=== PATIENT | male | born 1935 | race Caucasian/White ===

== ENCOUNTER 2016-11-20 10:20 | Inpatient (IN) ==
[2016-11-20] MEDS ORDERED: FUROSEMIDE 100 MG/10 ML VIAL IV STA (10:59)
--- NOTE | 2016-11-20 11:02 | EKG Report ---
Stationary ECG Study [facility] Test Date: 11/20/2016 10:54:24 AM Pat Name: LUIS VARGAS Department: Room: Gender: M Sped Teacher: ARASELI Diloln : 1935 Requested by: Terry Hamm Order Number: [id number] Reading MD: MARCY PEREZ Intervals [place] Rate: 97 P: 999 WV: 0 QRS: -59 QRSD: 127 T: 110 QT: 409 QTc: 463 Interpretive Statements ATRIAL FIBRILLATION WITH ABERRANT CONDUCTION OR VENTRICULAR PREMATURE COMPLEXES RIGHT BUNDLE BRANCH BLOCK LEFT ANTERIOR FASCICULAR BLOCK Electronically Signed On 11-20-16 14:26:52 CDT by MARCY PEREZ [email or web address]
[2016-11-20] MEDS ORDERED: FUROSEMIDE 100 MG/10 ML VIAL ONE (11:19)
[2016-11-20 11:29] LABS: Basophils # 0.1 10*3/uL (0.0-0.2); Basophils % 0.6 % (0.0-0.8); Eosinophils # 0.2 10*3/uL (0.0-0.87); Eosinophils % 2.4 % (0.00-10.9); Hematocrit 40.6 VOL% (42.0-52.0); Hemoglobin 13.1 GM/DL (14.0-18.0); Immature Granulocytes Absolute 0.08 #; Lymphocytes # 1.8 10*3/uL (1.4-4.0); Lymphocytes % 22.4 % (21.2-54.2); Mean Corpuscular HGB Conc 32.3 GM/DL (32-36); Mean Corpuscular Hemoglobin 28 PG (27-34); Mean Corpuscular Volume 85.8 FL (87-102); Mean Platelet Volume 10.8 FL (9.6-12.0); Monocytes # 0.6 10*3/uL (0.11-0.8); Monocytes % 7.9 % (1.7-12.7); Neutrophils # 5.3 10*3/uL (1.4-7.4); Neutrophils % 65.7 % (38.7-73.9); Platelet Count 204 T/CUMM (130-400); Red Blood Count 4.73 MC/CUMM (3.8-5.5); Red Cell Distribution Width 14.8 % (9.3-17.3); White Blood Count 8.1 T/CUMM (4-12)
--- NOTE | 2016-11-20 11:51 | XRay Report ---
Exam: Chest 2 views Date: November 20, 2016 Comparison: None Reason: Shortness of breath Findings: The cardiac silhouette is enlarged, and the patient is status post sternotomy. There are opacities at the left lung base which are concerning for atelectasis and possibly pneumonia. Mild pulmonary edema is also suspected. No pneumothorax is identified, but there is mild left pleural fluid and possible minimal right pleural fluid. There is kyphosis and degenerative change at the spine, but no acute osseous process is seen. Impression: 1. Cardiomegaly. 2. The opacities at the left lung base, which are concerning for atelectasis and possibly pneumonia. Mild pulmonary edema is also suspected. 3. Mild left pleural fluid and possible minimal left pleural fluid. PROCEDURE INTERPRETED AT [facility] DEPARTMENT OF RADIOLOGY Final Report Signed by: Dr. Olimpia Webb
[2016-11-20 12:02] LABS: Albumin 3.6 G/DL (3.4-5.0); Bilirubin,Total 0.6 MG/DL (0.2-1.0); Calcium 8.5 MG/DL (8.5-10.1); Magnesium 1.5 MG/DL (1.8-2.4); Osmolality,Calculated 281.5 MOS/KG (273-304); Potassium 3.8 MMOL/L (3.5-5.1); Total Protein 7.9 G/DL (6.4-8.3); Troponin I Only 0.041 NG/ML (0.00-0.045)
--- NOTE | 2016-11-20 12:27 | Ultrasound Report ---
Referring physician: Terry Orlando Exam: Bilateral lower extremity venous ultrasound Date: November 20, 2016 Comparison: None Reason: Leg swelling Technique: Duplex scan of the bilateral lower extremity veins was performed using B-Mode/grayscale imaging and Doppler spectral analysis and color flow. Ultrasound images were captured and stored. Findings: There is no evidence of thrombus within the bilateral common femoral veins, right saphenous vein, bilateral superficial femoral veins or bilateral popliteal veins. The left saphenous vein is not seen and may have been removed. Normal compression and augmentation are present throughout. Normal color flow and spectral analysis are observed. Impression: No evidence of deep venous thrombosis within either lower extremity. PROCEDURE INTERPRETED AT [facility] DEPARTMENT OF RADIOLOGY Final Report Signed by: Dr. Olimpia Webb
--- NOTE | 2016-11-20 12:45 | Emergency Department Note ---
Giovanni Barclay Gwan, am scribing for, and in the presence of, Terry Orlando MD 11:21. Johanny Barclay Phillip K, MD, personally performed the services described in this documentation, ascribed by Jah Davila in my presence, and it is both accurate and complete 245 . Arrival - Arrival Chief Complaint: Shortness of Breath Stated Complaint: Trouble Breathing ED Nursing Triage Note: pt c/o shortness of breath and productive cough. pt states is coughing up thick yellow sputum. pt reports he was diagnosed with pneumonia 1 month ago and has not fully recovered. Mode of Arrival: Ambulatory Limitations: No Limitations Source: Patient, Family, Old Records Reviewed, RN Notes Reviewed Time Seen by Provider: 11/20/16 10:59 - History of Present Illness HPI Narrative: Pt is a 81 y/o male, with a hx of pneumonia and Peripheral Artery Disease, who presents to the ED with a c/o SOB and productive cough with yellow sputum. Pt has a PMHx of HTN, IDDM, NIDDM and triple bypass with valve replacement. Patient stated that he was dx with pneumonia 1 month ago by SITE COORDINATOR in [place]. Patient continued to note that he had begun to feel some relief from pneumonia sxs but within the last 2 days he has had his sxs return and has included diaphoresis and tightness/pressure in his center chest. Family confirmed that SITE COORDINATOR in [place] recently increased Lasix, that pt has an artificial valve replacement performed at [facility] in 2005 and that pt is followed by Passenger Service Representative Chuck at [facility]. Onset (ago): day(s) Consistency: constant Severity: moderate Allergies/Adverse Reactions: Allergies Allergy/AdvReac Type Severity Reaction Status Date / Time No Known Allergies Allergy Verified 11/20/16 10:36 Home Medications: Home Medications Medication Instructions Recorded Confirmed Type Furosemide Tab [Lasix Tab] 20 mg PO DAILY 12/21/15 11/20/16 History Gabapentin 300 mg PO TID 12/21/15 11/20/16 History Insulin Glargine [Lantus] 82 unit SUBCUT BEDTIME 12/21/15 11/20/16 History Loratadine Tab [Claritin Tab] 10 mg PO BEDTIME 12/21/15 11/20/16 History Metformin HCl 1,000 mg PO BID 12/21/15 11/20/16 History Metoprolol Succinate 50 mg PO DAILY 12/21/15 11/20/16 History Omeprazole 20 mg PO DAILY PRN 12/21/15 11/20/16 History Simvastatin 80 mg PO BEDTIME 12/21/15 11/20/16 History Cyclobenzaprine HCl 5 mg PO BEDTIME 11/20/16 11/20/16 History Fluticasone 50 Mcg Nasal [place] 1 spray BOTH NARES DAILY PRN 11/20/16 11/20/16 History [Flonase Nasal [place]] Review of System - Review of System 12 point system: reviewed and no additional remarkable complaints except as stated - Review of System Constitutional: Present: as per HPI, diaphoresis. Absent: chills, fever Eyes: Absent: discharge Head/Ears/Nose/Throat: Absent: earache Respiratory: Present: as per HPI, cough, other (shortness of breathe) Cardiovascular: Present: as per HPI, chest pain Gastrointestinal: Absent: abdominal pain, nausea, vomiting, diarrhea Genitourinary male: Absent: urgency, dysuria, frequency Medical,Surgical,& Family Hx - Medical History Cardio: History of: Hypertension Neurology: No history of: Seizures Endocrine: History of: Diabetes Mellitus (IDDM), Diabetes Mellitus (NIDDM), Dyslipidemia Gastrointestinal: History of: GERD Musculoskeletal: History of: Musculoskeletal Problems - Surgical History Cardiac Surgeries: Sugical HX of: Cardiac Surgery (triple bypass with valve replacement) - Social History Smoking Status: Never smoker Frequency of Alcohol Use: None Type of Drug Use: None Exam Vital Signs: Vital Signs Temperature 97.3 F L 11/20/16 11:36 Pulse Rate 99 H 11/20/16 12:01 Respiratory Rate 25 H 11/20/16 12:36 Blood Pressure 126/67 11/20/16 12:01 O2 Sat by Pulse Oximetry 94 L 11/20/16 12:01 - General General appearance: alert, in no apparent distress - Head Head exam: Present: atraumatic, normocephalic - Eye Eye exam: Present: PERRL, EOMI, other (pale conjunctiva) - ENT ENT exam: Present: normal oropharynx, mucous membranes dry, TM's normal bilaterally, normal external ear exam - Neck Neck exam: Present: full ROM, trachea midline. Absent: tenderness - Chest Chest inspection: Present: symmetric chest wall rise. Absent: tenderness - Respiratory Respiratory exam: Present: rales (bialteral bases) - Cardiovascular Cardiovascular exam: Present: tachycardia - Abdominal Exam Abdominal exam: Present: soft, normal bowel sounds. Absent: distention, tenderness - Extremities Exam Extremities exam: Present: full ROM. Absent: tenderness - Back Exam Back exam: Present: full ROM. Absent: tenderness - Neurological Exam Neurological exam: Present: alert, oriented X3, CN II-XII intact. Absent: motor sensory deficit - Psychiatric Psychiatric exam: Present: normal affect, normal mood - Skin Skin exam: Present: warm, dry, intact, normal color Course Course Narrative: Patient discussed with the hospitalist. I feel the patient probably has some component of congestive heart failure secondary to decompensation from his atrial fibrillation. Patient reports no prior history of atrial fibrillation. He also may have a left lower lobe pneumonia. Patient was diagnosed with pneumonia 1 month ago by his nurse practitioner in [place]. He has had very little improvement since that time. Patient's color-flow venous Dopplers were negative for DVT. Will admit patient to the hospitalist for an echocardiogram IV antibiotics and cardiology consultation. Results - Labs CBC & BMP: 11/20/16 11:05 11/20/16 11:05 Lab Results: I have reviewed the patients labs - EKG EKG results: interpreted by ESCOBAR (Atrial fibrillation) - Diagnostic Findings Procedure: Chest x-ray: report reviewed by me (Left lower lobe infiltrate, left pleural effusion. Possibly small right pleural effusion) Disposition Clinical Impression: Congestive heart failure, Pneumonia left lower lobe, Pleural effusion, left, Atrial fibrillation, new onset Clinical Impression: (Ruled Out): Possible pneumonia Case discussed with: patient, patient's family Disposition: Still a Patient Condition: Guarded Additional Instructions: Admit to the hospitalist.
[2016-11-20] MEDS ORDERED: LEVOFLOXACIN INJ 500 MG in PREMIX 1 EACH IV STA (12:49)
[2016-11-20] MEDS ORDERED: LEVOFLOXACIN INJ 100 ML IV ONE (12:56)
[2016-11-20] MEDS ORDERED: PANTOPRAZOLE 40 MG TABLET PO PRN (14:42)
[2016-11-20] MEDS ORDERED: FLUTICASONE 50 MCG NASAL SPRAY 16 GM BOTTLE BOTH NARES PRN (14:42)
--- NOTE | 2016-11-20 15:14 | Hospitalist History & Physical ---
Assessment and Plan (1) Atrial fibrillation, new onset Status: Acute Assessment and plan: Rate is controlled; will consult Cardiology to evaluate. Current Visit: Yes (2) Congestive heart failure Status: Acute Assessment and plan: Diuresed in ED; will recheck CXR and BNP in AM. BNP 259; will reassess in AM. Current Visit: Yes (3) Pneumonia Status: Acute Assessment and plan: Will start empiric antibiotics and continue to monitor. Current Visit: Yes Qualifiers: Pneumonia type: due to unspecified organism Laterality: left History of Present Illness History of present illness: This is a very pleasant 81 year old male that presented to the ED at [facility] this afternoon with a chief compliant of shortness of breath and productive cough. He has a past medical significant for hypertension , diabetes mellitus, dyslipidemia, and GERD. He has a past surgical history of triple bypass with valve replacement. He reported a recent diagnosis of pneumonia on last month by his PCP in [place]. He was treated with antibiotics; however his condition improved slowly. He reports minimal relief after antibiotic completion. He reported that symptoms gradually returned with the onset of diaphoresis and midsternal chest discomfort. The symptoms became very intense; prompting him to present to the ED for further evaluation. At the time of ED presentation, he was found to be in atrial fibrillation. This finding was new in nature to him;however his rate was well controlled. Labs were obtained were unremarkable except for his glucose level of 252. Chest radiograph was obtained which suggested cardiomegaly, opacities left lung base, which are concerning for atelectasis and possibly pneumonia, mild pulmonary edema and mild left pleural effusion. After brief discussion with both Dr. Orlando and Dr. Nunez, the patient will be admitted under the hospitalist services for continuation of care. We will consult cardiology to evaluate. Home Medications Medication Instructions Recorded Confirmed Type Furosemide Tab [Lasix Tab] 20 mg PO DAILY 12/21/15 11/20/16 History Gabapentin 300 mg PO TID 12/21/15 11/20/16 History Insulin Glargine [Lantus] 82 unit SUBCUT BEDTIME 12/21/15 11/20/16 History Loratadine Tab [Claritin Tab] 10 mg PO BEDTIME 12/21/15 11/20/16 History Metformin HCl 1,000 mg PO BID 12/21/15 11/20/16 History Metoprolol Succinate 50 mg PO DAILY 12/21/15 11/20/16 History Omeprazole 20 mg PO DAILY PRN 12/21/15 11/20/16 History Simvastatin 80 mg PO BEDTIME 12/21/15 11/20/16 History Cyclobenzaprine HCl 5 mg PO BEDTIME 11/20/16 11/20/16 History Fluticasone 50 Mcg Nasal [place] 1 spray BOTH NARES DAILY PRN 11/20/16 11/20/16 History [Flonase Nasal [place]] Allergies Allergy/AdvReac Type Severity Reaction Status Date / Time No Known Allergies Allergy Verified 11/20/16 10:36 Medical,Surgical,& Family Hx - Medical History Cardio: History of: Hypertension Neurology: No history of: Seizures Endocrine: History of: Diabetes Mellitus (IDDM), Diabetes Mellitus (NIDDM), Dyslipidemia Gastrointestinal: History of: GERD Musculoskeletal: History of: Musculoskeletal Problems - Surgical History Cardiac Surgeries: Sugical HX of: Cardiac Surgery (triple bypass with valve replacement) - Social History Smoking Status: Never smoker Frequency of Alcohol Use: None Type of Drug Use: None Exam - Constitutional Vitals: Period Temp Pulse Resp BP Sys/Walsh Pulse Ox Last 24 Hr 97.3 F-97.3 F 80-120 16-26 113-137/62-78 93-100 General appearance: normal weight, no acute distress - Head Head exam: Present: normal inspection, normocephalic, atraumatic - Eye Eye exam: Present: EOMI. Absent: conjunctival injection Pupils: Present: THERESA, normal accommodation - ENT ENT exam: Present: normal exam, normal external ear exam, normal oropharynx - Neck Neck exam: Present: normal inspection. Absent: lymphadenopathy, meningismus, tenderness, thyromegaly - Respiratory Respiratory exam: Present: decreased breath sounds (left lower lobe), rales. Absent: rhonchi, stridor, wheezes - Cardiovascular Cardiovascular exam: Present: irregular rhythm. Absent: carotid bruit, diastolic murmur, gallop, rubs, systolic murmur, tachycardia - GI/Abdominal GI/Abdominal exam: Present: normal bowel sounds, soft. Absent: distended, firm , guarding - Extremities Exam Extremities exam: Present: normal inspection, full ROM, edema (trace edema) - Back Exam Back exam: Present: normal inspection - Neurological Exam Neurological exam: Present: alert, oriented X3, CN II-XII intact - Psychiatric Psychiatric exam: Present: normal affect - Skin Skin exam: Present: normal color, warm, dry Results - Labs CBC & BMP: 11/20/16 11:05 11/20/16 11:05 Lab Results: I have reviewed the past 24 hour labs
[2016-11-20] MEDS ORDERED: ACETAMINOPHEN 325 MG TABLET PO PRN (16:36)
[2016-11-20] MEDS ORDERED: ONDANSETRON 4 MG/2 ML VIAL IV PRN (16:36)
[2016-11-20] MEDS ORDERED: GLUCAGON 1 MG VIAL IM PRN (16:36)
[2016-11-20] MEDS ORDERED: ENOXAPARIN 40 MG/0.4 ML SYRINGE SUBCUT SCH (16:36)
[2016-11-20] MEDS ORDERED: DEXTROSE 50% 25 GM/50 ML VIAL IV PRN (16:36)
[2016-11-20] MEDS: GABAPENTIN 300 MG CAPSULE PO SCH ×2 (16:54→21:56)
[2016-11-20] MEDS: INSULIN LISPRO 100 UNIT/ML SUBCUT SCH ×2 (17:12→21:54)
[2016-11-20] MEDS: DILTIAZEM 30 MG TABLET PO SCH (18:03)
[2016-11-20] MEDS: SODIUM CHLORIDE 0.9% 1,000 ML IV SCH (18:04)
[2016-11-20] MEDS: ENOXAPARIN 80 MG/0.8 ML SYRINGE SUBCUT SCH (18:04)
[2016-11-20] MEDS: ALBUTEROL/IPRATROPIUM 3 ML NEB RESP TX SCH (19:09)
[2016-11-20] MEDS: LORATADINE 10 MG TABLET PO SCH (21:56)
[2016-11-20] MEDS: metFORMIN 500 MG TABLET PO SCH (21:56)
[2016-11-20] MEDS: SIMVASTATIN 80 MG TABLET PO SCH (21:56)
[2016-11-20] MEDS: CYCLOBENZAPRINE 10 MG TABLET PO SCH (21:57)
[2016-11-20] MEDS: INSULIN GLARGINE 100 UNIT/ML SUBCUT SCH (22:10)
[2016-11-21] MEDS: DILTIAZEM 30 MG TABLET PO SCH ×4 (00:15→21:33)
[2016-11-21] MEDS: ALBUTEROL/IPRATROPIUM 3 ML NEB RESP TX SCH ×4 (00:59→19:54)
[2016-11-21 04:50] LABS: Basophils # 0.1 10*3/uL (0.0-0.2); Basophils % 0.8 % (0.0-0.8); Eosinophils # 0.4 10*3/uL (0.0-0.87); Eosinophils % 4.6 % (0.00-10.9); Hematocrit 35.3 VOL% (42.0-52.0); Hemoglobin 11.3 GM/DL (14.0-18.0); Immature Granulocytes % 0.3 %; Immature Granulocytes Absolute 0.02 #; Lymphocytes # 3.1 10*3/uL (1.4-4.0); Lymphocytes % 40.4 % (21.2-54.2); Mean Corpuscular Hemoglobin 28 PG (27-34); Mean Corpuscular Volume 86.3 FL (87-102); Monocytes # 0.8 10*3/uL (0.11-0.8); Monocytes % 10.2 % (1.7-12.7); Neutrophils # 3.4 10*3/uL (1.4-7.4); Neutrophils % 43.7 % (38.7-73.9); Platelet Count 183 T/CUMM (130-400); Red Blood Count 4.09 MC/CUMM (3.8-5.5); Red Cell Distribution Width 14.7 % (9.3-17.3); White Blood Count 7.7 T/CUMM (4-12)
[2016-11-21 05:23] LABS: Calcium 8.2 MG/DL (8.5-10.1); Magnesium 1.6 MG/DL (1.8-2.4); Potassium 3.3 MMOL/L (3.5-5.1)
[2016-11-21 05:30] LABS: Troponin I Only 0.047 NG/ML (0.00-0.045)
[2016-11-21] MEDS: ENOXAPARIN 80 MG/0.8 ML SYRINGE SUBCUT SCH (05:43)
--- NOTE | 2016-11-21 08:03 | XRay Report ---
2 view chest. Indication: Dyspnea. Shortness of breath. Comparison: November 20, 2016. The heart is mildly enlarged. Post median sternotomy. The pulmonary vasculature is mildly prominent. There are bilateral basilar infiltrates and pleural effusions, slightly worsened. There is exaggerated kyphosis of the thoracic spine with demineralization and degenerative change. Anterior wedging of multiple vertebral bodies is present. Impression: Worsening findings of congestive heart failure. PROCEDURE INTERPRETED AT [facility] DEPARTMENT OF RADIOLOGY Final Report Signed by: Dr. Nazanin Myrick
[2016-11-21] MEDS: INSULIN LISPRO 100 UNIT/ML SUBCUT SCH ×4 (09:08→21:49)
[2016-11-21] MEDS: SODIUM CHLORIDE 0.9% 1,000 ML IV SCH (09:09)
[2016-11-21] MEDS: GABAPENTIN 300 MG CAPSULE PO SCH ×3 (09:10→21:37)
[2016-11-21] MEDS: metFORMIN 500 MG TABLET PO SCH ×2 (09:10→21:38)
[2016-11-21] MEDS: METOPROLOL SUCCINATE XL 50 MG TABLET PO SCH (09:11)
[2016-11-21] MEDS: FUROSEMIDE 20 MG TABLET PO SCH (09:11)
[2016-11-21] MEDS: PANTOPRAZOLE 40 MG TABLET PO SCH (09:11)
[2016-11-21] MEDS: LEVOFLOXACIN INJ 750 MG in PREMIX 1 EACH IV SCH (09:13)
--- NOTE | 2016-11-21 09:58 | Pulmonology Consult Note ---
History of Present Illness Chief complaint: Pneumonia. Bronchospasm. HD. History of present illness: Mr. Rider is a 81 year old white male whom I been asked to see in pulmonary consultation for evaluation and treatment. Please note that this entire consult as previously been dictated and as I was signing final form screen and for me that the entire dictation would be lost. I talked IT. They do not have a clue. If the dictation should show up somewhere else please understand that as a consequence of an apparent computer glitch that seems to be occurring more frequently without a solution. This patient has been treated as an outpatient by his family nurse practitioner need [place] for pneumonia. He is an outpatient treatment failure. He is complaining of shortness of breath and wheezing dyspnea on exertion. He says he has a cough productive of thick tenacious secretions that has some discoloration. He has had no blood and he has noted no pink frothy material. He has had lower extremity edema which he says is better. He has occasional recent onset of solid dysphasia. He has had some occasional gastroesophageal reflux. He is uncertain about aspiration. I do not get a clear-cut history of cardiac angina. When I asked him about palpitations he said "I would not know I had him if I had". He denies seizures syncope near syncope or TIAs. The remainder the review of systems is negative. Allergies. None Home medicines. See below Hospital medicines. See below. Past history. Triple coronary artery bypass grafts around 2001. Previous valve replacement. His lines tender lives in [place].His is a smoker and he has had passive smoking although he does not smoke. Insulin-dependent diabetes mellitus. High blood pressure. Hyperlipidemia. Allergic sinusitis. Atrial fib. Family history. High blood pressure. Insulin-dependent diabetes mellitus. Social history. Patient does not use tobacco or alcohol. He says his half is a heavy smoker and he has had a good bit of passive elevation of cigarette smoke Chest x-ray done 11/20/2016 and 11/21/2016. My interpretation. Probable old left costophrenic angle scar possibly from previous heart surgery. Right lower lung infiltrate and probable early left lower lung infiltrate. Pulmonary arteries appear to be normal. There is benign calcifications of both hilar areas. Mediastinum is normal. Lung rowell reveal no masses and I do not see any definite evidence of congestive heart failure. Lab. White count at admission was 8165.7 segs and 22.4 lymphs and 7.9 monocytes. This is dropped 7700. H&H 11.3/35.3. Platelets are 183,000. Potassium is low at 3.3. Magnesium is low at 1.6. Creatinine is 0.9 with a BUN of 12. Troponins are 0.047. Admit natruretic peptide was 259 and is just decreased to 215. Albumin and total protein and normal globulins are slightly up at 4.3 Physical exam. Vital signs. See below. Afebrile Psychiatric. Oriented 3. Fairly good historian. Cranial nerves. Intact with mild decreased hearing acuity bilaterally. Long track motor functions intact. Face is symmetrical. Lips and tongue are normal. Neck. Symmetrical slightly kyphotic with no meningismus. Lymphatics. No submandibular cervical supraclavicular or epitrochlear adenopathy. Chest. Coarse large airway wheezing with congestion. I did not hear any peripheral wheezes but patient may not be moving enough air to produce these. I hear anterior and posterior rales which is a little bit unusual in this situation. Heart. Heart sounds are distant and partially obscured by respiratory noise. I did not hear definite murmur or gallop. Abdomen. No organs were palpated. Positive bowel sounds. and rectal. Deferred Extremities. Chronic venous stasis changes to the skin over both lower extremities. Skin. See extremities. No cancerous infectious lesions of the face or hands. The remainder the physical exam was noncontributory. Impression. 1. Acute right lower lung pneumonia and probable left lower lung pneumonia. Outpatient treatment failure. Do not know what antibiotics patient was taken on the outside. 2. Acute bronchitis with bronchospasm and sputum retention 3. History of passive smoking 4. 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 History of heart valve replacement 6. Atrial fib 7. Hypokalemia 8. Hypomagnesia anemia 9. Insulin-dependent diabetes mellitus 10. Hyperlipidemia 11. High blood pressure 12. See past history Plan. 1. Sputum for Gram stain culture and sensitivity 2. Cold agglutinins 3. Legionella titer 4. Add Fortaz 1 g every 8 hours to antibiotic regimen for better gram-negative toño coverage and outpatient treatment failure situation 5. Agree with ventilation therapy with DuoNeb's 4 times daily. Have added Pulmozyme inhalation treatments twice a day 6. Singulair 10 mg daily 7. Solu-Medrol 40 IV push twice daily 8. Mucinex 600 p.o. twice daily. 9. Follow-up chest x-ray and lab. 10. Potassium and magnesium need to be replaced. 11. See orders. Home Medications Medication Instructions Recorded Confirmed Type Furosemide Tab [Lasix Tab] 20 mg PO DAILY 12/21/15 11/20/16 History Gabapentin 300 mg PO TID 12/21/15 11/20/16 History Insulin Glargine [Lantus] 82 unit SUBCUT BEDTIME 12/21/15 11/20/16 History Loratadine Tab [Claritin Tab] 10 mg PO BEDTIME 12/21/15 11/20/16 History Metformin HCl 1,000 mg PO BID 12/21/15 11/20/16 History Metoprolol Succinate 50 mg PO DAILY 12/21/15 11/20/16 History Omeprazole 20 mg PO DAILY PRN 12/21/15 11/20/16 History Simvastatin 80 mg PO BEDTIME 12/21/15 11/20/16 History Cyclobenzaprine HCl 5 mg PO BEDTIME 11/20/16 11/20/16 History Fluticasone 50 Mcg Nasal [place] 1 spray BOTH NARES DAILY PRN 11/20/16 11/20/16 History [Flonase Nasal [place]] Allergies Allergy/AdvReac Type Severity Reaction Status Date / Time No Known Allergies Allergy Verified 11/20/16 10:36 Exam (Pulmonay) H&P - Constitutional Vitals: Period Temp Pulse Resp BP Sys/Walsh Pulse Ox Last 24 Hr 97.5 F-98.4 F 54-113 18-20 108-146/69-84 94-99 Medical,Surgical,& Family Hx - Medical History Cardio: History of: Hypertension No history of: [place] Neurology: No history of: Seizures HEENT: History of: HEENT Problems (cataract surgery) Endocrine: History of: Diabetes Mellitus (IDDM), Diabetes Mellitus (NIDDM), Dyslipidemia Gastrointestinal: History of: GERD Musculoskeletal: History of: Musculoskeletal Problems (arthritis) Reproductive: Reports: Penile Disorder (penis implant) Other: History of: Miscellaneous Medical Problems (hepatitis) - Surgical History Cardiac Surgeries: Sugical HX of: Cardiac Surgery (triple bypass with valve replacement) HEENT Surgeries: Surgical HX of: Tonsilectomy & Adenoidectomy Abdominal Surgeries: Surgical HX of: Colonoscopy, EGD Orthopedic Surgeries: Surgical HX of;: Implanted Devices (penile implant) - Family History Family History: Reports;: Family Heart Disease (father-chf) - Social History Smoking Status: Never smoker Frequency of Alcohol Use: None Type of Drug Use: None Results - Labs CBC & BMP: 11/21/16 04:21 11/21/16 04:21
[2016-11-21] MEDS ORDERED: ALBUTEROL/IPRATROPIUM 3 ML NEB RESP TX PRN (10:00)
[2016-11-21] MEDS: MONTELUKAST 10 MG TABLET PO SCH (10:36)
[2016-11-21] MEDS: DORNASE ALFA 2.5 MG/2.5 ML VIAL RESP TX SCH ×2 (10:42→20:15)
[2016-11-21] MEDS ORDERED: POTASSIUM CHLORIDE 20 MEQ TABLET PO ONE (10:44)
[2016-11-21] MEDS ORDERED: MAGNESIUM SULF RIDER 4 GM in PREMIX 1 EACH IV ONE (10:44)
[2016-11-21] MEDS: methylPREDNISolone SOD SUC 40 MG/1 ML VIAL IV SCH ×2 (11:01→21:55)
--- NOTE | 2016-11-21 12:04 | Cardiology Consult Note ---
Deny, Colleen Carr RN, am scribing for, and in the presence of, Adolfo Gastelum MD 12:03. Assessment and Plan - Time spent with patient Time spent with patient: Greater than 30 minutes (due to assessment, planning, documentation, medication review) (1) Pneumonia Status: Acute Assessment and plan: Recent diagnosis of pneumonia in the past month, and he has been under antibiotic treated. IV Levaquin has been initiated since admission, and he is also receiving nebulizer treatments. Defer primary management of this to hospital medicine. Current Visit: Yes Qualifiers: Pneumonia type: due to unspecified organism Laterality: left (2) Atrial fibrillation, new onset Status: Acute Assessment and plan: Ventricular response has been overall controlled with intermittent short bursts of rapid ventricular response, and these have been self sustained. Currently he is taking Cardizem 30 mg by mouth 3 times daily. We will add Vitamin C 1000 mg by mouth twice daily to regimen. Discontinue Lovenox, and introduced Xarelto 2.5 mg by mouth twice daily for stroke prevention. Denies past history of CVA, bleeding, or other contraindication to anticoagulation at this time. I think it would be best to manage him with rate control and anticoagulation. Current Visit: Yes (3) Congestive heart failure Status: Acute Assessment and plan: Mild CHF upon admission. This is improved today after receiving IV Lasix yesterday. No overt S/S of heart failure at this time. I am going to check an echocardiogram. Current Visit: Yes (4) Hypertension Status: Chronic Assessment and plan: Blood pressure has been overall well controlled. Continue current medication regimen. Current Visit: Yes (5) Diabetes Status: Chronic Assessment and plan: Continue current plan of care. Defer primary management to hospital medicine. Current Visit: Yes (6) History of coronary artery bypass graft Status: Acute Assessment and plan: CABG 3 in 2005. Clinically, this is stable at this time. No anginal symptoms. Current Visit: Yes (7) History of aortic valve replacement Status: Acute Assessment and plan: Aortic valve replacement in 2005. Stable. I will review an echocardiogram. Current Visit: Yes (8) Hypokalemia Status: Acute Assessment and plan: Potassium today is 3.3. We will give additional K Dur 40 mEq by mouth. Continue K Dur 20 MB q. by mouth daily. Monitor electrolytes. Current Visit: Yes (9) Hypomagnesemia Status: Acute Assessment and plan: Magnesium level is 1.6. Replete with 4 g IV mag sulfate today. Follow-up magnesium level tomorrow. Current Visit: Yes (10) Hyperlipidemia Status: Acute Assessment and plan: Statin has been continued. Review fasting lipid panel in a.m. Current Visit: Yes History of Present Illness - Data of Consult Patient: new to practice Consult date: 11/21/16 Requesting Physician: Arya Nunez - Consult Narrative Reason for consult: atrial fib, dyspnea History of present illness: PRIMARY PACKER INSPECTOR: DR ANGELES ([facility]) PCP: [place] ([place]) Mr. Rider is a 81 year old male not routinely followed by [facility] cardiology. His primary diesel scoop operator is in [place], [place]. Past medical history includes hypertension, diabetes, neuropathy, hyperlipidemia, and CABG 3 with aortic valve replacement in 2005. In the past month, patient has been treated for a pneumonia and has been taking antibiotics. He has been recovering from the pneumonia fairly well, but over the past 2-3 days he experienced a recurrence and shortness of breath associated with chest tightness and some diaphoresis. Patient presented to the emergency room for further evaluation. While in the ER, he was noted to be in atrial fibrillation with a pulse rate around 120 bpm. He also had some significant lower extremity edema, and he reported that his ASSISTANT CHIEF ENGINEER and [place] had recently increased his Lasix dose. Chest x-ray in ER showed mild CHF, and venous Doppler ultrasound to rule out DVT was negative for thrombotic finding. Normal troponin levels (0.041, 0.047). Patient received Lasix 60 mg IV 1 dose and had significant response with negative output greater than 3000 cc. Lower extremity edema is improved today significantly. Minimal elevation of BNP at 259. Patient was initiated on p.o. Cardizem 30 mg 3 times daily, and his pulse rate has been well controlled, currently 80s. Cardiology was consulted to evaluate apparent new onset of atrial fibrillation with shortness of breath. Mr. Rider is awake and alert upon exam, and he appears to be in no acute distress. He is resting quietly watching TV, and his son is present at bedside. Denies continuing dyspnea or chest discomfort. Denies recent or current orthopnea, PND, palpitations, or presyncope. He denies any previous knowledge of atrial fibrillation in the past or history of obstructive sleep apnea. per nuclear monitoring technician, earlier this morning he had 2 brief bursts of RVR with pulse rate into the 140s. Systolic BP 120-140 mmHg. Upon presentation yesterday, his potassium was 3.8 and magnesium 1.5. This morning, his potassium was 3.3 and he received a one-time dose of p.o. K-Dur 40 meq. Magnesium level was 1.6, and is being repleted today with 4 g of IV mag sulfate. BNP has decreased to 215. Current Medications Acetaminophen (Tylenol Tab) 650 mg PO Q4H PRN PRN Reason: Fever, Headache, Mild Pain Hydrocodone Bitart/Acetaminophen (Blakely 5-325) 1 tablet PO Q4H PRN PRN Reason: Pain Mild (1-3) Albuterol/Ipratropium (Duoneb) 3 ml RESP TX RT Q6H [facility] Last Admin: 11/21/16 06:51 Dose: 3 ml Albuterol/Ipratropium (Duoneb) 3 ml RESP TX RT Q4H PRN PRN Reason: Shortness of Breath/Wheezing Cyclobenzaprine HCl (Flexeril) 5 mg PO BEDTIME [facility] Last Admin: 11/20/16 21:57 Dose: 5 mg Dextrose/Water (D50) 25 gm IV PRN PRN PRN Reason: Hypoglycemia with IV access Diltiazem HCl (Cardizem Tab) 30 mg PO TID [facility] Last Admin: 11/21/16 09:10 Dose: 30 mg Dornase Trey (Pulmozyme) 2.5 mg RESP TX RT Q12H [facility] Enoxaparin Sodium (Lovenox) 80 mg SUBCUT Q12H [facility] Last Admin: 11/21/16 05:43 Dose: 80 mg Fluticasone Propionate (Flonase) 1 spray BOTH NARES DAILY PRN PRN Reason: Sinus Symptoms Furosemide (Lasix Tab) 20 mg PO DAILY [facility] Last Admin: 11/21/16 09:11 Dose: 20 mg Gabapentin (Neurontin Cap/Tab) 300 mg PO TID [facility] Last Admin: 11/21/16 09:10 Dose: 300 mg Glucagon () 1 mg IM PRN PRN PRN Reason: Hypoglycemia w/o IV access Guaifenesin (Mucinex) 600 mg PO BID [facility] Levofloxacin/Dextrose 750 mg/ (Premix) 150 mls @ 100 mls/hr IV Q24H [facility] Last Admin: 11/21/16 09:13 Dose: 100 mls/hr Sodium Chloride (Ns) 1,000 mls @ 60 mls/hr IV .[id number] [facility] Last Admin: 11/21/16 09:09 Dose: 60 mls/hr Ceftazidime 1,000 mg/ Sodium (Chloride) 100 mls @ 200 mls/hr IV Q8H [facility] Insulin Glargine (Lantus) 60 unit SUBCUT BEDTIME [facility] Last Admin: 11/20/16 22:10 Dose: 60 unit Insulin Human Lispro (Humalog) 0 unit SUBCUT ACHS [facility] PRN Reason: Protocol Last Admin: 11/21/16 09:08 Dose: Not Given Loratadine (Claritin Tab) 10 mg PO BEDTIME [facility] Last Admin: 11/20/16 21:56 Dose: 10 mg Metformin HCl (Glucophage) 1,000 mg PO BID [facility] Last Admin: 11/21/16 09:10 Dose: 1,000 mg Methylprednisolone Sodium Succinate (Solumedrol) 40 mg IV Q12H [facility] Metoprolol Succinate (Toprol Xl) 50 mg PO DAILY [facility] Last Admin: 11/21/16 09:11 Dose: 50 mg Montelukast Sodium (Singulair Tab) 10 mg PO DAILY [facility] Ondansetron HCl (Zofran Inj) 4 mg IV Q4H PRN PRN Reason: Nausea Pantoprazole Sodium (Protonix Tab) 40 mg PO DAILY PRN PRN Reason: Reflux Pantoprazole Sodium (Protonix Tab) 40 mg PO DAILY [facility] Last Admin: 11/21/16 09:11 Dose: 40 mg Simvastatin (Zocor) 80 mg PO BEDTIME [facility] Last Admin: 11/20/16 21:56 Dose: 80 mg CC: Arya Nunez MD - Home Medications and Allergies Home Medications: Home Medications Medication Instructions Recorded Confirmed Type Furosemide Tab [Lasix Tab] 20 mg PO DAILY 12/21/15 11/20/16 History Gabapentin 300 mg PO TID 12/21/15 11/20/16 History Insulin Glargine [Lantus] 82 unit SUBCUT BEDTIME 12/21/15 11/20/16 History Loratadine Tab [Claritin Tab] 10 mg PO BEDTIME 12/21/15 11/20/16 History Metformin HCl 1,000 mg PO BID 12/21/15 11/20/16 History Metoprolol Succinate 50 mg PO DAILY 12/21/15 11/20/16 History Omeprazole 20 mg PO DAILY PRN 12/21/15 11/20/16 History Simvastatin 80 mg PO BEDTIME 12/21/15 11/20/16 History Cyclobenzaprine HCl 5 mg PO BEDTIME 11/20/16 11/20/16 History Fluticasone 50 Mcg Nasal Ramsey 1 spray BOTH NARES DAILY PRN 11/20/16 11/20/16 History [Flonase Nasal Ramsey] Allergies/Adverse Reactions: Allergies Allergy/AdvReac Type Severity Reaction Status Date / Time No Known Allergies Allergy Verified 11/20/16 10:36 - Constitutional Constitutional: Present: fatigue. Absent: anorexia, chills, fever(s), frequent falls, headache(s), lethargy, night sweats, stops breathing during sleep, weakness, weight gain, weight loss - EENT Eyes: Present: loss of vision (Right eye). Absent: blurry vision Ears: Absent: decreased hearing, tinnitus Nose, mouth and throat: Absent: dysphagia, epistaxis, lip swelling, nasal congestion, neck pain, throat swelling, vertigo - Cardiovascular Cardiovascular: Present: dyspnea (Improved since admission), edema (Trace pretibial). Absent: chest pain at rest, chest pain with activity, diaphoresis, dyspnea on exertion, radiating jaw, neck or arm pain, lightheadedness, orthopnea , palpitations, PND - Respiratory Respiratory: Present: cough, dyspnea, change in phlegm color (Yellow sputum production). Absent: hemoptysis, dyspnea on exertion, wheezing, pain on inspiration - Gastrointestinal Gastrointestinal: Present: early satiety. Absent: abdominal pain, change in bowel habits, constipation, diarrhea, dysphagia, hematochezia, melena, nausea, vomiting, jaundice - Genitourinary Genitourinary: Absent: difficulty urinating, dysuria, flank pain, hematuria, nocturia, urinary incontinence - Musculoskeletal Musculoskeletal: Present: arthralgias. Absent: limited range of motion - Neurological Neurological: Absent: abnormal speech, confusion, dizziness, syncope, tremor(s) - Psychiatric Psychiatric: Absent: anxiety, depression - Endocrine Endocrine: Absent: cold intolerance, heat intolerance - Hematologic/Lymphatic Hematologic/Lymphatic: Absent: easy bleeding, easy bruising Medical,Surgical,& Family Hx - Medical History Cardio: History of: Cardiac Dysrhythmia, CHF, CAD, Hypertension, Valvular Heart Disease No history of: [place] Psychological: No history of: Anxiety Disorders, Depression Neurology: No history of: Seizures HEENT: History of: HEENT Problems (cataract surgery) Endocrine: History of: Diabetes Mellitus (IDDM), Diabetes Mellitus (NIDDM), Dyslipidemia No history of: Thyroid Disorder Rheumatology: No history of;: Fibromyalgia Respiratory: No history of: COPD, Obstructive Sleep Apnea Gastrointestinal: History of: GERD Musculoskeletal: History of: Musculoskeletal Problems (arthritis) Reproductive: Reports: Penile Disorder (penis implant) Other: History of: Miscellaneous Medical Problems (hepatitis) - Surgical History Cardiac Surgeries: Sugical HX of: Cardiac Surgery (triple bypass with valve replacement) HEENT Surgeries: Surgical HX of: Tonsilectomy & Adenoidectomy Abdominal Surgeries: Surgical HX of: Colonoscopy, EGD Orthopedic Surgeries: Surgical HX of;: Implanted Devices (penile implant) - Family History Family History: Reports;: Family Heart Disease (father-chf) - Social History Smoking Status: Never smoker Frequency of Alcohol Use: None Type of Drug Use: None Physical Examination Vital Signs Temp Pulse Resp BP Pulse Ox 97.3 F L 84 18 116/62 100 11/20/16 10:31 11/20/16 10:31 11/20/16 10:31 11/20/16 10:31 11/20/16 10:31 General: Present: Appears Well, No Apparent Distress HEENT: Present: PERRL, Normocephaly, Mucus Membranes Moist. Absent: Jaundice Neck: Present: Supple Neck, Midline Trachea, No JVD/HJR, No Masses, No Bruit Cardiac: Present: Irregularly Regular, No Murmur Lungs: Present: Clear Ascult./Percussion, Decreased Breath Sounds, No Wheeze, Rales, Rhonchi Neuro: Present: Grossly Intact. Absent: Numbness, Tingling, Essential Tremor Abdomen: Present: Soft, Active Bowel Sounds, No Masses, No Pulsations/Bruits. Absent: Ascites, Firm Skin: Present: Clear. Absent: Rash, Suspicious Lesions Musculoskeletal: Present: No Fluid Collection, Normal Range of Motion Extremities: Present: No Clubbing, No Cyanosis, Normal Upper Extr. Pulses (2+ bilaterally), Normal Lower Extr. Pulses (1-2+ bilaterally), Edema (Trace pretibial), Capillary Refill (Normal) Result/EKG - Labs CBC & BMP: 11/21/16 04:21 11/21/16 04:21 Lab Results: I have reviewed the past 24 hour labs Labs: Laboratory Results - last 24 hr 11/20/16 11/21/16 11/21/16 20:19 04:19 04:21 WBC 7.7 RBC 4.09 Hgb 11.3 L Hct 35.3 L MCV 86.3 L MCH 28 MCHC 32.0 RDW 14.7 Plt Count 183 MPV 11.0 Neut % (Auto) 43.7 Lymph % (Auto) 40.4 Daggett % (Auto) 10.2 Eos % (Auto) 4.6 Baso % (Auto) 0.8 Neut # (Auto) 3.4 Lymph # (Auto) 3.1 Daggett # (Auto) 0.8 Eos # (Auto) 0.4 Baso # (Auto) 0.1 Immature Gran % 0.3 Nucleated RBC % 0.0 Immature Gran # 0.02 Nucleated RBCs # 0.00 Sodium Potassium Chloride Carbon Dioxide Anion Gap BUN Creatinine GFR Calculation BUN/Creatinine Ratio Glucose POC Glucose 343 H Calculated Osmolality Calcium Magnesium Total Creatine Kinase Troponin I B-Natriuretic Peptide 215 H 11/21/16 11/21/16 04:21 07:41 WBC RBC Hgb Hct MCV MCH MCHC RDW Plt Count MPV Neut % (Auto) Lymph % (Auto) Daggett % (Auto) Eos % (Auto) Baso % (Auto) Neut # (Auto) Lymph # (Auto) Daggett # (Auto) Eos # (Auto) Baso # (Auto) Immature Gran % Nucleated RBC % Immature Gran # Nucleated RBCs # Sodium 143 Potassium 3.3 L Chloride 102 Carbon Dioxide 33 H Anion Gap 11.3 BUN 12 Creatinine 0.90 GFR Calculation 87 BUN/Creatinine Ratio 13.00 Glucose 73 L POC Glucose 90 Calculated Osmolality 283.0 Calcium 8.2 L Magnesium 1.6 L Total Creatine Kinase 55 Troponin I 0.047 H B-Natriuretic Peptide - Diagnostic Findings Procedure: Chest x-ray: image reviewed by me, report reviewed by me - EKG EKG results: interpreted by me EKG shows: atrial fibrillation (Pulse rate 80s) INirav Michael, MD, personally performed the services described in this documentation, ascribed by Colleen Carr RN in my presence, and it is both accurate and complete .
[2016-11-21] MEDS: ASCORBIC ACID 500 MG TABLET PO SCH ×2 (13:20→21:52)
--- NOTE | 2016-11-21 14:28 | Hospitalist Progress Note ---
Assessment and Plan (1) Atrial fibrillation, new onset Status: Acute Assessment and plan: The patient is being admitted for treatment of pneumonia. He is receiving IV antibiotics and inhaled beta agonist nebulized breathing therapies. Dr. Gastelum has evaluated the patient's atrial fibrillation and recommends Xarelto and rate control which have been initiated. Lovenox has been discontinued. I reviewed the patient's plan of care with his family at the bedside. Current Visit: Yes (2) Pneumonia Status: Acute Current Visit: Yes Qualifiers: Pneumonia type: due to unspecified organism Laterality: left (3) Hypertension Status: Chronic Current Visit: Yes (4) History of coronary artery bypass graft Status: Acute Current Visit: Yes (5) History of aortic valve replacement Status: Acute Current Visit: Yes Hospitalist: Subjective Interval history: The patient is feeling better today. He has less fever, less shortness of breath, less congestion. Exam - Constitutional Vitals: Period Temp Pulse Resp BP Sys/Walsh Pulse Ox Last 24 Hr 97.5 F-98.4 F 54-118 18-20 108-146/67-84 94-99 Exam: Constitutional System: Mild distress. No tremulousness. Head: Normocephalic, atraumatic. Ears, Nose and Throat System: No evidence of Otitis or Mastoiditis. No epistaxis or discharge Eyes System: Pupils equal, round, and reactive. Extraocular muscles intact. Neck: Supple, without adenopathy, No jugular venous distention. No thyromegaly , neck mass, or prior surgery apparent. Respiratory System: Chest less congestion to auscultation. Moderate air trapping remains Cardiovascular System: Heart with regular rate and rhythm. Systolic murmur consistent with aortic valve replacement. GI System: Abdomen soft, nontender. Normo active bowel sounds present. Musculoskeletal System: limbs with no pedal edema. Full distal pulses. Neurological System: No discernable sensory deficit. No aphasia Psychiatric System: Conversation is rational Results - Labs CBC & BMP: 11/21/16 04:21 11/21/16 04:21 Lab Results: I have reviewed the past 24 hour labs
[2016-11-21] MEDS: LORATADINE 10 MG TABLET PO SCH (21:34)
[2016-11-21] MEDS: APIXABAN 2.5 MG TABLET PO SCH (21:34)
[2016-11-21] MEDS: CYCLOBENZAPRINE 10 MG TABLET PO SCH (21:35)
[2016-11-21] MEDS: SIMVASTATIN 80 MG TABLET PO SCH (21:37)
[2016-11-21] MEDS: INSULIN GLARGINE 100 UNIT/ML SUBCUT SCH (21:51)
[2016-11-22] MEDS: ALBUTEROL/IPRATROPIUM 3 ML NEB RESP TX SCH ×4 (00:23→19:44)
[2016-11-22] MEDS: SODIUM CHLORIDE 0.9% 1,000 ML IV SCH (03:42)
[2016-11-22 05:20] LABS: Basophils % 0.1 % (0.0-0.8); Hematocrit 33.7 VOL% (42.0-52.0); Hemoglobin 10.6 GM/DL (14.0-18.0); Immature Granulocytes % 0.7 %; Immature Granulocytes Absolute 0.06 #; Lymphocytes # 0.7 10*3/uL (1.4-4.0); Lymphocytes % 9.1 % (21.2-54.2); Mean Corpuscular HGB Conc 31.5 GM/DL (32-36); Mean Corpuscular Hemoglobin 28 PG (27-34); Mean Corpuscular Volume 88.2 FL (87-102); Mean Platelet Volume 10.6 FL (9.6-12.0); Monocytes # 0.1 10*3/uL (0.11-0.8); Monocytes % 1.5 % (1.7-12.7); Neutrophils # 7.2 10*3/uL (1.4-7.4); Neutrophils % 88.6 % (38.7-73.9); Platelet Count 167 T/CUMM (130-400); Red Blood Count 3.82 MC/CUMM (3.8-5.5); Red Cell Distribution Width 14.5 % (9.3-17.3); White Blood Count 8.1 T/CUMM (4-12)
[2016-11-22 05:59] LABS: Calcium 8.2 MG/DL (8.5-10.1); Magnesium 2.1 MG/DL (1.8-2.4); Osmolality,Calculated 288.5 MOS/KG (273-304); Potassium 4.1 MMOL/L (3.5-5.1)
[2016-11-22] MEDS: DORNASE ALFA 2.5 MG/2.5 ML VIAL RESP TX SCH ×2 (07:32→19:38)
--- NOTE | 2016-11-22 09:18 | XRay Report ---
XR chest 2V Indication: Cough, shortness of breath Comparison: 21 Nov 2016 Findings: The heart and mediastinum are stable in size and configuration with cardiac surgery changes. The pulmonary vascularity is increased with bilateral increased interstitial lung density, appears slightly increased. Small left effusion is seen. No other lung infiltrates, effusions, pneumothorax or other abnormality is demonstrated. Impression: Findings suggest cardiac decompensation, slightly increased from previous. PROCEDURE INTERPRETED AT [facility] DEPARTMENT OF RADIOLOGY Final Report Signed by: Dr. Genaro Wheeler
--- NOTE | 2016-11-22 09:53 | Pulmonology Progress Note ---
Pulmonary - PN: Subj Interval history: This is a 81-year-old male whom I saw in pulmonary consultation on 11/21/2016. My impressions were. 1. Acute right lower lung pneumonia and probable left lower lung pneumonia. Outpatient treatment failure. Do not know what antibiotics patient was taken on the outside. 2. Acute bronchitis with bronchospasm and sputum retention 3. History of passive smoking 4. 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 History of heart valve replacement 6. Atrial fib 7. Hypokalemia 8. Hypomagnesia anemia 9. Insulin-dependent diabetes mellitus 10. Hyperlipidemia 11. High blood pressure 12. See past history 11/22/2016. This patient's chest x-ray is better today. I think he had a right lower lung pneumonia and probably a left lower lung pneumonia. In addition he had acute bronchitis with bronchospasm. His large airway wheezing is much better. He still has some coarse congestion. Has a cough which is productive of very little sputum. He is being treated for this. Cold agglutinins are negative. There are no positive cultures. Natruretic peptide is elevated at 301. Electrolytes normal. Creatinine has increased to 1.1. White count is 8700 with 89 segs. I think we should continue the present regimen. Patient is improving. Physical exam. Vital signs. See below Psychiatric oriented 3 Neurologic. Cranial nerves are intact with decreased hearing acuity. Long track motor functions intact Face. Eyes are normal. Face is symmetrical. Lips and tongue are normal. Neck. Symmetrical. No meningismus. Lymphatics. No submandibular cervical supraclavicular adenopathy. Chest. Mild tracheal and large airway wheeze with coarse congestion and prolonged expiration Heart. Lateral PMI Abdomen. Nontender. Positive bowel sounds Extremities. Nothing to suggest deep venous thrombophlebitis The remainder the physical exam is noncontributory Plan. 1. Sputum for Gram stain culture and sensitivity 2. Cold agglutinins 3. Legionella titer 4. Add Fortaz 1 g every 8 hours to antibiotic regimen for better gram-negative toño coverage and outpatient treatment failure situation 5. Agree with ventilation therapy with DuoNeb's 4 times daily. Have added Pulmozyme inhalation treatments twice a day 6. Singulair 10 mg daily 7. Solu-Medrol 40 IV push twice daily 8. Mucinex 600 p.o. twice daily. 9. Follow-up chest x-ray and lab. 10. Potassium and magnesium need to be replaced. 11. See orders. Exam (Progress Note) - Constitutional Vitals: Period Temp Pulse Resp BP Sys/Walsh Pulse Ox Last 24 Hr 96.8 F-98.2 F 54-118 17-20 96-164/52-68 95-100 Results - Labs CBC & BMP: 11/22/16 04:53 11/22/16 04:53
--- NOTE | 2016-11-22 10:20 | ECHO Report ---
Usman Rider Exam Date: 11/21/2016 11:13 Referring Physician: Technologist: Chiquita Green RDCS Age: 81 Ht (in): 67 Wt (lb): 182 Gender: M Exam Location: [facility] Echo Indications: Atrial fibrillation, Heart failure, unspecified, Pneumonia, Essential (primary) hypertension, Cough, Chronic fatigue, unspecified, Hyperlipidemia, unspecified, Hypomagnesemia, Hypokalemia BP: 125 / 67 HR: 111 Rhythm: Atrial fibrillation Technical Quality: IMPRESSIONS Left ventricular ejection fraction is estimated at 40-45 %. Mild to moderate bilateral atrial enlargement. Qort-[id number] tricuspid valve regurgitation. Mild mitral annular and leaflet calcification with mild mitral regurgitation. 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 MEASUREMENTS (Male / Female) Normal Values 2D ECHO LV Diastolic Diameter PLAX 4.7 cm 4.2 - 5.9 / 3.9 - 5.3 cm LV Systolic Diameter PLAX 3.8 cm LV Fractional Shortening PLAX 20.0 % IVS Diastolic Thickness 1.1 cm 0.6 - 1.0 / 0.6 - 0.9 cm LVPW Diastolic Thickness 1.1 cm 0.6 - 1.0 / 0.6 - 0.9 cm RV Internal Dim ED PLAX 4.0 cm Aortic Root Diameter 3.4 cm LA Systolic Diameter LX 6.0 cm 3.0 - 4.0 / 2.7 - 3.8 cm DOPPLER TR Peak Velocity 347.0 cm/s TR Peak Gradient 48.2 mmHg FINDINGS Left Ventricle Normal left ventricular cavity size. Mild left ventricular hypertrophy. Left ventricular ejection fraction is estimated at 40-45 %. Right Ventricle The right ventricle is normal in size and function. Right Atrium Mildly increased right atrial size. Left Atrium Moderately increased left atrial size. Mitral Valve Mild mitral annular and leaflet calcification with mild mitral regurgitation. 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 Mean gradient 9 mmHg, UBALDO 1.6 cm. No aortic valve regurgitation. Tricuspid Valve Morphologically normal tricuspid valve. [id number]-dh-kycymwef tricuspid valve regurgitation. Tricuspid regurgitation velocities suggest a PAP of 58 mmHg. Pulmonic Valve Morphologically normal pulmonic valve. Mild pulmonary valve regurgitation. Pericardium Normal pericardium without effusion. Aorta Normal ascending aorta dimension. Adolfo Nirav (Electronically Signed) Final Date: 22 Nov 2016 10:19
[2016-11-22] MEDS: MONTELUKAST 10 MG TABLET PO SCH (10:40)
[2016-11-22] MEDS: ASCORBIC ACID 500 MG TABLET PO SCH ×2 (10:40→21:29)
[2016-11-22] MEDS: DILTIAZEM 30 MG TABLET PO SCH ×3 (10:41→21:28)
[2016-11-22] MEDS: PANTOPRAZOLE 40 MG TABLET PO SCH (10:41)
[2016-11-22] MEDS: metFORMIN 500 MG TABLET PO SCH ×2 (10:41→21:28)
[2016-11-22] MEDS: POTASSIUM CHLORIDE 20 MEQ TABLET PO SCH (10:42)
[2016-11-22] MEDS: METOPROLOL SUCCINATE XL 50 MG TABLET PO SCH (10:42)
[2016-11-22] MEDS: FUROSEMIDE 20 MG TABLET PO SCH (10:42)
[2016-11-22] MEDS: GABAPENTIN 300 MG CAPSULE PO SCH ×3 (10:42→21:28)
[2016-11-22] MEDS: APIXABAN 2.5 MG TABLET PO SCH ×2 (10:43→21:28)
[2016-11-22] MEDS: methylPREDNISolone SOD SUC 40 MG/1 ML VIAL IV SCH ×2 (10:43→21:29)
[2016-11-22] MEDS: INSULIN LISPRO 100 UNIT/ML SUBCUT SCH ×4 (10:45→21:29)
[2016-11-22] MEDS: LEVOFLOXACIN INJ 750 MG in PREMIX 1 EACH IV SCH (10:46)
--- NOTE | 2016-11-22 12:07 | Hospitalist Progress Note ---
Assessment and Plan (1) Atrial fibrillation, new onset Status: Acute Assessment and plan: The patient is being admitted for treatment of pneumonia. He is receiving IV antibiotics and inhaled beta agonist nebulized breathing therapies. Dr. Gastelum has evaluated the patient's atrial fibrillation and recommends Xarelto and rate control which have been initiated. I reviewed the patient's plan of care with his family at the bedside. I anticipate discharge home on Friday. I have asked the patient and family to be more active and ambulatory today. Current Visit: Yes (2) Pneumonia Status: Acute Current Visit: Yes Qualifiers: Pneumonia type: due to unspecified organism Laterality: left (3) Hypertension Status: Chronic Current Visit: Yes (4) History of coronary artery bypass graft Status: Acute Current Visit: Yes (5) History of aortic valve replacement Status: Acute Current Visit: Yes Hospitalist: Subjective Interval history: The patient has less upper airway congestion today and fewer rhonchi. The patient is breathing comfortably and examination is improving each day. I expect that he will be discharged on Friday Exam - Constitutional Vitals: Period Temp Pulse Resp BP Sys/Walsh Pulse Ox Last 24 Hr 96.8 F-98.1 F 54-112 17-20 96-164/52-68 95-100 Exam: Constitutional System: No distress. No tremulousness. The patient is up to chair Head: Normocephalic, atraumatic. Ears, Nose and Throat System: No evidence of Otitis or Mastoiditis. No epistaxis or discharge Eyes System: Pupils equal, round, and reactive. Extraocular muscles intact. Neck: Supple, without adenopathy, No jugular venous distention. No thyromegaly , neck mass, or prior surgery apparent. Respiratory System: Chest l no congestion to auscultation. Minimal air trapping remains Cardiovascular System: Heart with regular rate and rhythm. Systolic murmur consistent with aortic valve replacement. GI System: Abdomen soft, nontender. Normo active bowel sounds present. Musculoskeletal System: limbs with no pedal edema. Full distal pulses. Neurological System: No discernable sensory deficit. No aphasia Psychiatric System: Conversation is rational Results - Labs CBC & BMP: 11/22/16 04:53 11/22/16 04:53 Lab Results: I have reviewed the past 24 hour labs
--- NOTE | 2016-11-22 14:02 | Cardiology Progress Note ---
Bruno Barclay Vanessa, RN, am scribing for, and in the presence of, Adolfo Gastelum MD 14:02. Assessment and Plan - Time spent with patient Time spent with patient: Greater than 30 minutes (1) Pneumonia Status: Acute Assessment and plan: Patient is receiving nebulizers and IV antibiotics. Pulmonary has been consulted, and they are following. We will defer primary management to Dr. Bacon. Current Visit: Yes Qualifiers: Pneumonia type: due to unspecified organism Laterality: left (2) Atrial fibrillation, new onset Status: Acute Assessment and plan: Ventricular response has been overall controlled with intermittent short bursts of rapid ventricular response, and these have been self sustained. Currently he is taking Cardizem 30 mg by mouth 3 times daily. We will add Vitamin C 1000 mg by mouth twice daily to regimen. We have initiated Eliquis 2.5 mg by mouth twice daily for stroke prevention. Will monitor closely for S/S bleeding. Denies past history of CVA, bleeding, or other contraindication to anticoagulation at this time. Patient would best be served with rate control and anticoagulation at this time. His rate is going a bit fast at times. I am going to increase his diltiazem. Echocardiogram obtained yesterday and reviewed. Mild LVH with LV ejection fraction 40-45%, mild to moderate increase of atria, moderate pulmonary hypertension with a PA pressure of 58 mmHg. Current Visit: Yes (3) Congestive heart failure Status: Acute Assessment and plan: Current Visit: Yes (4) Hypertension Status: Chronic Assessment and plan: Blood pressure remains overall well controlled. No adjustments to medication regimen at this time. Current Visit: Yes (5) Diabetes Status: Chronic Assessment and plan: Continue current plan of care. Defer primary management to hospital medicine. Current Visit: Yes (6) History of coronary artery bypass graft Status: Acute Assessment and plan: CABG 3 in 2005. Clinically, remained stable at this time. Current Visit: Yes (7) History of aortic valve replacement Status: Acute Assessment and plan: Aortic valve replacement in 2005. Stable. Current Visit: Yes (8) Hypokalemia Status: Acute Assessment and plan: Hypokalemia resolved today, and today potassium is 4.1. Continue potassium supplement, and replete as needed with PRN IV protocol. Continue to monitor electrolytes and optimize. Current Visit: Yes (9) Hypomagnesemia Status: Acute Assessment and plan: Hypomagnesemia improved today after receiving 4 g IV mag sulfate, and magnesium is 2.1. Continue to monitor electrolytes and optimize. Current Visit: Yes (10) Hyperlipidemia Status: Acute Assessment and plan: Statin has been continued. Current Visit: Yes Cardiology - PN: Subj Interval history: PRIMARY GUEST SPECIALIST: DR ANGELES ([facility]) PCP: AR ([place]) Mr. Rider is a 81 year old male not routinely followed by [facility] cardiology. 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 Past medical history includes hypertension, diabetes, neuropathy, hyperlipidemia, and CABG 3 with aortic valve replacement in 2005. In the past month, patient has been treated for a pneumonia and has been taking antibiotics. He has been recovering from the pneumonia fairly well, but over the past 2-3 days he experienced a recurrence and shortness of breath associated with chest tightness and some diaphoresis. Patient presented to the emergency room for further evaluation. While in the ER, he was noted to be in atrial fibrillation with a pulse rate around 120 bpm. He also had some significant lower extremity edema, and he reported that his TEST TUBE MAKER and Dewey had recently increased his Lasix dose. Chest x-ray in ER showed mild CHF, and venous Doppler ultrasound to rule out DVT was negative for thrombotic finding. Normal troponin levels (0.041, 0.047). Patient received Lasix 60 mg IV 1 dose and had significant response with negative output greater than 3000 cc. Lower extremity edema is improved today significantly. Minimal elevation of BNP at 259. Patient was initiated on p.o. Cardizem 30 mg 3 times daily, and his pulse rate has been well controlled, currently 80s. Cardiology was consulted to evaluate apparent new onset of atrial fibrillation with shortness of breath. Mr. Rider is awake and alert this morning. Patient is in no acute distress, and he is sitting up in bedside chair watching television. Son is present with him. Patient denies chest pain, dyspnea, palpitation, presyncope, or other cardiac complaint. Reports that he rested well last night, and his appetite is good this morning. Afebrile, and blood pressure has been overall stable with SBP ranging 115-140 mmHg. Atrial fibrillation per media monitor with continued, intermittent short bursts of rapid ventricular response, pulse rate 130s-140s. Labs reviewed. WBC 8100. H&H 10.6 and 33.7. Sodium 139. Potassium improved to 4.1 today. Magnesium also improved to 2.1. BNP 301 (215 yesterday). Blood culture and sputum cultures negative. Current Medications Acetaminophen (Tylenol Tab) 650 mg PO Q4H PRN PRN Reason: Fever, Headache, Mild Pain Hydrocodone Bitart/Acetaminophen ([place] 5-325) 1 tablet PO Q4H PRN PRN Reason: Pain Mild (1-3) Albuterol/Ipratropium (Duoneb) 3 ml RESP TX RT Q6H [facility] Last Admin: 11/22/16 07:32 Dose: 3 ml Albuterol/Ipratropium (Duoneb) 3 ml RESP TX RT Q4H PRN PRN Reason: Shortness of Breath/Wheezing Apixaban (Eliquis) 2.5 mg PO BID [facility] Last Admin: 11/22/16 10:43 Dose: 2.5 mg Ascorbic Acid (Vitamin C Tab) 1,000 mg PO BID [facility] Last Admin: 11/22/16 10:40 Dose: 1,000 mg Cyclobenzaprine HCl (Flexeril) 5 mg PO BEDTIME [facility] Last Admin: 11/21/16 21:35 Dose: 5 mg Dextrose/Water (D50) 25 gm IV PRN PRN PRN Reason: Hypoglycemia with IV access Diltiazem HCl (Cardizem Tab) 30 mg PO TID [facility] Last Admin: 11/22/16 10:41 Dose: 30 mg Dornase Trey (Pulmozyme) 2.5 mg RESP TX RT Q12H [facility] Last Admin: 11/22/16 07:32 Dose: 2.5 mg Fluticasone Propionate (Flonase) 1 spray BOTH NARES DAILY PRN PRN Reason: Sinus Symptoms Furosemide (Lasix Tab) 20 mg PO DAILY [facility] Last Admin: 11/22/16 10:42 Dose: 20 mg Gabapentin (Neurontin Cap/Tab) 300 mg PO TID [facility] Last Admin: 11/22/16 10:42 Dose: 300 mg Glucagon () 1 mg IM PRN PRN PRN Reason: Hypoglycemia w/o IV access Guaifenesin (Mucinex) 600 mg PO BID [facility] Last Admin: 11/22/16 10:40 Dose: 600 mg Levofloxacin/Dextrose 750 mg/ (Premix) 150 mls @ 100 mls/hr IV Q24H [facility] Last Infusion: 11/21/16 11:00 Dose: Infused Sodium Chloride (Ns) 1,000 mls @ 60 mls/hr IV .[id number] [facility] Last Admin: 11/22/16 03:42 Dose: Not Given Ceftazidime 1,000 mg/ Sodium (Chloride) 100 mls @ 200 mls/hr IV Q8H [facility] Last Admin: 11/22/16 03:37 Dose: 200 mls/hr Insulin Glargine (Lantus) 60 unit SUBCUT BEDTIME [facility] Last Admin: 11/21/16 21:51 Dose: 60 unit Insulin Human Lispro (Humalog) 0 unit SUBCUT ACHS [facility] PRN Reason: Protocol Last Admin: 11/22/16 10:45 Dose: 9 unit Loratadine (Claritin Tab) 10 mg PO BEDTIME [facility] Last Admin: 11/21/16 21:34 Dose: 10 mg Metformin HCl (Glucophage) 1,000 mg PO BID [facility] Last Admin: 11/22/16 10:41 Dose: 1,000 mg Methylprednisolone Sodium Succinate (Solumedrol) 40 mg IV Q12H [facility] Last Admin: 11/22/16 10:43 Dose: 40 mg Metoprolol Succinate (Toprol Xl) 50 mg PO DAILY [facility] Last Admin: 11/22/16 10:42 Dose: 50 mg Montelukast Sodium (Singulair Tab) 10 mg PO DAILY [facility] Last Admin: 11/22/16 10:40 Dose: 10 mg Ondansetron HCl (Zofran Inj) 4 mg IV Q4H PRN PRN Reason: Nausea Pantoprazole Sodium (Protonix Tab) 40 mg PO DAILY PRN PRN Reason: Reflux Pantoprazole Sodium (Protonix Tab) 40 mg PO DAILY [facility] Last Admin: 11/22/16 10:41 Dose: 40 mg Potassium Chloride (K Dur) 20 meq PO DAILY [facility] Last Admin: 11/22/16 10:42 Dose: 20 meq Simvastatin (Zocor) 80 mg PO BEDTIME [facility] Last Admin: 11/21/16 21:37 Dose: 80 mg Exam (Progress Note) - Constitutional Vitals: Period Temp Pulse Resp BP Sys/Walsh Pulse Ox Last 24 Hr 96.8 F-98.2 F 54-118 17-20 96-164/52-68 95-100 Exam: General: Present: Appears Well, No Apparent Distress HEENT: Present: PERRL, Normocephaly, Mucus Membranes Moist. Absent: Jaundice Neck: Present: Supple Neck, Midline Trachea, No JVD/HJR, No Masses, No Bruit Cardiac: Present: Irregularly Regular, Systolic Murmur Lungs: Present: Coarse, Decreased Breath Sounds, No Wheeze, Rales, Rhonchi Neuro: Present: Grossly Intact. Absent: Numbness, Tingling, Essential Tremor Abdomen: Present: Soft, Active Bowel Sounds, No Masses, No Pulsations/Bruits. Absent: Ascites, Firm Skin: Present: Clear. Absent: Rash, Suspicious Lesions Musculoskeletal: Present: No Fluid Collection, Normal Range of Motion Extremities: Present: No Clubbing, No Cyanosis, Normal Upper Extr. Pulses (2+ bilaterally), Normal Lower Extr. Pulses (1-2+ bilaterally), Edema (Trace pretibial), Capillary Refill (Normal) Result/EKG - Labs CBC & BMP: 11/22/16 04:53 11/22/16 04:53 Lab Results: I have reviewed the past 24 hour labs Labs: Laboratory Results - last 24 hr 11/21/16 11/21/16 11/21/16 10:48 11:34 16:18 WBC RBC Hgb Hct MCV MCH MCHC RDW Plt Count MPV Neut % (Auto) Lymph % (Auto) [place] % (Auto) Eos % (Auto) Baso % (Auto) Neut # (Auto) Lymph # (Auto) [place] # (Auto) Eos # (Auto) Baso # (Auto) Immature Gran % Nucleated RBC % Immature Gran # Nucleated RBCs # Sodium Potassium Chloride Carbon Dioxide Anion Gap BUN Creatinine GFR Calculation BUN/Creatinine Ratio Glucose POC Glucose 121 H 287 H Calculated Osmolality Calcium Magnesium B-Natriuretic Peptide Cold Agglutinin Screen 1:2 11/21/16 11/22/16 11/22/16 20:26 04:53 04:53 WBC 8.1 RBC 3.82 Hgb 10.6 L Hct 33.7 L MCV 88.2 MCH 28 MCHC 31.5 L RDW 14.5 Plt Count 167 MPV 10.6 Neut % (Auto) 88.6 H Lymph % (Auto) 9.1 L [place] % (Auto) 1.5 L Eos % (Auto) 0.0 Baso % (Auto) 0.1 Neut # (Auto) 7.2 Lymph # (Auto) 0.7 L [place] # (Auto) 0.1 L Eos # (Auto) 0.0 Baso # (Auto) 0.0 Immature Gran % 0.7 Nucleated RBC % 0.0 Immature Gran # 0.06 Nucleated RBCs # 0.00 Sodium 139 Potassium 4.1 Chloride 101 Carbon Dioxide 26 Anion Gap 16.1 H BUN 14 Creatinine 1.10 GFR Calculation 68 BUN/Creatinine Ratio 12.00 Glucose 291 H POC Glucose 323 H Calculated Osmolality 288.5 Calcium 8.2 L Magnesium 2.1 B-Natriuretic Peptide Cold Agglutinin Screen 11/22/16 11/22/16 04:53 07:06 WBC RBC Hgb Hct MCV MCH MCHC RDW Plt Count MPV Neut % (Auto) Lymph % (Auto) [place] % (Auto) Eos % (Auto) Baso % (Auto) Neut # (Auto) Lymph # (Auto) [place] # (Auto) Eos # (Auto) Baso # (Auto) Immature Gran % Nucleated RBC % Immature Gran # Nucleated RBCs # Sodium Potassium Chloride Carbon Dioxide Anion Gap BUN Creatinine GFR Calculation BUN/Creatinine Ratio Glucose POC Glucose 296 H Calculated Osmolality Calcium Magnesium B-Natriuretic Peptide 301 H Cold Agglutinin Screen - Diagnostic Findings Procedure: Chest x-ray: image reviewed by me, report reviewed by me (11/22/16: Bilaterally increased interstitial lung density and small left pleural effusion. No new infiltrate. No pneumothorax.) - EKG EKG results: interpreted by me, no acute changes EKG shows: atrial fibrillation Nirav Barclay Michael, MD, personally performed the services described in this documentation, ascribed by Colleen Carr RN in my presence, and it is both accurate and complete 402 .
[2016-11-22] MEDS: CYCLOBENZAPRINE 10 MG TABLET PO SCH (21:27)
[2016-11-22] MEDS: LORATADINE 10 MG TABLET PO SCH (21:28)
[2016-11-22] MEDS: INSULIN GLARGINE 100 UNIT/ML SUBCUT SCH (21:30)
[2016-11-22] MEDS: SIMVASTATIN 80 MG TABLET PO SCH (21:38)
[2016-11-23] MEDS: ALBUTEROL/IPRATROPIUM 3 ML NEB RESP TX SCH ×4 (00:02→20:44)
[2016-11-23 04:22] LABS: Basophils % 0.1 % (0.0-0.8); Hematocrit 34.8 VOL% (42.0-52.0); Hemoglobin 10.8 GM/DL (14.0-18.0); Immature Granulocytes % 0.8 %; Immature Granulocytes Absolute 0.12 #; Lymphocytes # 0.7 10*3/uL (1.4-4.0); Lymphocytes % 4.3 % (21.2-54.2); Mean Corpuscular Hemoglobin 28 PG (27-34); Mean Corpuscular Volume 89.7 FL (87-102); Monocytes # 0.3 10*3/uL (0.11-0.8); Monocytes % 2.1 % (1.7-12.7); Neutrophils # 13.9 10*3/uL (1.4-7.4); Neutrophils % 92.7 % (38.7-73.9); Platelet Count 170 T/CUMM (130-400); Red Blood Count 3.88 MC/CUMM (3.8-5.5); Red Cell Distribution Width 14.6 % (9.3-17.3)
[2016-11-23 04:54] LABS: Calcium 8.5 MG/DL (8.5-10.1); Magnesium 2.1 MG/DL (1.8-2.4); Osmolality,Calculated 289.8 MOS/KG (273-304); Potassium 4.9 MMOL/L (3.5-5.1)
[2016-11-23 05:34] LABS: Lymphocytes 3 % (20-55); Segmented Neutrophils 95 % (50-85); Total Cells Counted 100
[2016-11-23 05:35] LABS: Elliptocytes Few; Hypochromasia Slight; Platelet Estimate Normal
[2016-11-23] MEDS: DORNASE ALFA 2.5 MG/2.5 ML VIAL RESP TX SCH ×2 (07:27→20:44)
[2016-11-23] MEDS: INSULIN LISPRO 100 UNIT/ML SUBCUT SCH ×4 (08:50→21:04)
[2016-11-23] MEDS: ASCORBIC ACID 500 MG TABLET PO SCH ×2 (08:51→21:07)
[2016-11-23] MEDS: MONTELUKAST 10 MG TABLET PO SCH (08:52)
[2016-11-23] MEDS: POTASSIUM CHLORIDE 20 MEQ TABLET PO SCH (08:52)
[2016-11-23] MEDS: GABAPENTIN 300 MG CAPSULE PO SCH ×3 (08:52→21:07)
[2016-11-23] MEDS: METOPROLOL SUCCINATE XL 50 MG TABLET PO SCH (08:53)
[2016-11-23] MEDS: PANTOPRAZOLE 40 MG TABLET PO SCH (08:53)
[2016-11-23] MEDS: APIXABAN 2.5 MG TABLET PO SCH ×2 (08:53→21:07)
[2016-11-23] MEDS: DILTIAZEM 30 MG TABLET PO SCH ×3 (08:54→21:07)
[2016-11-23] MEDS: metFORMIN 500 MG TABLET PO SCH ×2 (08:54→21:06)
[2016-11-23] MEDS: FUROSEMIDE 20 MG TABLET PO SCH (08:54)
--- NOTE | 2016-11-23 08:55 | Pulmonology Progress Note ---
Pulmonary - PN: Subj Interval history: Patient is an 81-year-old that is being treated for pneumonia. He has had previous heart surgery and has a chronic left pleural thickening apparently is stable. He came in with coughing and wheezing and asthmatic bronchitis. He is feeling better although he still has a little bit of cough and sputum production. He says his breathing is getting a little better. He seems to be tolerating his medicines okay. Overall he is improving Exam (Progress Note) - Constitutional Vitals: Period Temp Pulse Resp BP Sys/Walsh Pulse Ox Last 24 Hr 96.2 F-99.1 F 78-117 16-20 102-140/49-82 92-100 General appearance: no acute distress (He is comfortable sitting up in bed) - Head Head exam: Present: normal inspection, normocephalic - Eye Eye exam: Present: EOMI. Absent: scleral icterus Pupils: Present: THERESA - ENT ENT exam: Present: normal exam - Neck Neck exam: Present: normal inspection. Absent: lymphadenopathy, thyromegaly - Respiratory Respiratory exam: Present: rales (He does have some crackles in the bases but has good breath sounds.), rhonchi, wheezes. Absent: accessory muscle use - Cardiovascular Cardiovascular exam: Present: irregular rhythm. Absent: gallop, systolic murmur , tachycardia - GI/Abdominal GI/Abdominal exam: Present: normal bowel sounds, soft. Absent: distended, organomegaly, tenderness - Extremities Exam Extremities exam: Absent: calf tenderness, edema - Neurological Exam Neurological exam: Present: alert, oriented X3 - Psychiatric Psychiatric exam: Present: normal affect - Skin Skin exam: Present: warm, dry Results - Labs CBC & BMP: 11/23/16 03:32 11/23/16 03:32 - Diagnostic Findings Procedure: Chest x-ray: image reviewed by me, report reviewed by me (Chest x- ray shows cardiomegaly and very mild bilateral infiltrates. There is a left pleural thickening that appears chronic.) Assessment and Plan (1) Atrial fibrillation, new onset Status: Acute Assessment and plan: Patient has an irregular heart rhythm that is being controlled. He has been followed by cardiology. Current Visit: Yes (2) Pneumonia Status: Acute Assessment and plan: Patient is getting antibiotics and is improving. His cultures have been negative so far. His breathing is getting better. Current Visit: Yes Qualifiers: Pneumonia type: due to unspecified organism Laterality: left (3) Hypertension Status: Chronic Assessment and plan: His blood pressure and heart rate are controlled. Current Visit: Yes (4) Diabetes Status: Chronic Assessment and plan: His glucose is around 300. He is getting insulin. Current Visit: Yes (5) History of coronary artery bypass graft Status: Acute Assessment and plan: Patient has had previous heart surgery. His ejection fraction is about 40-45%. Current Visit: Yes (6) History of aortic valve replacement Status: Acute Assessment and plan: Patient has had previous aortic valve replacement Current Visit: Yes
[2016-11-23] MEDS: LEVOFLOXACIN INJ 750 MG in PREMIX 1 EACH IV SCH (09:20)
[2016-11-23] MEDS: methylPREDNISolone SOD SUC 40 MG/1 ML VIAL IV SCH ×2 (09:21→14:54)
--- NOTE | 2016-11-23 09:37 | XRay Report ---
Exam: Chest 2 views Date: November 23, 2016 at 7:03 AM Comparison: Chest 2 views November 22, 2016 Reason: Cough, shortness of breath Findings: The cardiac silhouette is again mildly enlarged, and the patient is status post sternotomy with valve replacement. The interstitial markings are diffusely prominent bilaterally, and there are opacities at the left lung base. This is concerning for pulmonary edema, atelectasis and likely scarring, but there could also be pneumonia. No pneumothorax is identified, but there is mild left pleural fluid and minimal right pleural fluid. The osseous structures appear stable. Impression: There has been no significant change. PROCEDURE INTERPRETED AT [facility] DEPARTMENT OF RADIOLOGY Final Report Signed by: Dr. Olimpia Webb
--- NOTE | 2016-11-23 11:04 | EKG Report ---
Stationary ECG Study [facility] Test Date: 11/23/2016 11:03:26 AM Pat Name: LUIS VARGAS Department: Room: 267 Gender: M Systems Admin: : [id number] Requested by: Eran Mata Order Number: [id number] Reading MD: NGUYEN RUBIO Intervals [place] Rate: 74 P: 999 IN: 0 QRS: -56 QRSD: 138 T: 93 QT: 392 QTc: 419 Interpretive Statements ATRIAL FIBRILLATION RIGHT BUNDLE BRANCH BLOCK LEFT ANTERIOR FASCICULAR BLOCK Electronically Signed On 11-25-16 12:24:19 CDT by NGUYEN RUBIO [email or web address]
--- NOTE | 2016-11-23 11:35 | Cardiology Progress Note ---
Assessment and Plan (1) Pneumonia Status: Acute Assessment and plan: Patient is receiving nebulizers and IV antibiotics. Pulmonary has been consulted, and they are following. We will defer primary management to Dr. Bacon. Current Visit: Yes Qualifiers: Pneumonia type: due to unspecified organism Laterality: left (2) Atrial fibrillation, new onset Status: Acute Assessment and plan: His heart rate now appears to be well controlled. He is not have any symptoms from this. We have initiated Eliquis 2.5 mg by mouth twice daily for stroke prevention. Will monitor closely for S/S bleeding. Denies past history of CVA , bleeding, or other contraindication to anticoagulation at this time. Patient would best be served with rate control and anticoagulation at this time. Echocardiogram showed mild LVH with LV ejection fraction 40-45%, mild to moderate increase of atria, moderate pulmonary hypertension with a PA pressure of 58 mmHg. Current Visit: Yes (3) Congestive heart failure Status: Acute Assessment and plan: Current Visit: Yes (4) Hypertension Status: Chronic Assessment and plan: Blood pressure remains overall well controlled. No adjustments to medication regimen at this time. Current Visit: Yes (5) Diabetes Status: Chronic Assessment and plan: Continue current plan of care. Defer primary management to hospital medicine. Current Visit: Yes (6) History of coronary artery bypass graft Status: Acute Assessment and plan: CABG 3 in 2005. Clinically, remained stable at this time. Current Visit: Yes (7) History of aortic valve replacement Status: Acute Assessment and plan: Aortic valve replacement in 2005. Echo demonstrates stable function. Current Visit: Yes (8) Hypokalemia Status: Acute Assessment and plan: Treated. Current Visit: Yes (9) Hypomagnesemia Status: Acute Assessment and plan: Treated. Current Visit: Yes (10) Hyperlipidemia Status: Acute Assessment and plan: Statin has been continued. Current Visit: Yes Cardiology - PN: Subj Interval history: The patient is feeling a bit better today. He denies any cardiac symptoms such as palpitations or angina. His oxygen levels still drop a bit when he is off oxygen. His coughing is improving. He has no new complaints today. Overall he is slowly better. Current Medications Acetaminophen (Tylenol Tab) 650 mg PO Q4H PRN PRN Reason: Fever, Headache, Mild Pain Hydrocodone Bitart/Acetaminophen ([place] 5-325) 1 tablet PO Q4H PRN PRN Reason: Pain Mild (1-3) Albuterol/Ipratropium (Duoneb) 3 ml RESP TX RT Q6H [facility] Last Admin: 11/23/16 07:26 Dose: 3 ml Albuterol/Ipratropium (Duoneb) 3 ml RESP TX RT Q4H PRN PRN Reason: Shortness of Breath/Wheezing Apixaban (Eliquis) 2.5 mg PO BID [facility] Last Admin: 11/23/16 08:53 Dose: 2.5 mg Ascorbic Acid (Vitamin C Tab) 1,000 mg PO BID [facility] Last Admin: 11/23/16 08:51 Dose: 1,000 mg Cyclobenzaprine HCl (Flexeril) 5 mg PO BEDTIME [facility] Last Admin: 11/22/16 21:27 Dose: 5 mg Dextrose/Water (D50) 25 gm IV PRN PRN PRN Reason: Hypoglycemia with IV access Diltiazem HCl (Cardizem Tab) 30 mg PO TID [facility] Last Admin: 11/23/16 08:54 Dose: 30 mg Dornase Trey (Pulmozyme) 2.5 mg RESP TX RT Q12H [facility] Last Admin: 11/23/16 07:27 Dose: 2.5 mg Fluticasone Propionate (Flonase) 1 spray BOTH NARES DAILY PRN PRN Reason: Sinus Symptoms Furosemide (Lasix Tab) 20 mg PO DAILY [facility] Last Admin: 11/23/16 08:54 Dose: 20 mg Gabapentin (Neurontin Cap/Tab) 300 mg PO TID [facility] Last Admin: 11/23/16 08:52 Dose: 300 mg Glucagon () 1 mg IM PRN PRN PRN Reason: Hypoglycemia w/o IV access Guaifenesin (Mucinex) 600 mg PO BID [facility] Last Admin: 11/23/16 09:21 Dose: 600 mg Levofloxacin/Dextrose 750 mg/ (Premix) 150 mls @ 100 mls/hr IV Q24H [facility] Last Infusion: 11/23/16 10:54 Dose: Infused Ceftazidime 1,000 mg/ Sodium (Chloride) 100 mls @ 200 mls/hr IV Q8H [facility] Last Admin: 11/23/16 10:56 Dose: 100 mls/hr Insulin Glargine (Lantus) 60 unit SUBCUT BEDTIME [facility] Last Admin: 11/22/16 21:30 Dose: 60 unit Insulin Human Lispro (Humalog) 0 unit SUBCUT ACHS [facility] PRN Reason: Protocol Last Admin: 11/23/16 08:50 Dose: 12 unit Loratadine (Claritin Tab) 10 mg PO BEDTIME [facility] Last Admin: 11/22/16 21:28 Dose: 10 mg Metformin HCl (Glucophage) 1,000 mg PO BID [facility] Last Admin: 11/23/16 08:54 Dose: 1,000 mg Methylprednisolone Sodium Succinate (Solumedrol) 40 mg IV Q12H [facility] Last Admin: 11/23/16 09:21 Dose: 40 mg Metoprolol Succinate (Toprol Xl) 50 mg PO DAILY [facility] Last Admin: 11/23/16 08:53 Dose: 50 mg Montelukast Sodium (Singulair Tab) 10 mg PO DAILY [facility] Last Admin: 11/23/16 08:52 Dose: 10 mg Ondansetron HCl (Zofran Inj) 4 mg IV Q4H PRN PRN Reason: Nausea Pantoprazole Sodium (Protonix Tab) 40 mg PO DAILY PRN PRN Reason: Reflux Pantoprazole Sodium (Protonix Tab) 40 mg PO DAILY [facility] Last Admin: 11/23/16 08:53 Dose: 40 mg Potassium Chloride (K Dur) 20 meq PO DAILY [facility] Last Admin: 11/23/16 08:52 Dose: 20 meq Simvastatin (Zocor) 80 mg PO BEDTIME [facility] Last Admin: 11/22/16 21:38 Dose: 80 mg Exam (Progress Note) - Constitutional Vitals: Period Temp Pulse Resp BP Sys/Walsh Pulse Ox Last 24 Hr 96.2 F-99.1 F 78-117 16-22 102-140/49-82 92-100 Exam: General: Present: Appears Well, No Apparent Distress HEENT: Present: PERRL, Normocephaly, Mucus Membranes Moist. Absent: Jaundice Neck: Present: Supple Neck, Midline Trachea, No JVD/HJR, No Masses, No Bruit Cardiac: Present: Irregularly Regular, Systolic Murmur Lungs: Present: Coarse, Decreased Breath Sounds, No Wheeze, Rales, Rhonchi Neuro: Present: Grossly Intact. Absent: Numbness, Tingling, Essential Tremor Abdomen: Present: Soft, Active Bowel Sounds, No Masses, No Pulsations/Bruits. Absent: Ascites, Firm Skin: Present: Clear. Absent: Rash, Suspicious Lesions Musculoskeletal: Present: No Fluid Collection, Normal Range of Motion Extremities: Present: No Clubbing, No Cyanosis, Normal Upper Extr. Pulses (2+ bilaterally), Normal Lower Extr. Pulses (1-2+ bilaterally), Edema (Trace pretibial), Capillary Refill (Normal) Result/EKG - Labs CBC & BMP: 11/23/16 03:32 11/23/16 03:32 Lab Results: I have reviewed the past 24 hour labs Labs: Laboratory Results - last 24 hr 11/22/16 11/22/16 11/22/16 11:34 12:39 16:10 WBC RBC Hgb Hct MCV MCH MCHC RDW Plt Count MPV Neut % (Auto) Lymph % (Auto) [place] % (Auto) Eos % (Auto) Baso % (Auto) Neut # (Auto) Lymph # (Auto) [place] # (Auto) Eos # (Auto) Baso # (Auto) Total Counted Immature Gran % Nucleated RBC % Immature Gran # Segmented Neutrophils Lymphocytes Monocytes Nucleated RBCs # Platelet Estimate Hypochromasia Elliptocytes Sodium Potassium Chloride Carbon Dioxide Anion Gap BUN Creatinine GFR Calculation BUN/Creatinine Ratio Glucose POC Glucose 339 H 379 H 283 H Calculated Osmolality Calcium Magnesium B-Natriuretic Peptide 11/22/16 11/23/16 11/23/16 20:36 03:32 03:32 WBC 15.0 H D RBC 3.88 Hgb 10.8 L Hct 34.8 L MCV 89.7 MCH 28 MCHC 31.0 L RDW 14.6 Plt Count 170 MPV 11.0 Neut % (Auto) 92.7 H Lymph % (Auto) 4.3 L [place] % (Auto) 2.1 Eos % (Auto) 0.0 Baso % (Auto) 0.1 Neut # (Auto) 13.9 H Lymph # (Auto) 0.7 L [place] # (Auto) 0.3 Eos # (Auto) 0.0 Baso # (Auto) 0.0 Total Counted 100 Immature Gran % 0.8 Nucleated RBC % 0.0 Immature Gran # 0.12 Segmented Neutrophils 95 H Lymphocytes 3 L Monocytes 2 Nucleated RBCs # 0.00 Platelet Estimate Normal Hypochromasia Slight Elliptocytes Few Sodium 137 Potassium 4.9 Chloride 100 Carbon Dioxide 25 Anion Gap 16.9 H BUN 21 H Creatinine 1.10 GFR Calculation 68 BUN/Creatinine Ratio 19.00 Glucose 348 H POC Glucose 294 H Calculated Osmolality 289.8 Calcium 8.5 Magnesium 2.1 B-Natriuretic Peptide 11/23/16 11/23/16 03:32 07:45 WBC RBC Hgb Hct MCV MCH MCHC RDW Plt Count MPV Neut % (Auto) Lymph % (Auto) [place] % (Auto) Eos % (Auto) Baso % (Auto) Neut # (Auto) Lymph # (Auto) [place] # (Auto) Eos # (Auto) Baso # (Auto) Total Counted Immature Gran % Nucleated RBC % Immature Gran # Segmented Neutrophils Lymphocytes Monocytes Nucleated RBCs # Platelet Estimate Hypochromasia Elliptocytes Sodium Potassium Chloride Carbon Dioxide Anion Gap BUN Creatinine GFR Calculation BUN/Creatinine Ratio Glucose POC Glucose 307 H Calculated Osmolality Calcium Magnesium B-Natriuretic Peptide 239 H - EKG EKG results: interpreted by me
[2016-11-23] MEDS ORDERED: FUROSEMIDE 40 MG/4 ML VIAL IV ONE (14:03)
--- NOTE | 2016-11-23 14:07 | Hospitalist Progress Note ---
Assessment and Plan (1) Atrial fibrillation, new onset Status: Acute Assessment and plan: The patient is being admitted for treatment of pneumonia. He is receiving IV antibiotics and inhaled beta agonist nebulized breathing therapies. I am going to continue cefuroxime intravenously and change Levaquin to oral pill. Dr. Gastelum has evaluated the patient's atrial fibrillation and recommends Xarelto and rate control which have been initiated. I am going to give some Lasix to reduce pulmonary edema which is on account of fluid resuscitation that he received at the time of admission. I anticipate discharge home on Friday or Friday. I have asked the patient and family to be more active and ambulatory today. Current Visit: Yes (2) Pneumonia Status: Acute Current Visit: Yes Qualifiers: Pneumonia type: due to unspecified organism Laterality: left (3) Hypertension Status: Chronic Current Visit: Yes (4) History of coronary artery bypass graft Status: Acute Current Visit: Yes (5) History of aortic valve replacement Status: Acute Current Visit: Yes Hospitalist: Subjective Interval history: The patient continues to improve with less congestion and less shortness of breath. Chest x-ray shows some pulmonary edema and left lower lobe pneumonia. The consolidation has increased since the last chest x-ray and likely lags his progress. Exam - Constitutional Vitals: Period Temp Pulse Resp BP Sys/Walsh Pulse Ox Last 24 Hr 96.2 F-99.1 F 78-117 10-22 102-140/49-82 92-100 Exam: Constitutional System: No distress. No tremulousness. The patient is up to chair Head: Normocephalic, atraumatic. Ears, Nose and Throat System: No evidence of Otitis or Mastoiditis. No epistaxis or discharge Eyes System: Pupils equal, round, and reactive. Extraocular muscles intact. Neck: Supple, without adenopathy, No jugular venous distention. No thyromegaly , neck mass, or prior surgery apparent. Respiratory System: Chest minimal congestion to auscultation. Minimal air trapping remains Cardiovascular System: Heart with regular rate and rhythm. Systolic murmur consistent with aortic valve replacement. GI System: Abdomen soft, nontender. Normo active bowel sounds present. Musculoskeletal System: limbs with no pedal edema. Full distal pulses. Neurological System: No discernable sensory deficit. No aphasia Psychiatric System: Conversation is rational Results - Labs CBC & BMP: 11/23/16 03:32 11/23/16 03:32 Lab Results: I have reviewed the past 24 hour labs - Diagnostic Findings Procedure: Chest x-ray: report reviewed by me, image reviewed by me (Some pulmonary edema and left lower lobe pneumonia)
[2016-11-23] MEDS: INSULIN GLARGINE 100 UNIT/ML SUBCUT SCH (21:05)
[2016-11-23] MEDS: CYCLOBENZAPRINE 10 MG TABLET PO SCH (21:06)
[2016-11-23] MEDS: SIMVASTATIN 80 MG TABLET PO SCH (21:07)
[2016-11-23] MEDS: LORATADINE 10 MG TABLET PO SCH (21:07)
[2016-11-24] MEDS: ALBUTEROL/IPRATROPIUM 3 ML NEB RESP TX SCH ×4 (01:58→18:57)
[2016-11-24] MEDS: methylPREDNISolone SOD SUC 40 MG/1 ML VIAL IV SCH (02:54)
[2016-11-24 04:22] LABS: Basophils % 0.1 % (0.0-0.8); Hematocrit 32.3 VOL% (42.0-52.0); Hemoglobin 10.5 GM/DL (14.0-18.0); Immature Granulocytes % 0.8 %; Lymphocytes # 0.8 10*3/uL (1.4-4.0); Lymphocytes % 6.1 % (21.2-54.2); Mean Corpuscular HGB Conc 32.5 GM/DL (32-36); Mean Corpuscular Hemoglobin 28 PG (27-34); Mean Corpuscular Volume 85.9 FL (87-102); Mean Platelet Volume 11.2 FL (9.6-12.0); Monocytes # 0.6 10*3/uL (0.11-0.8); Monocytes % 4.8 % (1.7-12.7); Neutrophils # 11.1 10*3/uL (1.4-7.4); Neutrophils % 88.2 % (38.7-73.9); Platelet Count 161 T/CUMM (130-400); Red Blood Count 3.76 MC/CUMM (3.8-5.5); Red Cell Distribution Width 14.9 % (9.3-17.3); White Blood Count 12.6 T/CUMM (4-12)
[2016-11-24 04:42] LABS: Calcium 8.4 MG/DL (8.5-10.1); Osmolality,Calculated 292.7 MOS/KG (273-304); Potassium 4.4 MMOL/L (3.5-5.1)
[2016-11-24] MEDS: DORNASE ALFA 2.5 MG/2.5 ML VIAL RESP TX SCH ×2 (07:05→19:03)
[2016-11-24] MEDS: INSULIN LISPRO 100 UNIT/ML SUBCUT SCH ×4 (07:57→21:08)
--- NOTE | 2016-11-24 08:15 | EKG Report ---
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
--- NOTE | 2016-11-24 08:23 | Pulmonology Progress Note ---
Pulmonary - PN: Subj Interval history: Patient is an 81-year-old that is being treated for pneumonia. He has had previous heart surgery and has a chronic left pleural thickening that is apparently is stable. He came in with coughing and wheezing and asthmatic bronchitis. He is being treated for pneumonia. He said he had a fairly good night although he slept off and on. He says he has some coughing but his shortness of breath is better. Overall he is feeling a little better. Exam (Progress Note) - Constitutional Vitals: Period Temp Pulse Resp BP Sys/Walsh Pulse Ox Last 24 Hr 97.1 F-98.2 F 57-111 16-22 107-157/52-75 96-100 Exam: General appearance: no acute distress (He is comfortable sitting up in bed. He has fairly stable vital signs.) - Head Head exam: Present: normal inspection, normocephalic - Eye Eye exam: Present: EOMI. Absent: scleral icterus Pupils: Present: THERESA - ENT ENT exam: Present: normal exam - Neck Neck exam: Present: normal inspection. Absent: lymphadenopathy, thyromegaly - Respiratory Respiratory exam: Present: He has good air movement bilaterally with some crackles in the bases. He is not really wheezing now. - Cardiovascular Cardiovascular exam: Present: irregular rhythm. Absent: gallop, systolic murmur , tachycardia - GI/Abdominal GI/Abdominal exam: Present: normal bowel sounds, soft. Absent: distended, organomegaly, tenderness - Extremities Exam Extremities exam: Absent: calf tenderness, edema - Neurological Exam Neurological exam: Present: alert, oriented X3. No focal deficits. - Psychiatric Psychiatric exam: Present: normal affect - Skin Skin exam: Present: warm, dry Results - Labs CBC & BMP: 11/24/16 03:43 11/24/16 03:43 Assessment and Plan (1) Atrial fibrillation, new onset Status: Acute Assessment and plan: Patient has an irregular heart rhythm that is being controlled. His heart rate is in the 50s and his blood pressure is stable. Current Visit: Yes (2) Pneumonia Status: Acute Assessment and plan: Patient is getting antibiotics and is improving. His cultures have been negative so far. He is tolerating his antibiotics and his breathing is better. Current Visit: Yes Qualifiers: Pneumonia type: due to unspecified organism Laterality: left (3) Hypertension Status: Chronic Assessment and plan: His blood pressure and heart rate are controlled. Current Visit: Yes (4) Diabetes Status: Chronic Assessment and plan: His glucose is around 300. He is getting insulin. Current Visit: Yes (5) History of coronary artery bypass graft Status: Acute Assessment and plan: Patient has had previous heart surgery. His ejection fraction is about 40-45%. He does not appear to have heart failure now. Current Visit: Yes (6) History of aortic valve replacement Status: Acute Assessment and plan: Patient has had previous aortic valve replacement Current Visit: Yes
[2016-11-24] MEDS: GABAPENTIN 300 MG CAPSULE PO SCH ×3 (08:30→21:07)
[2016-11-24] MEDS: LEVOFLOXACIN 750 MG TABLET PO SCH (08:31)
[2016-11-24] MEDS: POTASSIUM CHLORIDE 20 MEQ TABLET PO SCH (08:31)
[2016-11-24] MEDS: METOPROLOL SUCCINATE XL 50 MG TABLET PO SCH (08:32)
[2016-11-24] MEDS: DILTIAZEM 30 MG TABLET PO SCH (08:32)
[2016-11-24] MEDS: APIXABAN 2.5 MG TABLET PO SCH ×2 (08:32→21:07)
[2016-11-24] MEDS: ASCORBIC ACID 500 MG TABLET PO SCH ×2 (08:33→21:07)
[2016-11-24] MEDS: MONTELUKAST 10 MG TABLET PO SCH (08:33)
[2016-11-24] MEDS: FUROSEMIDE 20 MG TABLET PO SCH (08:33)
[2016-11-24] MEDS: metFORMIN 500 MG TABLET PO SCH ×2 (08:34→21:07)
[2016-11-24] MEDS: PANTOPRAZOLE 40 MG TABLET PO SCH (08:35)
--- NOTE | 2016-11-24 09:42 | Hospitalist Progress Note ---
Assessment and Plan (1) Atrial fibrillation, new onset Status: Acute Assessment and plan: The patient is being admitted for treatment of pneumonia. He is receiving IV antibiotics and inhaled beta agonist nebulized breathing therapies. I am going to continue cefuroxime intravenously and change Levaquin to oral. Dr. Gastelum has evaluated the patient's atrial fibrillation and recommends Xarelto and rate control which have been initiated. I reduced the steroid and reduce the beta agonist dose to decrease the man's side effects. I anticipate discharge home on Friday. I have asked the patient and family to be more active and ambulatory today. Current Visit: Yes (2) Pneumonia Status: Acute Current Visit: Yes Qualifiers: Pneumonia type: due to unspecified organism Laterality: left (3) Hypertension Status: Chronic Current Visit: Yes (4) History of coronary artery bypass graft Status: Acute Current Visit: Yes (5) History of aortic valve replacement Status: Acute Current Visit: Yes Hospitalist: Subjective Interval history: Mr. Delarosa is an 81-year-old gentleman with history of aortic valve replacement. The patient has intermittent atrial fibrillation. The patient was admitted to the hospital with pneumonia. He is improving after antibiotics , nebulizers, and steroids. The beta agonist therapy has caused the atrial fibrillation to be uncontrolled and the sales vendor added additional Cardizem to metoprolol. The patient changed Xarelto to treat the heart valve and reduce risk of embolization. The patient complains of insomnia which is likely on account of beta agonist and steroid. The patient complains of some bilateral arm pain which is likely angina caused by rapid atrial fibrillation. I am going to reduce steroid today and reduced dose of beta agonist in order to decrease the symptoms. The patient will be ready for discharge home soon. Exam - Constitutional Vitals: Period Temp Pulse Resp BP Sys/Walsh Pulse Ox Last 24 Hr 97.1 F-98.2 F 57-130 16-22 107-157/52-77 96-100 Exam: Constitutional System: No distress. No tremulousness. The patient is up to chair Head: Normocephalic, atraumatic. Ears, Nose and Throat System: No evidence of Otitis or Mastoiditis. No epistaxis or discharge Eyes System: Pupils equal, round, and reactive. Extraocular muscles intact. Neck: Supple, without adenopathy, No jugular venous distention. No thyromegaly , neck mass, or prior surgery apparent. Respiratory System: Chest minimal congestion to auscultation. Minimal air trapping remains Cardiovascular System: Heart with irregular rate and rhythm. Systolic murmur consistent with aortic valve replacement. GI System: Abdomen soft, nontender. Normo active bowel sounds present. Musculoskeletal System: limbs with no pedal edema. Full distal pulses. Neurological System: No discernable sensory deficit. No aphasia Psychiatric System: Conversation is rational Results - Labs CBC & BMP: 11/24/16 03:43 11/24/16 03:43 Lab Results: I have reviewed the past 24 hour labs
[2016-11-24] MEDS: DILTIAZEM CD 240 MG CAPSULE PO SCH (10:09)
--- NOTE | 2016-11-24 10:32 | Cardiology Progress Note ---
Assessment and Plan (1) Pneumonia Status: Acute Assessment and plan: Patient is receiving nebulizers and IV antibiotics. Pulmonary has been consulted, and they are following. This is gradually improved. Current Visit: Yes Qualifiers: Pneumonia type: due to unspecified organism Laterality: left (2) Atrial fibrillation, new onset Status: Acute Assessment and plan: His heart rate now appears to be well controlled. He is not have any symptoms from this. We have initiated Eliquis 2.5 mg by mouth twice daily for stroke prevention. Will monitor closely for S/S bleeding. Denies past history of CVA , bleeding, or other contraindication to anticoagulation at this time. Patient would best be served with rate control and anticoagulation at this time. Echocardiogram showed mild LVH with LV ejection fraction 40-45%, mild to moderate increase of atria, moderate pulmonary hypertension with a PA pressure of 58 mmHg. Current Visit: Yes (3) Congestive heart failure Status: Acute Assessment and plan: Current Visit: Yes (4) Hypertension Status: Chronic Assessment and plan: Blood pressure remains overall well controlled. No adjustments to medication regimen at this time. Current Visit: Yes (5) Diabetes Status: Chronic Assessment and plan: Continue current plan of care. Defer primary management to hospital medicine. Current Visit: Yes (6) History of coronary artery bypass graft Status: Acute Assessment and plan: CABG 3 in 2005. He is free of any anginal symptoms. Continue conservative management for now. Current Visit: Yes (7) History of aortic valve replacement Status: Acute Assessment and plan: Bioprosthetic aortic valve replacement in 2005. Echo demonstrates stable function. Current Visit: Yes (8) Hypokalemia Status: Acute Assessment and plan: Treated. Current Visit: Yes (9) Hypomagnesemia Status: Acute Assessment and plan: Treated. Current Visit: Yes (10) Hyperlipidemia Status: Acute Assessment and plan: Statin has been continued. Current Visit: Yes Cardiology - PN: Subj Interval history: The patient continues to feel a bit better each day. His breathing is gradually improved. He has persistent atrial fibrillation but his atrial fibrillation is well controlled. He is asymptomatic from this. His bioprosthetic aortic valve appears to be functioning normally. There have been no new cardiac issues overnight. He is free of any angina, palpitations, or syncope. Current Medications Acetaminophen (Tylenol Tab) 650 mg PO Q4H PRN PRN Reason: Fever, Headache, Mild Pain Hydrocodone Bitart/Acetaminophen ([place] 5-325) 1 tablet PO Q4H PRN PRN Reason: Pain Mild (1-3) Albuterol/Ipratropium (Duoneb) 1.5 ml RESP TX RT Q6H [facility] Apixaban (Eliquis) 2.5 mg PO BID [facility] Last Admin: 11/24/16 08:32 Dose: 2.5 mg Ascorbic Acid (Vitamin C Tab) 1,000 mg PO BID [facility] Last Admin: 11/24/16 08:33 Dose: 1,000 mg Cyclobenzaprine HCl (Flexeril) 5 mg PO BEDTIME [facility] Last Admin: 11/23/16 21:06 Dose: 5 mg Dextrose/Water (D50) 25 gm IV PRN PRN PRN Reason: Hypoglycemia with IV access Diltiazem HCl (Cardizem Cd) 240 mg PO DAILY [facility] Last Admin: 11/24/16 10:09 Dose: 240 mg Dornase Trey (Pulmozyme) 2.5 mg RESP TX RT Q12H [facility] Last Admin: 11/24/16 07:05 Dose: 2.5 mg Fluticasone Propionate (Flonase) 1 spray BOTH NARES DAILY PRN PRN Reason: Sinus Symptoms Furosemide (Lasix Tab) 20 mg PO DAILY [facility] Last Admin: 11/24/16 08:33 Dose: 20 mg Gabapentin (Neurontin Cap/Tab) 300 mg PO TID [facility] Last Admin: 11/24/16 08:30 Dose: 300 mg Glucagon () 1 mg IM PRN PRN PRN Reason: Hypoglycemia w/o IV access Guaifenesin (Mucinex) 600 mg PO BID [facility] Last Admin: 11/24/16 08:34 Dose: 600 mg Ceftazidime 1,000 mg/ Sodium (Chloride) 100 mls @ 200 mls/hr IV Q8H [facility] Last Infusion: 11/24/16 03:27 Dose: Infused Insulin Glargine (Lantus) 60 unit SUBCUT BEDTIME [facility] Last Admin: 11/23/16 21:05 Dose: 60 unit Insulin Human Lispro (Humalog) 0 unit SUBCUT ACHS [facility] PRN Reason: Protocol Last Admin: 11/24/16 07:57 Dose: 9 unit Levofloxacin (Levaquin Tab) 750 mg PO DAILY [facility] Last Admin: 11/24/16 08:31 Dose: 750 mg Loratadine (Claritin Tab) 10 mg PO BEDTIME [facility] Last Admin: 11/23/16 21:07 Dose: 10 mg Metformin HCl (Glucophage) 1,000 mg PO BID [facility] Last Admin: 11/24/16 08:34 Dose: 1,000 mg Metoprolol Succinate (Toprol Xl) 50 mg PO DAILY [facility] Last Admin: 11/24/16 08:32 Dose: 50 mg Montelukast Sodium (Singulair Tab) 10 mg PO DAILY [facility] Last Admin: 11/24/16 08:33 Dose: 10 mg Ondansetron HCl (Zofran Inj) 4 mg IV Q4H PRN PRN Reason: Nausea Pantoprazole Sodium (Protonix Tab) 40 mg PO DAILY PRN PRN Reason: Reflux Pantoprazole Sodium (Protonix Tab) 40 mg PO DAILY [facility] Last Admin: 11/24/16 08:35 Dose: 40 mg Potassium Chloride (K Dur) 20 meq PO DAILY [facility] Last Admin: 11/24/16 08:31 Dose: 20 meq Prednisone () 30 mg PO DAILY [facility] Simvastatin (Zocor) 80 mg PO BEDTIME [facility] Last Admin: 11/23/16 21:07 Dose: 80 mg Exam (Progress Note) - Constitutional Vitals: Period Temp Pulse Resp BP Sys/Walsh Pulse Ox Last 24 Hr 97.1 F-98.2 F 57-130 16-22 107-157/52-77 96-100 Exam: General: Frail, elderly, chronically ill-appearing HEENT: Normocephalic, atraumatic Neck: Supple Neck, Midline Trachea Cardiac: Irregular Rhythm, 2/6 systolic murmur, no gallop, no rub Lungs: Clear to Ascultation, No Wheeze, Rales, Rhonchi Neuro: Cranial Nerve 2-12 Intact, diffuse generalized weakness Abdomen: Soft, Active Bowel Sounds, No Masses, No Pulsations/Bruits Skin: Normal color, no rash, ecchymosis on skin Extremities: No Clubbing, No Cyanosis, No Edema, Normal Upper Extr. Pulses Musculoskeletal: No acute abnormality noted Psychiatric: The patient is alert and oriented. The patient has a flat affect but does not appear to be anxious or depressed. Result/EKG - Labs CBC & BMP: 11/24/16 03:43 11/24/16 03:43 Lab Results: I have reviewed the past 24 hour labs Labs: Laboratory Results - last 24 hr 11/23/16 11/23/16 11/23/16 12:02 16:46 21:00 WBC RBC Hgb Hct MCV MCH MCHC RDW Plt Count MPV Neut % (Auto) Lymph % (Auto) [place] % (Auto) Eos % (Auto) Baso % (Auto) Neut # (Auto) Lymph # (Auto) [place] # (Auto) Eos # (Auto) Baso # (Auto) Immature Gran % Nucleated RBC % Immature Gran # Nucleated RBCs # Sodium Potassium Chloride Carbon Dioxide Anion Gap BUN Creatinine GFR Calculation BUN/Creatinine Ratio Glucose POC Glucose 383 H 345 H 387 H Calculated Osmolality Calcium Magnesium B-Natriuretic Peptide 11/24/16 11/24/16 11/24/16 03:43 03:43 03:43 WBC 12.6 H RBC 3.76 L Hgb 10.5 L Hct 32.3 L MCV 85.9 L MCH 28 MCHC 32.5 RDW 14.9 Plt Count 161 MPV 11.2 Neut % (Auto) 88.2 H Lymph % (Auto) 6.1 L [place] % (Auto) 4.8 Eos % (Auto) 0.0 Baso % (Auto) 0.1 Neut # (Auto) 11.1 H Lymph # (Auto) 0.8 L [place] # (Auto) 0.6 Eos # (Auto) 0.0 Baso # (Auto) 0.0 Immature Gran % 0.8 Nucleated RBC % 0.0 Immature Gran # 0.10 Nucleated RBCs # 0.00 Sodium 138 Potassium 4.4 Chloride 98 Carbon Dioxide 29 Anion Gap 15.4 H BUN 28 H Creatinine 1.10 GFR Calculation 71 BUN/Creatinine Ratio 25.00 H Glucose 313 H POC Glucose Calculated Osmolality 292.7 Calcium 8.4 L Magnesium 2.0 B-Natriuretic Peptide 283 H - EKG EKG results: interpreted by me
[2016-11-24] MEDS: LORATADINE 10 MG TABLET PO SCH (21:07)
[2016-11-24] MEDS: INSULIN GLARGINE 100 UNIT/ML SUBCUT SCH (21:08)
[2016-11-24] MEDS: SIMVASTATIN 80 MG TABLET PO SCH (21:08)
[2016-11-24] MEDS: CYCLOBENZAPRINE 10 MG TABLET PO SCH (21:08)
[2016-11-25] MEDS: ALBUTEROL/IPRATROPIUM 3 ML NEB RESP TX SCH ×3 (00:41→12:24)
[2016-11-25 05:16] LABS: Eosinophils % 0.4 % (0.00-10.9); Hematocrit 32.9 VOL% (42.0-52.0); Hemoglobin 10.7 GM/DL (14.0-18.0); Immature Granulocytes % 0.5 %; Immature Granulocytes Absolute 0.06 #; Lymphocytes # 2.1 10*3/uL (1.4-4.0); Lymphocytes % 19.5 % (21.2-54.2); Mean Corpuscular HGB Conc 32.5 GM/DL (32-36); Mean Corpuscular Hemoglobin 28 PG (27-34); Mean Corpuscular Volume 85.7 FL (87-102); Mean Platelet Volume 11.3 FL (9.6-12.0); Monocytes # 0.8 10*3/uL (0.11-0.8); Monocytes % 7.5 % (1.7-12.7); Neutrophils # 7.9 10*3/uL (1.4-7.4); Neutrophils % 72.1 % (38.7-73.9); Platelet Count 153 T/CUMM (130-400); Red Blood Count 3.84 MC/CUMM (3.8-5.5); Red Cell Distribution Width 15.1 % (9.3-17.3); White Blood Count 10.9 T/CUMM (4-12)
[2016-11-25 05:53] LABS: Calcium 7.9 MG/DL (8.5-10.1); Magnesium 1.9 MG/DL (1.8-2.4); Potassium 4.1 MMOL/L (3.5-5.1)
[2016-11-25] MEDS: DORNASE ALFA 2.5 MG/2.5 ML VIAL RESP TX SCH (07:38)
[2016-11-25] MEDS: INSULIN LISPRO 100 UNIT/ML SUBCUT SCH ×2 (07:39→12:19)
--- NOTE | 2016-11-25 08:43 | XRay Report ---
XR chest 2V Indication: SOB, cough Comparison: Chest x-ray dated November 23, 2016 Technique: Frontal and lateral views of the chest Findings: Continued mild cardiomegaly status post CABG/cardiac valve replacement/sternotomy. Continued bilateral lower lung atelectasis/consolidation, left greater than right. Continued small left pleural effusion. Osseous and surrounding soft tissue structures appear grossly unchanged. IMPRESSION: No significant interval change. PROCEDURE INTERPRETED AT [facility] DEPARTMENT OF RADIOLOGY Final Report Signed by: Dr Madi Corona
[2016-11-25] MEDS ORDERED: predniSONE 10 MG TABLET PO SCH (09:00)
[2016-11-25] MEDS: LEVOFLOXACIN 750 MG TABLET PO SCH (09:01)
[2016-11-25] MEDS: GABAPENTIN 300 MG CAPSULE PO SCH (09:01)
[2016-11-25] MEDS: ASCORBIC ACID 500 MG TABLET PO SCH (09:02)
[2016-11-25] MEDS: metFORMIN 500 MG TABLET PO SCH (09:02)
[2016-11-25] MEDS: POTASSIUM CHLORIDE 20 MEQ TABLET PO SCH (09:02)
[2016-11-25] MEDS: DILTIAZEM CD 240 MG CAPSULE PO SCH (09:02)
[2016-11-25] MEDS: APIXABAN 2.5 MG TABLET PO SCH (09:03)
[2016-11-25] MEDS: PANTOPRAZOLE 40 MG TABLET PO SCH (09:03)
[2016-11-25] MEDS: FUROSEMIDE 20 MG TABLET PO SCH (09:03)
[2016-11-25] MEDS: METOPROLOL SUCCINATE XL 50 MG TABLET PO SCH (09:03)
[2016-11-25] MEDS: MONTELUKAST 10 MG TABLET PO SCH (09:04)
--- NOTE | 2016-11-25 09:41 | Pulmonology Progress Note ---
Pulmonary - PN: Subj Interval history: This is a 81-year-old male whom I saw in pulmonary consultation on 11/21/2016. My impressions were. 1. Acute right lower lung pneumonia and probable left lower lung pneumonia. Outpatient treatment failure. Do not know what antibiotics patient was taken on the outside. 2. Acute bronchitis with bronchospasm and sputum retention 3. History of passive smoking 4. 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 Echocardiogram11/20/2016shows ejection fraction of 40 45% range with mild mitral regurgitation and pulmonary artery pressures estimated to be 58. There is a porcine aortic valve 5. 6. Atrial fib 7. Hypokalemia 8. Hypomagnesia anemia 9. Insulin-dependent diabetes mellitus 10. Hyperlipidemia 11. High blood pressure 12. See past history 11/22/2016. This patient's chest x-ray is better today. I think he had a right lower lung pneumonia and probably a left lower lung pneumonia. In addition he had acute bronchitis with bronchospasm. His large airway wheezing is much better. He still has some coarse congestion. Has a cough which is productive of very little sputum. He is being treated for this. Cold agglutinins are negative. There are no positive cultures. Natruretic peptide is elevated at 301. Electrolytes normal. Creatinine has increased to 1.1. White count is 8700 with 89 segs. I think we should continue the present regimen. Patient is improving. 11/25/2016. Echocardiogram noted. Aortic valve replacement. Ejection fraction 40-45% with mild mitral regurgitation. Pulmonary artery pressures estimated to be 58. Today's chest x-ray shows a resolving right lower lung infiltrate and resolving left lower lung infiltrate. There is pleural disease of the left costophrenic angle and involves the pleura superior to the costophrenic angle. This appears old and is probably related to previous cardiac surgery. There are no positive cultures. Cold agglutinins are negative. Legionella titers pending. Patient has become afebrile on Levaquin and Fortaz. White blood cell count is now 10,900 with 72 segs, 19.5 lymphs. Electrolytes are normal. Creatinine is 0.9 with a BUN of 24. Natruretic peptide remains mildly elevated 282 Physical exam. Vital signs. See below Psychiatric oriented 3 Neurologic. Cranial nerves are intact with decreased hearing acuity. Long track motor functions intact Face. Eyes are normal. Face is symmetrical. Lips and tongue are normal. Neck. Symmetrical. No meningismus. Lymphatics. No submandibular cervical supraclavicular adenopathy. Chest. The previously noted mild tracheal and large airway wheeze with coarse congestion and prolonged expiration has improved significantly. Expiration is close to normal today. No wheeze and no congestion. Heart. Lateral PMI Abdomen. Nontender. Positive bowel sounds Extremities. Nothing to suggest deep venous thrombophlebitis The remainder the physical exam is noncontributory Plan. 1. Sputum for Gram stain culture and sensitivity 2. Cold agglutinins 3. Legionella titer 4. Add Fortaz 1 g every 8 hours to antibiotic regimen for better gram-negative toño coverage and outpatient treatment failure situation 5. Agree with ventilation therapy with DuoNeb's 4 times daily. Have added Pulmozyme inhalation treatments twice a day 6. Singulair 10 mg daily 7. Solu-Medrol 40 IV push twice daily 8. Mucinex 600 p.o. twice daily. 9. Follow-up chest x-ray and lab. 10. Potassium and magnesium need to be replaced. 11. See orders. 12. 11/25/2016. See today's note above. This patient was in outpatient treatment failure from pneumonia. We do not have any cultures. He has not required steroids for wheezing. Based on his response to his present medicines I suggest the following medicines when he is discharged. Singulair 10 mg daily prednisone 10 mg daily for 7 days and then 10 mg every other day for 10 doses. Levaquin 500 mg daily for 10 days. Ceftin 500 twice daily for 10 days. He is followed by nurse practitioner in [facility]. He should follow-up with her. Exam (Progress Note) - Constitutional Vitals: Period Temp Pulse Resp BP Sys/Walsh Pulse Ox Last 24 Hr 96.8 F-98 F 71-110 16-24 115-129/58-73 94-100 Results - Labs CBC & BMP: 11/25/16 04:01 11/25/16 04:01
--- NOTE | 2016-11-25 12:03 | Discharge Summary ---
Hospital Course - Hospital Course Hospital Course: 81 year old male that presented to the ED at [facility] this afternoon with a chief compliant of shortness of breath and productive cough. He has a past medical significant for hypertension, diabetes mellitus, dyslipidemia, and GERD. He has a past surgical history of triple bypass with valve replacement. He reported a recent diagnosis of pneumonia on last month by his PCP in [place]. He was treated with antibiotics; however his condition improved slowly. He reports minimal relief after antibiotic completion. He reported that symptoms gradually returned with the onset of diaphoresis and midsternal chest discomfort. The symptoms became very intense; prompting him to present to the ED for further evaluation. At the time of ED presentation, he was found to be in atrial fibrillation. This finding was new in nature to him;however his rate was well controlled. Labs were obtained were unremarkable except for his glucose level of 252. Chest radiograph was obtained which suggested cardiomegaly, opacities left lung base, which are concerning for atelectasis and possibly pneumonia, mild pulmonary edema and mild left pleural effusion. After brief discussion with both Dr. Orlando and Dr. Nunez, the patient will be admitted under the hospitalist services for continuation of care. The patient was seen in consultation by cardiology and started on anticoagulation with Eliquis. He was also seen in consultation by pulmonary. He was treated during the course of the hospitalization with Fortaz and Levaquin as well as nebulizer treatments and steroids. He has improved throughout the course of the hospitalization and is ready for discharge home. New Rx include Cardizem, Eliquis, Levaquin, Ceftin, Singulair, prednisone in tapering dose fashion. The patient is advised to follow-up with his primary care physician as an outpatient. Medication list was reviewed and reconciled. Patient is a full code. He is discharged home in stable condition. All of his questions were answered appropriately at the time of discharge. - Time spent with patient Time with patient DS: Greater than 30 minutes (Total discharge time for this patient, including [id number] time, clinical documentation, medication reconciliation, and discharge planning was 45 minutes.) Diagnosis - Discharge Diagnosis (1) Atrial fibrillation, new onset Status: Acute (2) Pleural effusion, left Status: Acute (3) Pneumonia Status: Acute (4) Diabetes Status: Chronic (5) History of aortic valve replacement Status: Chronic (6) Hyperlipidemia Status: Chronic (7) Hypertension Status: Chronic Discharge Plan - Discharge Data Disposition: Disch To Home/Self Care Condition at Discharge: Stable Discharge Diet: advance to your usual diet Activity: resume usual activities as tolerated Hygiene: no restrictions Weight Bearing at Discharge: full weight bearing Contact your physician if you experience:: fever over 101, Shortness of breath - Discharge Medications New Ascorbic Acid Tab [Vitamin C Tab] 1,000 mg PO BID #120 tablet Diltiazem Cd Cap [Cardizem CD] 240 mg PO DAILY #30 capsule Levofloxacin Tab [Levaquin Tab] 500 mg PO DAILY #10 tablet Montelukast Tab [Singulair Tab] 10 mg PO DAILY #30 tablet guaiFENesin ER TAB [Mucinex] 600 mg PO BID #30 tablet Apixaban [Eliquis] 2.5 mg PO BID #60 tablet Cefuroxime Tab [Ceftin] 500 mg PO BID #20 tablet predniSONE TAB [PredniSONE] 10 mg PO DAILY #20 tablet Continue Insulin Glargine [Lantus] 82 unit SUBCUT BEDTIME Loratadine Tab [Claritin Tab] 10 mg PO BEDTIME Furosemide Tab [Lasix Tab] 20 mg PO DAILY Omeprazole 20 mg PO DAILY PRN PRN Reason: Reflux Metoprolol Succinate 50 mg PO DAILY Simvastatin 80 mg PO BEDTIME Gabapentin 300 mg PO TID Metformin HCl 1,000 mg PO BID Cyclobenzaprine HCl 5 mg PO BEDTIME Fluticasone 50 Mcg Nasal [place] [Flonase Nasal [place]] 1 spray BOTH NARES DAILY PRN PRN Reason: Sinus Symptoms - Follow Up or Referral - Forms/Instructions Additional Discharge Instructions: Follow-up with primary care physician and market research coordinator. Exam - Constitutional Vitals: Period Temp Pulse Resp BP Sys/Walsh Pulse Ox Last 24 Hr 96.8 F-98 F 71-110 16-24 115-129/58-73 94-100 Discharge Results Procedures and tests throughout hospitalization: Pending Orders 11/21/16 10:48 Legionella Pneumophilia Ab Routine Labs on day of discharge: Labs from last 24 hours 11/25/16 11/25/16 11/25/16 09:01 07:35 04:01 WBC RBC Hgb Hct MCV MCH MCHC RDW Plt Count MPV Neut % (Auto) Lymph % (Auto) [place] % (Auto) Eos % (Auto) Baso % (Auto) Neut # (Auto) Lymph # (Auto) [place] # (Auto) Eos # (Auto) Baso # (Auto) Immature Gran % Nucleated RBC % Immature Gran # Nucleated RBCs # Sodium Potassium Chloride Carbon Dioxide Anion Gap BUN Creatinine GFR Calculation BUN/Creatinine Ratio Glucose POC Glucose 157 H 55 L Calculated Osmolality Calcium Magnesium B-Natriuretic Peptide 282 H 11/25/16 11/25/16 11/24/16 04:01 04:01 23:16 WBC 10.9 RBC 3.84 Hgb 10.7 L Hct 32.9 L MCV 85.7 L MCH 28 MCHC 32.5 RDW 15.1 Plt Count 153 MPV 11.3 Neut % (Auto) 72.1 Lymph % (Auto) 19.5 L [place] % (Auto) 7.5 Eos % (Auto) 0.4 Baso % (Auto) 0.0 Neut # (Auto) 7.9 H Lymph # (Auto) 2.1 [place] # (Auto) 0.8 Eos # (Auto) 0.0 Baso # (Auto) 0.0 Immature Gran % 0.5 Nucleated RBC % 0.0 Immature Gran # 0.06 Nucleated RBCs # 0.00 Sodium 143 Potassium 4.1 Chloride 100 Carbon Dioxide 33 H Anion Gap 14.1 BUN 24 H Creatinine 0.90 GFR Calculation 89 BUN/Creatinine Ratio 26.00 H Glucose 62 L POC Glucose 241 H Calculated Osmolality 286.0 Calcium 7.9 L Magnesium 1.9 B-Natriuretic Peptide 11/24/16 11/24/16 11/24/16 20:43 16:25 11:35 WBC RBC Hgb Hct MCV MCH MCHC RDW Plt Count MPV Neut % (Auto) Lymph % (Auto) [place] % (Auto) Eos % (Auto) Baso % (Auto) Neut # (Auto) Lymph # (Auto) [place] # (Auto) Eos # (Auto) Baso # (Auto) Immature Gran % Nucleated RBC % Immature Gran # Nucleated RBCs # Sodium Potassium Chloride Carbon Dioxide Anion Gap BUN Creatinine GFR Calculation BUN/Creatinine Ratio Glucose POC Glucose 419 H 247 H 270 H Calculated Osmolality Calcium Magnesium B-Natriuretic Peptide DS: Provider Date of admission: 11/20/16 14:04 Primary care physician: Gali Jamison MD Attending physician on admission: Arya Nunez MD Consults: 11/20/16 16:36 Consult to Physician [CONS] Routine Comment: atrial fib/ dyspnea Consulting Provider: Adolfo Gastelum Notified: RENE Date Notified: 11/20/16 Time Notified: 16:48 Consult to Physician [CONS] Routine Comment: copd with [facility] Consulting Provider: Ivan Bacon Consult to Specialist Group: Pulmonology Person Notified: CYNTHIA Date Notified: 11/20/16 Time Notified: 16:44 Consult Notification Comment: CALLED TO CHUY ON 11/21/16 AT 0740 Discharging clinician: Rigoberto Gray MD Expected date of discharge: 11/25/16
[2016-11-25 12:28] VITALS: BP 137/58
--- NOTE | 2016-11-25 13:41 | Cardiology Progress Note ---
Yonathan Barclay April RN, am scribing for, and in the presence of, Eh Gómez MD 13:40. Assessment and Plan (1) Atrial fibrillation, new onset Status: Acute Current Visit: Yes (2) Congestive heart failure Status: Acute Current Visit: Yes (3) History of aortic valve replacement Status: Chronic Current Visit: Yes (4) History of coronary artery bypass graft Status: Chronic Current Visit: Yes (5) Hyperlipidemia Status: Chronic Current Visit: Yes (6) Hypokalemia Status: Acute Current Visit: Yes (7) Hypomagnesemia Status: Acute Current Visit: Yes (8) Pneumonia Status: Acute Current Visit: Yes Qualifiers: Pneumonia type: due to unspecified organism Laterality: left (9) Diabetes Status: Chronic Current Visit: Yes (10) Hypertension Status: Chronic Current Visit: Yes Cardiology - PN: Subj Interval history: 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 Rider has a history of hypertension, diabetes, neuropathy, hyperlipidemia , and CABG 3 with aortic valve replacement in 2005. He presented to the emergency department on November 20 with shortness of breath and productive cough. EKG on admission showed atrial fibrillation with heart rate of 97. This finding was new and cardiology was asked to evaluate. His potassium and magnesium were both found to be low and were repleted. He has been started on Cardizem CD 240 mg p.o. daily and Eliquis 2.5 mg p.o. twice daily. Echocardiogram showed ejection fraction of 40-45%, as well as a poor seen aortic valve bioprosthesis which was well seated and seemed to be functioning normally. Venous Doppler of lower extremities was negative for DVT. Chest x- ray done on admission showed cardiomegaly, possible pneumonia, and left pleural fluid. He is on IV antibiotics. According to the record he received Lasix 80 mg IV 1 dose and had significant response with output greater than 300 cc. Currently he is resting in bed in no acute distress. He denies chest pain, palpitations, or dizziness. Oxygen is in use and he reports his breathing is improved. Telemetry monitoring currently shows atrial fibrillation with heart rates in the 90s. Blood pressure this morning 129/58. Labs are unremarkable, potassium 4.1 and magnesium 1.9. He is been discharged today in stable. We'll follow with his primary undercollar maker in [place]. Exam (Progress Note) - Constitutional Vitals: Period Temp Pulse Resp BP Sys/Walsh Pulse Ox Last 24 Hr 96.8 F-98 F 71-120 16-24 115-154/58-77 94-100 General appearance: no acute distress, over weight - Head Head exam: Absent: abrasion, hematoma - Eye Eye exam: Absent: periorbital swelling, laceration to eyelids - Respiratory Respiratory exam: Present: rales, other (Oxygen via nasal cannula). Absent: accessory muscle use, chest wall tenderness - Cardiovascular Cardiovascular exam: Present: irregular rhythm - GI/Abdominal GI/Abdominal exam: Present: normal bowel sounds, soft. Absent: distended, tenderness - Extremities Exam Extremities exam: Absent: edema - Neurological Exam Neurological exam: Present: alert, oriented X3 - Psychiatric Psychiatric exam: Present: normal affect, normal mood - Skin Skin exam: Present: warm, dry Result/EKG - Labs CBC & BMP: 11/25/16 04:01 11/25/16 04:01 Lab Results: I have reviewed the past 24 hour labs Labs: Laboratory Results - last 24 hr 11/24/16 11/24/16 11/24/16 11:35 16:25 20:43 WBC RBC Hgb Hct MCV MCH MCHC RDW Plt Count MPV Neut % (Auto) Lymph % (Auto) Harney % (Auto) Eos % (Auto) Baso % (Auto) Neut # (Auto) Lymph # (Auto) Harney # (Auto) Eos # (Auto) Baso # (Auto) Immature Gran % Nucleated RBC % Immature Gran # Nucleated RBCs # Sodium Potassium Chloride Carbon Dioxide Anion Gap BUN Creatinine GFR Calculation BUN/Creatinine Ratio Glucose POC Glucose 270 H 247 H 419 H Calculated Osmolality Calcium Magnesium B-Natriuretic Peptide 11/24/16 11/25/16 11/25/16 23:16 04:01 04:01 WBC 10.9 RBC 3.84 Hgb 10.7 L Hct 32.9 L MCV 85.7 L MCH 28 MCHC 32.5 RDW 15.1 Plt Count 153 MPV 11.3 Neut % (Auto) 72.1 Lymph % (Auto) 19.5 L Harney % (Auto) 7.5 Eos % (Auto) 0.4 Baso % (Auto) 0.0 Neut # (Auto) 7.9 H Lymph # (Auto) 2.1 Harney # (Auto) 0.8 Eos # (Auto) 0.0 Baso # (Auto) 0.0 Immature Gran % 0.5 Nucleated RBC % 0.0 Immature Gran # 0.06 Nucleated RBCs # 0.00 Sodium 143 Potassium 4.1 Chloride 100 Carbon Dioxide 33 H Anion Gap 14.1 BUN 24 H Creatinine 0.90 GFR Calculation 89 BUN/Creatinine Ratio 26.00 H Glucose 62 L POC Glucose 241 H Calculated Osmolality 286.0 Calcium 7.9 L Magnesium 1.9 B-Natriuretic Peptide 11/25/16 11/25/16 04:01 07:35 WBC RBC Hgb Hct MCV MCH MCHC RDW Plt Count MPV Neut % (Auto) Lymph % (Auto) Harney % (Auto) Eos % (Auto) Baso % (Auto) Neut # (Auto) Lymph # (Auto) Harney # (Auto) Eos # (Auto) Baso # (Auto) Immature Gran % Nucleated RBC % Immature Gran # Nucleated RBCs # Sodium Potassium Chloride Carbon Dioxide Anion Gap BUN Creatinine GFR Calculation BUN/Creatinine Ratio Glucose POC Glucose 55 L Calculated Osmolality Calcium Magnesium B-Natriuretic Peptide 282 H - EKG EKG results: interpreted by me EKG shows: atrial fibrillation Rico Barclay John Timothy, MD, personally performed the services described in this documentation, ascribed by Fransisca Mcmanus RN in my presence, and it is both accurate and complete [id number] .
--- NOTE | 2016-12-03 12:42 | Physician Query Form ---
CLICK EDIT DOCUMENT TO SELECT QUERY ANSWER --> OK --> SIGN Teresa Owens RN Clinical Neonatal Surgeon W) [phone] (f) [phone] [email or web address] PROVIDERS: Make your selection(s) from the choices in EACH section by typing an "x" and enter comments in the comment section. Please use your independent medical judgment in providing your response. This request does not imply that any particular answer is desired or expected. CLINICAL INDICATORS: (Providers should not edit this section) Based on documentation of "acute CHF", QOL=170, Echo showed EF of 40-45%, treated with IV Lasix. Please provide further specificity regarding CHF. TYPE: ( ) Systolic (HFrEF - heart failure with reduced systolic function/EF) (X ) Diastolic (HFpEF - heart failure with preserved systolic function/EF) ( ) Combined Systolic/Diastolic ( ) Other, please specify: ( ) Clinically unable to determine ( ) The patient does NOT have CHF COMMENTS: PLEASE ALSO DOCUMENT RESPONSE IN PROGRESS NOTES AND/OR DISCHARGE SUMMARY Use of terms such as suspected, likely, or probable (associated with a specific diagnosis that is being evaluated, monitored, or treated as if it exists) are acceptable and can be restated in the discharge summary if not ruled out. MTDD
== END 2016-11-25 13:42 | disposition home or self-care (01) | DRG 291 ==
LOC: N.ED 10:20 → N.EDINP 14:04 → SUATTDRO 14:04 → N.EDINP 16:21 → N.TELES 16:36
PROVIDERS: ADMIT Internal Medicine; ATTEND Family Medicine

== ENCOUNTER 2016-12-07 18:24 | Inpatient (IN) ==
[2016-12-07] MEDS ORDERED: FUROSEMIDE 100 MG/10 ML VIAL IV STA (18:46)
[2016-12-07] MEDS ORDERED: NITROGLYCERIN 2% OINT 1 INCH/GM PACK TOP STA (18:46)
[2016-12-07] MEDS ORDERED: MORPHINE 2 MG/1 ML SYRINGE IV STA (18:46)
--- NOTE | 2016-12-07 18:51 | EKG Report ---
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
--- NOTE | 2016-12-07 19:12 | XRay Report ---
XR chest 1V portable Indication: Shortness of breath Comparison: Chest x-ray 11/28/2016 Technique: Portable AP chest was performed. Findings: Borderline to mild cardiomegaly is present. Sternal wires are stable. In the mid to lower chest bilaterally there are increased interstitial and scattered airspace opacities with additional blunting of the left costophrenic angle excluded. Upper lungs clear. Bones and soft tissues demonstrate no significant abnormalities. Impression: 1. Appearance of the chest is most suggestive of congestive heart failure and mild pulmonary edema. 2. Small left-sided pleural effusion is not excluded. 12/07/2016 7:09 PM PROCEDURE INTERPRETED AT [facility] DEPARTMENT OF RADIOLOGY Final Report Signed by: Dr. Jose Jim
[2016-12-07 19:18] LABS: Basophils % 0.2 % (0.0-0.8); Eosinophils % 0.2 % (0.00-10.9); Hematocrit 32.4 VOL% (42.0-52.0); Hemoglobin 10.9 GM/DL (14.0-18.0); Immature Granulocytes % 0.8 %; Immature Granulocytes Absolute 0.09 #; Lymphocytes # 0.8 10*3/uL (1.4-4.0); Mean Corpuscular HGB Conc 33.6 GM/DL (32-36); Mean Corpuscular Hemoglobin 29 PG (27-34); Mean Corpuscular Volume 85.5 FL (87-102); Mean Platelet Volume 11.7 FL (9.6-12.0); Monocytes # 0.8 10*3/uL (0.11-0.8); Monocytes % 7.2 % (1.7-12.7); Neutrophils # 9.3 10*3/uL (1.4-7.4); Neutrophils % 84.6 % (38.7-73.9); Platelet Count 145 T/CUMM (130-400); Red Blood Count 3.79 MC/CUMM (3.8-5.5); Red Cell Distribution Width 15.1 % (9.3-17.3)
[2016-12-07 19:26] LABS: INR 1.1; PT Patient Result 11.7 SECS
[2016-12-07 19:37] LABS: Albumin 3.2 G/DL (3.4-5.0); Bilirubin,Total 0.5 MG/DL (0.2-1.0); Calcium 8.4 MG/DL (8.5-10.1); Magnesium 1.5 MG/DL (1.8-2.4); Osmolality,Calculated 293.8 MOS/KG (273-304); Potassium 4.7 MMOL/L (3.5-5.1); Total Protein 6.5 G/DL (6.4-8.3); Troponin I Only 0.027 NG/ML (0.00-0.045)
[2016-12-07] MEDS ORDERED: NITROGLYCERIN 2% OINT 1 INCH/GM PACK TOP ONE (19:45)
[2016-12-07] MEDS ORDERED: MORPHINE 2 MG/1 ML SYRINGE ONE (19:46)
[2016-12-07] MEDS ORDERED: FUROSEMIDE 100 MG/10 ML VIAL ONE (19:46)
--- NOTE | 2016-12-07 19:55 | Emergency Department Note ---
Giovanni Barclay Gwan, am scribing for, and in the presence of, Nixon Jim MD 19:00. Hernán Barclay Robert M, MD, personally performed the services described in this documentation, ascribed by Jah Davila in my presence, and it is both accurate and complete [id number] . Arrival - Arrival Chief Complaint: Shortness of Breath Stated Complaint: FLUID/CANT BREATHE ED Nursing Triage Note: Pt c/o SOB and lower ext swelling for a while now. Mode of Arrival: Wheelchair Limitations: No Limitations Source: Patient, Significant other, Family, Old Records Reviewed, RN Notes Reviewed Time Seen by Provider: 12/07/16 18:46 - History of Present Illness HPI Narrative: Patient is a 81 y/o white male who presents to the ED with a c/o SOB and bilateral lower extremity edema with an onset 2 weeks. He is alert and speaks in 2-3 word sentences. Patient was last seen in ED 11/28/2016 with similar complaints that include low O2 sat. During exam, pt's O2 sat was 94% on 2 liters. Discharge disposition was a cr cath with leg bag and the f/u with Urologist Dr. Mauricio in 5-7 days and that he has also be seen by a Neurologist. Patient confirmed that his Neurologist gave him some medication with no relief. He presents today with worsening sxs that include limited ROM of bilateral LE due to edema and that his SOB worsens when he lays flat. confirmed that pt is also followed by Invoice Coder Dr. Gastelum and [employer] in [place]. No other complaints reported in ED. Onset (ago): day(s) Consistency: constant Severity: moderate Allergies/Adverse Reactions: Allergies Allergy/AdvReac Type Severity Reaction Status Date / Time No Known Allergies Allergy Verified 11/20/16 10:36 Home Medications: Home Medications Medication Instructions Recorded Confirmed Type Furosemide Tab [Lasix Tab] 20 mg PO DAILY 12/21/15 11/28/16 History Gabapentin 300 mg PO TID 12/21/15 11/28/16 History Insulin Glargine [Lantus] 82 unit SUBCUT BEDTIME 12/21/15 11/28/16 History Loratadine Tab [Claritin Tab] 10 mg PO BEDTIME 12/21/15 11/28/16 History Metformin HCl 1,000 mg PO BID 12/21/15 11/28/16 History Metoprolol Succinate 50 mg PO DAILY 12/21/15 11/28/16 History Omeprazole 20 mg PO DAILY PRN 12/21/15 11/28/16 History Simvastatin 80 mg PO BEDTIME 12/21/15 11/28/16 History Cyclobenzaprine HCl 5 mg PO BEDTIME 11/20/16 11/28/16 History Fluticasone 50 Mcg Nasal Napoleon 1 spray BOTH NARES DAILY PRN 11/20/16 11/28/16 History [Flonase Nasal Napoleon] Apixaban [Eliquis] 2.5 mg PO BID #60 tablet 11/25/16 11/28/16 Rx Ascorbic Acid Tab [Vitamin C Tab] 1,000 mg PO BID #120 tablet 11/25/16 11/28/16 Rx Cefuroxime Tab [Ceftin] 500 mg PO BID #20 tablet 11/25/16 11/28/16 Rx Diltiazem Cd Cap [Cardizem CD] 240 mg PO DAILY #30 capsule 11/25/16 11/28/16 Rx Montelukast Tab [Singulair Tab] 10 mg PO DAILY #30 tablet 11/25/16 11/28/16 Rx guaiFENesin ER TAB [Mucinex] 600 mg PO BID #30 tablet 11/25/16 11/28/16 Rx Tamsulosin [Flomax] 0.4 mg PO DAILY #30 capsule 11/28/16 Rx Review of System - Review of System 12 point system: reviewed and no additional remarkable complaints except as stated - Review of System Constitutional: Absent: chills, fever Eyes: Absent: discharge, pain Head/Ears/Nose/Throat: Absent: earache Respiratory: Present: as per HPI, other (sob). Absent: cough Cardiovascular: Absent: chest pain Gastrointestinal: Absent: abdominal pain, nausea, vomiting, diarrhea Genitourinary male: Absent: urgency, dysuria Musculoskeletal: Absent: as per HPI, arm pain, back pain, leg pain (swelling in both legs) Medical,Surgical,& Family Hx - Medical History Cardio: History of: Cardiac Dysrhythmia, CHF, CAD, Hypertension, Valvular Heart Disease No history of: CO Psychological: No history of: Anxiety Disorders, Depression Neurology: No history of: Seizures HEENT: History of: HEENT Problems (cataract surgery) Endocrine: History of: Diabetes Mellitus (IDDM), Diabetes Mellitus (NIDDM), Dyslipidemia No history of: Thyroid Disorder Rheumatology: No history of;: Fibromyalgia Respiratory: No history of: COPD, Obstructive Sleep Apnea Gastrointestinal: History of: GERD Musculoskeletal: History of: Musculoskeletal Problems (arthritis) Reproductive: Reports: Penile Disorder (penis implant) Other: History of: Miscellaneous Medical Problems (hepatitis) - Surgical History Cardiac Surgeries: Sugical HX of: Cardiac Surgery (triple bypass with valve replacement) HEENT Surgeries: Surgical HX of: Tonsilectomy & Adenoidectomy Abdominal Surgeries: Surgical HX of: Colonoscopy, EGD Orthopedic Surgeries: Surgical HX of;: Implanted Devices (penile implant) - Family History Family History: Reports;: Family Heart Disease (father-chf) - Social History Smoking Status: Never smoker Exam Vital Signs: Vital Signs Temperature 98.1 F 12/07/16 18:34 Pulse Rate 60 12/07/16 18:34 Respiratory Rate 24 12/07/16 18:34 Blood Pressure 134/60 12/07/16 18:34 O2 Sat by Pulse Oximetry 93 L 12/07/16 18:34 - General General appearance: alert, in no apparent distress, other (speaks in 2-3 word sentences) - Head Head exam: Present: atraumatic, normocephalic - Eye Eye exam: Present: normal appearance, PERRL, EOMI - ENT ENT exam: Present: normal oropharynx, mucous membranes moist, TM's normal bilaterally, normal external ear exam - Neck Neck exam: Present: full ROM, trachea midline. Absent: tenderness - Chest Chest inspection: Present: symmetric chest wall rise. Absent: tenderness - Respiratory Respiratory exam: Present: rhonchi (bilaterally), other (O2 sat 94% on 2 liters) - Cardiovascular Cardiovascular exam: Present: regular rate, normal rhythm, normal heart sounds. Absent: murmur - Extremities Exam Extremities exam: Present: other (+4 pitting edema bilateral LE) - Back Exam Back exam: Present: full ROM. Absent: tenderness - Neurological Exam Neurological exam: Present: alert, oriented X3, CN II-XII intact. Absent: motor sensory deficit - Psychiatric Psychiatric exam: Present: normal affect, normal mood - Skin Skin exam: Present: warm, dry, intact, normal color Course - Consultations Consultation #1: Dr. Arya Nunez notified of the patient and will admit. Time: 20:05 Results - Labs CBC & BMP: 12/07/16 18:57 12/07/16 18:57 Lab Results: I have reviewed the patients labs Labs: Lab Results WBC 11.0 T/CUMM (4-12) 12/07/16 18:57 RBC 3.79 MC/CUMM (3.8-5.5) L 12/07/16 18:57 Hgb 10.9 GM/DL (14.0-18.0) L 12/07/16 18:57 Hct 32.4 VOL% (42.0-52.0) L 12/07/16 18:57 MCV 85.5 FL (87-102) L 12/07/16 18:57 MCH 29 PG (27-34) 12/07/16 18:57 MCHC 33.6 GM/DL (32-36) 12/07/16 18:57 RDW 15.1 % (9.3-17.3) 12/07/16 18:57 Plt Count 145 T/CUMM (130-400) 12/07/16 18:57 MPV 11.7 FL (9.6-12.0) 12/07/16 18:57 Neut % (Auto) 84.6 % (38.7-73.9) H 12/07/16 18:57 Lymph % (Auto) 7.0 % (21.2-54.2) L 12/07/16 18:57 Mccreary % (Auto) 7.2 % (1.7-12.7) 12/07/16 18:57 Eos % (Auto) 0.2 % (0.00-10.9) 12/07/16 18:57 Baso % (Auto) 0.2 % (0.0-0.8) 12/07/16 18:57 Neut # (Auto) 9.3 10*3/uL (1.4-7.4) H 12/07/16 18:57 Lymph # (Auto) 0.8 10*3/uL (1.4-4.0) L 12/07/16 18:57 Mccreary # (Auto) 0.8 10*3/uL (0.11-0.8) 12/07/16 18:57 Eos # (Auto) 0.0 10*3/uL (0.0-0.87) 12/07/16 18:57 Baso # (Auto) 0.0 10*3/uL (0.0-0.2) 12/07/16 18:57 Immature Gran % 0.8 % 12/07/16 18:57 Nucleated RBC % 0.0 /100WBC 12/07/16 18:57 Immature Gran # 0.09 # 12/07/16 18:57 Nucleated RBCs # 0.00 10*3/uL 12/07/16 18:57 INR 1.1 12/07/16 18:57 PT Patient/Control Mix 11.7 SECS 12/07/16 18:57 Sodium 130 MMOL/L (136-145) L 12/07/16 18:57 Potassium 4.7 MMOL/L (3.5-5.1) 12/07/16 18:57 Chloride 91 MMOL/L (98-107) L 12/07/16 18:57 Carbon Dioxide 26 MMOL/L (21-32) 12/07/16 18:57 Anion Gap 17.7 MMOL/L (5.0-15.0) H 12/07/16 18:57 BUN 36 MG/DL (7-18) H 12/07/16 18:57 Creatinine 1.80 MG/DL (0.70-1.30) H 12/07/16 18:57 GFR Calculation 39 ML/MIN 12/07/16 18:57 BUN/Creatinine Ratio 20.00 RATIO (6.00-20.00) 12/07/16 18:57 Glucose 566 MG/DL (74-106) H* 12/07/16 18:57 Calculated Osmolality 293.8 MOS/KG (273-304) 12/07/16 18:57 Calcium 8.4 MG/DL (8.5-10.1) L 12/07/16 18:57 Magnesium 1.5 MG/DL (1.8-2.4) L 12/07/16 18:57 Total Bilirubin 0.50 MG/DL (0.2-1.0) 12/07/16 18:57 AST 30 U/L (0-37) 12/07/16 18:57 ALT 38 U/L (16-61) 12/07/16 18:57 Alkaline Phosphatase 92 U/L (45-117) 12/07/16 18:57 Troponin I 0.027 NG/ML (0.00-0.045) 12/07/16 18:57 Total Protein 6.5 G/DL (6.4-8.3) 12/07/16 18:57 Albumin 3.2 G/DL (3.4-5.0) L 12/07/16 18:57 Globulin 3.3 G/DL (2.3-3.5) 12/07/16 18:57 Albumin/Globulin Ratio 0.9 RATIO (1.1-2.2) L 12/07/16 18:57 - Diagnostic Findings Procedure: Chest x-ray: report reviewed by me Disposition Clinical Impression: Acute dyspnea, CHF exacerbation, Pleural effusion, Diabetes, Hypertension, History of aortic valve replacement, Uncontrolled diabetes mellitus Case discussed with: patient, patient's family Disposition: Still a Patient Condition: Stable Time of Disposition: 19:54
--- NOTE | 2016-12-07 20:57 | Hospitalist History & Physical ---
Assessment and Plan (1) Acute on chronic systolic and diastolic heart failure, NYHA class 4 Status: Acute Assessment and plan: Admit on telemetry Echo done this month shows EF 40% Lasix 60 mg IV every [address] Ibrahim if he does not start voiding spontaneously due to urinary retention problems Decrease calcium channel dez dose as he is decompensated Current Visit: Yes (2) BRIANA (acute kidney injury) Status: Acute Assessment and plan: Likely secondary to poor perfusion with decompensated heart failure. Expected diuresis will improve forward flow and improve renal function. Could also have some element of obstruction given his history of urinary retention. Will Place Ibrahim if he does not start voiding. Current Visit: Yes (3) Metabolic acidosis, increased anion gap Status: Acute Assessment and plan: Check ABG to rule out DKA given hyperglycemia. Otherwise is likely secondary to renal failure. Current Visit: Yes (4) Hyperglycemia due to type 2 diabetes mellitus Status: Acute Assessment and plan: Patient is been having hypoglycemia at home that is symptomatic so he has been decreasing his Lantus down to 60 units at home. Check ABG and urinalysis to rule out DKA. We will continue his reduced home dose of insulin which he has not yet received tonight. Medium range lispro sliding scale insulin and serial fingerstick glucose. Check hemoglobin A1c. Current Visit: Yes Qualifiers: Diabetes mellitus shelter insulin use: with shelter use Qualified Code( s): E11.65 - Type 2 diabetes mellitus with hyperglycemia; Z79.4 - meterman ( current) use of insulin (5) Hypertension Status: Chronic Assessment and plan: Currently well controlled, heart failure regimen management as above. Current Visit: Yes (6) Hypomagnesemia Status: Acute Assessment and plan: Replace IV Current Visit: Yes (7) Atrial fibrillation Status: Acute Assessment and plan: Currently rate controlled. Will relax calcium channel dez dose due to decompensated heart failure. Continue home Eliquis. Current Visit: Yes Qualifiers: Atrial fibrillation type: chronic Qualified Code(s): I48.2 - Chronic atrial fibrillation (8) Hyponatremia Status: Acute Assessment and plan: Hypervolemic hyponatremia. Lasix diuresis and trend. Current Visit: Yes History of Present Illness Chief complaint: Shortness of breath History of present illness: Mr. Rider is a 81 year old male with history of systolic heart failure (EF 40 %,) ICD, atrial fibrillation, hypertension, diabetes, coronary artery disease status post CABG, aortic valve repair, urinary retention/BPH the presented with a chief complaint of shortness of breath. Onset gradual. Duration several days. Exacerbated by lying flat and exertion. Relieved by sitting up. Not relieved by nebulizer treatment. Associated with increased swelling in bilateral lower extremities and abdomen. No associated fever or chills or chest pain. He was given 60 mg IV Lasix in the emergency department and had already taken 60 mg oral Lasix this morning and has not yet voided since going to the emergency department. Of note he recently had to have an indwelling Ibrahim for urinary retention. He is now on Flomax. He is compliant with Eliquis and his heart failure regimen and has already taken doses of those medications tonight. He has finished antibiotics for a recent bout of pneumonia. He is still on a prednisone taper 10 mg every other day. Also of note he has been having problems with hypoglycemia in the morning and he has decreased his nightly Lantus from 82 units to 60 units nightly. His fingerstick will be in the 40s and he will be symptomatic with this. I discussed CODE STATUS with him and he prefers full code. I have reviewed the workup performed in the emergency department including lab and imaging data. I discussed his case with the emergency department providers. Allergies Allergy/AdvReac Type Severity Reaction Status Date / Time No Known Allergies Allergy Verified 11/20/16 10:36 Medical,Surgical,& Family Hx - Medical History Cardio: History of: Cardiac Dysrhythmia, CHF, CAD, Hypertension, Valvular Heart Disease No history of: [place] Psychological: No history of: Anxiety Disorders, Depression Neurology: No history of: Seizures HEENT: History of: HEENT Problems (cataract surgery) Endocrine: History of: Diabetes Mellitus (IDDM), Diabetes Mellitus (NIDDM), Dyslipidemia No history of: Thyroid Disorder Rheumatology: No history of;: Fibromyalgia Respiratory: No history of: COPD, Obstructive Sleep Apnea Gastrointestinal: History of: GERD Musculoskeletal: History of: Musculoskeletal Problems (arthritis) Reproductive: Reports: Penile Disorder (penis implant) Other: History of: Miscellaneous Medical Problems (hepatitis) - Surgical History Cardiac Surgeries: Sugical HX of: Cardiac Surgery (triple bypass with valve replacement) HEENT Surgeries: Surgical HX of: Tonsilectomy & Adenoidectomy Abdominal Surgeries: Surgical HX of: Colonoscopy, EGD Orthopedic Surgeries: Surgical HX of;: Implanted Devices (penile implant) - Family History Family History: Reports;: Family Heart Disease (father-chf) - Social History Smoking Status: Never smoker Have you smoked in the last 12 months: No Frequency of Alcohol Use: Rarely Type of Drug Use: None Marital Status: Lives With:: Spouse Review of systems: - Constitutional Constitutional: Absent: chills, fatigue, fever(s), night sweats, weight loss - EENT 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 absent: blurry vision Ears: Absent: decreased hearing, ear pain Nose, mouth and throat: Present: Nasal congestion absent: Sore throat - Cardiovascular Cardiovascular: Present: Orthopnea, PND, edema, dyspnea with exertion absent: chest pain at rest, chest pain with activity, palpitations - Respiratory Respiratory: Present: Mildly productive cough, dyspnea absent: Hemoptysis - Gastrointestinal Gastrointestinal: Present: Abdominal distention absent: abdominal pain, constipation, diarrhea, dysphagia, hematemesis, hematochezia, melena, nausea, vomiting - Genitourinary Genitourinary: Present: Urinary retention problems absent: Dysuria, hematuria - Musculoskeletal Musculoskeletal: Absent: arthralgias, joint swelling, myalgias - Neurological Neurological: Absent: confusion, dizziness, focal weakness, headache(s), numbness, paresthesias, syncope - Psychiatric Psychiatric: Absent: anxiety, depression - Endocrine Endocrine: Absent: cold intolerance, heat intolerance, polydipsia, polyuria - Hematologic/Lymphatic Hematologic/Lymphatic: Absent: easy bleeding, easy bruising, lymphadenopathy Exam - Constitutional Vitals: Period Temp Pulse Resp BP Sys/Walsh Pulse Ox Last 24 Hr 98.1 F-98.1 F 60-60 24-26 134-134/60-60 93 General appearance: morbidly obese, other (Elderly white male sitting up in stretcher, pleasant cooperative) Exam: - Eye Eye exam: Present: EOMI. Absent: conjunctival injection, scleral icterus Pupils: Present: THERESA - ENT ENT exam: Present: normal external ear exam, normal oropharynx - Expanded ENT Exam Mouth exam: Present: moist, poor dentition - Neck Neck exam: Present: normal inspection. Absent: lymphadenopathy, thyromegaly - Respiratory Respiratory exam: Present: Bibasilar wet crackles, otherwise clear to auscultation bilaterally. Absent: accessory muscle use, wheezes - Cardiovascular Cardiovascular exam: Present: regular rate and rhythm, mechanical systolic murmur. Absent: diastolic murmur - Expanded Cardiovascular Exam Peripheral pulses: 2+: posterior tibialis (L), posterior tibialis (R) - GI/Abdominal GI/Abdominal exam: Present: normal bowel sounds, soft, distention. Absent: Hyperactive bowel sounds, hypoactive bowel sounds, organomegaly, tenderness, rebound - Extremities Exam Extremities exam: Present: March bilateral lower extremity pitting edema - Neurological Exam Neurological exam: Present: alert, oriented X3, CN II-XII intact. Absent: motor sensory deficit - Psychiatric Psychiatric exam: Present: normal affect - Skin Skin exam: Present: warm, dry. Absent: diaphoretic, rash Results - Labs CBC & BMP: 12/07/16 18:57 12/07/16 18:57 - EKG EKG shows: atrial fibrillation (QRS 138. Bifascicular block. Rate 58.) - Diagnostic Findings Procedure: Chest x-ray: report reviewed by me
[2016-12-07] MEDS ORDERED: MAGNESIUM SULF RIDER 4 GM in PREMIX 1 EACH IV ONE (21:17)
[2016-12-07 21:20] LABS: ABG PH 7.405 (7.35-7.45); Allen Test Positive
[2016-12-07 21:21] LABS: ABG Base Excess 3.6 MMOL/L (-2.5-2.5); ABG Oxygen Saturation 94.4 % (95-100); ABG PCO2 47.3 MM HG (35-48); ABG PO2 75.7 MM HG (80-95); ABG TCO2 30.4 MMOL/L (23-27)
[2016-12-07] MEDS ORDERED: GLUCAGON 1 MG VIAL IM PRN ×2 (23:01)
[2016-12-07] MEDS ORDERED: ACETAMINOPHEN 325 MG TABLET PO PRN (23:01)
[2016-12-07] MEDS ORDERED: FLUTICASONE 50 MCG NASAL SPRAY 16 GM BOTTLE BOTH NARES PRN (23:01)
[2016-12-07] MEDS ORDERED: DEXTROSE 50% 25 GM/50 ML VIAL IV PRN ×2 (23:01)
[2016-12-07] MEDS: INSULIN GLARGINE 100 UNIT/ML SUBCUT SCH (23:43)
[2016-12-08] MEDS: FUROSEMIDE 40 MG/4 ML VIAL IV SCH ×3 (02:03→17:59)
[2016-12-08 04:56] LABS: Calcium 8.4 MG/DL (8.5-10.1); Magnesium 2.6 MG/DL (1.8-2.4); Osmolality,Calculated 294.1 MOS/KG (273-304); Potassium 3.9 MMOL/L (3.5-5.1)
[2016-12-08] MEDS: INSULIN LISPRO 100 UNIT/ML SUBCUT SCH ×4 (08:15→22:16)
[2016-12-08] MEDS: TAMSULOSIN 0.4 MG CAPSULE PO SCH (09:59)
[2016-12-08] MEDS: APIXABAN 2.5 MG TABLET PO SCH ×2 (09:59→22:18)
[2016-12-08] MEDS: DILTIAZEM CD 120 MG CAPSULE PO SCH (09:59)
[2016-12-08] MEDS: METOPROLOL SUCCINATE XL 100 MG TABLET PO SCH (09:59)
[2016-12-08] MEDS: ASCORBIC ACID 500 MG TABLET PO SCH ×2 (09:59→22:17)
[2016-12-08] MEDS: PANTOPRAZOLE 40 MG TABLET PO SCH (09:59)
[2016-12-08] MEDS: MONTELUKAST 10 MG TABLET PO SCH (09:59)
[2016-12-08] MEDS: GABAPENTIN 300 MG CAPSULE PO SCH ×3 (09:59→22:18)
[2016-12-08] MEDS ORDERED: BENZONATATE 100 MG CAPSULE PO PRN (12:46)
--- NOTE | 2016-12-08 12:50 | Hospitalist Progress Note ---
Assessment and Plan (1) Hypertension Status: Chronic Assessment and plan: Continue home medications Current Visit: Yes (2) CHF exacerbation Status: Acute Assessment and plan: Continue IV lasix Current Visit: Yes (3) Uncontrolled diabetes mellitus Status: Acute Assessment and plan: Lantus 60 nightly with SSI Current Visit: Yes (4) BRIANA (acute kidney injury) Status: Acute Assessment and plan: Improving Monitor closely on lasix Current Visit: Yes Hospitalist: Subjective Interval history: No acute events overnight. Patient reports that his breathing and lower extremity edema are better this am after receiving IV lasix. He still has quite a bit of lower extremity edema and is still requiring supplemental oxygen. Creatinine is trending down. Exam - Constitutional Vitals: Period Temp Pulse Resp BP Sys/Walsh Pulse Ox Last 24 Hr 96.2 F-97.6 F 65-97 18-20 127-150/61-79 90-94 General appearance: over weight - Head Head exam: Present: normocephalic, atraumatic - Eye Eye exam: Present: EOMI Pupils: Present: THERESA - ENT ENT exam: Present: normal exam - Neck Neck exam: Present: normal inspection - Respiratory Respiratory exam: Present: rhonchi, wheezes - Cardiovascular Cardiovascular exam: Present: regular rate and rhythm - GI/Abdominal GI/Abdominal exam: Present: normal bowel sounds, soft. Absent: tenderness, rebound - Extremities Exam Extremities exam: Present: normal inspection - Back Exam Back exam: Present: normal inspection - Neurological Exam Neurological exam: Present: alert, oriented X3 - Psychiatric Psychiatric exam: Present: normal affect, normal mood - Skin Skin exam: Present: warm, intact Results - Labs CBC & BMP: 12/07/16 18:57 12/08/16 03:33
[2016-12-08] MEDS: INSULIN GLARGINE 100 UNIT/ML SUBCUT SCH (22:14)
[2016-12-08] MEDS: SIMVASTATIN 80 MG TABLET PO SCH (22:18)
[2016-12-08] MEDS: LORATADINE 10 MG TABLET PO SCH (22:18)
[2016-12-09] MEDS: FUROSEMIDE 40 MG/4 ML VIAL IV SCH ×3 (01:31→17:24)
[2016-12-09 05:31] LABS: Basophils # 0.1 10*3/uL (0.0-0.2); Basophils % 0.5 % (0.0-0.8); Eosinophils # 0.3 10*3/uL (0.0-0.87); Eosinophils % 2.9 % (0.00-10.9); Hematocrit 32.9 VOL% (42.0-52.0); Hemoglobin 10.8 GM/DL (14.0-18.0); Immature Granulocytes % 0.7 %; Immature Granulocytes Absolute 0.07 #; Lymphocytes # 2.2 10*3/uL (1.4-4.0); Lymphocytes % 22.6 % (21.2-54.2); Mean Corpuscular HGB Conc 32.8 GM/DL (32-36); Mean Corpuscular Hemoglobin 28 PG (27-34); Mean Corpuscular Volume 85.2 FL (87-102); Mean Platelet Volume 11.6 FL (9.6-12.0); Monocytes # 0.7 10*3/uL (0.11-0.8); Monocytes % 7.5 % (1.7-12.7); Neutrophils # 6.4 10*3/uL (1.4-7.4); Neutrophils % 65.8 % (38.7-73.9); Platelet Count 130 T/CUMM (130-400); Red Blood Count 3.86 MC/CUMM (3.8-5.5); White Blood Count 9.7 T/CUMM (4-12)
[2016-12-09 06:02] LABS: Calcium 8.4 MG/DL (8.5-10.1); Magnesium 1.8 MG/DL (1.8-2.4); Osmolality,Calculated 283.5 MOS/KG (273-304); Potassium 2.9 MMOL/L (3.5-5.1)
[2016-12-09] MEDS ORDERED: POTASSIUM CHLORIDE RIDER 10 MEQ in PREMIX 1 EACH IV PRN (07:56)
[2016-12-09] MEDS: METOPROLOL SUCCINATE XL 100 MG TABLET PO SCH (08:58)
[2016-12-09] MEDS: MONTELUKAST 10 MG TABLET PO SCH (08:58)
--- NOTE | 2016-12-09 08:58 | Hospitalist Progress Note ---
Assessment and Plan (1) Hypertension Status: Chronic Assessment and plan: Continue home medications Current Visit: Yes (2) CHF exacerbation Status: Acute Assessment and plan: Continue IV lasix Current Visit: Yes (3) Uncontrolled diabetes mellitus Status: Acute Assessment and plan: Decrease Lantus to 30 nightly with SSI Current Visit: Yes (4) BRIANA (acute kidney injury) Status: Acute Assessment and plan: Improving Creatinine within normal limits today Monitor closely Current Visit: Yes Hospitalist: Subjective Interval history: No acute events overnight. He feels better today, LE edema continues to improve but still quite swollen. Will continue IV lasix today. This am with hypoglycemia , will half his home dose of Lantus for tonight. Possible discharge soon. Exam - Constitutional Vitals: Period Temp Pulse Resp BP Sys/Walsh Pulse Ox Last 24 Hr 97.1 F-99.2 F 87-118 16-20 103-142/60-80 90-95 General appearance: over weight - Head Head exam: Present: normocephalic, atraumatic - Eye Eye exam: Present: EOMI Pupils: Present: THERESA - ENT ENT exam: Present: normal exam - Neck Neck exam: Present: normal inspection - Respiratory Respiratory exam: Present: clear to auscultation bilaterally. Absent: wheezes - Cardiovascular Cardiovascular exam: Present: regular rate and rhythm - GI/Abdominal GI/Abdominal exam: Present: normal bowel sounds, soft. Absent: tenderness - Extremities Exam Extremities exam: Present: edema - Back Exam Back exam: Present: normal inspection - Neurological Exam Neurological exam: Present: alert, oriented X3 - Psychiatric Psychiatric exam: Present: normal affect, normal mood - Skin Skin exam: Present: warm, intact Results - Labs CBC & BMP: 12/09/16 04:24 12/09/16 04:24
[2016-12-09] MEDS: GABAPENTIN 300 MG CAPSULE PO SCH ×3 (08:59→21:16)
[2016-12-09] MEDS: ASCORBIC ACID 500 MG TABLET PO SCH ×2 (08:59→21:16)
[2016-12-09] MEDS: PANTOPRAZOLE 40 MG TABLET PO SCH (08:59)
[2016-12-09] MEDS: TAMSULOSIN 0.4 MG CAPSULE PO SCH (08:59)
[2016-12-09] MEDS: DILTIAZEM CD 120 MG CAPSULE PO SCH (08:59)
[2016-12-09] MEDS: POTASSIUM CHLORIDE 20 MEQ TABLET PO PRN ×4 (08:59→15:59)
[2016-12-09] MEDS: APIXABAN 2.5 MG TABLET PO SCH ×2 (08:59→21:16)
[2016-12-09] MEDS: INSULIN LISPRO 100 UNIT/ML SUBCUT SCH ×4 (10:28→21:17)
[2016-12-09] MEDS: LORATADINE 10 MG TABLET PO SCH (21:17)
[2016-12-09] MEDS: INSULIN GLARGINE 100 UNIT/ML SUBCUT SCH (21:18)
[2016-12-09] MEDS: SIMVASTATIN 80 MG TABLET PO SCH (21:23)
[2016-12-10] MEDS: FUROSEMIDE 40 MG/4 ML VIAL IV SCH ×3 (01:30→19:00)
[2016-12-10 05:09] LABS: Basophils # 0.1 10*3/uL (0.0-0.2); Basophils % 0.6 % (0.0-0.8); Eosinophils # 0.3 10*3/uL (0.0-0.87); Eosinophils % 2.9 % (0.00-10.9); Hematocrit 37.2 VOL% (42.0-52.0); Hemoglobin 12.1 GM/DL (14.0-18.0); Immature Granulocytes % 0.5 %; Immature Granulocytes Absolute 0.04 #; Lymphocytes # 2.5 10*3/uL (1.4-4.0); Lymphocytes % 28.5 % (21.2-54.2); Mean Corpuscular HGB Conc 32.5 GM/DL (32-36); Mean Corpuscular Hemoglobin 28 PG (27-34); Mean Corpuscular Volume 84.9 FL (87-102); Mean Platelet Volume 12.6 FL (9.6-12.0); Monocytes # 0.8 10*3/uL (0.11-0.8); Monocytes % 8.7 % (1.7-12.7); Neutrophils # 5.1 10*3/uL (1.4-7.4); Neutrophils % 58.8 % (38.7-73.9); Red Blood Count 4.38 MC/CUMM (3.8-5.5); Red Cell Distribution Width 14.9 % (9.3-17.3); White Blood Count 8.6 T/CUMM (4-12)
[2016-12-10 05:13] LABS: Platelet Count 108 T/CUMM (130-400)
[2016-12-10] MEDS: METOPROLOL SUCCINATE XL 100 MG TABLET PO SCH ×2 (05:28→10:02)
[2016-12-10] MEDS: DILTIAZEM CD 120 MG CAPSULE PO SCH ×2 (05:28→10:00)
[2016-12-10 05:31] LABS: Hypochromasia 1+; Ovalocytes Slight; Platelet Estimate Decreased
[2016-12-10 05:49] LABS: Calcium 8.3 MG/DL (8.5-10.1); Magnesium 1.8 MG/DL (1.8-2.4); Osmolality,Calculated 287.8 MOS/KG (273-304); Potassium 3.5 MMOL/L (3.5-5.1)
[2016-12-10] MEDS: POTASSIUM CHLORIDE 20 MEQ TABLET PO PRN ×2 (06:07→11:31)
[2016-12-10] MEDS: INSULIN LISPRO 100 UNIT/ML SUBCUT SCH ×4 (08:50→22:22)
[2016-12-10] MEDS: APIXABAN 2.5 MG TABLET PO SCH (10:00)
[2016-12-10] MEDS: MONTELUKAST 10 MG TABLET PO SCH (10:01)
[2016-12-10] MEDS: ASCORBIC ACID 500 MG TABLET PO SCH ×2 (10:01→22:23)
[2016-12-10] MEDS: TAMSULOSIN 0.4 MG CAPSULE PO SCH (10:01)
[2016-12-10] MEDS: PANTOPRAZOLE 40 MG TABLET PO SCH (10:01)
[2016-12-10] MEDS: GABAPENTIN 300 MG CAPSULE PO SCH ×3 (10:01→22:23)
--- NOTE | 2016-12-10 13:56 | Hospitalist Progress Note ---
Hospitalist: Subjective Interval history: Pt has lost 5.381 kg since 12/07. Exam - Constitutional Vitals: Period Temp Pulse Resp BP Sys/Walsh Pulse Ox Last 24 Hr 97.4 F-99.2 F 76-134 16- 112-160/54-73 90-97 Results - Labs CBC & BMP: 12/10/16 03:49 12/10/16 03:49 - Impressions (1) Acute systolic and diastolic CHF exacerbation (ECHO 11/20 shows EF 40% and Mod TR and RSVP 58) Status: Acute Assessment and plan: Continue IV lasix. Metoprolol. No ACEi or ARB. Strict I and O's. Daily weights. Current Visit: Yes (2) Acute thrombocytopenia- ? pseudothrombocytopenia - Check CBC in a tube to prevent clumping and if still low, check DIC panel. Pt not on heparin. - Hold Eliquis for now and watch for bleeding (3) Uncontrolled diabetes mellitus Status: Acute Assessment and plan: Cont Lantus 30 nightly with SSI Current Visit: Yes (4) BRIANA (acute kidney injury) in a patient with known BPH Status: Acute Assessment and plan: Improving Creatinine within normal limits today Monitor closely Cont home meds Current Visit: Yes (5) Hypokalemia (acute) - replaced. Mg ok. Check phos and replace as needed. (6) history of afib - hold eliquis due to low platelet count. See #2 - (7) History of CAD (8) Essential Hypertension Status: Chronic Assessment and plan: Continue home medications Current Visit: Yes DVT prophylaxis- hold Eliquis for now SCDs
[2016-12-10 14:33] LABS: Basophils % 0.5 % (0.0-0.8); Eosinophils # 0.2 10*3/uL (0.0-0.87); Eosinophils % 2.2 % (0.00-10.9); Hematocrit 36.9 VOL% (42.0-52.0); Hemoglobin 12.3 GM/DL (14.0-18.0); Immature Granulocytes % 0.9 %; Immature Granulocytes Absolute 0.07 #; Lymphocytes # 1.5 10*3/uL (1.4-4.0); Lymphocytes % 18.6 % (21.2-54.2); Mean Corpuscular HGB Conc 33.3 GM/DL (32-36); Mean Corpuscular Hemoglobin 28 PG (27-34); Mean Corpuscular Volume 83.9 FL (87-102); Mean Platelet Volume 11.1 FL (9.6-12.0); Monocytes # 0.6 10*3/uL (0.11-0.8); Neutrophils # 5.6 10*3/uL (1.4-7.4); Neutrophils % 69.8 % (38.7-73.9); Platelet Count 127 T/CUMM (130-400); Red Cell Distribution Width 14.7 % (9.3-17.3); White Blood Count 8.1 T/CUMM (4-12)
[2016-12-10] MEDS: INSULIN GLARGINE 100 UNIT/ML SUBCUT SCH (22:22)
[2016-12-10] MEDS: LORATADINE 10 MG TABLET PO SCH (22:23)
[2016-12-10] MEDS: SIMVASTATIN 80 MG TABLET PO SCH (22:23)
[2016-12-11] MEDS: FUROSEMIDE 40 MG/4 ML VIAL IV SCH ×2 (01:46→10:02)
[2016-12-11] MEDS: ASCORBIC ACID 500 MG TABLET PO SCH ×2 (08:50→21:22)
[2016-12-11] MEDS: MONTELUKAST 10 MG TABLET PO SCH (08:50)
[2016-12-11] MEDS: DILTIAZEM CD 120 MG CAPSULE PO SCH (08:50)
[2016-12-11] MEDS: TAMSULOSIN 0.4 MG CAPSULE PO SCH (08:50)
[2016-12-11] MEDS: PANTOPRAZOLE 40 MG TABLET PO SCH (08:51)
[2016-12-11] MEDS: GABAPENTIN 300 MG CAPSULE PO SCH ×3 (08:51→21:22)
[2016-12-11] MEDS: METOPROLOL SUCCINATE XL 100 MG TABLET PO SCH (08:51)
[2016-12-11] MEDS: INSULIN LISPRO 100 UNIT/ML SUBCUT SCH ×4 (10:42→21:21)
[2016-12-11] MEDS: APIXABAN 2.5 MG TABLET PO SCH ×3 (10:51→21:22)
--- NOTE | 2016-12-11 12:25 | Hospitalist Progress Note ---
Hospitalist: Subjective Interval history: HR went into 140's. He states he feels better. Breathing comfortably on room air. No cp or palpitations. no signs or symptoms of bleeding. No fever Exam - Constitutional Vitals: Period Temp Pulse Resp BP Sys/Walsh Pulse Ox Last 24 Hr 97.5 F-98.7 F 100-145 18-20 90-154/55-75 90-100 Exam: A and O x 3 Irregularly irregular rate and rhythm 1/6 systolic M CTAB good aeration, nonlabored Soft, NT, ND, +BS Warm no c/c trace edema BLE. No calf tenderness Results - Labs CBC & BMP: 12/11/16 12:39 12/11/16 12:39 - Impressions (1) Acute systolic and diastolic CHF exacerbation (ECHO 11/20 shows EF 40% and Mod TR and RSVP 58) Status: Acute Assessment and plan: Probably can change the IV Lasix to oral. Continue metoprolol. No ACEi or ARB at this time. Start low-dose as blood pressure allows. strict I and O's. Daily weights. Current Visit: Yes (2) Acute thrombocytopenia- ? pseudothrombocytopenia-it appears that it was likely pseudothrombocytopenia as the platelet count has normalized. -Okay to resume Eliquis for now and watch for bleeding. (3) Uncontrolled diabetes mellitus Status: Acute Assessment and plan: Change Lantus to 30 units subcu twice a day and continue insulin sliding scale Current Visit: Yes (4) BRIANA (acute kidney injury) in a patient with known BPH Status: Acute Assessment and plan: Improved Monitor closely Cont home meds Current Visit: Yes (5) Hypokalemia (acute) - replaced. Mg ok. Check phos and replace as needed. (6) history of chronic afib now with RVR -Okay to resume Eliquis. Give Lopressor 5 mg IV 1 and continue metoprolol as ordered - (7) History of CAD -Continue home meds (8) Essential Hypertension Status: Chronic Assessment and plan: Continue home medications Current Visit: Yes DVT prophylaxis-resume Eliquis . SCDs If remains stable, consider discharge in the a.m.
[2016-12-11 12:46] LABS: Basophils % 0.4 % (0.0-0.8); Eosinophils # 0.2 10*3/uL (0.0-0.87); Eosinophils % 2.3 % (0.00-10.9); Hematocrit 39.5 VOL% (42.0-52.0); Hemoglobin 13.3 GM/DL (14.0-18.0); Immature Granulocytes % 0.4 %; Immature Granulocytes Absolute 0.04 #; Lymphocytes # 2.1 10*3/uL (1.4-4.0); Lymphocytes % 22.7 % (21.2-54.2); Mean Corpuscular HGB Conc 33.7 GM/DL (32-36); Mean Corpuscular Hemoglobin 28 PG (27-34); Mean Platelet Volume 11.4 FL (9.6-12.0); Monocytes # 0.8 10*3/uL (0.11-0.8); Monocytes % 8.8 % (1.7-12.7); Neutrophils % 65.4 % (38.7-73.9); Platelet Count 153 T/CUMM (130-400); Red Cell Distribution Width 14.6 % (9.3-17.3); White Blood Count 9.1 T/CUMM (4-12)
[2016-12-11] MEDS ORDERED: METOPROLOL TARTRATE 5 MG/5 ML VIAL IV ONE (13:19)
[2016-12-11 13:23] LABS: Calcium 8.4 MG/DL (8.5-10.1); Phosphorous 2.8 MG/DL (2.5-4.9); Potassium 3.5 MMOL/L (3.5-5.1)
[2016-12-11 13:27] LABS: Bilirubin,Direct 0.2 MG/DL (0.0-0.20); Bilirubin,Indirect 0.5 MG/DL (0.0-1.0); Bilirubin,Total 0.7 MG/DL (0.2-1.0); Total Protein 6.7 G/DL (6.4-8.3)
[2016-12-11] MEDS: INSULIN GLARGINE 100 UNIT/ML SUBCUT SCH ×2 (14:12→21:18)
[2016-12-11] MEDS: LORATADINE 10 MG TABLET PO SCH (21:21)
[2016-12-11] MEDS: SIMVASTATIN 80 MG TABLET PO SCH (21:22)
[2016-12-12 06:46] LABS: Basophils # 0.1 10*3/uL (0.0-0.2); Basophils % 0.6 % (0.0-0.8); Eosinophils # 0.3 10*3/uL (0.0-0.87); Eosinophils % 3.5 % (0.00-10.9); Hematocrit 34.6 VOL% (42.0-52.0); Hemoglobin 11.6 GM/DL (14.0-18.0); Immature Granulocytes % 0.7 %; Immature Granulocytes Absolute 0.06 #; Lymphocytes % 33.6 % (21.2-54.2); Mean Corpuscular HGB Conc 33.5 GM/DL (32-36); Mean Corpuscular Hemoglobin 28 PG (27-34); Mean Corpuscular Volume 83.4 FL (87-102); Mean Platelet Volume 11.6 FL (9.6-12.0); Monocytes # 0.9 10*3/uL (0.11-0.8); Monocytes % 10.3 % (1.7-12.7); Neutrophils # 4.6 10*3/uL (1.4-7.4); Neutrophils % 51.3 % (38.7-73.9); Platelet Count 143 T/CUMM (130-400); Red Blood Count 4.15 MC/CUMM (3.8-5.5); Red Cell Distribution Width 14.4 % (9.3-17.3); White Blood Count 8.9 T/CUMM (4-12)
[2016-12-12] MEDS: DILTIAZEM CD 120 MG CAPSULE PO SCH (08:15)
[2016-12-12] MEDS: FUROSEMIDE 40 MG TABLET PO SCH (08:15)
[2016-12-12] MEDS: TAMSULOSIN 0.4 MG CAPSULE PO SCH (08:15)
[2016-12-12] MEDS: ASCORBIC ACID 500 MG TABLET PO SCH ×2 (08:15→22:40)
[2016-12-12] MEDS: MONTELUKAST 10 MG TABLET PO SCH (08:16)
[2016-12-12] MEDS: METOPROLOL SUCCINATE XL 100 MG TABLET PO SCH (08:16)
[2016-12-12] MEDS: LISINOPRIL 5 MG TABLET PO SCH (08:16)
[2016-12-12] MEDS: PANTOPRAZOLE 40 MG TABLET PO SCH (08:16)
[2016-12-12] MEDS: APIXABAN 2.5 MG TABLET PO SCH ×2 (08:16→22:41)
[2016-12-12] MEDS: GABAPENTIN 300 MG CAPSULE PO SCH ×3 (08:16→22:41)
[2016-12-12] MEDS: INSULIN GLARGINE 100 UNIT/ML SUBCUT SCH (08:16)
[2016-12-12] MEDS: INSULIN LISPRO 100 UNIT/ML SUBCUT SCH ×4 (08:16→22:41)
[2016-12-12 08:27] LABS: Albumin 2.8 G/DL (3.4-5.0); Calcium 8.2 MG/DL (8.5-10.1); Osmolality,Calculated 279.8 MOS/KG (273-304); Potassium 2.9 MMOL/L (3.5-5.1)
[2016-12-12] MEDS ORDERED: POTASSIUM CHLORIDE 20 MEQ TABLET PO ONE (09:32)
[2016-12-12] MEDS ORDERED: DIGOXIN 0.5 MG/2 ML AMP IV ONE (09:50)
[2016-12-12] MEDS ORDERED: INSULIN GLARGINE 100 UNIT/ML SUBCUT SCH ×2 (14:04→14:24)
--- NOTE | 2016-12-12 14:16 | Hospitalist Progress Note ---
Hospitalist: Subjective Interval history: Pt reports SOB better. HR still in 120's this am. No fever. No lightheadedness or dizziness. Tolerating po. Exam - Constitutional Vitals: Period Temp Pulse Resp BP Sys/Walsh Pulse Ox Last 24 Hr 97 F-99.3 F 64-128 18-20 82-131/50-76 90-98 Exam: A and O x 3 Irregularly irregular rate and rhythm, tachycardia, 1/6 systolic M CTAB good aeration, nonlabored Soft, NT, ND, +BS Warm no c/c trace-+1 LE edema BLE. No calf tenderness Results - Labs CBC & BMP: 12/12/16 04:00 12/12/16 06:59 - Impressions (1) Acute systolic and diastolic CHF exacerbation (ECHO 11/20 shows EF 40% and Mod TR and RSVP 58) Status: Acute Assessment and plan: Cont oral lasix. Increase metoprolol dose. Cont low dose ACEi. strict I and O' s. Daily weights. Current Visit: Yes (2) Chronic afib with RVR -Cont Eliquis. s/p Lopressor 5mg IV 1 12/11. - Increase metoprolol - Digoxin 0.5mg IV x 1 12/12 - Correct lytes (3) Hypokalemia (acute) - replace orally. Mg/ phos ok. (4) Acute thrombocytopenia- ? pseudothrombocytopenia-it appears that it was likely pseudothrombocytopenia as the platelet count has normalized. (5) Uncontrolled diabetes mellitus Status: Acute Assessment and plan: Increase long acting insulin to Lantus 45 units SQ qam and 45 Units SQ hs and continue insulin sliding scale Current Visit: Yes (4) BRIANA (acute kidney injury) in a patient with known BPH Status: Acute Assessment and plan: Improved Monitor closely Cont home meds Current Visit: Yes (7) History of CAD -Continue home meds (8) Essential Hypertension Status: Chronic Assessment and plan: Continue home medications Current Visit: Yes DVT prophylaxis-Cont Eliquis . SCDs If remains stable, consider discharge in the a.m. Recheck labs in am. D/W pt and nurse and all questions answered.
[2016-12-12] MEDS: POTASSIUM CHLORIDE 20 MEQ TABLET PO SCH ×3 (14:19→22:40)
[2016-12-12] MEDS: SIMVASTATIN 80 MG TABLET PO SCH (22:41)
[2016-12-12] MEDS: LORATADINE 10 MG TABLET PO SCH (22:41)
[2016-12-13 07:30] LABS: Albumin 2.6 G/DL (3.4-5.0); Calcium 8.1 MG/DL (8.5-10.1); Magnesium 1.9 MG/DL (1.8-2.4); Osmolality,Calculated 280.4 MOS/KG (273-304); Phosphorous 2.1 MG/DL (2.5-4.9); Potassium 3.7 MMOL/L (3.5-5.1)
[2016-12-13] MEDS ORDERED: METOPROLOL SUCCINATE XL 100 MG TABLET PO SCH (09:00)
[2016-12-13] MEDS: POTASSIUM CHLORIDE 20 MEQ TABLET PO PRN (09:32)
[2016-12-13] MEDS: MONTELUKAST 10 MG TABLET PO SCH (09:33)
[2016-12-13] MEDS: GABAPENTIN 300 MG CAPSULE PO SCH (09:33)
[2016-12-13] MEDS: LISINOPRIL 5 MG TABLET PO SCH (09:33)
[2016-12-13] MEDS: TAMSULOSIN 0.4 MG CAPSULE PO SCH (09:33)
[2016-12-13] MEDS: FUROSEMIDE 40 MG TABLET PO SCH (09:34)
[2016-12-13] MEDS: DILTIAZEM CD 120 MG CAPSULE PO SCH (09:34)
[2016-12-13] MEDS: APIXABAN 2.5 MG TABLET PO SCH (09:34)
[2016-12-13] MEDS: PANTOPRAZOLE 40 MG TABLET PO SCH (09:34)
[2016-12-13] MEDS: ASCORBIC ACID 500 MG TABLET PO SCH (09:34)
[2016-12-13] MEDS: INSULIN LISPRO 100 UNIT/ML SUBCUT SCH ×2 (09:42→13:18)
--- NOTE | 2016-12-13 11:31 | Discharge Summary ---
Hospital Course - Hospital Course Hospital Course: Pt is an 81-year-old male with a history of congestive heart failure and atrial fibrillation who presented to the hospital with shortness of breath he was found to have decompensated systolic and diastolic congestive heart failure with atrial fibrillation with RVR. He was started on IV Lasix and was resumed on his home metoprolol after a 5 mg Lopressor dose IV on 12/11. Metoprolol had to be increased and he required digoxin 0.5 mg IV 1 for rate control. Echo from November 20 revealed an EF of 40% with moderate tricuspid regurgitation and an RSVP of 58. Electrolytes were replaced as needed. Labs revealed an acute thrombocytopenia which appeared to be pseudothrombocytopenia as the platelet count normalized with checking the blood counts in a non- coagulation tube. He was continued on Eliquis for anticoagulation given his chads 2 VAS score being high. Initially patient had acute kidney injury likely due to poor perfusion which improved with diuresis and better rate control. For coronary artery disease and hypertension, he was continued on his home medications. Patient was counseled on fluid restrictions of 2 L per day and a low sodium diet. He was also instructed to weigh himself daily and if his weight increased or decreased by more than 3 pounds he was counseled to notify his primary care provider or employee relations administrator. Patient and family expressed understanding. Once he reached the maximum benefit of hospitalization, patient was discharged to home with home health for ongoing care. - Time spent with patient Time with patient DS: Greater than 30 minutes (41 minutes) Diagnosis - Discharge Diagnosis (1) BRIANA (acute kidney injury) Status: Resolved (2) Acute on chronic systolic and diastolic heart failure, NYHA class 4 Status: Resolved (3) Atrial fibrillation Status: Chronic (4) Diabetes Status: Chronic (5) Hypomagnesemia Status: Resolved (6) Hyponatremia Status: Resolved (7) Metabolic acidosis, increased anion gap Status: Resolved (8) History of aortic valve replacement Status: Chronic (9) Hypertension Status: Chronic (10) Hypokalemia Status: Resolved (11) History of coronary artery bypass graft Status: Chronic Specialty Discharge - Follow Up or Referrals Follow up with: md, PCP [Other] - 2 Weeks md, cardiology [Other] - 2 Weeks (F/U CHF and afib) Discharge Plan - Discharge Data Disposition: Home Health Service Condition at Discharge: Stable Discharge Diet: diabetic diet, heart healthy, low salt diet Activity: other (weigh self daily. If weight increases or decreases by more than 3 lbs, notify MD) Hygiene: no restrictions Contact your physician if you experience:: fever over 101, Difficulty voiding, Redness or swelling, Nausea/Vomiting, Shortness of breath, Bleeding, pain uncontrolled by pain medications - Discharge Medications New Lisinopril [Prinivil] 5 mg PO DAILY #30 tablet Metoprolol Succinate Xl [Toprol Xl] 100 mg PO DAILY #30 tablet Diltiazem Cd Cap [Cardizem CD] 120 mg PO DAILY #30 capsule Furosemide Tab [Lasix Tab] 40 mg PO DAILY #30 tablet Continue Insulin Glargine [Lantus] 60 unit SUBCUT BEDTIME Loratadine Tab [Claritin Tab] 10 mg PO BEDTIME Omeprazole 20 mg PO DAILY PRN PRN Reason: Reflux Simvastatin 80 mg PO BEDTIME Gabapentin 300 mg PO TID Metformin HCl 1,000 mg PO BID Ascorbic Acid Tab [Vitamin C Tab] 1,000 mg PO BID #120 tablet Montelukast Tab [Singulair Tab] 10 mg PO DAILY #30 tablet guaiFENesin ER TAB [Mucinex] 600 mg PO BID #30 tablet Latanoprost [Latanoprost 0.005 % Oph Soln] 1 drop RIGHT EYE BEDTIME Brinzolamide/Brimonidine Tart [Simbrinza] 1 drop RIGHT EYE BID Fluticasone 50 Mcg Nasal Byron [Flonase Nasal Byron] 1 spray BOTH NARES DAILY PRN PRN Reason: Sinus Symptoms Apixaban [Eliquis] 2.5 mg PO BID #60 tablet Tamsulosin [Flomax] 0.4 mg PO DAILY #30 capsule Saxagliptin HCl [Onglyza] 2.5 mg PO DAILY Cholecalciferol (Vitamin D3) [Vitamin D3] 1,000 units PO DAILY Timolol Maleate [Timolol 0.5% Oph Soln] 1 drop RIGHT EYE BID Discontinued Furosemide Tab [Lasix Tab] 20 mg PO DAILY Metoprolol Succinate 50 mg PO DAILY Cyclobenzaprine HCl 5 mg PO BEDTIME Diltiazem Cd Cap [Cardizem CD] 240 mg PO DAILY #30 capsule Dutasteride 0.5 mg PO DAILY - Follow Up or Referral Follow Up: md, PCP [Other] - 2 Weeks md, cardiology [Other] - 2 Weeks (F/U CHF and afib) - Forms/Instructions Additional Discharge Instructions: CBC, RFP, MG in 1 week Exam - Constitutional Vitals: Period Temp Pulse Resp BP Sys/Walsh Pulse Ox Last 24 Hr 97 F-100.0 F 73-102 18-20 93-123/49-63 90-95 Exam: see progress note from 12/12 for physical exam as it is unchanged. Discharge Results Labs on day of discharge: Labs from last 24 hours 12/13/16 12/13/16 12/12/16 07:39 06:16 22:39 Sodium 140 Potassium 3.7 Chloride 100 Carbon Dioxide 34 H Anion Gap 9.7 BUN 19 H Creatinine 1.00 GFR Calculation 1015 BUN/Creatinine Ratio 19.00 Glucose 96 POC Glucose 95 390 H Calculated Osmolality 280.4 Calcium 8.1 L Phosphorus 2.1 L Magnesium 1.9 Albumin 2.6 L 12/12/16 12/12/16 12/12/16 22:31 15:44 11:36 Sodium Potassium 4.1 Chloride Carbon Dioxide Anion Gap BUN Creatinine GFR Calculation BUN/Creatinine Ratio Glucose POC Glucose 377 H 323 H Calculated Osmolality Calcium Phosphorus Magnesium Albumin DS: Provider Date of admission: 12/07/16 21:09 Primary care physician: Gali Jamison MD Attending physician on admission: Eh Calixto MD Discharging clinician: Karoline Marcelo MD
[2016-12-13 11:50] VITALS: BP 109/59
== END 2016-12-13 14:45 | disposition home health service (06) | DRG 292 ==
LOC: N.ED 18:24 → N.EDINP 21:09 → SUATTDRO 21:09 → N.TELES 21:38
PROVIDERS: ADMIT Student in an Organized Health Care Education/Training Program; ATTEND Pediatrics

== ENCOUNTER 2016-12-15 15:16 | Inpatient (IN) ==
--- NOTE | 2016-12-15 16:20 | Emergency Department Note ---
Arrival - Arrival Chief Complaint: Non-Specific Stated Complaint: Retaining Fluids ED Nursing Triage Note: C/o hypotension and bradycardia-patient was sent by [facility]- home nurse. Family states that patient has had a 2# weight gain since being d/c' d from here two days ago. Denies CP or SOB. Mode of Arrival: Wheelchair Limitations: No Limitations Source: Patient, Family Time Seen by Provider: 12/15/16 16:04 - History of Present Illness HPI Narrative: The patient complains of feeling weak and dizzy starting this morning. This occurred just after he took his morning medicines. He was recently hospitalized for congestive heart failure and discharged with prescriptions for new doses of his medications. He is not sure about which ones were changed or whether they were increased or decreased but the symptoms started after taking the new doses. He was seen by home health who found his blood pressure and pulse to be low and was referred here. The patient denies any shortness of breath, chest pain, nausea, vomiting or diaphoresis. The family states he has had a 2 pound weight gain since leaving the hospital and his lower extremities have started to swell again. Allergies/Adverse Reactions: Allergies Allergy/AdvReac Type Severity Reaction Status Date / Time No Known Allergies Allergy Verified 11/20/16 10:36 Home Medications: Home Medications Medication Instructions Recorded Confirmed Type Gabapentin 300 mg PO TID 12/21/15 12/15/16 History Insulin Glargine [Lantus] 60 unit SUBCUT BEDTIME 12/21/15 12/15/16 History Loratadine Tab [Claritin Tab] 10 mg PO BEDTIME 12/21/15 12/15/16 History Metformin HCl 1,000 mg PO BID 12/21/15 12/15/16 History Omeprazole 20 mg PO DAILY PRN 12/21/15 12/15/16 History Simvastatin 80 mg PO BEDTIME 12/21/15 12/15/16 History Fluticasone 50 Mcg Nasal [place] 1 spray BOTH NARES DAILY PRN 11/20/16 12/15/16 History [Flonase Nasal [place]] Apixaban [Eliquis] 2.5 mg PO BID #60 tablet 11/25/16 12/15/16 Rx Ascorbic Acid Tab [Vitamin C Tab] 1,000 mg PO BID #120 tablet 11/25/16 12/15/16 Rx Montelukast Tab [Singulair Tab] 10 mg PO DAILY #30 tablet 11/25/16 12/15/16 Rx guaiFENesin ER TAB [Mucinex] 600 mg PO BID #30 tablet 11/25/16 12/15/16 Rx Tamsulosin [Flomax] 0.4 mg PO DAILY #30 capsule 11/28/16 12/15/16 Rx Cholecalciferol (Vitamin D3) 1,000 units PO DAILY 12/08/16 12/15/16 History [Vitamin D3] Saxagliptin HCl [Onglyza] 2.5 mg PO DAILY 12/08/16 12/15/16 History Brinzolamide/Brimonidine Tart 1 drop RIGHT EYE BID 12/10/16 12/15/16 History [Simbrinza] Latanoprost [Latanoprost 0.005 % 1 drop RIGHT EYE BEDTIME 12/10/16 12/15/16 History Oph Soln] Timolol Maleate [Timolol 0.5% Oph 1 drop RIGHT EYE BID 12/10/16 12/15/16 History Soln] Diltiazem Cd Cap [Cardizem CD] 120 mg PO DAILY #30 capsule 12/13/16 12/15/16 Rx Furosemide Tab [Lasix Tab] 40 mg PO DAILY #30 tablet 12/13/16 12/15/16 Rx Lisinopril [Prinivil] 5 mg PO DAILY #30 tablet 12/13/16 12/15/16 Rx Metoprolol Succinate Xl [Toprol Xl] 100 mg PO DAILY #30 tablet 12/13/16 Rx Review of System - Review of System 12 point system: reviewed and no additional remarkable complaints except as stated - Review of System Constitutional: Absent: diaphoresis, fever Respiratory: Absent: cough, respiratory distress Cardiovascular: Present: edema. Absent: chest pain, palpitations, orthopnea Gastrointestinal: Absent: abdominal pain, nausea, vomiting Medical,Surgical,& Family Hx - Medical History Cardio: History of: Cardiac Dysrhythmia, CHF, CAD, Hypertension, Valvular Heart Disease No history of: [place] Psychological: No history of: Anxiety Disorders, Depression Neurology: No history of: Seizures HEENT: History of: 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), HEENT Problems ( cataract surgery) Endocrine: History of: Diabetes Mellitus (IDDM), Diabetes Mellitus (NIDDM), Dyslipidemia No history of: Thyroid Disorder Rheumatology: No history of;: Fibromyalgia Respiratory: No history of: COPD, Obstructive Sleep Apnea Genitourinary: History of: Prostate Problems Gastrointestinal: History of: GERD Musculoskeletal: History of: Musculoskeletal Problems (arthritis) Reproductive: Reports: Penile Disorder (penis implant) Other: History of: Miscellaneous Medical Problems (hepatitis) - Surgical History Cardiac Surgeries: Sugical HX of: Cardiac Catheterization, Cardiac Surgery ( triple bypass with valve replacement) HEENT Surgeries: Surgical HX of: Tonsilectomy & Adenoidectomy Abdominal Surgeries: Surgical HX of: Colonoscopy, EGD Orthopedic Surgeries: Surgical HX of;: Implanted Devices (penile implant) - Family History Family History: Reports;: Family Cancer (brother lukememia), Family Heart Disease (father-chf and mother heart issues) - Social History Smoking Status: Never smoker Frequency of Alcohol Use: None Type of Drug Use: None Exam Physical Examination: GENERAL: Alert. No acute distress. HEENT: Normocephalic and atraumatic. There is no nasal drainage. No pharyngeal erythema or exudate. NECK: Normal inspection. Supple. No lymphadenopathy or meningismus. LUNGS: No respiratory distress. Clear to auscultation bilaterally, no wheezes, rales or rhonchi. HEART: Regular rate and rhythm. ABDOMEN: Soft, nontender and nondistended with normoactive bowel sounds. BACK: Normal inspection. SKIN: Color normal. Warm and dry. EXTREMITIES: Nontender. Normal range of motion. There is pitting edema to the upper tibias bilaterally, right greater than left. The calves are nontender, there is no tightness and Homans sign is negative. NEUROLOGICAL/PSYCHIATRIC: Alert and oriented -3 with normal mood and affect. Cranial nerves normal. No motor or sensory deficit. Vital Signs: Vital Signs Temperature 98.4 F 12/15/16 15:20 Pulse Rate 52 L 12/15/16 17:30 Respiratory Rate 20 12/15/16 17:30 Blood Pressure 106/49 12/15/16 17:30 O2 Sat by Pulse Oximetry 100 12/15/16 17:30 Course - Reevaluation(s) Reevaluation #1: Patient continues to be hypotensive and bradycardic in the ER. I think this is likely due to the change in his medications. I discussed the patient with the hospitalist service who will see him and admit. Time: 17:49 Results - Labs CBC & BMP: 12/15/16 15:45 12/15/16 15:45 Lab Results: I have reviewed the patients labs Labs: Laboratory Tests 12/15/16 12/15/16 12/15/16 15:45 15:45 15:45 INR 1.0 Calcium 8.1 L Magnesium 1.7 L Total Bilirubin 0.40 AST 19 ALT 19 Alkaline Phosphatase 105 Total Creatine Kinase 39 CK-MB (CK-2) 1.7 Troponin I 0.034 B-Natriuretic Peptide 295 H - Impressions Chest x-ray shows: Continued congestive heart failure with some mild bibasilar pulmonary edema, slightly improved compared to the previous study EKG shows atrial fibrillation at 49 with a right axis deviation and right bundle branch block. Disposition Clinical Impression: Hypotension, Bradycardia, Congestive heart failure, Atrial fibrillation Case discussed with: patient, patient's family Disposition: Still a Patient Condition: Guarded Time of Disposition: 17:50
[2016-12-15 16:23] LABS: Basophils % 0.4 % (0.0-0.8); Eosinophils # 0.2 10*3/uL (0.0-0.87); Eosinophils % 3.1 % (0.00-10.9); Hematocrit 33.7 VOL% (42.0-52.0); Hemoglobin 11.2 GM/DL (14.0-18.0); Immature Granulocytes % 0.6 %; Immature Granulocytes Absolute 0.04 #; Lymphocytes # 2.4 10*3/uL (1.4-4.0); Lymphocytes % 33.9 % (21.2-54.2); Mean Corpuscular HGB Conc 33.2 GM/DL (32-36); Mean Corpuscular Hemoglobin 28 PG (27-34); Mean Corpuscular Volume 85.1 FL (87-102); Mean Platelet Volume 11.8 FL (9.6-12.0); Monocytes # 0.8 10*3/uL (0.11-0.8); Monocytes % 10.7 % (1.7-12.7); Neutrophils # 3.7 10*3/uL (1.4-7.4); Neutrophils % 51.3 % (38.7-73.9); Platelet Count 159 T/CUMM (130-400); Red Blood Count 3.96 MC/CUMM (3.8-5.5); Red Cell Distribution Width 14.7 % (9.3-17.3); White Blood Count 7.1 T/CUMM (4-12)
[2016-12-15 16:29] LABS: PT Patient Result 10.3 SECS; Partial Thromboplastin Time 27.2 SECS (0-40)
[2016-12-15 16:36] LABS: Alanine Aminotransferase 19 U/L (16-61); Albumin 2.6 G/DL (3.4-5.0); Alkaline Phosphatase 105 U/L (45-117); Aspartate Amino Transferase 19 U/L (0-37); Blood Urea Nitrogen 25 MG/DL (7-18); Calcium 8.1 MG/DL (8.5-10.1); Glucose 342 MG/DL (74-106); Magnesium 1.7 MG/DL (1.8-2.4); Osmolality,Calculated 287.1 MOS/KG (273-304); Potassium 4.9 MMOL/L (3.5-5.1); Sodium 135 MMOL/L (136-145); Troponin I Only 0.034 NG/ML (0.00-0.045)
--- NOTE | 2016-12-15 17:21 | XRay Report ---
History: Weakness. Dyspnea Date: 12/15/2016 Study: Chest x-ray single view portable Comparison exam: December 07, 2016 There is cardiomegaly. The pulmonary vasculature is slightly prominent. The mediastinal contours are unchanged in this patient status post prior median sternotomy. There is some mild edema in the lower lungs, slightly improved compared to the previous study. There is mild left-sided pleural effusion as before. Osseous structures are unchanged. Impression: Continued congestive heart failure with some mild bibasilar pulmonary edema, slightly improved compared to the previous study PROCEDURE INTERPRETED AT [facility] DEPARTMENT OF RADIOLOGY Final Report Signed by: Dr. Olesya Triana
--- NOTE | 2016-12-15 18:21 | Hospitalist History & Physical ---
Assessment and Plan - Time spent with patient Time spent with patient: Greater than 30 minutes (1) Atrial fibrillation Status: Chronic Assessment and plan: Patient is noted to have chronic atrial fibrillation and had heart rates in the 40s earlier today while symptomatic however without treatment was noted to be tachycardic in the 110-120s upon my arrival. Will consult cardiology to assist with his care and consideration of pacing device. Current Visit: Yes Qualifiers: Atrial fibrillation type: chronic Qualified Code(s): I48.2 - Chronic atrial fibrillation (2) Hypotension Status: Acute Assessment and plan: Patient was noted to have relative hypotension however this has resolved and is likely secondary to volume and rate. We will continue to monitor and consult cardiology for their assistance. Current Visit: Yes (3) Congestive heart failure Status: Chronic Assessment and plan: Patient has chronic congestive heart failure with ejection fraction estimated at 40-45%. He has mild edema on his chest x-ray but appears to be fairly well compensated at this time. Current Visit: Yes Qualifiers: Congestive heart failure type: systolic (4) Diabetes Status: Chronic Assessment and plan: Patient has diabetes. Will continue his current medical regimen with Accu- Cheks and sliding scale. Current Visit: No Qualifiers: Diabetes mellitus type: type 2 (5) Hypertension Status: Chronic Assessment and plan: Patient has chronic essential hypertension. He did have some relative hypotension earlier today which is now resolved. We will continue to optimize his medical therapy. Current Visit: No Qualifiers: Hypertension type: essential hypertension Qualified Code(s): I10 - Essential (primary) hypertension (6) Hypomagnesemia Status: Acute Assessment and plan: Patient has mild hypomagnesemia which we will supplement today and follow-up level in a.m. Current Visit: Yes (7) Hyperlipidemia Status: Chronic Assessment and plan: Continuing current medical therapy. Current Visit: No History of Present Illness Chief complaint: Weak and dizzy History of present illness: Mr. Rider is a 81 year old male with a history of atrial fibrillation, congestive heart failure, diabetes mellitus, hypertension, coronary artery disease status post aortocoronary bypass grafting and aortic valve replacement with ejection fraction estimated at 40 to 45 % who has had multiple hospitalizations over the past several weeks states that this morning he got up and felt somewhat lightheaded and weak in general and was unable to get up. He denies any chest pain, shortness breath, palpitations, syncope, nausea, vomiting , diaphoresis, melena, hematochezia, hematemesis, dysuria, hematuria, urinary frequency urgency incontinence, focal motor weakness or paresthesias. Home health came out and checked him noted to be bradycardic and relatively hypotensive and he presented to the emergency department thereafter. He was evaluated and felt that he would require continued observation and care. Upon my arrival patient had a systolic blood pressure greater than 110 with a heart rate of approximately 110-120. At that time he had no complaints. His primary care provider is MING Ramey in [facility]. He states he has seen Dr. Flo Gastelum while in the hospital for his cardiac needs but has yet seen him in the office setting. Echo findings earlier in the month revealed the following: Left ventricular ejection fraction is estimated at 40-45 %. Mild to moderate bilateral atrial enlargement. [id number] tricuspid valve regurgitation. Mild mitral annular and leaflet calcification with mild mitral regurgitation. 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 Home Medications Medication Instructions Recorded Confirmed Type Gabapentin 300 mg PO TID 12/21/15 12/15/16 History Insulin Glargine [Lantus] 60 unit SUBCUT BEDTIME 12/21/15 12/15/16 History Loratadine Tab [Claritin Tab] 10 mg PO BEDTIME 12/21/15 12/15/16 History Metformin HCl 1,000 mg PO BID 12/21/15 12/15/16 History Omeprazole 20 mg PO DAILY PRN 12/21/15 12/15/16 History Simvastatin 80 mg PO BEDTIME 12/21/15 12/15/16 History Fluticasone 50 Mcg Nasal [place] 1 spray BOTH NARES DAILY PRN 11/20/16 12/15/16 History [Flonase Nasal [place]] Apixaban [Eliquis] 2.5 mg PO BID #60 tablet 11/25/16 12/15/16 Rx Ascorbic Acid Tab [Vitamin C Tab] 1,000 mg PO BID #120 tablet 11/25/16 12/15/16 Rx Montelukast Tab [Singulair Tab] 10 mg PO DAILY #30 tablet 11/25/16 12/15/16 Rx guaiFENesin ER TAB [Mucinex] 600 mg PO BID #30 tablet 11/25/16 12/15/16 Rx Tamsulosin [Flomax] 0.4 mg PO DAILY #30 capsule 11/28/16 12/15/16 Rx Cholecalciferol (Vitamin D3) 1,000 units PO DAILY 12/08/16 12/15/16 History [Vitamin D3] Saxagliptin HCl [Onglyza] 2.5 mg PO DAILY 12/08/16 12/15/16 History Brinzolamide/Brimonidine Tart 1 drop RIGHT EYE BID 12/10/16 12/15/16 History [Simbrinza] Latanoprost [Latanoprost 0.005 % 1 drop RIGHT EYE BEDTIME 12/10/16 12/15/16 History Oph Soln] Timolol Maleate [Timolol 0.5% Oph 1 drop RIGHT EYE BID 12/10/16 12/15/16 History Soln] Diltiazem Cd Cap [Cardizem CD] 120 mg PO DAILY #30 capsule 12/13/16 12/15/16 Rx Furosemide Tab [Lasix Tab] 40 mg PO DAILY #30 tablet 12/13/16 12/15/16 Rx Lisinopril [Prinivil] 5 mg PO DAILY #30 tablet 12/13/16 12/15/16 Rx Metoprolol Succinate Xl [Toprol Xl] 100 mg PO DAILY #30 tablet 12/13/16 Rx Allergies Allergy/AdvReac Type Severity Reaction Status Date / Time No Known Allergies Allergy Verified 11/20/16 10:36 Medical,Surgical,& Family Hx - Medical History Cardio: History of: Cardiac Dysrhythmia, CHF, CAD, Hypertension, Valvular Heart Disease No history of: [place] Psychological: No history of: Anxiety Disorders, Depression Neurology: No history of: Seizures HEENT: History of: 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), HEENT Problems ( cataract surgery) Endocrine: History of: Diabetes Mellitus (NIDDM), Dyslipidemia No history of: Thyroid Disorder Rheumatology: No history of;: Fibromyalgia Respiratory: No history of: COPD, Obstructive Sleep Apnea Genitourinary: History of: Prostate Problems Gastrointestinal: History of: GERD Musculoskeletal: History of: Musculoskeletal Problems (arthritis) Reproductive: Reports: Penile Disorder (penis implant) Other: History of: Miscellaneous Medical Problems (hepatitis) - Surgical History Cardiac Surgeries: Sugical HX of: Cardiac Catheterization, Cardiac Surgery ( triple bypass with valve replacement) HEENT Surgeries: Surgical HX of: Tonsilectomy & Adenoidectomy Abdominal Surgeries: Surgical HX of: Colonoscopy, EGD Orthopedic Surgeries: Surgical HX of;: Implanted Devices (penile implant) - Family History Family History: Reports;: Family Cancer (brother lukememia), Family Heart Disease (father-chf and mother heart issues) - Social History Smoking Status: Never smoker Frequency of Alcohol Use: None Type of Drug Use: None 12 point system: reviewed and no additional remarkable complaints except as stated Exam - Constitutional Vitals: Period Temp Pulse Resp BP Sys/Walsh Pulse Ox Last 24 Hr 98.4 F 46-56 16-20 85-106/35-49 95-100 General appearance: no acute distress - Head Head exam: Present: normocephalic, atraumatic - Eye Eye exam: Present: EOMI Pupils: Present: THERESA - ENT ENT exam: Present: normal oropharynx - Neck Neck exam: Present: normal inspection. Absent: lymphadenopathy, meningismus, tenderness, thyromegaly - Respiratory Respiratory exam: Present: clear to auscultation bilaterally. Absent: rales, rhonchi, wheezes - Cardiovascular Cardiovascular exam: Present: irregular rhythm, tachycardia. Absent: gallop, rubs - GI/Abdominal GI/Abdominal exam: Present: normal bowel sounds, soft. Absent: mass, tenderness , rebound - Extremities Exam Extremities exam: Absent: calf tenderness, edema - Back Exam Back exam: Present: normal inspection - Neurological Exam Neurological exam: Present: alert, oriented X3, CN II-XII intact. Absent: motor sensory deficit - Psychiatric Psychiatric exam: Present: normal affect, normal mood. Absent: agitated, anxious - Skin Skin exam: Present: warm, dry. Absent: erythema, rash Results - Labs CBC & BMP: 12/15/16 15:45 12/15/16 15:45 Lab Results: I have reviewed the past 24 hour labs - EKG EKG shows: bradycardia, atrial fibrillation - Diagnostic Findings Procedure: Chest x-ray: report reviewed by me
[2016-12-15] MEDS ORDERED: PANTOPRAZOLE 40 MG TABLET PO PRN (19:31)
[2016-12-15] MEDS ORDERED: FLUTICASONE 50 MCG NASAL SPRAY 16 GM BOTTLE BOTH NARES PRN (19:31)
[2016-12-15] MEDS ORDERED: DEXTROSE 50% 25 GM/50 ML VIAL IV PRN (19:31)
[2016-12-15] MEDS ORDERED: GLUCAGON 1 MG VIAL IM PRN (19:31)
[2016-12-15] MEDS ORDERED: BRIMONIDINE TART RIGHT EYE SCH (21:00)
[2016-12-15] MEDS ORDERED: BRINZOLAMIDE RIGHT EYE SCH (21:00)
[2016-12-15] MEDS ORDERED: MAGNESIUM SULF RIDER 2 GM in PREMIX 1 EACH IV ONE (21:00)
[2016-12-15] MEDS: metFORMIN 500 MG TABLET PO SCH (21:33)
[2016-12-15] MEDS: LORATADINE 10 MG TABLET PO SCH (21:34)
[2016-12-15] MEDS: ASCORBIC ACID 500 MG TABLET PO SCH (21:34)
[2016-12-15] MEDS: SIMVASTATIN 80 MG TABLET PO SCH (21:34)
[2016-12-15] MEDS: GABAPENTIN 300 MG CAPSULE PO SCH (21:34)
[2016-12-15] MEDS: APIXABAN 2.5 MG TABLET PO SCH (21:34)
[2016-12-15] MEDS: LATANOPROST 0.005% OPH SOLN 2.5 ML BOTTLE RIGHT EYE SCH (21:35)
[2016-12-15] MEDS: ACETAMINOPHEN 325 MG TABLET PO PRN (21:35)
[2016-12-15] MEDS: TIMOLOL 0.5% OPH SOLN 5 ML BOTTLE RIGHT EYE SCH (21:36)
[2016-12-15] MEDS: INSULIN GLARGINE 100 UNIT/ML SUBCUT SCH (21:36)
[2016-12-15] MEDS: INSULIN LISPRO 100 UNIT/ML SUBCUT SCH (21:37)
[2016-12-16 05:17] LABS: Basophils % 0.7 % (0.0-0.8); Eosinophils # 0.3 10*3/uL (0.0-0.87); Eosinophils % 4.4 % (0.00-10.9); Hematocrit 32.2 VOL% (42.0-52.0); Hemoglobin 10.6 GM/DL (14.0-18.0); Immature Granulocytes % 0.5 %; Immature Granulocytes Absolute 0.03 #; Lymphocytes # 2.3 10*3/uL (1.4-4.0); Lymphocytes % 38.2 % (21.2-54.2); Mean Corpuscular HGB Conc 32.9 GM/DL (32-36); Mean Corpuscular Hemoglobin 28 PG (27-34); Mean Corpuscular Volume 84.5 FL (87-102); Mean Platelet Volume 11.9 FL (9.6-12.0); Monocytes # 0.6 10*3/uL (0.11-0.8); Monocytes % 10.5 % (1.7-12.7); Neutrophils # 2.8 10*3/uL (1.4-7.4); Neutrophils % 45.7 % (38.7-73.9); Platelet Count 159 T/CUMM (130-400); Red Blood Count 3.81 MC/CUMM (3.8-5.5); Red Cell Distribution Width 14.7 % (9.3-17.3); White Blood Count 6.1 T/CUMM (4-12)
[2016-12-16 05:53] LABS: Calcium 8.3 MG/DL (8.5-10.1); Osmolality,Calculated 281.3 MOS/KG (273-304); Potassium 3.5 MMOL/L (3.5-5.1)
--- NOTE | 2016-12-16 07:22 | EKG Report ---
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
--- NOTE | 2016-12-16 07:24 | EKG Report ---
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
[2016-12-16] MEDS: INSULIN LISPRO 100 UNIT/ML SUBCUT SCH ×4 (08:23→21:34)
--- NOTE | 2016-12-16 10:03 | Cardiology Consult Note ---
Assessment and Plan - Time spent with patient Time spent with patient: Greater than 30 minutes (Chart review, film review, examination and documentation) (1) Cardiomyopathy Status: Chronic Current Visit: Yes Qualifiers: Cardiomyopathy type: ischemic Qualified Code(s): I25.5 - Ischemic cardiomyopathy (2) Tachy-addy syndrome Status: Acute Assessment and plan: Right is now elevated. Patient will likely need pacemaker at some point. We will try to adjust medicines. Will readdress tomorrow Current Visit: Yes (3) Coronary artery disease Status: Chronic Current Visit: Yes Qualifiers: Coronary Disease-Associated Artery/Lesion type: [place] artery [place] vs. transplanted heart: [place] heart Associated angina: without angina Qualified Code(s): I25.10 - Atherosclerotic heart disease of [place] coronary artery without angina pectoris (4) History of aortic valve replacement with bioprosthetic valve Status: Chronic Assessment and plan: Front End Specialist transthoracic echo recently functioning well. Current Visit: Yes (5) Diabetes mellitus type 2 in nonobese Status: Acute Current Visit: Yes (6) Hypotension Status: Acute Assessment and plan: Likely related to bradycardia however bradycardia and hypotension might suggest the patient had a medication error. Especially now that he has resumed his medications at home is heart rate is up. His blood pressure has normalized. Current Visit: Yes (7) Hyperlipidemia Status: Chronic Current Visit: No Qualifiers: Hyperlipidemia type: mixed hyperlipidemia Qualified Code(s): E78.2 - Mixed hyperlipidemia (8) Hypertension Status: Chronic Current Visit: No Qualifiers: Hypertension type: essential hypertension Qualified Code(s): I10 - Essential (primary) hypertension History of Present Illness - Data of Consult Patient: known to practice within the last 3 years Consult date: 12/16/16 Requesting Physician: Ivan Torres - Consult Narrative Reason for consult: Bradycardia History of present illness: Mr. Rider is a 81 year old male who is previously been followed by Dr. Earl Cruz at [facility] who now is wishing to transfer his care here to Dr. Flo Gastelum. The patient has not seen Dr. Gastelum in the office. He has a history of coronary artery disease and chronic atrial fibrillation. He is on 2 AV alejandra blocking agents (Toprol-XL 100 mg daily and diltiazem CD 120 mg daily) . The patient does not have a history of tachybradycardia syndrome and seems to have relatively poor insight into this problem. The patient states he has been compliant with his medicines and denies the fact that he may have taken more than prescribed. He presents with a heart rate in the upper 30s and low 40s it was symptomatic. His heart rate is increased and he is currently on is written or prescribed as his home medicines including as above. His heart rate is actually faster has tachycardia. With any movement he gets tachycardia. When I was interviewing the patient examined him I had him sit up in the bed for good lung exam in the hospital personnel came to see what was going home because his heart rate increased. 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 The patient clearly had symptomatic bradycardia with hypotension on admission. CC: Arya Nunez MD - Home Medications and Allergies Home Medications: Home Medications Medication Instructions Recorded Confirmed Type Gabapentin 300 mg PO TID 12/21/15 12/15/16 History Insulin Glargine [Lantus] 60 unit SUBCUT BEDTIME 12/21/15 12/15/16 History Loratadine Tab [Claritin Tab] 10 mg PO BEDTIME 12/21/15 12/15/16 History Metformin HCl 1,000 mg PO BID 12/21/15 12/15/16 History Omeprazole 20 mg PO DAILY PRN 12/21/15 12/15/16 History Simvastatin 80 mg PO BEDTIME 12/21/15 12/15/16 History Fluticasone 50 Mcg Nasal [place] 1 spray BOTH NARES DAILY PRN 11/20/16 12/15/16 History [Flonase Nasal [place]] Apixaban [Eliquis] 2.5 mg PO BID #60 tablet 11/25/16 12/15/16 Rx Ascorbic Acid Tab [Vitamin C Tab] 1,000 mg PO BID #120 tablet 11/25/16 12/15/16 Rx Montelukast Tab [Singulair Tab] 10 mg PO DAILY #30 tablet 11/25/16 12/15/16 Rx guaiFENesin ER TAB [Mucinex] 600 mg PO BID #30 tablet 11/25/16 12/15/16 Rx Tamsulosin [Flomax] 0.4 mg PO DAILY #30 capsule 11/28/16 12/15/16 Rx Cholecalciferol (Vitamin D3) 1,000 units PO DAILY 12/08/16 12/15/16 History [Vitamin D3] Saxagliptin HCl [Onglyza] 2.5 mg PO DAILY 12/08/16 12/15/16 History Brinzolamide/Brimonidine Tart 1 drop RIGHT EYE BID 12/10/16 12/15/16 History [Simbrinza] Latanoprost [Latanoprost 0.005 % 1 drop RIGHT EYE BEDTIME 12/10/16 12/15/16 History Oph Soln] Timolol Maleate [Timolol 0.5% Oph 1 drop RIGHT EYE BID 12/10/16 12/15/16 History Soln] Diltiazem Cd Cap [Cardizem CD] 120 mg PO DAILY #30 capsule 12/13/16 12/15/16 Rx Furosemide Tab [Lasix Tab] 40 mg PO DAILY #30 tablet 12/13/16 12/15/16 Rx Lisinopril [Prinivil] 5 mg PO DAILY #30 tablet 12/13/16 12/15/16 Rx Metoprolol Succinate Xl [Toprol Xl] 100 mg PO DAILY #30 tablet 12/13/16 Rx Allergies/Adverse Reactions: Allergies Allergy/AdvReac Type Severity Reaction Status Date / Time No Known Allergies Allergy Verified 11/20/16 10:36 - Constitutional Constitutional: Present: fatigue, lethargy, weight loss. Absent: anorexia, chills - EENT Eyes: Absent: blurry vision, diplopia Ears: Present: decreased hearing Nose, mouth and throat: Absent: lip swelling, nasal congestion - Cardiovascular Cardiovascular: Present: dyspnea, dyspnea on exertion, lightheadedness, palpitations. Absent: chest pain at rest, chest pain with activity, claudication, diaphoresis, edema, orthopnea - Respiratory Respiratory: Absent: cough, dyspnea, hemoptysis, dyspnea on exertion, wheezing - Gastrointestinal Gastrointestinal: Absent: abdominal pain, dyspepsia - Genitourinary Genitourinary: Present: difficulty urinating (long story about urinary retention and cr catheter on one of his recent 4 admissions) - Musculoskeletal Musculoskeletal: Present: arthralgias, back pain - Neurological Neurological: Present: disequilibrium. Absent: abnormal speech, behavioral changes, dizziness - Psychiatric Psychiatric: Present: depression - Endocrine Endocrine: Absent: cold intolerance, heat intolerance - Hematologic/Lymphatic Hematologic/Lymphatic: Present: easy bruising. Absent: easy bleeding Medical,Surgical,& Family Hx - Medical History Cardio: History of: Cardiac Dysrhythmia (chronic atrial fibrillation), CHF, CAD , Hypertension, Valvular Heart Disease No history of: MD Psychological: No history of: Anxiety Disorders, Depression Neurology: No history of: Seizures HEENT: History of: 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), HEENT Problems ( cataract surgery) Endocrine: History of: Diabetes Mellitus (IDDM), Diabetes Mellitus (NIDDM), Dyslipidemia No history of: Thyroid Disorder Rheumatology: No history of;: Fibromyalgia Respiratory: No history of: COPD, Obstructive Sleep Apnea Genitourinary: History of: Prostate Problems Gastrointestinal: History of: GERD Musculoskeletal: History of: Musculoskeletal Problems (arthritis) Reproductive: Reports: Penile Disorder (penis implant) Other: History of: Miscellaneous Medical Problems (hepatitis) - Surgical History Cardiac Surgeries: Sugical HX of: Cardiac Catheterization, Cardiac Surgery ( triple bypass with valve replacement) HEENT Surgeries: Surgical HX of: Tonsilectomy & Adenoidectomy Abdominal Surgeries: Surgical HX of: Colonoscopy, EGD Reproductive Surgeries: Patient denies;: Genitourinary Surgery Orthopedic Surgeries: Surgical HX of;: Implanted Devices (penile implant) - Family History Family History: Reports;: Family Cancer (brother lukememia), Family Heart Disease (father-chf and mother heart issues) - Social History Smoking Status: Never smoker Frequency of Alcohol Use: None Type of Drug Use: None Marital Status: Lives With:: Spouse Functional capacity: independent ambulation Physical Examination Vital Signs Temp Pulse Resp BP Pulse Ox 98.4 F 46 L 20 85/35 97 12/15/16 15:20 12/15/16 15:20 12/15/16 15:20 12/15/16 15:20 12/15/16 15:20 General: Present: Appears Well HEENT: Present: Normocephaly Neck: Present: Supple Neck, Midline Trachea Cardiac: Present: Irregularly Regular, S1/S2 (rate is about 100 BPM), Other (3/ 6 murmur systolic at RUSB) Lungs: Present: Normal Exam Neuro: Present: Cranial Nerve 2-12 Intact Abdomen: Present: Soft, Active Bowel Sounds Skin: Present: Clear Gait: Present: Normal Gait Extremities: Present: No Cyanosis, No Edema. Absent: Edema Result/EKG - Labs CBC & BMP: 12/16/16 03:45 12/16/16 03:45 Labs: Laboratory Results - last 24 hr 12/15/16 12/15/16 12/15/16 15:45 15:45 15:45 WBC RBC Hgb Hct MCV MCH MCHC RDW Plt Count MPV Neut % (Auto) Lymph % (Auto) [place] % (Auto) Eos % (Auto) Baso % (Auto) Neut # (Auto) Lymph # (Auto) [place] # (Auto) Eos # (Auto) Baso # (Auto) Immature Gran % Nucleated RBC % Immature Gran # Nucleated RBCs # INR 1.0 PT Patient/Control Mix 10.3 Circ Anticoag PTT 27.2 Sodium 135 L Potassium 4.9 Chloride 97 L Carbon Dioxide 30 Anion Gap 12.9 BUN 25 H Creatinine 1.20 GFR Calculation 61 BUN/Creatinine Ratio 20.00 Glucose 342 H POC Glucose Calculated Osmolality 287.1 Calcium 8.1 L Magnesium 1.7 L Total Bilirubin 0.40 AST 19 ALT 19 Alkaline Phosphatase 105 Total Creatine Kinase 39 CK-MB (CK-2) 1.7 Troponin I 0.034 B-Natriuretic Peptide 295 H Total Protein 6.0 L Albumin 2.6 L Globulin 3.4 Albumin/Globulin Ratio 0.7 L Free T4 TSH 3rd Generation 12/15/16 12/15/16 12/15/16 15:45 19:39 19:39 WBC 7.1 RBC 3.96 Hgb 11.2 L Hct 33.7 L MCV 85.1 L MCH 28 MCHC 33.2 RDW 14.7 Plt Count 159 MPV 11.8 Neut % (Auto) 51.3 Lymph % (Auto) 33.9 [place] % (Auto) 10.7 Eos % (Auto) 3.1 Baso % (Auto) 0.4 Neut # (Auto) 3.7 Lymph # (Auto) 2.4 [place] # (Auto) 0.8 Eos # (Auto) 0.2 Baso # (Auto) 0.0 Immature Gran % 0.6 Nucleated RBC % 0.0 Immature Gran # 0.04 Nucleated RBCs # 0.00 INR PT Patient/Control Mix Circ Anticoag PTT Sodium Potassium Chloride Carbon Dioxide Anion Gap BUN Creatinine GFR Calculation BUN/Creatinine Ratio Glucose POC Glucose Calculated Osmolality Calcium Magnesium Total Bilirubin AST ALT Alkaline Phosphatase Total Creatine Kinase CK-MB (CK-2) Troponin I 0.035 B-Natriuretic Peptide Total Protein Albumin Globulin Albumin/Globulin Ratio Free T4 TSH 3rd Generation 1.730 0512/15/16 12/15/16 19:39 20:32 22:41 WBC RBC Hgb Hct MCV MCH MCHC RDW Plt Count MPV Neut % (Auto) Lymph % (Auto) [place] % (Auto) Eos % (Auto) Baso % (Auto) Neut # (Auto) Lymph # (Auto) [place] # (Auto) Eos # (Auto) Baso # (Auto) Immature Gran % Nucleated RBC % Immature Gran # Nucleated RBCs # INR PT Patient/Control Mix Circ Anticoag PTT Sodium Potassium Chloride Carbon Dioxide Anion Gap BUN Creatinine GFR Calculation BUN/Creatinine Ratio Glucose POC Glucose 247 H Calculated Osmolality Calcium Magnesium Total Bilirubin AST ALT Alkaline Phosphatase Total Creatine Kinase CK-MB (CK-2) Troponin I 0.031 B-Natriuretic Peptide Total Protein Albumin Globulin Albumin/Globulin Ratio Free T4 1.10 TSH 3rd Generation 12/16/16 12/16/16 12/16/16 03:45 03:45 06:26 WBC 6.1 RBC 3.81 Hgb 10.6 L Hct 32.2 L MCV 84.5 L MCH 28 MCHC 32.9 RDW 14.7 Plt Count 159 MPV 11.9 Neut % (Auto) 45.7 Lymph % (Auto) 38.2 [place] % (Auto) 10.5 Eos % (Auto) 4.4 Baso % (Auto) 0.7 Neut # (Auto) 2.8 Lymph # (Auto) 2.3 [place] # (Auto) 0.6 Eos # (Auto) 0.3 Baso # (Auto) 0.0 Immature Gran % 0.5 Nucleated RBC % 0.0 Immature Gran # 0.03 Nucleated RBCs # 0.00 INR PT Patient/Control Mix Circ Anticoag PTT Sodium 141 Potassium 3.5 Chloride 100 Carbon Dioxide 33 H Anion Gap 11.5 BUN 19 H Creatinine 0.80 GFR Calculation 91 BUN/Creatinine Ratio 23.00 H Glucose 77 POC Glucose 41 L* Calculated Osmolality 281.3 Calcium 8.3 L Magnesium 2.0 Total Bilirubin AST ALT Alkaline Phosphatase Total Creatine Kinase CK-MB (CK-2) Troponin I B-Natriuretic Peptide Total Protein Albumin Globulin Albumin/Globulin Ratio Free T4 TSH 3rd Generation 12/16/16 12/16/16 06:41 06:49 WBC RBC Hgb Hct MCV MCH MCHC RDW Plt Count MPV Neut % (Auto) Lymph % (Auto) [place] % (Auto) Eos % (Auto) Baso % (Auto) Neut # (Auto) Lymph # (Auto) [place] # (Auto) Eos # (Auto) Baso # (Auto) Immature Gran % Nucleated RBC % Immature Gran # Nucleated RBCs # INR PT Patient/Control Mix Circ Anticoag PTT Sodium Potassium Chloride Carbon Dioxide Anion Gap BUN Creatinine GFR Calculation BUN/Creatinine Ratio Glucose POC Glucose 58 L 64 L Calculated Osmolality Calcium Magnesium Total Bilirubin AST ALT Alkaline Phosphatase Total Creatine Kinase CK-MB (CK-2) Troponin I B-Natriuretic Peptide Total Protein Albumin Globulin Albumin/Globulin Ratio Free T4 TSH 3rd Generation - EKG EKG results: interpreted by me (atrial fibrillation with slow response right axis deviation and rbbb) Quality Measures - VTE Contraindication to Pharmacological VTE Prophylaxis: Already on Theraputic Agent , No Prophylaxis Needed
[2016-12-16] MEDS: FUROSEMIDE 40 MG TABLET PO SCH (10:17)
[2016-12-16] MEDS: METOPROLOL SUCCINATE XL 100 MG TABLET PO SCH (10:17)
[2016-12-16] MEDS: DILTIAZEM CD 120 MG CAPSULE PO SCH (10:17)
[2016-12-16] MEDS: CHOLECALCIFEROL 1,000 UNIT TABLET PO SCH (10:18)
[2016-12-16] MEDS: TAMSULOSIN 0.4 MG CAPSULE PO SCH (10:18)
[2016-12-16] MEDS: LISINOPRIL 5 MG TABLET PO SCH (10:18)
[2016-12-16] MEDS: metFORMIN 500 MG TABLET PO SCH ×2 (10:18→21:34)
[2016-12-16] MEDS: sitaGLIPtin 100 MG TABLET PO SCH (10:18)
[2016-12-16] MEDS: MONTELUKAST 10 MG TABLET PO SCH (10:18)
[2016-12-16] MEDS: ASCORBIC ACID 500 MG TABLET PO SCH ×2 (10:18→21:35)
[2016-12-16] MEDS: GABAPENTIN 300 MG CAPSULE PO SCH ×3 (10:18→21:35)
[2016-12-16] MEDS: APIXABAN 2.5 MG TABLET PO SCH (10:19)
[2016-12-16] MEDS: TIMOLOL 0.5% OPH SOLN 5 ML BOTTLE RIGHT EYE SCH ×2 (10:22→21:37)
[2016-12-16] MEDS: POTASSIUM CHLORIDE 20 MEQ TABLET PO PRN ×2 (10:39→11:49)
[2016-12-16] MEDS: ACETAMINOPHEN 325 MG TABLET PO PRN (11:49)
--- NOTE | 2016-12-16 15:58 | Hospitalist Progress Note ---
Assessment and Plan (1) Tachy-addy syndrome Status: Acute Assessment and plan: The patient continues on weight reducing medications. Further decisions will be made about pacemaker implantation later this week. Current Visit: Yes (2) Congestive heart failure Status: Chronic Current Visit: Yes Qualifiers: Congestive heart failure type: systolic (3) History of aortic valve replacement with bioprosthetic valve Status: Chronic Current Visit: Yes Hospitalist: Subjective Interval history: The patient has not had any new events overnight. The patient has heart rate of 95 presently and blood pressure shows hemodynamic stability. I reviewed Dr. Hernandez's notes concerning the tachycardia-bradycardia syndrome. Dr. Mary Guardado's note that he expects a pacemaker will be necessary. I reviewed these thoughts and answered questions for the patient's spouse and daughter at the bedside. Exam - Constitutional Vitals: Period Temp Pulse Resp BP Sys/Awlsh Pulse Ox Last 24 Hr 97.0 F-98.4 F 50-107 16-21 93-155/46-91 98-100 General appearance: no acute distress - Respiratory Respiratory exam: Present: clear to auscultation bilaterally - Cardiovascular Cardiovascular exam: Present: regular rate and rhythm - GI/Abdominal GI/Abdominal exam: Present: normal bowel sounds Results - Labs CBC & BMP: 12/16/16 03:45 12/16/16 03:45 Lab Results: I have reviewed the past 24 hour labs Quality Measures - VTE Contraindication to Pharmacological VTE Prophylaxis: Already on Theraputic Agent , No Prophylaxis Needed
[2016-12-16] MEDS: INSULIN GLARGINE 100 UNIT/ML SUBCUT SCH (21:34)
[2016-12-16] MEDS: LORATADINE 10 MG TABLET PO SCH (21:35)
[2016-12-16] MEDS: SIMVASTATIN 80 MG TABLET PO SCH (21:35)
[2016-12-16] MEDS: LATANOPROST 0.005% OPH SOLN 2.5 ML BOTTLE RIGHT EYE SCH (21:37)
[2016-12-17] MEDS ORDERED: diphenhydrAMINE CAP 25 MG CAPSULE PO ONE (01:52)
[2016-12-17] MEDS ORDERED: DIAZEPAM 5 MG TABLET PO ONE (01:52)
[2016-12-17] MEDS ORDERED: ceFAZolin 1,000 MG VIAL IRRIG ONE (01:52)
[2016-12-17] MEDS: SODIUM CHLORIDE 0.9% 1,000 ML IV SCH ×2 (04:41→17:38)
[2016-12-17 05:32] LABS: Basophils % 0.5 % (0.0-0.8); Eosinophils # 0.3 10*3/uL (0.0-0.87); Eosinophils % 3.9 % (0.00-10.9); Hematocrit 31.4 VOL% (42.0-52.0); Hemoglobin 10.2 GM/DL (14.0-18.0); Immature Granulocytes % 0.9 %; Immature Granulocytes Absolute 0.06 #; Lymphocytes # 2.5 10*3/uL (1.4-4.0); Lymphocytes % 38.6 % (21.2-54.2); Mean Corpuscular HGB Conc 32.5 GM/DL (32-36); Mean Corpuscular Hemoglobin 28 PG (27-34); Mean Corpuscular Volume 85.8 FL (87-102); Mean Platelet Volume 12.4 FL (9.6-12.0); Monocytes # 0.6 10*3/uL (0.11-0.8); Monocytes % 9.5 % (1.7-12.7); Neutrophils % 46.6 % (38.7-73.9); Platelet Count 157 T/CUMM (130-400); Red Blood Count 3.66 MC/CUMM (3.8-5.5); Red Cell Distribution Width 14.7 % (9.3-17.3); White Blood Count 6.4 T/CUMM (4-12)
[2016-12-17 06:00] LABS: Calcium 8.4 MG/DL (8.5-10.1); Osmolality,Calculated 285.8 MOS/KG (273-304); Potassium 4.1 MMOL/L (3.5-5.1)
--- NOTE | 2016-12-17 06:35 | EKG Report ---
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
--- NOTE | 2016-12-17 06:54 | Cardiology Progress Note ---
Assessment and Plan (1) Cardiomyopathy Status: Chronic Assessment and plan: His ejection fraction is 40-45% at most recent transthoracic echo. He is not a candidate for defibrillator. Current Visit: Yes Qualifiers: Cardiomyopathy type: ischemic Qualified Code(s): I25.5 - Ischemic cardiomyopathy (2) Tachy-addy syndrome Status: Acute Assessment and plan: His heart rate is controlled while lying flat. If he gets up and ambulates gets elevated. In the increase in medication has precipitated bradycardia. He had a heart rate in the 40s last evening before he was asleep. Current Visit: Yes (3) Coronary artery disease Status: Chronic Current Visit: Yes Qualifiers: Coronary Disease-Associated Artery/Lesion type: [place] artery [place] vs. transplanted heart: [place] heart Associated angina: without angina Qualified Code(s): I25.10 - Atherosclerotic heart disease of [place] artery without angina pectoris (4) History of aortic valve replacement with bioprosthetic valve Status: Chronic Assessment and plan: Transthoracic echo recently functioning well. Current Visit: Yes (5) Diabetes mellitus type 2 in nonobese Status: Acute Current Visit: Yes (6) Hypotension Status: Acute Assessment and plan: This has resolved. Current Visit: Yes (7) Hyperlipidemia Status: Chronic Current Visit: No Qualifiers: Hyperlipidemia type: mixed hyperlipidemia Qualified Code(s): E78.2 - Mixed hyperlipidemia (8) Hypertension Status: Chronic Current Visit: No Qualifiers: Hypertension type: essential hypertension Qualified Code(s): I10 - Essential (primary) hypertension Cardiology - PN: Subj Interval history: Mr. Rider very pleasant 81-year-old gentleman. He heart rate has been somewhat better controlled since he has been here but he continues to have significant bradycardia down into the 40s. Anytime he gets up to ambulate his heart rate goes very high. Currently his heart rate is controlled but I think he would benefit from a pacemaker to prevent symptomatic bradycardia this tachybradycardia syndrome we will be able to increase his AV alejandra blockade to prevent his tachycardia. I discussed with him he is willing to proceed. He understands. He will need a single-chamber pacemaker via the left subclavian approach he is right-handed. Exam (Progress Note) - Constitutional Vitals: Period Temp Pulse Resp BP Sys/[place] Pulse Ox Last 24 Hr 97.0 F-99.1 F 45-107 16-20 102-155/51-91 93-100 General appearance: normal weight (He is lying flat in bed) - Head Head exam: Present: normal inspection - Respiratory Respiratory exam: Present: clear to auscultation bilaterally - Cardiovascular Cardiovascular exam: Present: irregular rhythm (Right is about 80 when I examined him lying down) - GI/Abdominal GI/Abdominal exam: Present: normal bowel sounds - Extremities Exam Extremities exam: Present: normal inspection - Back Exam Back exam: Present: normal inspection - Neurological Exam Neurological exam: Present: alert, oriented X3 - Psychiatric Psychiatric exam: Present: normal affect, normal mood - Skin Skin exam: Present: normal color, warm Result/EKG - Labs CBC & BMP: 12/17/16 04:12 12/17/16 04:12 Labs: Laboratory Results - last 24 hr 12/16/16 12/16/16 12/16/16 06:26 06:41 06:49 WBC RBC Hgb Hct MCV MCH MCHC RDW Plt Count MPV Neut % (Auto) Lymph % (Auto) [place] % (Auto) Eos % (Auto) Baso % (Auto) Neut # (Auto) Lymph # (Auto) [place] # (Auto) Eos # (Auto) Baso # (Auto) Immature Gran % Nucleated RBC % Immature Gran # Nucleated RBCs # Sodium Potassium Chloride Carbon Dioxide Anion Gap BUN Creatinine GFR Calculation BUN/Creatinine Ratio Glucose POC Glucose 41 L* 58 L 64 L Calculated Osmolality Calcium 12/16/16 12/16/16 12/17/16 15:25 22:07 04:12 WBC 6.4 RBC 3.66 L Hgb 10.2 L Hct 31.4 L MCV 85.8 L MCH 28 MCHC 32.5 RDW 14.7 Plt Count 157 MPV 12.4 H Neut % (Auto) 46.6 Lymph % (Auto) 38.6 [place] % (Auto) 9.5 Eos % (Auto) 3.9 Baso % (Auto) 0.5 Neut # (Auto) 3.0 Lymph # (Auto) 2.5 [place] # (Auto) 0.6 Eos # (Auto) 0.3 Baso # (Auto) 0.0 Immature Gran % 0.9 Nucleated RBC % 0.0 Immature Gran # 0.06 Nucleated RBCs # 0.00 Sodium Potassium Chloride Carbon Dioxide Anion Gap BUN Creatinine GFR Calculation BUN/Creatinine Ratio Glucose POC Glucose 174 H 282 H Calculated Osmolality Calcium 12/17/16 04:12 WBC RBC Hgb Hct MCV MCH MCHC RDW Plt Count MPV Neut % (Auto) Lymph % (Auto) [place] % (Auto) Eos % (Auto) Baso % (Auto) Neut # (Auto) Lymph # (Auto) [place] # (Auto) Eos # (Auto) Baso # (Auto) Immature Gran % Nucleated RBC % Immature Gran # Nucleated RBCs # Sodium 137 Potassium 4.1 Chloride 99 Carbon Dioxide 30 Anion Gap 12.1 BUN 20 H Creatinine 1.00 GFR Calculation 77 BUN/Creatinine Ratio 20.00 Glucose 275 H POC Glucose Calculated Osmolality 285.8 Calcium 8.4 L Quality Measures - VTE Contraindication to Pharmacological VTE Prophylaxis: Already on Theraputic Agent , No Prophylaxis Needed
[2016-12-17] MEDS: FUROSEMIDE 40 MG TABLET PO SCH (08:01)
[2016-12-17] MEDS: ASCORBIC ACID 500 MG TABLET PO SCH ×2 (08:01→20:34)
[2016-12-17] MEDS: CHOLECALCIFEROL 1,000 UNIT TABLET PO SCH (08:01)
[2016-12-17] MEDS: MONTELUKAST 10 MG TABLET PO SCH (08:01)
[2016-12-17] MEDS: DILTIAZEM CD 120 MG CAPSULE PO SCH (08:02)
[2016-12-17] MEDS: METOPROLOL SUCCINATE XL 100 MG TABLET PO SCH (08:02)
[2016-12-17] MEDS: TAMSULOSIN 0.4 MG CAPSULE PO SCH (08:02)
[2016-12-17] MEDS: GABAPENTIN 300 MG CAPSULE PO SCH ×3 (08:02→20:33)
[2016-12-17] MEDS: metFORMIN 500 MG TABLET PO SCH ×2 (08:03→20:33)
[2016-12-17] MEDS: LISINOPRIL 5 MG TABLET PO SCH (08:03)
[2016-12-17] MEDS: INSULIN LISPRO 100 UNIT/ML SUBCUT SCH ×4 (08:03→20:35)
[2016-12-17] MEDS: sitaGLIPtin 100 MG TABLET PO SCH (08:06)
[2016-12-17] MEDS: TIMOLOL 0.5% OPH SOLN 5 ML BOTTLE RIGHT EYE SCH ×2 (09:28→20:36)
[2016-12-17] MEDS ORDERED: LIDOCAINE 1%/EPI INJ 20 ML VIAL ONE ×2 (09:49→10:06)
[2016-12-17] MEDS ORDERED: ceFAZolin 1,000 MG VIAL ONE ×2 (09:49→10:06)
[2016-12-17] MEDS ORDERED: MIDAZOLAM 2 MG/2 ML VIAL ONE (09:56)
[2016-12-17] MEDS ORDERED: HYDROmorphone 2 MG/1 ML VIAL ONE (09:56)
[2016-12-17] MEDS ORDERED: TISSUE ADHESIVE 1 EACH APPLICATOR TOP ONE (10:26)
--- NOTE | 2016-12-17 10:43 | Cardiac Pacemaker ---
- Preoperative diagnosis Date of Procedure:: 12/17/16 Preoperative Diagnosis: Documented nonreversible symptomatic bradycardia due to , sinus node dysfunction Procedure: The patient had tachy-addy syndrome with chronic underlying atrial fibrillation and needs a single-chamber pacemaker to control his bradycardia as described in his notes. Procedures performed 1. Percutaneous left subclavian venotomy with sheath placement 2. Placement of ventricular lead with threshold testing 3. Placement of single permanent (note, this is an MRI compatible pacemaker system) The patient had symptomatic bradycardia due to high grade sinus node dysfunction and needed a pacemaker. After informed consent was obtained was taken to catheter prepped and draped in usual sterile manner. We used minimal sedation for this case. We placed a J-tipped wire in the left subclavian vein using a modified Seldinger technique in the usual fashion. With then a pocket approximately 2 cm below the left clavicular border using blunt and sharp dissection as well as electrocautery. We then pulled our leads into the pocket from below. Using a safe sheath, we placed a Medtronic 5076-58 centimeter ventricular lead into the right ventricular apex and secured it with a helical coil. Serial number on the ventricular lead is [id number]. Excellent capture and sensing thresholds were achieved. After the sheath had been removed, we sutured the leads to the pocket floor using Ethibond suture. We then rinsed the pocket with antibiotic solution and then connected the leads to a Medtronic Advisa SR MRI compatible pacemaker model [id number]. Serial number on the pacemaker is [id number]. After the device give been connected to the lead, it was placed in the pocket and sutured pocket floor with Ethibond suture. We then closed the pocket 2 layers using Vicryl suture. We then applied a topical adhesive followed by Steri-Strips and a dressing. There were no apparent complications during the procedure. The patient remained stable throughout the procedure and will now be transferred back to his room for recovery. Anesthesia: minimal conscious sedation Surgeon / Physician: Adolfo Gastelum Estimated blood loss: minimal Condition: stable Disposition: floor - Medications / Follow-up
--- NOTE | 2016-12-17 11:34 | XRay Report ---
XR chest 1V portable Indication: Lead placement Comparison: Chest x-ray dated December 15, 2016 Technique: Single frontal view of the chest. Findings: Continued cardiomegaly status post CABG/sternotomy. Interval placement of cardiac pacemaker apparatus within the left chest without significant abnormality. There is nonspecific prominence of lung markings suspicious for interstitial pulmonary edema. Chronic/fibrotic change and interstitial pneumonia may have similar appearance. Visualized osseous and surrounding soft tissue structures otherwise appear grossly unchanged. IMPRESSION: As above. PROCEDURE INTERPRETED AT [facility] DEPARTMENT OF RADIOLOGY Final Report Signed by: Dr Madi Corona
--- NOTE | 2016-12-17 12:47 | EKG Report ---
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
--- NOTE | 2016-12-17 13:31 | Hospitalist Progress Note ---
Assessment and Plan (1) Tachy-addy syndrome Status: Acute Assessment and plan: The patient continues on right reducing medications. Pacemaker implantation will allow us to force the heart rate down against the pacemaker minimum heart rate. Current Visit: Yes (2) Congestive heart failure Status: Chronic Current Visit: Yes Qualifiers: Congestive heart failure type: systolic (3) History of aortic valve replacement with bioprosthetic valve Status: Chronic Current Visit: Yes Hospitalist: Subjective Interval history: The patient had no new events overnight. Dr. Gastelum placed a pacemaker today. The patient has no complaint of chest discomfort or shortness of breath. Exam - Constitutional Vitals: Period Temp Pulse Resp BP Sys/Walsh Pulse Ox Last 24 Hr 97 F-99.1 F 45-105 16-20 88-134/51-57 93-100 Exam: Constitutional System: No distress. No tremulousness. Head: Normocephalic, atraumatic. Ears, Nose and Throat System: No evidence of Otitis or Mastoiditis. No epistaxis or discharge Eyes System: Pupils equal, round, and reactive. Extraocular muscles intact. Neck: Supple, without adenopathy, No jugular venous distention. No thyromegaly , neck mass, or prior surgery apparent. Respiratory System: Chest clear to auscultation. Cardiovascular System: Heart with regular rate and rhythm. No murmur. Pacemaker in left subclavian space GI System: Abdomen soft, nontender. Normo active bowel sounds present. Results - Labs CBC & BMP: 12/17/16 04:12 12/17/16 04:12 Lab Results: I have reviewed the past 24 hour labs Quality Measures - VTE Contraindication to Pharmacological VTE Prophylaxis: Already on Theraputic Agent , No Prophylaxis Needed
[2016-12-17] MEDS ORDERED: SODIUM CHLORIDE 0.9% 500 ML IV ONE (13:55)
--- NOTE | 2016-12-17 14:32 | Event Note ---
I was called because the patient was hypotensive post VVI pacemaker placement. I reordered stat bedside echo and came to see the patient he has no pericardial effusion. He responded to fluid bolus this is likely medication related. We will continue to follow he is asymptomatic. His systolic pressure is up from the 60s to the low 80s
--- NOTE | 2016-12-17 17:00 | ECHO Report ---
Usman Rider 12/17/2016 Exam Date: 14:05 Referring Physician: danielle Marinelli Technologist: PATRICK PAN Age: 81 Ht (in): 67 Wt (lb): 175 MExam Location: [facility] Gender: Echo [id number]: Limited study, S/P Pace maker, Drop Indications:in blood pressure, evaluate for effusion BP: 91 / 46 HR: 60 SinusRhythm: Technical Quality: IMPRESSIONS EF is 55% with no regional wall motion abnormality. Equivocal diastolic parameters. NO EFFUSION. Heavily calcified mitral annulus. Well positioned aortic bioprosthesis. MEASUREMENTS (Male / Female) Normal Values 2D ECHO LV Diastolic Diameter PLAX 5.1 cm 4.2 - 5.9 / 3.9 - 5.3 cm LV Systolic Diameter PLAX 3.9 cm LV Fractional Shortening PLAX 23.2 % IVS Diastolic Thickness 0.9 cm 0.6 - 1.0 / 0.6 - 0.9 cm LVPW Diastolic Thickness 1.0 cm 0.6 - 1.0 / 0.6 - 0.9 cm RV Internal Dim ED PLAX 4.0 cm Aortic Root Diameter 3.5 cm LA Systolic Diameter LX 4.8 cm 3.0 - 4.0 / 2.7 - 3.8 cm DOPPLER TR Peak Velocity 297.0 cm/s TR Peak Gradient 35.3 mmHg FINDINGS Left Ventricle EF is 55% with no regional wall motion abnormality. Equivocal diastolic parameters Right Ventricle Normal. There is a pacing lead in the right ventricle. Right Atrium Enlarged Left Atrium Enlarged Mitral Valve Heavily calcified mitral annulus. Aortic Valve Well positioned aortic bioprosthesis Tricuspid Valve normal with mild tricuspid insufficiency Pulmonic Valve not well seen Pericardium NO EFFUSION Aorta Visualized portion of the thoracic aorta is normal Libra Claire (Electronically Signed) 17 Dec 2016 16:59Final Date:
[2016-12-17] MEDS: SIMVASTATIN 80 MG TABLET PO SCH (20:33)
[2016-12-17] MEDS: LORATADINE 10 MG TABLET PO SCH (20:34)
[2016-12-17] MEDS: INSULIN GLARGINE 100 UNIT/ML SUBCUT SCH (20:34)
[2016-12-17] MEDS: LATANOPROST 0.005% OPH SOLN 2.5 ML BOTTLE RIGHT EYE SCH (20:36)
[2016-12-18 04:28] LABS: Basophils % 0.6 % (0.0-0.8); Eosinophils # 0.3 10*3/uL (0.0-0.87); Eosinophils % 4.3 % (0.00-10.9); Hematocrit 33.1 VOL% (42.0-52.0); Hemoglobin 10.7 GM/DL (14.0-18.0); Immature Granulocytes % 0.3 %; Immature Granulocytes Absolute 0.02 #; Lymphocytes # 2.2 10*3/uL (1.4-4.0); Mean Corpuscular HGB Conc 32.3 GM/DL (32-36); Mean Corpuscular Hemoglobin 28 PG (27-34); Mean Corpuscular Volume 86.4 FL (87-102); Mean Platelet Volume 11.3 FL (9.6-12.0); Monocytes # 0.6 10*3/uL (0.11-0.8); Monocytes % 9.2 % (1.7-12.7); Neutrophils # 3.3 10*3/uL (1.4-7.4); Neutrophils % 51.6 % (38.7-73.9); Platelet Count 148 T/CUMM (130-400); Red Blood Count 3.83 MC/CUMM (3.8-5.5); Red Cell Distribution Width 14.5 % (9.3-17.3); White Blood Count 6.4 T/CUMM (4-12)
[2016-12-18 05:31] LABS: Calcium 8.5 MG/DL (8.5-10.1); Magnesium 1.6 MG/DL (1.8-2.4); Osmolality,Calculated 287.5 MOS/KG (273-304); Potassium 4.4 MMOL/L (3.5-5.1)
--- NOTE | 2016-12-18 06:26 | XRay Report ---
XR chest 2V Indication: Lead placement Comparison: Chest x-ray 12/17/2016 Technique: PA and lateral chest x-ray was performed. Findings: The heart is normal in size. Prior sternotomy is stable. Cardiac pacemaker is stable. No change in lead placement has occurred. Pulmonary vasculature demonstrates no specific abnormality. Hilar structures demonstrate fairly symmetric appearance. The lungs demonstrate improved inspiration and better visualization of the left hemidiaphragm. Normally coarsened interstitial markings in the lung bases as well as minimal blunting of the left costophrenic angle are present. Bones and soft tissues demonstrate no evidence of acute pathology. Impression: 1. Overall appearance of the chest is stable compared to the previous study. Small left-sided pleural effusion and minimal pulmonary edema versus chronic interstitial stranding is present. 12/18/2016 6:22 AM PROCEDURE INTERPRETED AT [facility] DEPARTMENT OF RADIOLOGY Final Report Signed by: Dr. Jose Jim
--- NOTE | 2016-12-18 07:14 | EKG Report ---
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
[2016-12-18] MEDS: DILTIAZEM CD 120 MG CAPSULE PO SCH (09:40)
[2016-12-18] MEDS: ASCORBIC ACID 500 MG TABLET PO SCH (09:40)
[2016-12-18] MEDS: LISINOPRIL 5 MG TABLET PO SCH (09:41)
[2016-12-18] MEDS: sitaGLIPtin 100 MG TABLET PO SCH (09:41)
[2016-12-18] MEDS: MONTELUKAST 10 MG TABLET PO SCH (09:41)
[2016-12-18] MEDS: TAMSULOSIN 0.4 MG CAPSULE PO SCH (09:41)
[2016-12-18] MEDS: metFORMIN 500 MG TABLET PO SCH (09:41)
[2016-12-18] MEDS: FUROSEMIDE 40 MG TABLET PO SCH (09:41)
[2016-12-18] MEDS: CHOLECALCIFEROL 1,000 UNIT TABLET PO SCH (09:42)
[2016-12-18] MEDS: GABAPENTIN 300 MG CAPSULE PO SCH (09:42)
[2016-12-18] MEDS: METOPROLOL SUCCINATE XL 100 MG TABLET PO SCH (09:42)
[2016-12-18] MEDS: TIMOLOL 0.5% OPH SOLN 5 ML BOTTLE RIGHT EYE SCH (09:43)
--- NOTE | 2016-12-18 10:03 | Discharge Summary ---
Hospital Course - Hospital Course Hospital Course: Patient was admitted to the hospital with weakness and tachycardia-bradycardia syndrome. A pacemaker was placed by the pan devulcanizer after consultation. The patient had brief episode of hypotension related to sedatives following the pacemaker procedure but is feeling well the following day and ready for discharge home. On the date of discharge, chest clear, heart has regular rhythm , and abdomen soft. 34 minutes were required for [id number] evaluation, patient education, and discharge documentation. - Time spent with patient Time with patient DS: Greater than 30 minutes Diagnosis - Discharge Diagnosis (1) Tachy-addy syndrome Status: Chronic (2) Congestive heart failure Status: Chronic (3) History of aortic valve replacement with bioprosthetic valve Status: Chronic Discharge Plan - Discharge Data Disposition: Disch To Home/Self Care Condition at Discharge: Stable Discharge Diet: heart healthy Activity: resume usual activities as tolerated - Discharge Medications Continue Insulin Glargine [Lantus] 60 unit SUBCUT BEDTIME Loratadine Tab [Claritin Tab] 10 mg PO BEDTIME Omeprazole 20 mg PO DAILY PRN PRN Reason: Reflux Simvastatin 80 mg PO BEDTIME Gabapentin 300 mg PO TID Metformin HCl 1,000 mg PO BID Ascorbic Acid Tab [Vitamin C Tab] 1,000 mg PO BID #120 tablet Montelukast Tab [Singulair Tab] 10 mg PO DAILY #30 tablet guaiFENesin ER TAB [Mucinex] 600 mg PO BID #30 tablet Latanoprost [Latanoprost 0.005 % Oph Soln] 1 drop RIGHT EYE BEDTIME Brinzolamide/Brimonidine Tart [Simbrinza] 1 drop RIGHT EYE BID Lisinopril [Prinivil] 5 mg PO DAILY #30 tablet Metoprolol Succinate Xl [Toprol Xl] 100 mg PO DAILY #30 tablet Fluticasone 50 Mcg Nasal [place] [Flonase Nasal [place]] 1 spray BOTH NARES DAILY PRN PRN Reason: Sinus Symptoms Apixaban [Eliquis] 2.5 mg PO BID #60 tablet Tamsulosin [Flomax] 0.4 mg PO DAILY #30 capsule Saxagliptin HCl [Onglyza] 2.5 mg PO DAILY Cholecalciferol (Vitamin D3) [Vitamin D3] 1,000 units PO DAILY Timolol Maleate [Timolol 0.5% Oph Soln] 1 drop RIGHT EYE BID Diltiazem Cd Cap [Cardizem CD] 120 mg PO DAILY #30 capsule Furosemide Tab [Lasix Tab] 40 mg PO DAILY #30 tablet - Follow Up or Referral Follow Up: Adolfo Gastelum MD [Physician] - - Forms/Instructions Exam - Constitutional Vitals: Period Temp Pulse Resp BP Sys/Walsh Pulse Ox Last 24 Hr 97.0 F-98.4 F 60-109 14-20 67-135/28-81 92-100 Discharge Results Procedures and tests throughout hospitalization: Pending Orders 12/17/16 07:17 CL pacemaker Routine Labs on day of discharge: Labs from last 24 hours 12/18/16 12/18/16 12/18/16 07:19 04:08 04:08 WBC 6.4 RBC 3.83 Hgb 10.7 L Hct 33.1 L MCV 86.4 L MCH 28 MCHC 32.3 RDW 14.5 Plt Count 148 MPV 11.3 Neut % (Auto) 51.6 Lymph % (Auto) 34.0 [place] % (Auto) 9.2 Eos % (Auto) 4.3 Baso % (Auto) 0.6 Neut # (Auto) 3.3 Lymph # (Auto) 2.2 [place] # (Auto) 0.6 Eos # (Auto) 0.3 Baso # (Auto) 0.0 Immature Gran % 0.3 Nucleated RBC % 0.0 Immature Gran # 0.02 Nucleated RBCs # 0.00 Sodium 139 Potassium 4.4 Chloride 100 Carbon Dioxide 31 Anion Gap 12.4 BUN 17 Creatinine 1.00 GFR Calculation 77 BUN/Creatinine Ratio 17.00 Glucose 260 H POC Glucose 205 H Calculated Osmolality 287.5 Calcium 8.5 Magnesium 1.6 L 12/17/16 12/17/16 12/17/16 19:12 16:04 11:24 WBC RBC Hgb Hct MCV MCH MCHC RDW Plt Count MPV Neut % (Auto) Lymph % (Auto) [place] % (Auto) Eos % (Auto) Baso % (Auto) Neut # (Auto) Lymph # (Auto) [place] # (Auto) Eos # (Auto) Baso # (Auto) Immature Gran % Nucleated RBC % Immature Gran # Nucleated RBCs # Sodium Potassium Chloride Carbon Dioxide Anion Gap BUN Creatinine GFR Calculation BUN/Creatinine Ratio Glucose POC Glucose 275 H 263 H 183 H Calculated Osmolality Calcium Magnesium DS: Provider Date of admission: 12/15/16 18:05 Primary care physician: Gali Jamison MD Attending physician on admission: Pranav Messer MD Consults: 12/15/16 19:31 Consult to Physician [CONS] Routine Comment: afib/addy/tachy Consulting Provider: Cardiology - [facility] Discharging clinician: Arya Nunez MD
--- NOTE | 2016-12-18 10:51 | Cardiology Progress Note ---
Assessment and Plan (1) Status post cardiac pacemaker procedure Status: Acute Assessment and plan: Patient has no problems or complications from pacemaker. His rate is well controlled. From my standpoint I think to be discharged home. I would like to see him back for a follow-up in about a week or 2 with CBC, CMP, EKG, magnesium at that time. Current Visit: Yes (2) Bradycardia Status: Acute Current Visit: Yes (3) Hypomagnesemia Status: Acute Current Visit: Yes (4) Atrial fibrillation Status: Chronic Current Visit: Yes Qualifiers: Atrial fibrillation type: chronic Qualified Code(s): I48.2 - Chronic atrial fibrillation (5) Cardiomyopathy Status: Chronic Current Visit: Yes Qualifiers: Cardiomyopathy type: ischemic Qualified Code(s): I25.5 - Ischemic cardiomyopathy (6) Coronary artery disease Status: Chronic Current Visit: Yes Qualifiers: Coronary Disease-Associated Artery/Lesion type: [place] artery [place] vs. transplanted heart: [place] heart Associated angina: without angina Qualified Code(s): I25.10 - Atherosclerotic heart disease of [place] coronary artery without angina pectoris (7) History of aortic valve replacement with bioprosthetic valve Status: Chronic Current Visit: Yes (8) Tachy-addy syndrome Status: Chronic Current Visit: Yes (9) Diabetes Status: Chronic Current Visit: No Qualifiers: Diabetes mellitus type: type 2 (10) History of coronary artery bypass graft Status: Chronic Current Visit: No Cardiology - PN: Subj Interval history: The patient is feeling well today. He had no problems or complications from his pacemaker implant. Chest x-ray shows no evidence of complication with stable lead position. Interrogation of the device shows normal function and excellent capture and sensing thresholds. Patient has had no new problems overnight. From my standpoint I think he can be discharged home for outpatient management. Current Medications Acetaminophen (Tylenol Tab) 325 mg PO Q4H PRN PRN Reason: fever, headache/body aches Last Admin: 12/16/16 11:49 Dose: 325 mg Ascorbic Acid (Vitamin C Tab) 1,000 mg PO BID [facility] Last Admin: 12/18/16 09:40 Dose: 1,000 mg Cholecalciferol (Vitamin D3) 1,000 unit PO DAILY [facility] Last Admin: 12/18/16 09:42 Dose: 1,000 unit Dextrose/Water (D50) 25 gm IV PRN PRN PRN Reason: Hypoglycemia with IV access Diltiazem HCl (Cardizem Cd) 120 mg PO DAILY [facility] Last Admin: 12/18/16 09:40 Dose: 120 mg Fluticasone Propionate (Flonase) 1 spray BOTH NARES DAILY PRN PRN Reason: Sinus Symptoms Furosemide (Lasix Tab) 40 mg PO DAILY [facility] Last Admin: 12/18/16 09:41 Dose: 40 mg Gabapentin (Neurontin Cap/Tab) 300 mg PO TID [facility] Last Admin: 12/18/16 09:42 Dose: 300 mg Glucagon () 1 mg IM PRN PRN PRN Reason: Hypoglycemia w/o IV access Last Admin: 12/16/16 06:35 Dose: 1 mg Guaifenesin (Mucinex) 600 mg PO BID [facility] Last Admin: 12/18/16 09:41 Dose: 600 mg Sodium Chloride (Ns) 1,000 mls @ 75 mls/hr IV .[id number] [facility] Last Infusion: 12/18/16 02:06 Dose: Infused Insulin Glargine (Lantus) 60 unit SUBCUT BEDTIME [facility] Last Admin: 12/17/16 20:34 Dose: 60 unit Insulin Human Lispro (Humalog) 0 unit SUBCUT ACHS [facility] PRN Reason: Protocol Last Admin: 12/17/16 20:35 Dose: Not Given Latanoprost (Xalatan) 1 drop RIGHT EYE BEDTIME [facility] Last Admin: 12/17/16 20:36 Dose: 1 drop Lisinopril (Prinivil) 5 mg PO DAILY [facility] Last Admin: 12/18/16 09:41 Dose: 5 mg Loratadine (Claritin Tab) 10 mg PO BEDTIME [facility] Last Admin: 12/17/16 20:34 Dose: 10 mg Metformin HCl (Glucophage) 1,000 mg PO BID [facility] Last Admin: 12/18/16 09:41 Dose: 1,000 mg Metoprolol Succinate (Toprol Xl) 100 mg PO DAILY [facility] Last Admin: 12/18/16 09:42 Dose: 100 mg Montelukast Sodium (Singulair Tab) 10 mg PO DAILY [facility] Last Admin: 12/18/16 09:41 Dose: 10 mg Non-Formulary Medication (Brinzolamide/Brimonidine Tart [Simbrinza]) 1 drop RIGHT EYE BID [facility] Pantoprazole Sodium (Protonix Tab) 40 mg PO DAILY PRN PRN Reason: Reflux Last Admin: 12/17/16 08:02 Dose: 40 mg Potassium Chloride (K Dur) 20 meq PO .PER PROTOCOL PRN; Protocol PRN Reason: Per Protocol Last Admin: 12/16/16 11:49 Dose: 20 meq Simvastatin (Zocor) 80 mg PO BEDTIME [facility] Last Admin: 12/17/16 20:33 Dose: 80 mg Sitagliptin Phosphate (Januvia) 100 mg PO DAILY [facility] Last Admin: 12/18/16 09:41 Dose: 100 mg Tamsulosin HCl (Flomax) 0.4 mg PO DAILY [facility] Last Admin: 12/18/16 09:41 Dose: 0.4 mg Timolol Maleate (Timoptic 0.5%) 1 drop RIGHT EYE BID [facility] Last Admin: 12/18/16 09:43 Dose: 1 drop Exam (Progress Note) - Constitutional Vitals: Period Temp Pulse Resp BP Sys/Walsh Pulse Ox Last 24 Hr 97.0 F-98.4 F 60-109 14-20 67-135/28-81 92-100 Exam: General: Frail, elderly HEENT: Normocephalic, atraumatic Neck: Supple Neck, Midline Trachea Cardiac: Irregular Rhythm, No Murmur, no gallop, no rub Chest wall: Pacemaker pocket looks normal with no evidence of problem or complication Lungs: Clear to Ascultation, No Wheeze, Rales, Rhonchi Neuro: Cranial Nerve 2-12 Intact, diffuse generalized weakness Abdomen: Soft, Active Bowel Sounds, No Masses, No Pulsations/Bruits Skin: Normal color, no rash Extremities: No Clubbing, No Cyanosis, No Edema, Normal Upper Extr. Pulses Musculoskeletal: No acute abnormality noted Psychiatric: The patient is alert and oriented. The patient has a flat affect but does not appear to be anxious or depressed. Result/EKG - Labs CBC & BMP: 12/18/16 04:08 12/18/16 04:08 Lab Results: I have reviewed the past 24 hour labs Labs: Laboratory Results - last 24 hr 12/17/16 12/17/16 12/17/16 11:24 16:04 19:12 WBC RBC Hgb Hct MCV MCH MCHC RDW Plt Count MPV Neut % (Auto) Lymph % (Auto) [place] % (Auto) Eos % (Auto) Baso % (Auto) Neut # (Auto) Lymph # (Auto) [place] # (Auto) Eos # (Auto) Baso # (Auto) Immature Gran % Nucleated RBC % Immature Gran # Nucleated RBCs # Sodium Potassium Chloride Carbon Dioxide Anion Gap BUN Creatinine GFR Calculation BUN/Creatinine Ratio Glucose POC Glucose 183 H 263 H 275 H Calculated Osmolality Calcium Magnesium 12/18/16 12/18/16 12/18/16 04:08 04:08 07:19 WBC 6.4 RBC 3.83 Hgb 10.7 L Hct 33.1 L MCV 86.4 L MCH 28 MCHC 32.3 RDW 14.5 Plt Count 148 MPV 11.3 Neut % (Auto) 51.6 Lymph % (Auto) 34.0 [place] % (Auto) 9.2 Eos % (Auto) 4.3 Baso % (Auto) 0.6 Neut # (Auto) 3.3 Lymph # (Auto) 2.2 [place] # (Auto) 0.6 Eos # (Auto) 0.3 Baso # (Auto) 0.0 Immature Gran % 0.3 Nucleated RBC % 0.0 Immature Gran # 0.02 Nucleated RBCs # 0.00 Sodium 139 Potassium 4.4 Chloride 100 Carbon Dioxide 31 Anion Gap 12.4 BUN 17 Creatinine 1.00 GFR Calculation 77 BUN/Creatinine Ratio 17.00 Glucose 260 H POC Glucose 205 H Calculated Osmolality 287.5 Calcium 8.5 Magnesium 1.6 L - EKG EKG results: interpreted by me Quality Measures - VTE Contraindication to Pharmacological VTE Prophylaxis: Already on Theraputic Agent , No Prophylaxis Needed Specialty Discharge - Follow Up or Referrals Follow up with: Adolfo Gastelum MD [Physician] - 12/25/16 10:00 am
[2016-12-18 12:00] VITALS: BP 134/63
== END 2016-12-18 13:30 | disposition home or self-care (01) | DRG 243 ==
LOC: N.ED 15:16 → SUATTDRO 18:05 → N.EDINP 18:05 → N.TELES 19:17
PROVIDERS: ADMIT Internal Medicine Infectious Disease; ATTEND Internal Medicine

== ENCOUNTER 2017-05-09 18:34 | Inpatient (IN) ==
[2017-05-09] MEDS ORDERED: SODIUM CHLORIDE 0.9% 1,000 ML IV STA (19:52)
[2017-05-09] MEDS ORDERED: PANTOPRAZOLE 40 MG VIAL IV STA (19:52)
[2017-05-09 20:50] LABS: Basophils % 0.2 % (0.0-0.8); Eosinophils # 0.1 10*3/uL (0.0-0.87); Hematocrit 26.4 VOL% (42.0-52.0); Hemoglobin 9.6 GM/DL (14.0-18.0); Immature Granulocytes % 0.5 %; Immature Granulocytes Absolute 0.06 #; Lymphocytes # 2.4 10*3/uL (1.4-4.0); Lymphocytes % 19.8 % (21.2-54.2); Mean Corpuscular HGB Conc 36.4 GM/DL (32-36); Mean Corpuscular Hemoglobin 29 PG (27-34); Mean Corpuscular Volume 79.5 FL (87-102); Mean Platelet Volume 11.7 FL (9.6-12.0); Monocytes # 0.8 10*3/uL (0.11-0.8); Neutrophils # 8.6 10*3/uL (1.4-7.4); Neutrophils % 71.5 % (38.7-73.9); Platelet Count 177 T/CUMM (130-400); Red Blood Count 3.32 MC/CUMM (3.8-5.5); Red Cell Distribution Width 13.3 % (9.3-17.3); White Blood Count 12.1 T/CUMM (4-12)
[2017-05-09 21:00] LABS: INR 1.2; PT Patient Result 12.4 SECS
[2017-05-09 21:12] LABS: Albumin 2.8 G/DL (3.4-5.0); Bilirubin,Total 0.6 MG/DL (0.2-1.0); Calcium 7.5 MG/DL (8.5-10.1); Magnesium 1.8 MG/DL (1.8-2.4); Total Protein 6.3 G/DL (6.4-8.3); Troponin I Only 0.041 NG/ML (0.00-0.045)
[2017-05-09 21:16] LABS: Osmolality,Calculated 271.2 MOS/KG (273-304)
[2017-05-09] MEDS ORDERED: PANTOPRAZOLE 40 MG VIAL IV ONE (21:28)
[2017-05-10] MEDS ORDERED: DEXTROSE 50% 25 GM/50 ML VIAL IV PRN (00:30)
[2017-05-10] MEDS ORDERED: GLUCAGON 1 MG VIAL IM PRN (00:30)
[2017-05-10] MEDS: INSULIN LISPRO 100 UNIT/ML SUBCUT SCH ×4 (00:48→18:16)
[2017-05-10] MEDS: SODIUM CHLORIDE 0.9% 1,000 ML IV SCH ×2 (00:56→15:14)
[2017-05-10 01:18] LABS: Lactic Acid 2.5 MMOL/L (0.4-2.0)
[2017-05-10 01:19] LABS: Risk Ratio 2.57; VLDL CHOLESTEROL 22.8 MG/DL
[2017-05-10] MEDS ORDERED: INFLUENZA VIRUS VACCINE 0.5 ML SYRINGE IM ONE (02:00)
[2017-05-10 05:31] LABS: Basophils % 0.3 % (0.0-0.8); Eosinophils # 0.2 10*3/uL (0.0-0.87); Eosinophils % 2.4 % (0.00-10.9); Hemoglobin 8.2 GM/DL (14.0-18.0); Immature Granulocytes % 0.5 %; Immature Granulocytes Absolute 0.04 #; Lymphocytes % 26.2 % (21.2-54.2); Mean Corpuscular HGB Conc 35.7 GM/DL (32-36); Mean Corpuscular Hemoglobin 29 PG (27-34); Mean Corpuscular Volume 79.9 FL (87-102); Mean Platelet Volume 11.8 FL (9.6-12.0); Monocytes # 0.7 10*3/uL (0.11-0.8); Monocytes % 8.8 % (1.7-12.7); Neutrophils # 4.6 10*3/uL (1.4-7.4); Neutrophils % 61.8 % (38.7-73.9); Platelet Count 149 T/CUMM (130-400); Red Blood Count 2.88 MC/CUMM (3.8-5.5); Red Cell Distribution Width 13.3 % (9.3-17.3); White Blood Count 7.5 T/CUMM (4-12)
[2017-05-10 06:16] LABS: Albumin 2.5 G/DL (3.4-5.0); Bilirubin,Total 0.6 MG/DL (0.2-1.0); Calcium 6.9 MG/DL (8.5-10.1); Osmolality,Calculated 279.9 MOS/KG (273-304); Potassium 3.5 MMOL/L (3.5-5.1); Total Protein 5.5 G/DL (6.4-8.3)
[2017-05-10] MEDS: PANTOPRAZOLE 40 MG VIAL IV SCH ×3 (08:23→21:43)
[2017-05-10 13:42] LABS: Hematocrit 28.4 VOL% (42.0-52.0); Hemoglobin 10.2 GM/DL (14.0-18.0)
[2017-05-10] MEDS ORDERED: SODIUM CHLORIDE 0.9% 250 ML IV PRN (14:06)
[2017-05-10] MEDS ORDERED: FUROSEMIDE 40 MG/4 ML VIAL IV ONE (14:08)
[2017-05-10 16:18] LABS: Calcium 7.5 MG/DL (8.5-10.1); Osmolality,Calculated 287.4 MOS/KG (273-304); Potassium 3.5 MMOL/L (3.5-5.1)
[2017-05-11] MEDS: INSULIN LISPRO 100 UNIT/ML SUBCUT SCH ×5 (00:19→17:52)
[2017-05-11 08:37] LABS: Hematocrit 29.4 VOL% (42.0-52.0); Hemoglobin 10.4 GM/DL (14.0-18.0)
[2017-05-11] MEDS: METOPROLOL SUCCINATE XL 25 MG TABLET PO SCH (08:39)
[2017-05-11] MEDS: PANTOPRAZOLE 40 MG VIAL IV SCH ×2 (08:50→21:18)
[2017-05-11 10:52] LABS: Calcium 7.8 MG/DL (8.5-10.1); Osmolality,Calculated 297.2 MOS/KG (273-304); Potassium 3.6 MMOL/L (3.5-5.1)
[2017-05-11] MEDS: SODIUM CHLORIDE 0.9% 1,000 ML IV SCH ×2 (14:38→17:37)
[2017-05-11] MEDS: CIPROFLOXACIN 500 MG TABLET PO SCH (14:38)
[2017-05-11 16:05] LABS: Hematocrit 25.2 VOL% (42.0-52.0); Hemoglobin 8.8 GM/DL (14.0-18.0)
[2017-05-11] MEDS ORDERED: FUROSEMIDE 40 MG/4 ML VIAL IV ONE (17:25)
[2017-05-11] MEDS: MORPHINE 2 MG/1 ML SYRINGE IV PRN (21:36)
[2017-05-12] MEDS ORDERED: ACETAMINOPHEN 325 MG TABLET PO PRN (00:49)
[2017-05-12] MEDS: INSULIN LISPRO 100 UNIT/ML SUBCUT SCH ×5 (00:49→23:41)
[2017-05-12] MEDS ORDERED: ACETAMINOPHEN 325 MG TABLET ONE (01:24)
[2017-05-12] MEDS: SODIUM CHLORIDE 0.9% 1,000 ML IV SCH ×3 (05:42→18:36)
[2017-05-12 06:19] LABS: Basophils % 0.4 % (0.0-0.8); Eosinophils # 0.3 10*3/uL (0.0-0.87); Eosinophils % 3.1 % (0.00-10.9); Hematocrit 33.8 VOL% (42.0-52.0); Hemoglobin 11.6 GM/DL (14.0-18.0); Immature Granulocytes % 0.4 %; Immature Granulocytes Absolute 0.04 #; Lymphocytes # 2.4 10*3/uL (1.4-4.0); Lymphocytes % 25.1 % (21.2-54.2); Mean Corpuscular HGB Conc 34.3 GM/DL (32-36); Mean Corpuscular Hemoglobin 28 PG (27-34); Mean Corpuscular Volume 82.4 FL (87-102); Mean Platelet Volume 11.9 FL (9.6-12.0); Monocytes % 10.7 % (1.7-12.7); Neutrophils # 5.9 10*3/uL (1.4-7.4); Neutrophils % 60.3 % (38.7-73.9); Platelet Count 155 T/CUMM (130-400); Red Cell Distribution Width 13.9 % (9.3-17.3); White Blood Count 9.7 T/CUMM (4-12)
[2017-05-12 06:44] LABS: Osmolality,Calculated 301.3 MOS/KG (273-304); Potassium 3.3 MMOL/L (3.5-5.1)
[2017-05-12] MEDS: PANTOPRAZOLE 40 MG VIAL IV SCH ×2 (09:12→20:37)
[2017-05-12] MEDS: CIPROFLOXACIN 500 MG TABLET PO SCH (09:14)
[2017-05-12] MEDS: METOPROLOL SUCCINATE XL 25 MG TABLET PO SCH (09:15)
[2017-05-12] MEDS ORDERED: LIDOCAINE 1% 5 ML VIAL ONE (14:18)
[2017-05-12] MEDS ORDERED: PHENYLEPHRINE 1 MG/10 ML SYRINGE IV ONE (14:18)
[2017-05-12] MEDS ORDERED: PROPOFOL 200 MG/20 ML VIAL IV ONE (14:18)
[2017-05-12] MEDS ORDERED: METOPROLOL TARTRATE 5 MG/5 ML VIAL IV ONE (14:18)
[2017-05-12] MEDS: MORPHINE 2 MG/1 ML SYRINGE IV PRN (21:29)
[2017-05-13] MEDS: MORPHINE 2 MG/1 ML SYRINGE IV PRN ×2 (04:40→08:39)
[2017-05-13] MEDS: INSULIN LISPRO 100 UNIT/ML SUBCUT SCH ×4 (05:56→23:36)
[2017-05-13 08:09] LABS: Calcium 7.9 MG/DL (8.5-10.1); Osmolality,Calculated 283.1 MOS/KG (273-304)
[2017-05-13] MEDS: CIPROFLOXACIN 500 MG TABLET PO SCH (08:39)
[2017-05-13] MEDS: ONDANSETRON 4 MG/2 ML VIAL IV PRN (08:39)
[2017-05-13] MEDS: PANTOPRAZOLE 40 MG VIAL IV SCH ×2 (08:39→20:28)
[2017-05-13] MEDS: METOPROLOL SUCCINATE XL 25 MG TABLET PO SCH (08:39)
[2017-05-13] MEDS ORDERED: METOPROLOL SUCCINATE XL 25 MG TABLET PO ONE (11:50)
[2017-05-13] MEDS ORDERED: POTASSIUM CHLORIDE 20 MEQ TABLET PO ONE (11:52)
[2017-05-13] MEDS: MAGNESIUM OXIDE 400 MG TABLET PO SCH ×2 (13:50→20:30)
[2017-05-13] MEDS ORDERED: SODIUM CHLOR 0.9% KCL 20 MEQ 20 MEQ/1,000 ML BAG IV SCH (17:00)
[2017-05-13] MEDS: POTASSIUM CHLORIDE 20 MEQ TABLET PO SCH (20:30)
[2017-05-13] MEDS: CYCLOBENZAPRINE 10 MG TABLET PO SCH (20:30)
[2017-05-13] MEDS: DILTIAZEM 90 MG TABLET PO SCH (20:30)
[2017-05-13] MEDS: INSULIN GLARGINE 100 UNIT/ML SUBCUT SCH (20:31)
[2017-05-13] MEDS ORDERED: DILTIAZEM 90 MG TABLET PO SCH (21:00)
[2017-05-14] MEDS: SODIUM CHLORIDE 0.9% 1,000 ML IV SCH ×3 (03:40→17:55)
[2017-05-14] MEDS: INSULIN LISPRO 100 UNIT/ML SUBCUT SCH ×3 (05:22→18:46)
[2017-05-14 06:54] LABS: Basophils % 0.1 % (0.0-0.8); Eosinophils % 0.1 % (0.00-10.9); Hematocrit 34.7 VOL% (42.0-52.0); Hemoglobin 11.8 GM/DL (14.0-18.0); Immature Granulocytes % 0.6 %; Immature Granulocytes Absolute 0.09 #; Lymphocytes # 2.1 10*3/uL (1.4-4.0); Lymphocytes % 14.3 % (21.2-54.2); Mean Corpuscular Hemoglobin 29 PG (27-34); Mean Platelet Volume 11.7 FL (9.6-12.0); Monocytes # 1.7 10*3/uL (0.11-0.8); Monocytes % 11.4 % (1.7-12.7); Neutrophils % 73.5 % (38.7-73.9); Platelet Count 202 T/CUMM (130-400); Red Blood Count 4.13 MC/CUMM (3.8-5.5); Red Cell Distribution Width 14.1 % (9.3-17.3); White Blood Count 14.9 T/CUMM (4-12)
[2017-05-14 07:30] LABS: Calcium 8.4 MG/DL (8.5-10.1); Magnesium 1.6 MG/DL (1.8-2.4); Osmolality,Calculated 284.7 MOS/KG (273-304); Potassium 3.8 MMOL/L (3.5-5.1)
[2017-05-14] MEDS: CYCLOBENZAPRINE 10 MG TABLET PO SCH (08:33)
[2017-05-14] MEDS: CIPROFLOXACIN 500 MG TABLET PO SCH (08:33)
[2017-05-14] MEDS: MAGNESIUM OXIDE 400 MG TABLET PO SCH (08:33)
[2017-05-14] MEDS: POTASSIUM CHLORIDE 20 MEQ TABLET PO SCH (08:33)
[2017-05-14] MEDS: DILTIAZEM 90 MG TABLET PO SCH (08:33)
[2017-05-14] MEDS: METOPROLOL SUCCINATE XL 50 MG TABLET PO SCH (08:33)
[2017-05-14] MEDS: PANTOPRAZOLE 40 MG VIAL IV SCH (08:34)
[2017-05-14] MEDS: ONDANSETRON 4 MG/2 ML VIAL IV PRN ×3 (08:34→18:24)
[2017-05-14] MEDS: MORPHINE 2 MG/1 ML SYRINGE IV PRN (08:34)
[2017-05-14] MEDS: HYDROmorphone 2 MG/1 ML VIAL IV PRN ×2 (14:05→18:25)
[2017-05-14] MEDS ORDERED: LACTATED RINGERS 1,000 ML IV SCH (17:00)
[2017-05-14] MEDS ORDERED: fentaNYL 100 MCG/2 ML VIAL ONE (17:06)
[2017-05-14] MEDS ORDERED: MIDAZOLAM 2 MG/2 ML VIAL ONE (17:06)
[2017-05-14] MEDS ORDERED: MIDAZOLAM 2 MG/2 ML VIAL IV ONE ×2 (17:26→17:27)
[2017-05-14] MEDS ORDERED: fentaNYL 100 MCG/2 ML VIAL IV ONE (17:26)
[2017-05-14] MEDS: INSULIN GLARGINE 100 UNIT/ML SUBCUT SCH (22:39)
[2017-05-15] MEDS: CYCLOBENZAPRINE 10 MG TABLET PO SCH ×3 (01:15→22:02)
[2017-05-15] MEDS: PANTOPRAZOLE 40 MG TABLET PO SCH ×3 (01:15→18:22)
[2017-05-15] MEDS: DILTIAZEM 90 MG TABLET PO SCH ×4 (01:15→22:02)
[2017-05-15] MEDS: MAGNESIUM OXIDE 400 MG TABLET PO SCH ×3 (01:16→22:02)
[2017-05-15] MEDS: POTASSIUM CHLORIDE 20 MEQ TABLET PO SCH ×3 (01:16→22:01)
[2017-05-15] MEDS: INSULIN LISPRO 100 UNIT/ML SUBCUT SCH ×4 (01:41→18:21)
[2017-05-15] MEDS: HYDROmorphone 2 MG/1 ML VIAL IV PRN ×2 (01:44→09:05)
[2017-05-15 07:14] LABS: Basophils % 0.3 % (0.0-0.8); Eosinophils # 0.1 10*3/uL (0.0-0.87); Eosinophils % 0.7 % (0.00-10.9); Hematocrit 33.5 VOL% (42.0-52.0); Hemoglobin 10.9 GM/DL (14.0-18.0); Immature Granulocytes % 0.6 %; Immature Granulocytes Absolute 0.08 #; Lymphocytes # 2.1 10*3/uL (1.4-4.0); Lymphocytes % 15.1 % (21.2-54.2); Mean Corpuscular HGB Conc 32.5 GM/DL (32-36); Mean Corpuscular Hemoglobin 28 PG (27-34); Mean Corpuscular Volume 86.1 FL (87-102); Mean Platelet Volume 11.6 FL (9.6-12.0); Monocytes # 1.1 10*3/uL (0.11-0.8); Monocytes % 8.1 % (1.7-12.7); Neutrophils # 10.6 10*3/uL (1.4-7.4); Neutrophils % 75.2 % (38.7-73.9); Platelet Count 184 T/CUMM (130-400); Red Blood Count 3.89 MC/CUMM (3.8-5.5); Red Cell Distribution Width 14.5 % (9.3-17.3)
[2017-05-15 07:44] LABS: Calcium 8.7 MG/DL (8.5-10.1); Magnesium 1.6 MG/DL (1.8-2.4); Osmolality,Calculated 281.5 MOS/KG (273-304); Potassium 3.6 MMOL/L (3.5-5.1)
[2017-05-15] MEDS ORDERED: MAGNESIUM SULF RIDER 2 GM in PREMIX 1 EACH IV ONE (07:48)
[2017-05-15] MEDS: CIPROFLOXACIN 500 MG TABLET PO SCH (09:05)
[2017-05-15] MEDS: METOPROLOL SUCCINATE XL 50 MG TABLET PO SCH (09:05)
[2017-05-15] MEDS: SODIUM CHLORIDE 0.9% 1,000 ML IV SCH ×2 (16:40)
[2017-05-15] MEDS: INSULIN GLARGINE 100 UNIT/ML SUBCUT SCH (22:01)
[2017-05-16 00:58] LABS: Apearance,Urine CLEAR (Clear); Bilirubin,Urine Negative (Negative); Blood, Urine Small mg/dL (Negative); Glucose,Urine (UA) >=500 mg/dL (Negative); Hyaline Casts,Urine 1 /LPF (0-3); Ketones,Urine 5 mg/dL (Negative); Nitrite,Urine Negative (Negative); Protein,Urine 30 MG/DL; RBC,Urine <1 /HPF (0-4); Squamous Epithelial Cell,Urine Occasional /HPF (0-10); Urine Color Yellow (Yellow); Urine Specific Gravity 1.018 (1.001-1.035); Urine Urobilinogen < 2.0 EU/DL (0.2-1.0); WBC,Urine 2 /HPF (0-6)
[2017-05-16] MEDS: INSULIN LISPRO 100 UNIT/ML SUBCUT SCH ×4 (02:23→18:10)
[2017-05-16 04:57] LABS: Basophils % 0.3 % (0.0-0.8); Eosinophils # 0.2 10*3/uL (0.0-0.87); Eosinophils % 1.3 % (0.00-10.9); Hemoglobin 10.8 GM/DL (14.0-18.0); Immature Granulocytes Absolute 0.14 #; Lymphocytes # 2.4 10*3/uL (1.4-4.0); Lymphocytes % 16.6 % (21.2-54.2); Mean Corpuscular HGB Conc 32.7 GM/DL (32-36); Mean Corpuscular Hemoglobin 28 PG (27-34); Mean Corpuscular Volume 86.6 FL (87-102); Mean Platelet Volume 11.2 FL (9.6-12.0); Monocytes # 0.8 10*3/uL (0.11-0.8); Monocytes % 5.6 % (1.7-12.7); Neutrophils # 10.9 10*3/uL (1.4-7.4); Neutrophils % 75.2 % (38.7-73.9); Platelet Count 173 T/CUMM (130-400); Red Blood Count 3.81 MC/CUMM (3.8-5.5); Red Cell Distribution Width 14.2 % (9.3-17.3); White Blood Count 14.5 T/CUMM (4-12)
[2017-05-16 05:27] LABS: Calcium 8.1 MG/DL (8.5-10.1); Osmolality,Calculated 278.8 MOS/KG (273-304); Potassium 4.1 MMOL/L (3.5-5.1)
[2017-05-16] MEDS: PANTOPRAZOLE 40 MG TABLET PO SCH ×2 (06:12→18:21)
[2017-05-16] MEDS: SODIUM CHLORIDE 0.9% 1,000 ML IV SCH ×2 (06:12→18:10)
[2017-05-16] MEDS: CYCLOBENZAPRINE 10 MG TABLET PO SCH ×2 (09:20→20:44)
[2017-05-16] MEDS: POTASSIUM CHLORIDE 20 MEQ TABLET PO SCH ×2 (09:20→20:44)
[2017-05-16] MEDS: MAGNESIUM OXIDE 400 MG TABLET PO SCH ×2 (09:20→20:44)
[2017-05-16] MEDS: CIPROFLOXACIN 500 MG TABLET PO SCH (09:20)
[2017-05-16] MEDS: METOPROLOL SUCCINATE XL 50 MG TABLET PO SCH (09:20)
[2017-05-16] MEDS: DILTIAZEM 90 MG TABLET PO SCH ×2 (09:20→20:44)
[2017-05-16] MEDS: INSULIN GLARGINE 100 UNIT/ML SUBCUT SCH (20:45)
[2017-05-17] MEDS: INSULIN LISPRO 100 UNIT/ML SUBCUT SCH ×3 (00:21→13:38)
[2017-05-17] MEDS: PANTOPRAZOLE 40 MG TABLET PO SCH (06:29)
[2017-05-17] MEDS: CYCLOBENZAPRINE 10 MG TABLET PO SCH (09:36)
[2017-05-17] MEDS: METOPROLOL SUCCINATE XL 50 MG TABLET PO SCH (09:36)
[2017-05-17] MEDS: CIPROFLOXACIN 500 MG TABLET PO SCH (09:36)
[2017-05-17] MEDS: POTASSIUM CHLORIDE 20 MEQ TABLET PO SCH (09:36)
[2017-05-17] MEDS: MAGNESIUM OXIDE 400 MG TABLET PO SCH (09:36)
[2017-05-17] MEDS: DILTIAZEM 90 MG TABLET PO SCH (09:36)
[2017-05-17] MEDS: SODIUM CHLORIDE 0.9% 1,000 ML IV SCH (13:38)
[2017-05-17 14:48] VITALS: BP 127/77
== END 2017-05-17 14:49 | disposition home health service (06) | DRG 377 ==
LOC: N.ED 18:34 → N.EDINP 22:11 → SUATTDRO 22:11 → N.5E 22:52
PROVIDERS: ADMIT Hospitalist; ATTEND Internal Medicine

== ENCOUNTER 2018-04-23 13:05 | Inpatient (IN) ==
[2018-04-23] MEDS ORDERED: ALBUTEROL/IPRATROPIUM 3 ML NEB RESP TX STA ×2 (13:45→15:12)
[2018-04-23 14:37] LABS: Basophils # 0.1 10*3/uL (0.0-0.2); Basophils % 0.6 % (0.0-0.8); Eosinophils # 0.2 10*3/uL (0.0-0.87); Eosinophils % 2.8 % (0.00-10.9); Immature Granulocytes % 0.5 %; Immature Granulocytes Absolute 0.04 #; Lymphocytes # 2.5 10*3/uL (1.4-4.0); Lymphocytes % 31.2 % (21.2-54.2); Mean Corpuscular HGB Conc 29.6 GM/DL (32-36); Mean Corpuscular Hemoglobin 24 PG (27-34); Mean Corpuscular Volume 79.2 FL (87-102); Mean Platelet Volume 10.8 FL (9.6-12.0); Monocytes # 0.8 10*3/uL (0.11-0.8); Monocytes % 10.1 % (1.7-12.7); Neutrophils # 4.4 10*3/uL (1.4-7.4); Neutrophils % 54.8 % (38.7-73.9); Platelet Count 177 T/CUMM (130-400); Red Blood Count 3.41 MC/CUMM (3.8-5.5); Red Cell Distribution Width 15.6 % (9.3-17.3); White Blood Count 8.1 T/CUMM (4-12)
[2018-04-23] MEDS ORDERED: FUROSEMIDE 40 MG/4 ML VIAL IV STA (14:51)
[2018-04-23] MEDS ORDERED: LEVOFLOXACIN INJ 500 MG in PREMIX 1 EACH IV STA (14:56)
[2018-04-23 15:00] LABS: Partial Thromboplastin Time 25.3 SECS (0-40)
[2018-04-23 15:09] LABS: Alanine Aminotransferase 17 U/L (16-61); Alkaline Phosphatase 74 U/L (45-117); Aspartate Amino Transferase 22 U/L (0-37); Blood Urea Nitrogen 19 MG/DL (7-18); Calcium 8.4 MG/DL (8.5-10.1); Glucose 149 MG/DL (74-106); Potassium 3.9 MMOL/L (3.5-5.1); Sodium 136 MMOL/L (136-145); Total Protein 7.8 G/DL (6.4-8.3)
[2018-04-23] MEDS ORDERED: methylPREDNISolone SOD SUC 125 MG/2 ML VIAL IV STA (15:14)
[2018-04-23] MEDS ORDERED: ALBUTEROL 2.5 MG/3 ML NEB RESP TX STA (16:02)
[2018-04-23] MEDS ORDERED: ACETAMINOPHEN 325 MG TABLET PO PRN (16:44)
[2018-04-23] MEDS ORDERED: GLUCAGON 1 MG VIAL IM PRN (16:44)
[2018-04-23] MEDS ORDERED: ONDANSETRON 4 MG/2 ML VIAL IV PRN (16:44)
[2018-04-23] MEDS ORDERED: DEXTROSE 50% 25 GM/50 ML VIAL IV PRN (16:44)
[2018-04-23] MEDS ORDERED: ALBUTEROL/IPRATROPIUM 3 ML NEB RESP TX PRN (16:52)
[2018-04-23] MEDS: FUROSEMIDE 40 MG/4 ML VIAL IV SCH ×2 (18:15→23:38)
[2018-04-23] MEDS ORDERED: metOLazone 5 MG TABLET PO PRN (18:25)
[2018-04-23] MEDS ORDERED: FLUTICASONE 50 MCG NASAL SPRAY 16 GM BOTTLE BOTH NARES PRN (18:25)
[2018-04-23] MEDS ORDERED: NITROGLYCERIN SL 0.4 MG TABLET SL PRN (18:45)
[2018-04-23] MEDS: ALBUTEROL/IPRATROPIUM 3 ML NEB RESP TX SCH (20:09)
[2018-04-23] MEDS: SIMVASTATIN 80 MG TABLET PO SCH (20:38)
[2018-04-23] MEDS: TAMSULOSIN 0.4 MG CAPSULE PO SCH (20:38)
[2018-04-23] MEDS: metFORMIN 500 MG TABLET PO SCH (20:38)
[2018-04-23] MEDS: ASCORBIC ACID 500 MG TABLET PO SCH (20:39)
[2018-04-23] MEDS: MAGNESIUM CHLORIDE 64 MG TABLET PO SCH (20:39)
[2018-04-23] MEDS: GABAPENTIN 300 MG CAPSULE PO SCH (20:39)
[2018-04-23] MEDS: APIXABAN 5 MG TABLET PO SCH (20:40)
[2018-04-23] MEDS: PANTOPRAZOLE 40 MG TABLET PO SCH (20:40)
[2018-04-23] MEDS: POTASSIUM CHLORIDE 20 MEQ TABLET PO SCH (20:40)
[2018-04-23] MEDS ORDERED: INSULIN GLARGINE 100 UNIT/ML SUBCUT SCH (21:00)
[2018-04-23] MEDS ORDERED: BRIMONIDINE TART RIGHT EYE SCH (21:00)
[2018-04-23] MEDS ORDERED: BRINZOLAMIDE RIGHT EYE SCH (21:00)
[2018-04-23] MEDS: TIMOLOL 0.5% OPH SOLN 5 ML BOTTLE RIGHT EYE SCH (21:15)
[2018-04-23] MEDS: LATANOPROST 0.005% OPH SOLN 2.5 ML BOTTLE RIGHT EYE SCH (21:15)
[2018-04-23] MEDS: BRINZOLAMIDE 1% OPH SUSP 10 ML BOTTLE RIGHT EYE SCH (21:15)
[2018-04-23] MEDS: INSULIN REGULAR 100 UNIT/ML SUBCUT SCH (21:43)
[2018-04-23] MEDS: methylPREDNISolone SOD SUC 40 MG/1 ML VIAL IV SCH (23:39)
[2018-04-24] MEDS: ALBUTEROL/IPRATROPIUM 3 ML NEB RESP TX SCH ×6 (00:27→23:56)
[2018-04-24 05:12] LABS: Basophils % 0.2 % (0.0-0.8); Hematocrit 25.2 VOL% (42.0-52.0); Hemoglobin 7.2 GM/DL (14.0-18.0); Immature Granulocytes % 0.4 %; Immature Granulocytes Absolute 0.02 #; Lymphocytes # 0.7 10*3/uL (1.4-4.0); Lymphocytes % 13.9 % (21.2-54.2); Mean Corpuscular HGB Conc 28.6 GM/DL (32-36); Mean Corpuscular Hemoglobin 23 PG (27-34); Mean Corpuscular Volume 78.8 FL (87-102); Mean Platelet Volume 11.5 FL (9.6-12.0); Monocytes # 0.1 10*3/uL (0.11-0.8); Monocytes % 1.1 % (1.7-12.7); Neutrophils % 84.4 % (38.7-73.9); Platelet Count 166 T/CUMM (130-400); Red Cell Distribution Width 15.3 % (9.3-17.3); White Blood Count 4.7 T/CUMM (4-12)
[2018-04-24 05:38] LABS: Calcium 8.2 MG/DL (8.5-10.1); Osmolality,Calculated 287.4 MOS/KG (273-304); Potassium 4.5 MMOL/L (3.5-5.1)
[2018-04-24 05:40] LABS: Hypochromasia 1+; Ovalocytes Slight; Platelet Estimate Adequate
[2018-04-24] MEDS: PANTOPRAZOLE 40 MG TABLET PO SCH ×2 (08:05→18:33)
[2018-04-24] MEDS: sitaGLIPtin 100 MG TABLET PO SCH (08:05)
[2018-04-24] MEDS: LINACLOTIDE 145 MCG CAPSULE PO SCH (08:05)
[2018-04-24] MEDS: FUROSEMIDE 40 MG TABLET PO SCH ×2 (08:05→15:28)
[2018-04-24] MEDS: INSULIN REGULAR 100 UNIT/ML SUBCUT SCH ×4 (08:06→16:51)
[2018-04-24] MEDS ORDERED: INSULIN GLARGINE 100 UNIT/ML SUBCUT SCH (09:00)
[2018-04-24] MEDS: CHOLECALCIFEROL 1,000 UNIT TABLET PO SCH (09:54)
[2018-04-24] MEDS: ASCORBIC ACID 500 MG TABLET PO SCH ×2 (09:54→22:15)
[2018-04-24] MEDS: APIXABAN 5 MG TABLET PO SCH (09:55)
[2018-04-24] MEDS: GABAPENTIN 300 MG CAPSULE PO SCH ×3 (09:55→22:15)
[2018-04-24] MEDS: MAGNESIUM CHLORIDE 64 MG TABLET PO SCH ×2 (09:55→22:13)
[2018-04-24] MEDS: POTASSIUM CHLORIDE 20 MEQ TABLET PO SCH ×2 (09:55→22:14)
[2018-04-24] MEDS: DILTIAZEM CD 240 MG CAPSULE PO SCH (09:56)
[2018-04-24] MEDS: metFORMIN 500 MG TABLET PO SCH ×2 (09:56→22:13)
[2018-04-24] MEDS: METOPROLOL SUCCINATE XL 50 MG TABLET PO SCH (09:56)
[2018-04-24] MEDS: TIMOLOL 0.5% OPH SOLN 5 ML BOTTLE RIGHT EYE SCH ×2 (09:58→22:13)
[2018-04-24] MEDS: BRINZOLAMIDE 1% OPH SUSP 10 ML BOTTLE RIGHT EYE SCH (10:00)
[2018-04-24] MEDS: LEVOFLOXACIN INJ 500 MG in PREMIX 1 EACH IV SCH (10:04)
[2018-04-24] MEDS: methylPREDNISolone SOD SUC 40 MG/1 ML VIAL IV SCH ×2 (10:04→16:50)
[2018-04-24] MEDS ORDERED: INSULIN NPH 100 UNIT/ML SUBCUT ONE (19:00)
[2018-04-24] MEDS ORDERED: INSULIN REGULAR 100 UNIT/ML SUBCUT ONE (19:00)
[2018-04-24 21:05] LABS: Hematocrit 23.8 VOL% (42.0-52.0); Hemoglobin 7.1 GM/DL (14.0-18.0)
[2018-04-24] MEDS: TAMSULOSIN 0.4 MG CAPSULE PO SCH (22:14)
[2018-04-24] MEDS: SIMVASTATIN 80 MG TABLET PO SCH (22:14)
[2018-04-24] MEDS: LATANOPROST 0.005% OPH SOLN 2.5 ML BOTTLE RIGHT EYE SCH (22:15)
[2018-04-24] MEDS ORDERED: SODIUM CHLORIDE 0.9% 1,000 ML IV PRN (23:43)
[2018-04-25] MEDS: INSULIN REGULAR 100 UNIT/ML SUBCUT SCH ×5 (00:10→21:12)
[2018-04-25] MEDS: INSULIN GLARGINE 100 UNIT/ML SUBCUT SCH ×2 (00:10→21:13)
[2018-04-25] MEDS: methylPREDNISolone SOD SUC 40 MG/1 ML VIAL IV SCH ×3 (00:12→16:07)
[2018-04-25] MEDS: BRINZOLAMIDE 1% OPH SUSP 10 ML BOTTLE RIGHT EYE SCH ×3 (01:44→22:29)
[2018-04-25] MEDS: ALBUTEROL/IPRATROPIUM 3 ML NEB RESP TX SCH ×6 (04:00→22:31)
[2018-04-25] MEDS ORDERED: INSULIN GLARGINE 100 UNIT/ML SUBCUT SCH (09:00)
[2018-04-25] MEDS: INSULIN NPH 100 UNIT/ML SUBCUT SCH ×3 (09:50→16:08)
[2018-04-25] MEDS: LEVOFLOXACIN INJ 500 MG in PREMIX 1 EACH IV SCH (09:51)
[2018-04-25] MEDS: CHOLECALCIFEROL 1,000 UNIT TABLET PO SCH (09:51)
[2018-04-25] MEDS: metFORMIN 500 MG TABLET PO SCH ×2 (09:51→21:11)
[2018-04-25] MEDS: GABAPENTIN 300 MG CAPSULE PO SCH ×3 (09:51→21:11)
[2018-04-25] MEDS: ASCORBIC ACID 500 MG TABLET PO SCH ×2 (09:51→21:12)
[2018-04-25] MEDS: FUROSEMIDE 40 MG TABLET PO SCH ×2 (09:52→16:07)
[2018-04-25] MEDS: sitaGLIPtin 100 MG TABLET PO SCH (09:52)
[2018-04-25] MEDS: MAGNESIUM CHLORIDE 64 MG TABLET PO SCH ×2 (09:52→21:11)
[2018-04-25] MEDS: DILTIAZEM CD 240 MG CAPSULE PO SCH (09:52)
[2018-04-25] MEDS: POTASSIUM CHLORIDE 20 MEQ TABLET PO SCH ×2 (09:52→21:11)
[2018-04-25] MEDS: PANTOPRAZOLE 40 MG TABLET PO SCH ×2 (09:52→21:23)
[2018-04-25] MEDS: LINACLOTIDE 145 MCG CAPSULE PO SCH (09:57)
[2018-04-25] MEDS: METOPROLOL SUCCINATE XL 50 MG TABLET PO SCH (09:57)
[2018-04-25] MEDS: TIMOLOL 0.5% OPH SOLN 5 ML BOTTLE RIGHT EYE SCH ×2 (09:57→21:14)
[2018-04-25 10:58] LABS: Hemoglobin 8.2 GM/DL (14.0-18.0)
[2018-04-25] MEDS ORDERED: DOCUSATE SODIUM 100 MG CAPSULE PO PRN (11:15)
[2018-04-25] MEDS: guaiFENesin/DM ER 600-30 MG TABLET PO SCH ×2 (13:26→21:11)
[2018-04-25] MEDS ORDERED: INSULIN NPH 100 UNIT/ML SUBCUT ONE (19:00)
[2018-04-25] MEDS: TAMSULOSIN 0.4 MG CAPSULE PO SCH (21:11)
[2018-04-25] MEDS: SIMVASTATIN 80 MG TABLET PO SCH (21:12)
[2018-04-25] MEDS: LATANOPROST 0.005% OPH SOLN 2.5 ML BOTTLE RIGHT EYE SCH (21:14)
[2018-04-25] MEDS ORDERED: INSULIN REGULAR 100 UNIT/ML IV ONE (23:33)
[2018-04-26] MEDS: methylPREDNISolone SOD SUC 40 MG/1 ML VIAL IV SCH ×3 (00:11→16:13)
[2018-04-26] MEDS: ALBUTEROL/IPRATROPIUM 3 ML NEB RESP TX SCH ×6 (03:07→22:52)
[2018-04-26 04:58] LABS: Hematocrit 26.3 VOL% (42.0-52.0); Hemoglobin 7.5 GM/DL (14.0-18.0); Immature Granulocytes % 1.1 %; Immature Granulocytes Absolute 0.14 #; Lymphocytes # 0.6 10*3/uL (1.4-4.0); Lymphocytes % 4.7 % (21.2-54.2); Mean Corpuscular HGB Conc 28.5 GM/DL (32-36); Mean Corpuscular Hemoglobin 23 PG (27-34); Mean Corpuscular Volume 80.9 FL (87-102); Mean Platelet Volume 10.6 FL (9.6-12.0); Monocytes # 0.4 10*3/uL (0.11-0.8); Monocytes % 3.2 % (1.7-12.7); Neutrophils # 11.5 10*3/uL (1.4-7.4); Platelet Count 156 T/CUMM (130-400); Red Blood Count 3.25 MC/CUMM (3.8-5.5); Red Cell Distribution Width 15.8 % (9.3-17.3); White Blood Count 12.6 T/CUMM (4-12)
[2018-04-26 05:14] LABS: Osmolality,Calculated 286.8 MOS/KG (273-304); Potassium 4.1 MMOL/L (3.5-5.1)
[2018-04-26 05:39] LABS: Lymphocytes 5 % (20-55); Segmented Neutrophils 93 % (50-85); Total Cells Counted 100
[2018-04-26 05:40] LABS: Hypochromasia 1+; Ovalocytes 2+; Platelet Estimate Normal
[2018-04-26 05:41] LABS: Target Cells Few
[2018-04-26] MEDS: INSULIN REGULAR 100 UNIT/ML SUBCUT SCH ×3 (06:14→18:10)
[2018-04-26] MEDS: PANTOPRAZOLE 40 MG TABLET PO SCH ×2 (06:15→18:48)
[2018-04-26] MEDS: INSULIN GLARGINE 100 UNIT/ML SUBCUT SCH ×2 (09:18→21:44)
[2018-04-26] MEDS: INSULIN NPH 100 UNIT/ML SUBCUT SCH ×3 (09:19→16:13)
[2018-04-26] MEDS: ASCORBIC ACID 500 MG TABLET PO SCH ×2 (09:21→21:28)
[2018-04-26] MEDS: sitaGLIPtin 100 MG TABLET PO SCH (09:21)
[2018-04-26] MEDS: CHOLECALCIFEROL 1,000 UNIT TABLET PO SCH (09:21)
[2018-04-26] MEDS: metFORMIN 500 MG TABLET PO SCH ×2 (09:22→21:28)
[2018-04-26] MEDS: GABAPENTIN 300 MG CAPSULE PO SCH ×3 (09:22→21:28)
[2018-04-26] MEDS: DILTIAZEM CD 240 MG CAPSULE PO SCH (09:22)
[2018-04-26] MEDS: guaiFENesin/DM ER 600-30 MG TABLET PO SCH ×2 (09:22→21:28)
[2018-04-26] MEDS: FUROSEMIDE 40 MG TABLET PO SCH ×2 (09:22→16:12)
[2018-04-26] MEDS: MAGNESIUM CHLORIDE 64 MG TABLET PO SCH ×2 (09:22→21:28)
[2018-04-26] MEDS: LINACLOTIDE 145 MCG CAPSULE PO SCH (09:22)
[2018-04-26] MEDS: APIXABAN 5 MG TABLET PO SCH ×2 (09:23→21:28)
[2018-04-26] MEDS: POTASSIUM CHLORIDE 20 MEQ TABLET PO SCH ×2 (09:23→21:28)
[2018-04-26] MEDS: METOPROLOL SUCCINATE XL 50 MG TABLET PO SCH (09:23)
[2018-04-26] MEDS: LEVOFLOXACIN INJ 500 MG in PREMIX 1 EACH IV SCH (09:28)
[2018-04-26] MEDS: TIMOLOL 0.5% OPH SOLN 5 ML BOTTLE RIGHT EYE SCH ×2 (09:32→21:29)
[2018-04-26] MEDS: BRINZOLAMIDE 1% OPH SUSP 10 ML BOTTLE RIGHT EYE SCH ×2 (09:32→21:43)
[2018-04-26] MEDS ORDERED: SODIUM CHLORIDE 0.9% 1,000 ML IV PRN (10:25)
[2018-04-26 17:54] LABS: Hematocrit 30.3 VOL% (42.0-52.0); Hemoglobin 9.4 GM/DL (14.0-18.0)
[2018-04-26] MEDS: SIMVASTATIN 80 MG TABLET PO SCH (21:28)
[2018-04-26] MEDS: TAMSULOSIN 0.4 MG CAPSULE PO SCH (21:28)
[2018-04-26] MEDS: ZALEPLON 5 MG CAPSULE PO PRN (21:28)
[2018-04-26] MEDS: LATANOPROST 0.005% OPH SOLN 2.5 ML BOTTLE RIGHT EYE SCH (21:29)
[2018-04-27] MEDS: INSULIN REGULAR 100 UNIT/ML SUBCUT SCH ×3 (00:43→12:12)
[2018-04-27] MEDS: methylPREDNISolone SOD SUC 40 MG/1 ML VIAL IV SCH ×4 (00:44→20:54)
[2018-04-27] MEDS: ALBUTEROL/IPRATROPIUM 3 ML NEB RESP TX SCH ×6 (02:35→23:25)
[2018-04-27] MEDS: PANTOPRAZOLE 40 MG TABLET PO SCH ×2 (06:15→18:05)
[2018-04-27] MEDS: GABAPENTIN 300 MG CAPSULE PO SCH ×3 (08:49→20:54)
[2018-04-27] MEDS: POTASSIUM CHLORIDE 20 MEQ TABLET PO SCH ×2 (08:49→20:53)
[2018-04-27] MEDS: sitaGLIPtin 100 MG TABLET PO SCH (08:49)
[2018-04-27] MEDS: metFORMIN 500 MG TABLET PO SCH ×2 (08:49→20:53)
[2018-04-27] MEDS: FUROSEMIDE 40 MG TABLET PO SCH ×2 (08:49→16:37)
[2018-04-27] MEDS: ASCORBIC ACID 500 MG TABLET PO SCH ×2 (08:50→20:53)
[2018-04-27] MEDS: CHOLECALCIFEROL 1,000 UNIT TABLET PO SCH (08:50)
[2018-04-27] MEDS: APIXABAN 5 MG TABLET PO SCH (08:50)
[2018-04-27] MEDS: MAGNESIUM CHLORIDE 64 MG TABLET PO SCH ×2 (08:50→20:53)
[2018-04-27] MEDS: guaiFENesin/DM ER 600-30 MG TABLET PO SCH ×2 (08:50→20:53)
[2018-04-27] MEDS: METOPROLOL SUCCINATE XL 50 MG TABLET PO SCH (08:51)
[2018-04-27] MEDS: DILTIAZEM CD 240 MG CAPSULE PO SCH (08:51)
[2018-04-27] MEDS: LEVOFLOXACIN INJ 500 MG in PREMIX 1 EACH IV SCH (08:52)
[2018-04-27] MEDS: TIMOLOL 0.5% OPH SOLN 5 ML BOTTLE RIGHT EYE SCH ×2 (08:57→20:54)
[2018-04-27] MEDS: INSULIN GLARGINE 100 UNIT/ML SUBCUT SCH ×2 (08:57→21:02)
[2018-04-27] MEDS: LINACLOTIDE 145 MCG CAPSULE PO SCH (08:57)
[2018-04-27] MEDS: INSULIN NPH 100 UNIT/ML SUBCUT SCH ×2 (08:57→12:11)
[2018-04-27] MEDS: BRINZOLAMIDE 1% OPH SUSP 10 ML BOTTLE RIGHT EYE SCH ×2 (08:57→21:02)
[2018-04-27] MEDS ORDERED: CYANOCOBALAMIN 1000 MCG/1 ML VIAL IM SCH (09:00)
[2018-04-27] MEDS: INSULIN LISPRO 100 UNIT/ML SUBCUT SCH ×2 (18:30→23:41)
[2018-04-27] MEDS: SIMVASTATIN 80 MG TABLET PO SCH (20:53)
[2018-04-27] MEDS: TAMSULOSIN 0.4 MG CAPSULE PO SCH (20:53)
[2018-04-27] MEDS: ZALEPLON 5 MG CAPSULE PO PRN (20:53)
[2018-04-27] MEDS: APIXABAN 2.5 MG TABLET PO SCH (20:54)
[2018-04-27] MEDS: LATANOPROST 0.005% OPH SOLN 2.5 ML BOTTLE RIGHT EYE SCH (20:54)
[2018-04-28] MEDS: ALBUTEROL/IPRATROPIUM 3 ML NEB RESP TX SCH ×6 (02:38→23:00)
[2018-04-28 06:33] LABS: Basophils % 0.1 % (0.0-0.8); Hematocrit 30.7 VOL% (42.0-52.0); Hemoglobin 9.5 GM/DL (14.0-18.0); Immature Granulocytes % 0.6 %; Immature Granulocytes Absolute 0.06 #; Lymphocytes # 0.8 10*3/uL (1.4-4.0); Lymphocytes % 8.2 % (21.2-54.2); Mean Corpuscular HGB Conc 30.9 GM/DL (32-36); Mean Corpuscular Hemoglobin 25 PG (27-34); Mean Corpuscular Volume 79.1 FL (87-102); Mean Platelet Volume 10.5 FL (9.6-12.0); Monocytes # 0.5 10*3/uL (0.11-0.8); Monocytes % 4.7 % (1.7-12.7); Neutrophils # 8.2 10*3/uL (1.4-7.4); Neutrophils % 86.4 % (38.7-73.9); Platelet Count 154 T/CUMM (130-400); Red Blood Count 3.88 MC/CUMM (3.8-5.5); Red Cell Distribution Width 16.2 % (9.3-17.3); White Blood Count 9.5 T/CUMM (4-12)
[2018-04-28] MEDS: INSULIN LISPRO 100 UNIT/ML SUBCUT SCH ×3 (06:38→18:21)
[2018-04-28 06:49] LABS: Calcium 7.9 MG/DL (8.5-10.1); Osmolality,Calculated 281.7 MOS/KG (273-304)
[2018-04-28] MEDS ORDERED: ASPIRIN EC 81 MG TABLET PO SCH (09:00)
[2018-04-28] MEDS: CHOLECALCIFEROL 1,000 UNIT TABLET PO SCH (09:22)
[2018-04-28] MEDS: MAGNESIUM CHLORIDE 64 MG TABLET PO SCH ×2 (09:22→20:40)
[2018-04-28] MEDS: POTASSIUM CHLORIDE 20 MEQ TABLET PO SCH ×2 (09:22→20:40)
[2018-04-28] MEDS: PANTOPRAZOLE 40 MG TABLET PO SCH ×2 (09:22→20:40)
[2018-04-28] MEDS: metFORMIN 500 MG TABLET PO SCH ×2 (09:23→20:40)
[2018-04-28] MEDS: GABAPENTIN 300 MG CAPSULE PO SCH ×3 (09:23→20:39)
[2018-04-28] MEDS: FUROSEMIDE 40 MG TABLET PO SCH ×2 (09:23→15:42)
[2018-04-28] MEDS: sitaGLIPtin 100 MG TABLET PO SCH (09:24)
[2018-04-28] MEDS: ASCORBIC ACID 500 MG TABLET PO SCH ×2 (09:24→20:40)
[2018-04-28] MEDS: DILTIAZEM CD 240 MG CAPSULE PO SCH (09:24)
[2018-04-28] MEDS: APIXABAN 2.5 MG TABLET PO SCH ×2 (09:24→20:40)
[2018-04-28] MEDS: METOPROLOL SUCCINATE XL 50 MG TABLET PO SCH (09:25)
[2018-04-28] MEDS: guaiFENesin/DM ER 600-30 MG TABLET PO SCH ×2 (09:25→20:40)
[2018-04-28] MEDS: BRINZOLAMIDE 1% OPH SUSP 10 ML BOTTLE RIGHT EYE SCH ×2 (09:26→20:46)
[2018-04-28] MEDS: methylPREDNISolone SOD SUC 40 MG/1 ML VIAL IV SCH ×2 (09:31→20:40)
[2018-04-28] MEDS: LEVOFLOXACIN INJ 500 MG in PREMIX 1 EACH IV SCH (09:38)
[2018-04-28] MEDS: INSULIN GLARGINE 100 UNIT/ML SUBCUT SCH ×2 (09:48→20:47)
[2018-04-28] MEDS: LINACLOTIDE 145 MCG CAPSULE PO SCH (09:48)
[2018-04-28] MEDS ORDERED: MAGNESIUM SULF RIDER 2 GM in PREMIX 1 EACH IV PRN (10:02)
[2018-04-28] MEDS ORDERED: MAGNESIUM SULF RIDER 4 GM in PREMIX 1 EACH IV PRN (10:02)
[2018-04-28] MEDS ORDERED: MAGNESIUM SULF RIDER 2 GM in PREMIX 1 EACH IV ONE (10:30)
[2018-04-28] MEDS: TIMOLOL 0.5% OPH SOLN 5 ML BOTTLE RIGHT EYE SCH ×2 (10:40→20:41)
[2018-04-28] MEDS: POTASSIUM CHLORIDE 20 MEQ TABLET PO PRN ×4 (10:40→17:55)
[2018-04-28] MEDS: ZALEPLON 5 MG CAPSULE PO PRN (20:39)
[2018-04-28] MEDS: TAMSULOSIN 0.4 MG CAPSULE PO SCH (20:40)
[2018-04-28] MEDS: SIMVASTATIN 80 MG TABLET PO SCH (20:40)
[2018-04-28] MEDS: LATANOPROST 0.005% OPH SOLN 2.5 ML BOTTLE RIGHT EYE SCH (20:41)
[2018-04-29] MEDS: INSULIN LISPRO 100 UNIT/ML SUBCUT SCH ×4 (01:40→18:46)
[2018-04-29] MEDS: ALBUTEROL/IPRATROPIUM 3 ML NEB RESP TX SCH ×6 (03:10→23:25)
[2018-04-29 06:02] LABS: Osmolality,Calculated 286.7 MOS/KG (273-304)
[2018-04-29] MEDS: LINACLOTIDE 145 MCG CAPSULE PO SCH (09:18)
[2018-04-29] MEDS: sitaGLIPtin 100 MG TABLET PO SCH (09:18)
[2018-04-29] MEDS: MAGNESIUM CHLORIDE 64 MG TABLET PO SCH ×2 (09:18→21:19)
[2018-04-29] MEDS: metFORMIN 500 MG TABLET PO SCH ×2 (09:18→21:19)
[2018-04-29] MEDS: CHOLECALCIFEROL 1,000 UNIT TABLET PO SCH (09:18)
[2018-04-29] MEDS: POTASSIUM CHLORIDE 20 MEQ TABLET PO SCH ×2 (09:18→21:19)
[2018-04-29] MEDS: guaiFENesin/DM ER 600-30 MG TABLET PO SCH ×2 (09:19→21:18)
[2018-04-29] MEDS: PANTOPRAZOLE 40 MG TABLET PO SCH ×2 (09:19→18:36)
[2018-04-29] MEDS: DILTIAZEM CD 240 MG CAPSULE PO SCH (09:19)
[2018-04-29] MEDS: FUROSEMIDE 40 MG TABLET PO SCH ×2 (09:19→15:00)
[2018-04-29] MEDS: ASCORBIC ACID 500 MG TABLET PO SCH ×2 (09:19→21:18)
[2018-04-29] MEDS: GABAPENTIN 300 MG CAPSULE PO SCH ×3 (09:19→21:19)
[2018-04-29] MEDS: APIXABAN 2.5 MG TABLET PO SCH ×2 (09:19→21:25)
[2018-04-29] MEDS: METOPROLOL SUCCINATE XL 50 MG TABLET PO SCH (09:20)
[2018-04-29] MEDS: methylPREDNISolone SOD SUC 40 MG/1 ML VIAL IV SCH (09:22)
[2018-04-29] MEDS: INSULIN GLARGINE 100 UNIT/ML SUBCUT SCH ×2 (09:23→21:34)
[2018-04-29] MEDS: TIMOLOL 0.5% OPH SOLN 5 ML BOTTLE RIGHT EYE SCH ×2 (09:26→21:18)
[2018-04-29] MEDS: BRINZOLAMIDE 1% OPH SUSP 10 ML BOTTLE RIGHT EYE SCH ×2 (09:26→21:33)
[2018-04-29] MEDS: LEVOFLOXACIN INJ 500 MG in PREMIX 1 EACH IV SCH (10:22)
[2018-04-29 14:05] LABS: INR 1.2; PT Patient Result 12.7 SECS; Partial Thromboplastin Time 26.2 SECS (0-40)
[2018-04-29] MEDS: SIMVASTATIN 80 MG TABLET PO SCH (21:18)
[2018-04-29] MEDS: LATANOPROST 0.005% OPH SOLN 2.5 ML BOTTLE RIGHT EYE SCH (21:18)
[2018-04-29] MEDS: TAMSULOSIN 0.4 MG CAPSULE PO SCH (21:19)
[2018-04-30] MEDS: INSULIN LISPRO 100 UNIT/ML SUBCUT SCH ×4 (00:02→18:18)
[2018-04-30] MEDS: ALBUTEROL/IPRATROPIUM 3 ML NEB RESP TX SCH ×6 (03:31→22:38)
[2018-04-30 03:54] LABS: Basophils % 0.1 % (0.0-0.8); Eosinophils % 0.2 % (0.00-10.9); Hematocrit 33.1 VOL% (42.0-52.0); Immature Granulocytes % 0.5 %; Immature Granulocytes Absolute 0.06 #; Lymphocytes # 1.4 10*3/uL (1.4-4.0); Lymphocytes % 12.2 % (21.2-54.2); Mean Corpuscular HGB Conc 30.2 GM/DL (32-36); Mean Corpuscular Hemoglobin 24 PG (27-34); Mean Corpuscular Volume 79.4 FL (87-102); Mean Platelet Volume 10.5 FL (9.6-12.0); Monocytes # 0.9 10*3/uL (0.11-0.8); Monocytes % 8.3 % (1.7-12.7); Neutrophils # 8.8 10*3/uL (1.4-7.4); Neutrophils % 78.7 % (38.7-73.9); Platelet Count 147 T/CUMM (130-400); Red Blood Count 4.17 MC/CUMM (3.8-5.5); Red Cell Distribution Width 16.6 % (9.3-17.3); White Blood Count 11.2 T/CUMM (4-12)
[2018-04-30 04:22] LABS: Osmolality,Calculated 277.8 MOS/KG (273-304); Potassium 3.7 MMOL/L (3.5-5.1)
[2018-04-30] MEDS ORDERED: MIDAZOLAM 2 MG/2 ML VIAL ONE (07:47)
[2018-04-30] MEDS ORDERED: GLYCOPYRROLATE 0.4 MG/2 ML VIAL IM ONE (08:00)
[2018-04-30] MEDS ORDERED: PROMETHAZINE 25 MG/1 ML VIAL IM ONE (08:00)
[2018-04-30 08:01] LABS: Lymphocytes,Pleural Fluid 87 %; Monocytes,Pleural Fluid 7 %; Neutrophils,Pleural Fluid 6 %
[2018-04-30 08:02] LABS: RBC,Pleural Fluid 1351 T/CUMM
[2018-04-30] MEDS: PANTOPRAZOLE 40 MG TABLET PO SCH ×2 (08:07→18:18)
[2018-04-30] MEDS: LINACLOTIDE 145 MCG CAPSULE PO SCH (08:07)
[2018-04-30] MEDS ORDERED: LIDOCAINE 2% 20 ML VIAL RESP TX ONE (08:30)
[2018-04-30] MEDS ORDERED: LIDOCAINE 1% 20 ML VIAL MISC INJ ONE (08:30)
[2018-04-30] MEDS ORDERED: MIDAZOLAM 2 MG/2 ML VIAL IV ONE (08:30)
[2018-04-30] MEDS: CHOLECALCIFEROL 1,000 UNIT TABLET PO SCH (11:11)
[2018-04-30] MEDS: GABAPENTIN 300 MG CAPSULE PO SCH ×3 (11:12→20:47)
[2018-04-30] MEDS: METOPROLOL SUCCINATE XL 50 MG TABLET PO SCH (11:12)
[2018-04-30] MEDS: sitaGLIPtin 100 MG TABLET PO SCH (11:12)
[2018-04-30] MEDS: metFORMIN 500 MG TABLET PO SCH ×2 (11:12→20:47)
[2018-04-30] MEDS: ASCORBIC ACID 500 MG TABLET PO SCH ×2 (11:12→20:47)
[2018-04-30] MEDS: APIXABAN 2.5 MG TABLET PO SCH ×2 (11:13→20:47)
[2018-04-30] MEDS: FUROSEMIDE 40 MG TABLET PO SCH ×2 (11:13→16:10)
[2018-04-30] MEDS: DILTIAZEM CD 240 MG CAPSULE PO SCH (11:13)
[2018-04-30] MEDS: guaiFENesin/DM ER 600-30 MG TABLET PO SCH ×2 (11:13→20:47)
[2018-04-30] MEDS: MAGNESIUM CHLORIDE 64 MG TABLET PO SCH ×2 (11:13→20:47)
[2018-04-30] MEDS: POTASSIUM CHLORIDE 20 MEQ TABLET PO SCH ×2 (11:13→20:47)
[2018-04-30] MEDS: methylPREDNISolone SOD SUC 40 MG/1 ML VIAL IV SCH (11:14)
[2018-04-30] MEDS: BRINZOLAMIDE 1% OPH SUSP 10 ML BOTTLE RIGHT EYE SCH ×2 (11:19→20:47)
[2018-04-30] MEDS: TIMOLOL 0.5% OPH SOLN 5 ML BOTTLE RIGHT EYE SCH ×2 (11:19→20:47)
[2018-04-30] MEDS: INSULIN GLARGINE 100 UNIT/ML SUBCUT SCH ×2 (11:21→20:49)
[2018-04-30] MEDS: LEVOFLOXACIN INJ 500 MG in PREMIX 1 EACH IV SCH (11:24)
[2018-04-30] MEDS: LATANOPROST 0.005% OPH SOLN 2.5 ML BOTTLE RIGHT EYE SCH (20:46)
[2018-04-30] MEDS: SIMVASTATIN 80 MG TABLET PO SCH (20:47)
[2018-04-30] MEDS: TAMSULOSIN 0.4 MG CAPSULE PO SCH (20:47)
[2018-05-01] MEDS: INSULIN LISPRO 100 UNIT/ML SUBCUT SCH ×4 (00:05→17:41)
[2018-05-01] MEDS: ALBUTEROL/IPRATROPIUM 3 ML NEB RESP TX SCH ×5 (02:31→19:19)
[2018-05-01 05:32] LABS: Basophils % 0.1 % (0.0-0.8); Hematocrit 35.7 VOL% (42.0-52.0); Hemoglobin 10.9 GM/DL (14.0-18.0); Immature Granulocytes % 0.7 %; Immature Granulocytes Absolute 0.07 #; Lymphocytes # 1.1 10*3/uL (1.4-4.0); Lymphocytes % 10.5 % (21.2-54.2); Mean Corpuscular HGB Conc 30.5 GM/DL (32-36); Mean Corpuscular Hemoglobin 25 PG (27-34); Mean Corpuscular Volume 80.4 FL (87-102); Monocytes # 0.8 10*3/uL (0.11-0.8); Monocytes % 7.4 % (1.7-12.7); Neutrophils # 8.6 10*3/uL (1.4-7.4); Neutrophils % 81.3 % (38.7-73.9); Platelet Count 130 T/CUMM (130-400); Red Blood Count 4.44 MC/CUMM (3.8-5.5); Red Cell Distribution Width 16.9 % (9.3-17.3); White Blood Count 10.6 T/CUMM (4-12)
[2018-05-01 05:51] LABS: Calcium 8.6 MG/DL (8.5-10.1); Osmolality,Calculated 289.8 MOS/KG (273-304); Potassium 4.2 MMOL/L (3.5-5.1)
[2018-05-01] MEDS: PANTOPRAZOLE 40 MG TABLET PO SCH ×2 (06:42→18:33)
[2018-05-01] MEDS: DILTIAZEM CD 240 MG CAPSULE PO SCH (09:31)
[2018-05-01] MEDS: metFORMIN 500 MG TABLET PO SCH ×2 (09:32→20:34)
[2018-05-01] MEDS: guaiFENesin/DM ER 600-30 MG TABLET PO SCH ×2 (09:33→20:33)
[2018-05-01] MEDS: sitaGLIPtin 100 MG TABLET PO SCH (09:33)
[2018-05-01] MEDS: FUROSEMIDE 40 MG TABLET PO SCH ×2 (09:33→15:07)
[2018-05-01] MEDS: MAGNESIUM CHLORIDE 64 MG TABLET PO SCH ×2 (09:33→20:33)
[2018-05-01] MEDS: GABAPENTIN 300 MG CAPSULE PO SCH ×3 (09:33→20:34)
[2018-05-01] MEDS: APIXABAN 2.5 MG TABLET PO SCH ×2 (09:34→20:33)
[2018-05-01] MEDS: INSULIN GLARGINE 100 UNIT/ML SUBCUT SCH (09:34)
[2018-05-01] MEDS: POTASSIUM CHLORIDE 20 MEQ TABLET PO SCH ×2 (09:34→20:33)
[2018-05-01] MEDS: methylPREDNISolone SOD SUC 40 MG/1 ML VIAL IV SCH (09:35)
[2018-05-01] MEDS: LEVOFLOXACIN INJ 500 MG in PREMIX 1 EACH IV SCH (09:35)
[2018-05-01] MEDS: METOPROLOL SUCCINATE XL 50 MG TABLET PO SCH (09:41)
[2018-05-01] MEDS: CHOLECALCIFEROL 1,000 UNIT TABLET PO SCH (09:41)
[2018-05-01] MEDS: BRINZOLAMIDE 1% OPH SUSP 10 ML BOTTLE RIGHT EYE SCH ×2 (09:49→20:37)
[2018-05-01] MEDS: ASCORBIC ACID 500 MG TABLET PO SCH ×2 (09:49→20:34)
[2018-05-01] MEDS: LINACLOTIDE 145 MCG CAPSULE PO SCH (09:49)
[2018-05-01] MEDS: TIMOLOL 0.5% OPH SOLN 5 ML BOTTLE RIGHT EYE SCH ×2 (09:49→20:35)
[2018-05-01] MEDS: TAMSULOSIN 0.4 MG CAPSULE PO SCH (20:33)
[2018-05-01] MEDS: SIMVASTATIN 80 MG TABLET PO SCH (20:34)
[2018-05-01] MEDS: ZALEPLON 5 MG CAPSULE PO PRN (20:34)
[2018-05-01] MEDS: LATANOPROST 0.005% OPH SOLN 2.5 ML BOTTLE RIGHT EYE SCH (20:35)
[2018-05-02] MEDS: ALBUTEROL/IPRATROPIUM 3 ML NEB RESP TX SCH ×5 (00:15→11:04)
[2018-05-02] MEDS: INSULIN LISPRO 100 UNIT/ML SUBCUT SCH ×3 (00:39→13:22)
[2018-05-02 06:11] LABS: Basophils % 0.1 % (0.0-0.8); Eosinophils % 0.1 % (0.00-10.9); Hematocrit 33.4 VOL% (42.0-52.0); Hemoglobin 10.1 GM/DL (14.0-18.0); Immature Granulocytes % 0.7 %; Immature Granulocytes Absolute 0.08 #; Lymphocytes # 1.6 10*3/uL (1.4-4.0); Lymphocytes % 15.2 % (21.2-54.2); Mean Corpuscular HGB Conc 30.2 GM/DL (32-36); Mean Corpuscular Hemoglobin 24 PG (27-34); Mean Corpuscular Volume 78.8 FL (87-102); Mean Platelet Volume 10.9 FL (9.6-12.0); Neutrophils # 8.1 10*3/uL (1.4-7.4); Neutrophils % 74.9 % (38.7-73.9); Platelet Count 127 T/CUMM (130-400); Red Blood Count 4.24 MC/CUMM (3.8-5.5); White Blood Count 10.8 T/CUMM (4-12)
[2018-05-02 06:27] LABS: Calcium 8.7 MG/DL (8.5-10.1)
[2018-05-02] MEDS: PANTOPRAZOLE 40 MG TABLET PO SCH (06:36)
[2018-05-02] MEDS ORDERED: methylPREDNISolone SOD SUC 40 MG/1 ML VIAL IV SCH (09:00)
[2018-05-02] MEDS: INSULIN GLARGINE 100 UNIT/ML SUBCUT SCH (10:10)
[2018-05-02] MEDS: metFORMIN 500 MG TABLET PO SCH (10:11)
[2018-05-02] MEDS: ASCORBIC ACID 500 MG TABLET PO SCH (10:11)
[2018-05-02] MEDS: POTASSIUM CHLORIDE 20 MEQ TABLET PO SCH (10:11)
[2018-05-02] MEDS: CHOLECALCIFEROL 1,000 UNIT TABLET PO SCH (10:11)
[2018-05-02] MEDS: sitaGLIPtin 100 MG TABLET PO SCH (10:12)
[2018-05-02] MEDS: FUROSEMIDE 40 MG TABLET PO SCH (10:12)
[2018-05-02] MEDS: APIXABAN 2.5 MG TABLET PO SCH (10:12)
[2018-05-02] MEDS: GABAPENTIN 300 MG CAPSULE PO SCH (10:12)
[2018-05-02] MEDS: DILTIAZEM CD 240 MG CAPSULE PO SCH (10:12)
[2018-05-02] MEDS: MAGNESIUM CHLORIDE 64 MG TABLET PO SCH (10:12)
[2018-05-02] MEDS: guaiFENesin/DM ER 600-30 MG TABLET PO SCH (10:12)
[2018-05-02] MEDS: METOPROLOL SUCCINATE XL 50 MG TABLET PO SCH (10:12)
[2018-05-02] MEDS: BRINZOLAMIDE 1% OPH SUSP 10 ML BOTTLE RIGHT EYE SCH (10:13)
[2018-05-02] MEDS: LEVOFLOXACIN INJ 500 MG in PREMIX 1 EACH IV SCH (10:13)
[2018-05-02] MEDS: TIMOLOL 0.5% OPH SOLN 5 ML BOTTLE RIGHT EYE SCH (10:14)
[2018-05-02] MEDS: LINACLOTIDE 145 MCG CAPSULE PO SCH (10:17)
[2018-05-02 12:17] VITALS: BP 99/68
== END 2018-05-02 12:32 | disposition home or self-care (01) ==
LOC: N.ED 13:05 → N.EDINP 16:44 → SUATTDRO 16:44 → N.2E 18:20
PROVIDERS: ATTEND Internal Medicine

== ENCOUNTER 2018-08-24 10:06 | Inpatient (IN) ==
[2018-08-24] MEDS ORDERED: ALBUTEROL 2.5 MG/3 ML NEB RESP TX STA (11:04)
[2018-08-24 12:07] LABS: Basophils # 0.1 10*3/uL (0.0-0.2); Basophils % 0.8 % (0.0-0.8); Eosinophils # 0.4 10*3/uL (0.0-0.87); Eosinophils % 4.1 % (0.00-10.9); Hematocrit 31.3 VOL% (42.0-52.0); Hemoglobin 9.3 GM/DL (14.0-18.0); Immature Granulocytes % 0.6 %; Immature Granulocytes Absolute 0.06 #; Lymphocytes # 1.9 10*3/uL (1.4-4.0); Lymphocytes % 19.9 % (21.2-54.2); Mean Corpuscular HGB Conc 29.7 GM/DL (32-36); Mean Corpuscular Hemoglobin 24 PG (27-34); Mean Corpuscular Volume 80.9 FL (87-102); Mean Platelet Volume 10.6 FL (9.6-12.0); Monocytes # 0.8 10*3/uL (0.11-0.8); Monocytes % 8.5 % (1.7-12.7); Neutrophils # 6.1 10*3/uL (1.4-7.4); Neutrophils % 66.1 % (38.7-73.9); Platelet Count 226 T/CUMM (130-400); Red Blood Count 3.87 MC/CUMM (3.8-5.5); Red Cell Distribution Width 16.9 % (9.3-17.3); White Blood Count 9.3 T/CUMM (4-12)
[2018-08-24 12:29] LABS: Albumin 3.1 G/DL (3.4-5.0); Bilirubin,Total 0.6 MG/DL (0.2-1.0); Calcium 9.2 MG/DL (8.5-10.1); Osmolality,Calculated 276.1 MOS/KG (273-304); Potassium 3.1 MMOL/L (3.5-5.1); Total Protein 8.1 G/DL (6.4-8.3)
[2018-08-24 12:38] LABS: Apearance,Urine CLEAR (Clear); Bilirubin,Urine Negative (Negative); Blood, Urine Negative (Negative); Glucose,Urine (UA) Negative (Negative); Ketones,Urine Negative (Negative); Nitrite,Urine Negative (Negative); Protein,Urine Negative; Urine Color Yellow (Yellow); Urine Specific Gravity 1.008 (1.001-1.035); Urine Urobilinogen < 2.0 EU/DL (0.2-1.0)
[2018-08-24] MEDS ORDERED: POTASSIUM CHLORIDE 20 MEQ TABLET PO STA (14:14)
[2018-08-24] MEDS ORDERED: DEXTROSE 50% 25 GM/50 ML VIAL IV PRN (17:01)
[2018-08-24] MEDS ORDERED: LACTULOSE 20 GM/30 ML UDCUP PO PRN (17:01)
[2018-08-24] MEDS ORDERED: ONDANSETRON 4 MG/2 ML VIAL IV PRN (17:01)
[2018-08-24] MEDS ORDERED: DOCUSATE SODIUM 100 MG CAPSULE PO PRN (17:01)
[2018-08-24] MEDS ORDERED: GLUCAGON 1 MG VIAL IM PRN (17:01)
[2018-08-24] MEDS ORDERED: ACETAMINOPHEN 325 MG TABLET PO PRN (17:01)
[2018-08-24] MEDS ORDERED: guaiFENesin/DM ER 600-30 MG TABLET PO PRN (17:01)
[2018-08-24] MEDS ORDERED: FLUTICASONE 50 MCG NASAL SPRAY 16 GM BOTTLE BOTH NARES PRN (17:22)
[2018-08-24] MEDS ORDERED: NITROGLYCERIN SL 0.4 MG TABLET SL PRN (17:22)
[2018-08-24] MEDS ORDERED: metOLazone 5 MG TABLET PO PRN (17:22)
[2018-08-24] MEDS ORDERED: ALBUTEROL 2.5 MG/3 ML NEB RESP TX PRN (17:22)
[2018-08-24] MEDS ORDERED: MAGNESIUM SULF RIDER 2 GM in PREMIX 1 EACH IV PRN (17:27)
[2018-08-24] MEDS ORDERED: MAGNESIUM SULF RIDER 4 GM in PREMIX 1 EACH IV PRN (17:27)
[2018-08-24] MEDS ORDERED: cefTRIAXone 1,000 MG in SYRINGE 1 EACH IV SCH (17:30)
[2018-08-24] MEDS: POTASSIUM CHLORIDE 20 MEQ TABLET PO SCH (20:25)
[2018-08-24] MEDS: APIXABAN 5 MG TABLET PO SCH (20:26)
[2018-08-24] MEDS: ASCORBIC ACID 500 MG TABLET PO SCH (20:27)
[2018-08-24] MEDS: TAMSULOSIN 0.4 MG CAPSULE PO SCH (20:27)
[2018-08-24] MEDS: SIMVASTATIN 80 MG TABLET PO SCH (20:28)
[2018-08-24] MEDS: INSULIN GLARGINE 100 UNIT/ML SUBCUT SCH (21:04)
[2018-08-24] MEDS: GABAPENTIN 300 MG CAPSULE PO SCH (21:05)
[2018-08-24] MEDS: metFORMIN 500 MG TABLET PO SCH (21:05)
[2018-08-24] MEDS: LATANOPROST 0.005% OPH SOLN 2.5 ML BOTTLE RIGHT EYE SCH (21:22)
[2018-08-24] MEDS: TIMOLOL 0.5% OPH SOLN 5 ML BOTTLE RIGHT EYE SCH (21:23)
[2018-08-24] MEDS: INSULIN REGULAR 100 UNIT/ML SUBCUT SCH (21:23)
[2018-08-24] MEDS: BRINZOLAMIDE 1% OPH SUSP 10 ML BOTTLE RIGHT EYE SCH (21:23)
[2018-08-25 05:34] LABS: Basophils # 0.1 10*3/uL (0.0-0.2); Basophils % 0.9 % (0.0-0.8); Eosinophils # 0.3 10*3/uL (0.0-0.87); Eosinophils % 4.5 % (0.00-10.9); Hemoglobin 8.3 GM/DL (14.0-18.0); Immature Granulocytes % 0.3 %; Immature Granulocytes Absolute 0.02 #; Lymphocytes # 1.9 10*3/uL (1.4-4.0); Lymphocytes % 28.7 % (21.2-54.2); Mean Corpuscular HGB Conc 29.6 GM/DL (32-36); Mean Corpuscular Hemoglobin 24 PG (27-34); Mean Corpuscular Volume 80.7 FL (87-102); Mean Platelet Volume 10.9 FL (9.6-12.0); Monocytes # 0.8 10*3/uL (0.11-0.8); Monocytes % 12.5 % (1.7-12.7); Neutrophils # 3.5 10*3/uL (1.4-7.4); Neutrophils % 53.1 % (38.7-73.9); Platelet Count 186 T/CUMM (130-400); Red Blood Count 3.47 MC/CUMM (3.8-5.5); Red Cell Distribution Width 16.7 % (9.3-17.3); White Blood Count 6.5 T/CUMM (4-12)
[2018-08-25 07:06] LABS: Calcium 8.9 MG/DL (8.5-10.1); Osmolality,Calculated 273.2 MOS/KG (273-304); Potassium 3.5 MMOL/L (3.5-5.1)
[2018-08-25] MEDS: INSULIN REGULAR 100 UNIT/ML SUBCUT SCH ×4 (07:59→21:22)
[2018-08-25] MEDS: INSULIN GLARGINE 100 UNIT/ML SUBCUT SCH ×2 (08:05→21:21)
[2018-08-25] MEDS: FUROSEMIDE 40 MG/4 ML VIAL IV SCH ×2 (08:05→16:36)
[2018-08-25] MEDS: metFORMIN 500 MG TABLET PO SCH ×2 (08:05→21:15)
[2018-08-25] MEDS: POTASSIUM CHLORIDE 20 MEQ TABLET PO SCH ×2 (08:06→21:16)
[2018-08-25] MEDS: GABAPENTIN 300 MG CAPSULE PO SCH ×3 (08:06→21:16)
[2018-08-25] MEDS: METOPROLOL SUCCINATE XL 50 MG TABLET PO SCH (08:06)
[2018-08-25] MEDS: ASCORBIC ACID 500 MG TABLET PO SCH ×2 (08:06→21:16)
[2018-08-25] MEDS: CHOLECALCIFEROL 1,000 UNIT TABLET PO SCH (08:06)
[2018-08-25] MEDS: APIXABAN 5 MG TABLET PO SCH ×2 (08:07→21:16)
[2018-08-25] MEDS: sitaGLIPtin 100 MG TABLET PO SCH (08:07)
[2018-08-25] MEDS: DILTIAZEM CD 240 MG CAPSULE PO SCH (08:07)
[2018-08-25] MEDS: TIMOLOL 0.5% OPH SOLN 5 ML BOTTLE RIGHT EYE SCH ×2 (08:11→21:19)
[2018-08-25] MEDS: LINACLOTIDE 145 MCG CAPSULE PO SCH (08:11)
[2018-08-25] MEDS: BRINZOLAMIDE 1% OPH SUSP 10 ML BOTTLE RIGHT EYE SCH ×2 (08:12→21:14)
[2018-08-25] MEDS ORDERED: FUROSEMIDE 40 MG/4 ML VIAL IV SCH (09:00)
[2018-08-25] MEDS ORDERED: PANTOPRAZOLE 40 MG TABLET PO SCH (09:00)
[2018-08-25] MEDS: SIMVASTATIN 80 MG TABLET PO SCH (21:15)
[2018-08-25] MEDS: TAMSULOSIN 0.4 MG CAPSULE PO SCH (21:16)
[2018-08-25] MEDS: PANTOPRAZOLE 40 MG TABLET PO SCH (21:16)
[2018-08-25] MEDS: LATANOPROST 0.005% OPH SOLN 2.5 ML BOTTLE RIGHT EYE SCH (21:31)
[2018-08-26 05:09] LABS: Basophils # 0.1 10*3/uL (0.0-0.2); Basophils % 0.7 % (0.0-0.8); Eosinophils # 0.4 10*3/uL (0.0-0.87); Eosinophils % 5.3 % (0.00-10.9); Hematocrit 26.3 VOL% (42.0-52.0); Hemoglobin 7.8 GM/DL (14.0-18.0); Immature Granulocytes % 0.3 %; Immature Granulocytes Absolute 0.02 #; Lymphocytes # 1.9 10*3/uL (1.4-4.0); Lymphocytes % 27.6 % (21.2-54.2); Mean Corpuscular HGB Conc 29.7 GM/DL (32-36); Mean Corpuscular Hemoglobin 24 PG (27-34); Mean Corpuscular Volume 80.2 FL (87-102); Mean Platelet Volume 10.3 FL (9.6-12.0); Monocytes # 0.9 10*3/uL (0.11-0.8); Monocytes % 13.8 % (1.7-12.7); Neutrophils # 3.5 10*3/uL (1.4-7.4); Neutrophils % 52.3 % (38.7-73.9); Platelet Count 181 T/CUMM (130-400); Red Blood Count 3.28 MC/CUMM (3.8-5.5); Red Cell Distribution Width 16.5 % (9.3-17.3); White Blood Count 6.7 T/CUMM (4-12)
[2018-08-26 05:16] LABS: Calcium 8.9 MG/DL (8.5-10.1); Osmolality,Calculated 273.7 MOS/KG (273-304); Potassium 3.2 MMOL/L (3.5-5.1)
[2018-08-26 05:18] LABS: Potassium 3.2 MMOL/L (3.5-5.1)
[2018-08-26] MEDS ORDERED: POTASSIUM CHLORIDE RIDER 10 MEQ in PREMIX 1 EACH IV PRN (06:27)
[2018-08-26] MEDS: PANTOPRAZOLE 40 MG TABLET PO SCH (06:46)
[2018-08-26] MEDS: LINACLOTIDE 145 MCG CAPSULE PO SCH (06:46)
[2018-08-26] MEDS: INSULIN REGULAR 100 UNIT/ML SUBCUT SCH (07:40)
[2018-08-26 07:50] VITALS: BP 109/56
[2018-08-26] MEDS: INSULIN GLARGINE 100 UNIT/ML SUBCUT SCH (08:01)
[2018-08-26] MEDS: metFORMIN 500 MG TABLET PO SCH (08:02)
[2018-08-26] MEDS: CHOLECALCIFEROL 1,000 UNIT TABLET PO SCH (08:02)
[2018-08-26] MEDS: DILTIAZEM CD 240 MG CAPSULE PO SCH (08:02)
[2018-08-26] MEDS: ASCORBIC ACID 500 MG TABLET PO SCH (08:02)
[2018-08-26] MEDS: METOPROLOL SUCCINATE XL 50 MG TABLET PO SCH (08:03)
[2018-08-26] MEDS: sitaGLIPtin 100 MG TABLET PO SCH (08:03)
[2018-08-26] MEDS: GABAPENTIN 300 MG CAPSULE PO SCH (08:03)
[2018-08-26] MEDS: POTASSIUM CHLORIDE 20 MEQ TABLET PO SCH (08:03)
[2018-08-26] MEDS: FUROSEMIDE 40 MG/4 ML VIAL IV SCH (08:03)
[2018-08-26] MEDS: APIXABAN 5 MG TABLET PO SCH (08:03)
[2018-08-26] MEDS ORDERED: SPIRONOLACTONE 25 MG TABLET PO SCH (09:00)
[2018-08-26] MEDS: TIMOLOL 0.5% OPH SOLN 5 ML BOTTLE RIGHT EYE SCH (09:05)
[2018-08-26] MEDS: BRINZOLAMIDE 1% OPH SUSP 10 ML BOTTLE RIGHT EYE SCH (09:06)
[2018-08-31] MEDS ORDERED: CYANOCOBALAMIN 1000 MCG/1 ML VIAL IM SCH (09:00)
== END 2018-08-26 10:47 | disposition home or self-care (01) | DRG 292 ==
LOC: N.ED 10:06 → N.EDINP 10:06 → SUATTDRO 16:28 → N.2E 18:30
PROVIDERS: ADMIT Internal Medicine; ATTEND Internal Medicine

== ENCOUNTER 2018-11-19 11:12 | Inpatient (IN) ==
[2018-11-19] MEDS ORDERED: FUROSEMIDE 100 MG/10 ML VIAL IV STA (11:41)
[2018-11-19 11:59] LABS: Basophils # 0.1 10*3/uL (0.0-0.2); Basophils % 0.5 % (0.0-0.8); Eosinophils % 0.4 % (0.00-10.9); Hematocrit 29.1 VOL% (42.0-52.0); Hemoglobin 8.4 GM/DL (14.0-18.0); Immature Granulocytes % 0.6 %; Immature Granulocytes Absolute 0.06 #; Lymphocytes # 1.1 10*3/uL (1.4-4.0); Mean Corpuscular HGB Conc 28.9 GM/DL (32-36); Mean Corpuscular Volume 83.1 FL (87-102); Mean Platelet Volume 10.9 FL (9.6-12.0); Monocytes % 10.4 % (1.7-12.7); Neutrophils % 77.1 % (38.7-73.9); Platelet Count 202 T/CUMM (130-400); Red Cell Distribution Width 17.2 % (9.3-17.3); White Blood Count 9.5 T/CUMM (4-12)
[2018-11-19 12:32] LABS: Hypochromasia 1+; Ovalocytes Slight; Platelet Estimate Adequate
[2018-11-19 12:32] LABS: Bilirubin,Total 0.5 MG/DL (0.2-1.0); Calcium 9.1 MG/DL (8.5-10.1); Osmolality,Calculated 280.2 MOS/KG (273-304); Total Protein 7.5 G/DL (6.4-8.3)
[2018-11-19] MEDS ORDERED: ONDANSETRON 4 MG/2 ML VIAL IV PRN (12:50)
[2018-11-19] MEDS ORDERED: LACTULOSE 20 GM/30 ML UDCUP PO PRN (12:50)
[2018-11-19] MEDS ORDERED: ACETAMINOPHEN 325 MG TABLET PO PRN (12:50)
[2018-11-19] MEDS ORDERED: PROMETHAZINE 25 MG/1 ML VIAL IM PRN (12:50)
[2018-11-19] MEDS ORDERED: POTASSIUM CHLORIDE 20 MEQ TABLET PO STA (12:52)
[2018-11-19] MEDS ORDERED: ENOXAPARIN 40 MG/0.4 ML SYRINGE SUBCUT SCH (13:00)
[2018-11-19] MEDS ORDERED: NITROGLYCERIN SL 0.4 MG TABLET SL PRN (13:15)
[2018-11-19] MEDS ORDERED: FLUTICASONE 50 MCG NASAL SPRAY 16 GM BOTTLE BOTH NARES PRN (13:15)
[2018-11-19] MEDS ORDERED: ALBUTEROL 2.5 MG/3 ML NEB RESP TX PRN (13:15)
[2018-11-19] MEDS: SPIRONOLACTONE 25 MG TABLET PO SCH (15:15)
[2018-11-19] MEDS: metOLazone 5 MG TABLET PO SCH (15:15)
[2018-11-19] MEDS ORDERED: FUROSEMIDE 40 MG/4 ML VIAL IV SCH (16:00)
[2018-11-19] MEDS: FUROSEMIDE 40 MG/4 ML VIAL IV SCH (16:25)
[2018-11-19] MEDS: PANTOPRAZOLE 40 MG TABLET PO SCH (18:40)
[2018-11-19] MEDS ORDERED: MAGNESIUM SULF RIDER 2 GM in PREMIX 1 EACH IV PRN (20:00)
[2018-11-19] MEDS ORDERED: MAGNESIUM SULF RIDER 2 GM in PREMIX 1 EACH IV ONE (20:00)
[2018-11-19] MEDS: BRINZOLAMIDE 1% OPH SUSP 10 ML BOTTLE RIGHT EYE SCH (21:24)
[2018-11-19] MEDS: SIMVASTATIN 80 MG TABLET PO SCH (21:30)
[2018-11-19] MEDS: ASCORBIC ACID 500 MG TABLET PO SCH (21:30)
[2018-11-19] MEDS: MAGNESIUM CHLORIDE 64 MG TABLET PO SCH (21:30)
[2018-11-19] MEDS: APIXABAN 5 MG TABLET PO SCH (21:30)
[2018-11-19] MEDS: POTASSIUM CHLORIDE 20 MEQ TABLET PO SCH (21:30)
[2018-11-19] MEDS: TAMSULOSIN 0.4 MG CAPSULE PO SCH (21:30)
[2018-11-19] MEDS: TIMOLOL 0.5% OPH SOLN 5 ML BOTTLE RIGHT EYE SCH (21:31)
[2018-11-19] MEDS: LATANOPROST 0.005% OPH SOLN 2.5 ML BOTTLE RIGHT EYE SCH (21:32)
[2018-11-19] MEDS: INSULIN GLARGINE 100 UNIT/ML SUBCUT SCH (21:41)
[2018-11-19 23:21] LABS: ABG Base Excess 9.6 MMOL/L (-2.5-2.5); ABG HCO3 33.1 MMOL/L (20-26); ABG Oxygen Saturation 85.4 % (95-100); ABG PCO2 65.6 MM HG (35-48); ABG PH 7.358 (7.35-7.45); ABG PO2 54.9 MM HG (80-95); ABG TCO2 34.6 MMOL/L (23-27); Allen Test Positive; Pt O2 Delivery Device Other
[2018-11-20 01:51] LABS: ABG Base Excess 11.9 MMOL/L (-2.5-2.5); ABG HCO3 35.7 MMOL/L (20-26); ABG PCO2 58.6 MM HG (35-48); ABG PH 7.422 (7.35-7.45); ABG TCO2 35.5 MMOL/L (23-27); Allen Test Positive; Pt O2 Delivery Device BIPAP
[2018-11-20 05:34] LABS: Basophils % 0.3 % (0.0-0.8); Eosinophils # 0.1 10*3/uL (0.0-0.87); Hemoglobin 8.8 GM/DL (14.0-18.0); Immature Granulocytes % 0.3 %; Immature Granulocytes Absolute 0.02 #; Lymphocytes # 1.1 10*3/uL (1.4-4.0); Lymphocytes % 13.7 % (21.2-54.2); Mean Corpuscular HGB Conc 28.5 GM/DL (32-36); Mean Corpuscular Volume 84.9 FL (87-102); Mean Platelet Volume 11.4 FL (9.6-12.0); Monocytes % 8.1 % (1.7-12.7); Neutrophils % 76.6 % (38.7-73.9); Platelet Count 160 T/CUMM (130-400); Red Blood Count 3.64 MC/CUMM (3.8-5.5); Red Cell Distribution Width 17.2 % (9.3-17.3); White Blood Count 7.8 T/CUMM (4-12)
[2018-11-20 05:40] LABS: Hematocrit 30.9 VOL% (42.0-52.0)
[2018-11-20 05:45] LABS: Albumin 2.7 G/DL (3.4-5.0); Bilirubin,Total 0.6 MG/DL (0.2-1.0); Calcium 8.9 MG/DL (8.5-10.1); Osmolality,Calculated 277.1 MOS/KG (273-304); Risk Ratio 1.75; VLDL CHOLESTEROL 12.6 MG/DL
[2018-11-20] MEDS: PANTOPRAZOLE 40 MG TABLET PO SCH ×2 (06:45→22:20)
[2018-11-20] MEDS: LINACLOTIDE 145 MCG CAPSULE PO SCH (06:45)
[2018-11-20] MEDS: metOLazone 5 MG TABLET PO SCH (08:31)
[2018-11-20] MEDS: DILTIAZEM CD 240 MG CAPSULE PO SCH (08:31)
[2018-11-20] MEDS: POTASSIUM CHLORIDE 20 MEQ TABLET PO SCH ×2 (08:31→22:20)
[2018-11-20] MEDS: MAGNESIUM CHLORIDE 64 MG TABLET PO SCH ×2 (08:31→22:20)
[2018-11-20] MEDS: SPIRONOLACTONE 25 MG TABLET PO SCH (08:32)
[2018-11-20] MEDS: APIXABAN 5 MG TABLET PO SCH ×2 (08:32→22:20)
[2018-11-20] MEDS: CHOLECALCIFEROL 1,000 UNIT TABLET PO SCH (08:32)
[2018-11-20] MEDS: ASCORBIC ACID 500 MG TABLET PO SCH ×2 (08:32→22:29)
[2018-11-20] MEDS: sitaGLIPtin 25 MG TABLET PO SCH (08:32)
[2018-11-20] MEDS: FUROSEMIDE 40 MG/4 ML VIAL IV SCH ×2 (08:33→16:53)
[2018-11-20] MEDS: INSULIN GLARGINE 100 UNIT/ML SUBCUT SCH ×2 (08:33→22:21)
[2018-11-20] MEDS: METOPROLOL SUCCINATE XL 50 MG TABLET PO SCH (08:33)
[2018-11-20] MEDS: TIMOLOL 0.5% OPH SOLN 5 ML BOTTLE RIGHT EYE SCH ×2 (08:41→22:32)
[2018-11-20] MEDS: BRINZOLAMIDE 1% OPH SUSP 10 ML BOTTLE RIGHT EYE SCH ×2 (08:41→22:32)
[2018-11-20] MEDS ORDERED: PANTOPRAZOLE 40 MG TABLET PO SCH (09:00)
[2018-11-20] MEDS: TAMSULOSIN 0.4 MG CAPSULE PO SCH (22:21)
[2018-11-20] MEDS: LATANOPROST 0.005% OPH SOLN 2.5 ML BOTTLE RIGHT EYE SCH (22:32)
[2018-11-20] MEDS: SIMVASTATIN 80 MG TABLET PO SCH (22:32)
[2018-11-21 06:18] LABS: Calcium 9.1 MG/DL (8.5-10.1); Osmolality,Calculated 275.2 MOS/KG (273-304)
[2018-11-21] MEDS: PANTOPRAZOLE 40 MG TABLET PO SCH (06:19)
[2018-11-21] MEDS: FUROSEMIDE 40 MG/4 ML VIAL IV SCH (08:23)
[2018-11-21] MEDS: POTASSIUM CHLORIDE 20 MEQ TABLET PO SCH (08:24)
[2018-11-21] MEDS: METOPROLOL SUCCINATE XL 50 MG TABLET PO SCH (08:24)
[2018-11-21] MEDS: sitaGLIPtin 25 MG TABLET PO SCH (08:24)
[2018-11-21] MEDS: SPIRONOLACTONE 25 MG TABLET PO SCH (08:24)
[2018-11-21] MEDS: metOLazone 5 MG TABLET PO SCH (08:24)
[2018-11-21] MEDS: APIXABAN 5 MG TABLET PO SCH (08:24)
[2018-11-21] MEDS: CHOLECALCIFEROL 1,000 UNIT TABLET PO SCH (08:24)
[2018-11-21] MEDS: BRINZOLAMIDE 1% OPH SUSP 10 ML BOTTLE RIGHT EYE SCH (08:25)
[2018-11-21] MEDS: TIMOLOL 0.5% OPH SOLN 5 ML BOTTLE RIGHT EYE SCH (08:25)
[2018-11-21] MEDS: DILTIAZEM CD 240 MG CAPSULE PO SCH (08:25)
[2018-11-21] MEDS: MAGNESIUM CHLORIDE 64 MG TABLET PO SCH (08:25)
[2018-11-21] MEDS: LINACLOTIDE 145 MCG CAPSULE PO SCH (08:33)
[2018-11-21] MEDS: INSULIN GLARGINE 100 UNIT/ML SUBCUT SCH (08:34)
[2018-11-21] MEDS: ASCORBIC ACID 500 MG TABLET PO SCH (08:39)
[2018-11-21] MEDS ORDERED: POTASSIUM CHLORIDE 20 MEQ TABLET PO ONE (09:00)
[2018-11-21] MEDS ORDERED: MAGNESIUM SULF RIDER 2 GM in PREMIX 1 EACH IV ONE (09:00)
[2018-11-21] MEDS ORDERED: FUROSEMIDE 40 MG/4 ML VIAL IV SCH (09:24)
[2018-11-21 12:26] VITALS: BP 108/58
[2018-12-11] MEDS ORDERED: CYANOCOBALAMIN 1000 MCG/1 ML VIAL IM SCH (09:00)
== END 2018-11-21 15:40 | disposition home health service (06) | DRG 291 ==
LOC: N.ED 11:12 → N.EDINP 12:50 → SUATTDRO 12:50 → N.ICU 17:19 → N.5E 11-20 17:26
PROVIDERS: ADMIT Internal Medicine; ATTEND Internal Medicine

== ENCOUNTER 2018-12-17 21:48 | Inpatient (IN) ==
[2018-12-17 23:01] LABS: Basophils # 0.1 10*3/uL (0.0-0.2); Basophils % 0.7 % (0.0-0.8); Eosinophils # 0.2 10*3/uL (0.0-0.87); Eosinophils % 2.4 % (0.00-10.9); Hematocrit 25.1 VOL% (42.0-52.0); Hemoglobin 7.2 GM/DL (14.0-18.0); Immature Granulocytes % 0.5 %; Immature Granulocytes Absolute 0.04 #; Lymphocytes # 1.2 10*3/uL (1.4-4.0); Lymphocytes % 16.3 % (21.2-54.2); Mean Corpuscular HGB Conc 28.7 GM/DL (32-36); Mean Corpuscular Volume 79.4 FL (87-102); Mean Platelet Volume 10.3 FL (9.6-12.0); Monocytes % 11.8 % (1.7-12.7); Neutrophils % 68.3 % (38.7-73.9); Platelet Count 207 T/CUMM (130-400); Red Blood Count 3.16 MC/CUMM (3.8-5.5); Red Cell Distribution Width 16.1 % (9.3-17.3); White Blood Count 7.6 T/CUMM (4-12)
[2018-12-17 23:20] LABS: Albumin 3.3 G/DL (3.4-5.0); Bilirubin,Total 0.6 MG/DL (0.2-1.0); Calcium 9.2 MG/DL (8.5-10.1); Osmolality,Calculated 276.8 MOS/KG (273-304); Total Protein 8.6 G/DL (6.4-8.3)
[2018-12-18] MEDS ORDERED: diphenhydrAMINE CAP 25 MG CAPSULE PO PRN (01:03)
[2018-12-18] MEDS ORDERED: ONDANSETRON 4 MG/2 ML VIAL IV PRN (01:03)
[2018-12-18] MEDS ORDERED: MORPHINE 4 MG/1 ML VIAL IV PRN (01:03)
[2018-12-18] MEDS ORDERED: guaiFENesin/DM ER 600-30 MG TABLET PO PRN (01:03)
[2018-12-18] MEDS ORDERED: SODIUM CHLORIDE 0.9% 1,000 ML IV PRN ×3 (01:03→16:29)
[2018-12-18] MEDS ORDERED: NICOTINE 21 MG/24 HR PATCH TRANSDERM PRN (01:03)
[2018-12-18] MEDS ORDERED: ACETAMINOPHEN 325 MG TABLET PO PRN (01:03)
[2018-12-18] MEDS ORDERED: BISACODYL 5 MG TABLET PO PRN (01:03)
[2018-12-18] MEDS ORDERED: GLUCAGON 1 MG VIAL IM PRN (01:16)
[2018-12-18] MEDS ORDERED: DEXTROSE 50% 25 GM/50 ML VIAL IV PRN (01:16)
[2018-12-18] MEDS ORDERED: DEXTROSE 50% 25 GM/50 ML SYRINGE IV PRN (01:18)
[2018-12-18] MEDS ORDERED: NITROGLYCERIN SL 0.4 MG TABLET SL PRN (02:05)
[2018-12-18] MEDS ORDERED: ALBUTEROL 2.5 MG/3 ML NEB RESP TX PRN (02:05)
[2018-12-18] MEDS: POTASSIUM CHLORIDE 20 MEQ TABLET PO SCH ×3 (04:48→20:28)
[2018-12-18 05:52] LABS: Basophils % 0.7 % (0.0-0.8); Eosinophils # 0.2 10*3/uL (0.0-0.87); Eosinophils % 3.1 % (0.00-10.9); Hematocrit 25.8 VOL% (42.0-52.0); Hemoglobin 7.8 GM/DL (14.0-18.0); Immature Granulocytes % 0.5 %; Immature Granulocytes Absolute 0.03 #; Lymphocytes # 1.2 10*3/uL (1.4-4.0); Lymphocytes % 19.3 % (21.2-54.2); Mean Corpuscular HGB Conc 30.2 GM/DL (32-36); Mean Corpuscular Volume 79.1 FL (87-102); Monocytes % 11.9 % (1.7-12.7); Neutrophils % 64.5 % (38.7-73.9); Platelet Count 177 T/CUMM (130-400); Red Blood Count 3.26 MC/CUMM (3.8-5.5); Red Cell Distribution Width 16.2 % (9.3-17.3); White Blood Count 6.1 T/CUMM (4-12)
[2018-12-18 06:15] LABS: Albumin 2.9 G/DL (3.4-5.0); Bilirubin,Total 0.5 MG/DL (0.2-1.0); Calcium 8.7 MG/DL (8.5-10.1); Osmolality,Calculated 280.2 MOS/KG (273-304); Total Protein 7.5 G/DL (6.4-8.3)
[2018-12-18] MEDS: INSULIN REGULAR 100 UNIT/ML SUBCUT SCH ×4 (07:28→20:29)
[2018-12-18] MEDS: FUROSEMIDE 40 MG TABLET PO SCH ×2 (08:52→16:35)
[2018-12-18] MEDS: SPIRONOLACTONE 25 MG TABLET PO SCH (09:20)
[2018-12-18] MEDS: GABAPENTIN 300 MG CAPSULE PO SCH ×3 (09:20→20:28)
[2018-12-18] MEDS: INSULIN GLARGINE 100 UNIT/ML SUBCUT SCH ×2 (09:20→18:40)
[2018-12-18] MEDS: metOLazone 2.5 MG TABLET PO SCH (09:20)
[2018-12-18] MEDS: DILTIAZEM CD 240 MG CAPSULE PO SCH (09:20)
[2018-12-18] MEDS: PANTOPRAZOLE 40 MG TABLET PO SCH (09:20)
[2018-12-18] MEDS: METOPROLOL SUCCINATE XL 50 MG TABLET PO SCH (09:20)
[2018-12-18] MEDS: TIMOLOL 0.5% OPH SOLN 5 ML BOTTLE RIGHT EYE SCH ×2 (12:41→20:28)
[2018-12-18 14:23] LABS: % Iron Saturation 5.4 % (18-50)
[2018-12-18 14:27] LABS: Ferritin 18.8 ng/ml (26-388)
[2018-12-18 14:42] LABS: Folate 19.6 NG/ML (5.4-24.0); Vitamin B12 > 2000 PG/ML (211-911)
[2018-12-18] MEDS ORDERED: FUROSEMIDE 40 MG/4 ML VIAL IV PRN (16:29)
[2018-12-18] MEDS: SIMVASTATIN 40 MG TABLET PO SCH (20:31)
[2018-12-19 05:02] LABS: Basophils % 0.3 % (0.0-0.8); Eosinophils # 0.2 10*3/uL (0.0-0.87); Eosinophils % 2.9 % (0.00-10.9); Hematocrit 31.5 VOL% (42.0-52.0); Hemoglobin 9.5 GM/DL (14.0-18.0); Immature Granulocytes % 0.5 %; Immature Granulocytes Absolute 0.04 #; Lymphocytes % 12.4 % (21.2-54.2); Mean Corpuscular HGB Conc 30.2 GM/DL (32-36); Mean Corpuscular Volume 81.4 FL (87-102); Monocytes % 10.4 % (1.7-12.7); Neutrophils % 73.5 % (38.7-73.9); Platelet Count 162 T/CUMM (130-400); Red Blood Count 3.87 MC/CUMM (3.8-5.5); Red Cell Distribution Width 16.4 % (9.3-17.3); White Blood Count 7.9 T/CUMM (4-12)
[2018-12-19] MEDS: INSULIN REGULAR 100 UNIT/ML SUBCUT SCH ×3 (08:07→16:03)
[2018-12-19] MEDS: POTASSIUM CHLORIDE 20 MEQ TABLET PO SCH ×3 (08:45→21:32)
[2018-12-19] MEDS: GABAPENTIN 300 MG CAPSULE PO SCH ×3 (08:45→21:34)
[2018-12-19] MEDS: METOPROLOL SUCCINATE XL 50 MG TABLET PO SCH (08:45)
[2018-12-19] MEDS: SPIRONOLACTONE 25 MG TABLET PO SCH (08:45)
[2018-12-19] MEDS: DILTIAZEM CD 240 MG CAPSULE PO SCH (08:45)
[2018-12-19] MEDS: PANTOPRAZOLE 40 MG TABLET PO SCH ×2 (08:45→21:34)
[2018-12-19] MEDS: metOLazone 2.5 MG TABLET PO SCH (08:45)
[2018-12-19] MEDS: FUROSEMIDE 40 MG TABLET PO SCH ×2 (08:45→16:02)
[2018-12-19] MEDS: TIMOLOL 0.5% OPH SOLN 5 ML BOTTLE RIGHT EYE SCH ×2 (08:47→21:34)
[2018-12-19] MEDS: INSULIN GLARGINE 100 UNIT/ML SUBCUT SCH ×2 (08:48→18:39)
[2018-12-19] MEDS: IRON SUCROSE 200 MG in SODIUM CHLORIDE 0.9% 100 ML IV SCH (09:16)
[2018-12-19] MEDS: acetaZOLAMIDE 250 MG TABLET PO SCH (21:33)
[2018-12-19] MEDS: SIMVASTATIN 40 MG TABLET PO SCH (21:33)
[2018-12-20 05:41] LABS: Basophils # 0.1 10*3/uL (0.0-0.2); Basophils % 0.6 % (0.0-0.8); Eosinophils # 0.3 10*3/uL (0.0-0.87); Eosinophils % 4.2 % (0.00-10.9); Hematocrit 32.5 VOL% (42.0-52.0); Hemoglobin 9.7 GM/DL (14.0-18.0); Immature Granulocytes % 0.5 %; Immature Granulocytes Absolute 0.04 #; Lymphocytes # 1.3 10*3/uL (1.4-4.0); Mean Corpuscular HGB Conc 29.8 GM/DL (32-36); Mean Corpuscular Volume 82.1 FL (87-102); Mean Platelet Volume 10.3 FL (9.6-12.0); Monocytes % 11.8 % (1.7-12.7); Neutrophils % 65.9 % (38.7-73.9); Platelet Count 170 T/CUMM (130-400); Red Blood Count 3.96 MC/CUMM (3.8-5.5); Red Cell Distribution Width 16.5 % (9.3-17.3); White Blood Count 7.7 T/CUMM (4-12)
[2018-12-20 05:57] LABS: Calcium 8.7 MG/DL (8.5-10.1)
[2018-12-20] MEDS: SPIRONOLACTONE 25 MG TABLET PO SCH (08:36)
[2018-12-20] MEDS: POTASSIUM CHLORIDE 20 MEQ TABLET PO SCH ×3 (08:36→21:47)
[2018-12-20] MEDS: FUROSEMIDE 40 MG TABLET PO SCH ×2 (08:36→16:00)
[2018-12-20] MEDS: DILTIAZEM CD 240 MG CAPSULE PO SCH (08:36)
[2018-12-20] MEDS: GABAPENTIN 300 MG CAPSULE PO SCH ×3 (08:36→21:47)
[2018-12-20] MEDS: metOLazone 2.5 MG TABLET PO SCH (08:36)
[2018-12-20] MEDS: acetaZOLAMIDE 250 MG TABLET PO SCH ×2 (08:36→21:56)
[2018-12-20] MEDS: METOPROLOL SUCCINATE XL 50 MG TABLET PO SCH (08:37)
[2018-12-20] MEDS: PANTOPRAZOLE 40 MG TABLET PO SCH ×2 (08:37→21:47)
[2018-12-20] MEDS: INSULIN GLARGINE 100 UNIT/ML SUBCUT SCH ×2 (08:41→19:54)
[2018-12-20] MEDS: TIMOLOL 0.5% OPH SOLN 5 ML BOTTLE RIGHT EYE SCH ×2 (08:42→21:47)
[2018-12-20] MEDS: INSULIN REGULAR 100 UNIT/ML SUBCUT SCH ×5 (08:42→21:46)
[2018-12-20] MEDS: IRON SUCROSE 200 MG in SODIUM CHLORIDE 0.9% 100 ML IV SCH (09:34)
[2018-12-20] MEDS: POLYETHYLENE GLYCOL POWDER 17 GM PACK PO SCH (16:00)
[2018-12-20] MEDS: SIMVASTATIN 40 MG TABLET PO SCH (21:47)
[2018-12-20] MEDS: BRINZOLAMIDE 1% OPH SUSP 10 ML BOTTLE RIGHT EYE SCH (21:56)
[2018-12-20] MEDS: LATANOPROST 0.005% OPH SOLN 2.5 ML BOTTLE RIGHT EYE SCH (21:56)
[2018-12-21 06:12] LABS: Basophils # 0.1 10*3/uL (0.0-0.2); Basophils % 0.5 % (0.0-0.8); Eosinophils # 0.3 10*3/uL (0.0-0.87); Eosinophils % 3.4 % (0.00-10.9); Hematocrit 38.9 VOL% (42.0-52.0); Hemoglobin 11.2 GM/DL (14.0-18.0); Immature Granulocytes % 0.7 %; Immature Granulocytes Absolute 0.06 #; Lymphocytes # 1.3 10*3/uL (1.4-4.0); Lymphocytes % 14.1 % (21.2-54.2); Mean Corpuscular HGB Conc 28.8 GM/DL (32-36); Mean Corpuscular Volume 84.7 FL (87-102); Mean Platelet Volume 10.7 FL (9.6-12.0); Monocytes % 10.5 % (1.7-12.7); Neutrophils % 70.8 % (38.7-73.9); Platelet Count 201 T/CUMM (130-400); Red Blood Count 4.59 MC/CUMM (3.8-5.5); Red Cell Distribution Width 17.2 % (9.3-17.3); White Blood Count 9.2 T/CUMM (4-12)
[2018-12-21 06:30] LABS: Hypochromasia 1+; Platelet Estimate Adequate
[2018-12-21] MEDS ORDERED: LACTATED RINGERS 1,000 ML IV SCH (07:30)
[2018-12-21] MEDS ORDERED: LIDOCAINE 100 MG/5 ML SYRINGE ONE (08:02)
[2018-12-21] MEDS ORDERED: PHENYLEPHRINE 1 MG/10 ML SYRINGE IV ONE (08:02)
[2018-12-21] MEDS ORDERED: PROPOFOL 200 MG/20 ML VIAL IV ONE (08:02)
[2018-12-21] MEDS: metOLazone 2.5 MG TABLET PO SCH (09:31)
[2018-12-21] MEDS: PANTOPRAZOLE 40 MG TABLET PO SCH ×2 (09:31→21:55)
[2018-12-21] MEDS: FUROSEMIDE 40 MG TABLET PO SCH ×2 (09:31→17:35)
[2018-12-21] MEDS: POTASSIUM CHLORIDE 20 MEQ TABLET PO SCH ×2 (09:33→21:55)
[2018-12-21] MEDS: DILTIAZEM CD 240 MG CAPSULE PO SCH (09:33)
[2018-12-21] MEDS: METOPROLOL SUCCINATE XL 50 MG TABLET PO SCH (09:33)
[2018-12-21] MEDS: GABAPENTIN 300 MG CAPSULE PO SCH ×3 (09:34→21:55)
[2018-12-21] MEDS: SPIRONOLACTONE 25 MG TABLET PO SCH (09:34)
[2018-12-21] MEDS: BRINZOLAMIDE 1% OPH SUSP 10 ML BOTTLE RIGHT EYE SCH ×2 (09:35→21:55)
[2018-12-21] MEDS: TIMOLOL 0.5% OPH SOLN 5 ML BOTTLE RIGHT EYE SCH ×2 (09:35→21:56)
[2018-12-21] MEDS: POLYETHYLENE GLYCOL POWDER 17 GM PACK PO SCH (11:24)
[2018-12-21] MEDS: INSULIN GLARGINE 100 UNIT/ML SUBCUT SCH ×2 (11:24→21:54)
[2018-12-21] MEDS: INSULIN REGULAR 100 UNIT/ML SUBCUT SCH ×4 (11:25→21:55)
[2018-12-21] MEDS: IRON SUCROSE 200 MG in SODIUM CHLORIDE 0.9% 100 ML IV SCH (19:03)
[2018-12-21] MEDS: SIMVASTATIN 40 MG TABLET PO SCH (21:55)
[2018-12-21] MEDS: LATANOPROST 0.005% OPH SOLN 2.5 ML BOTTLE RIGHT EYE SCH (21:56)
[2018-12-22 08:00] LABS: Basophils # 0.1 10*3/uL (0.0-0.2); Basophils % 0.6 % (0.0-0.8); Eosinophils # 0.3 10*3/uL (0.0-0.87); Eosinophils % 2.2 % (0.00-10.9); Hematocrit 40.5 VOL% (42.0-52.0); Hemoglobin 12.3 GM/DL (14.0-18.0); Immature Granulocytes % 0.6 %; Immature Granulocytes Absolute 0.07 #; Lymphocytes # 1.6 10*3/uL (1.4-4.0); Lymphocytes % 13.8 % (21.2-54.2); Mean Corpuscular HGB Conc 30.4 GM/DL (32-36); Mean Corpuscular Volume 81.8 FL (87-102); Mean Platelet Volume 10.1 FL (9.6-12.0); Monocytes % 8.6 % (1.7-12.7); Neutrophils % 74.2 % (38.7-73.9); Platelet Count 214 T/CUMM (130-400); Red Blood Count 4.95 MC/CUMM (3.8-5.5); Red Cell Distribution Width 18.6 % (9.3-17.3); White Blood Count 11.3 T/CUMM (4-12)
[2018-12-22 08:30] VITALS: BP 121/58
[2018-12-22] MEDS: POTASSIUM CHLORIDE 20 MEQ TABLET PO SCH (09:28)
[2018-12-22] MEDS: TIMOLOL 0.5% OPH SOLN 5 ML BOTTLE RIGHT EYE SCH (09:28)
[2018-12-22] MEDS: PANTOPRAZOLE 40 MG TABLET PO SCH (09:28)
[2018-12-22] MEDS: metOLazone 2.5 MG TABLET PO SCH (09:28)
[2018-12-22] MEDS: BRINZOLAMIDE 1% OPH SUSP 10 ML BOTTLE RIGHT EYE SCH (09:28)
[2018-12-22] MEDS: GABAPENTIN 300 MG CAPSULE PO SCH (09:29)
[2018-12-22] MEDS: FUROSEMIDE 40 MG TABLET PO SCH (09:29)
[2018-12-22] MEDS: SPIRONOLACTONE 25 MG TABLET PO SCH (09:30)
[2018-12-22] MEDS: METOPROLOL SUCCINATE XL 50 MG TABLET PO SCH (09:31)
[2018-12-22] MEDS: DILTIAZEM CD 240 MG CAPSULE PO SCH (09:31)
[2018-12-22] MEDS: INSULIN GLARGINE 100 UNIT/ML SUBCUT SCH (09:32)
[2018-12-22] MEDS: POLYETHYLENE GLYCOL POWDER 17 GM PACK PO SCH (10:07)
[2018-12-22] MEDS: INSULIN REGULAR 100 UNIT/ML SUBCUT SCH (10:07)
== END 2018-12-22 14:06 | disposition home health service (06) | DRG 813 ==
LOC: N.ED 21:48 → N.EDINP 12-18 01:03 → SUATTDRO 12-18 01:07 → N.TELEN 12-18 11:37 → N.EDINP 12-18 11:37 → N.TELEN 12-18 12:02
PROVIDERS: ADMIT Internal Medicine; ATTEND Internal Medicine

== ENCOUNTER 2019-12-16 18:00 | Inpatient (IN) ==
[2019-12-16 18:31] LABS: Basophils # 0.1 10*3/uL (0.0-0.2); Basophils % 0.4 % (0.0-0.8); Eosinophils # 0.2 10*3/uL (0.0-0.87); Eosinophils % 0.9 % (0.00-10.9); Hematocrit 34.5 VOL% (42.0-52.0); Hemoglobin 10.4 GM/DL (14.0-18.0); Immature Granulocytes % 0.6 %; Immature Granulocytes Absolute 0.11 #; Lymphocytes # 0.6 10*3/uL (1.4-4.0); Mean Corpuscular HGB Conc 30.1 GM/DL (32-36); Mean Platelet Volume 10.4 FL (9.6-12.0); Monocytes % 5.7 % (1.7-12.7); Neutrophils % 89.4 % (38.7-73.9); Platelet Count 254 T/CUMM (130-400); Red Blood Count 4.01 MC/CUMM (3.8-5.5); Red Cell Distribution Width 18.2 % (9.3-17.3); White Blood Count 18.1 T/CUMM (4-12)
[2019-12-16 18:40] LABS: INR 1.3; PT Patient Result 13.3 SECS (9.8-11.9)
[2019-12-16 18:51] LABS: Hypochromasia Slight; Lymphocytes 3 % (20-55); Microcytosis Slight; Platelet Estimate Normal; Segmented Neutrophils 91 % (50-85); Total Cells Counted 100
[2019-12-16 19:03] LABS: Albumin 2.6 G/DL (3.4-5.0); Bilirubin,Total 0.8 MG/DL (0.2-1.0); Calcium 8.8 MG/DL (8.5-10.1); Osmolality,Calculated 273.7 MOS/KG (273-304); Total Protein 8.2 G/DL (6.4-8.3)
[2019-12-16] MEDS ORDERED: PIPERACILLIN/TAZOBACTAM 3,375 MG in SODIUM CHLORIDE 0.9% 100 ML IV STA (19:04)
[2019-12-16] MEDS ORDERED: VANCOMYCIN INJ 1,000 MG in SODIUM CHLORIDE 0.9% 250 ML IV STA ×2 (19:04→19:06)
[2019-12-16] MEDS ORDERED: DEXTROSE 10% 250 ML BAG IV PRN (19:29)
[2019-12-16] MEDS ORDERED: ONDANSETRON 4 MG/2 ML VIAL IV PRN (19:29)
[2019-12-16] MEDS ORDERED: ACETAMINOPHEN 325 MG TABLET PO PRN (19:29)
[2019-12-16] MEDS ORDERED: guaiFENesin/DM ER 600-30 MG TABLET PO PRN (19:29)
[2019-12-16] MEDS ORDERED: GLUCAGON 1 MG VIAL IM PRN ×2 (19:29→19:35)
[2019-12-16] MEDS ORDERED: DEXTROSE 50% 25 GM/50 ML VIAL IV PRN (19:35)
[2019-12-16 20:16] LABS: Ferritin 75.8 ng/ml (26-388)
[2019-12-16] MEDS ORDERED: MAGNESIUM SULF RIDER 4 GM in PREMIX 1 EACH IV PRN (20:25)
[2019-12-16] MEDS ORDERED: MAGNESIUM SULF RIDER 2 GM in PREMIX 1 EACH IV PRN (20:25)
[2019-12-16] MEDS: SODIUM CHLORIDE 0.9% 1,000 ML IV SCH (20:28)
[2019-12-16] MEDS ORDERED: ENOXAPARIN 40 MG/0.4 ML SYRINGE SUBCUT SCH (21:00)
[2019-12-16 21:04] LABS: Apearance,Urine CLEAR (Clear); Bacteria,Urine Occasional /HPF (Few); Bilirubin,Urine Negative (Negative); Blood, Urine Negative (Negative); Glucose,Urine (UA) Negative (Negative); Hyaline Casts,Urine 7 /LPF (0-3); Ketones,Urine Negative (Negative); Mucus,Urine Occasional /LPF (Occasional); Nitrite,Urine Negative (Negative); Protein,Urine Negative; RBC,Urine 1 /HPF (0-4); Urine Color Yellow (Yellow); Urine Specific Gravity 1.008 (1.001-1.035); Urine Urobilinogen < 2.0 EU/DL (0.2-1.0); WBC,Urine <1 /HPF (0-6)
[2019-12-16] MEDS: MEROPENEM 500 MG in SODIUM CHLORIDE 0.9% 100 ML IV SCH (23:48)
[2019-12-17] MEDS: INSULIN LISPRO 100 UNIT/ML SUBCUT SCH ×5 (02:27→21:05)
[2019-12-17] MEDS: FAMOTIDINE 20 MG TABLET PO SCH ×3 (02:53→20:30)
[2019-12-17] MEDS: GABAPENTIN 300 MG CAPSULE PO SCH ×4 (02:53→20:30)
[2019-12-17] MEDS: MEROPENEM 500 MG in SODIUM CHLORIDE 0.9% 100 ML IV SCH (06:02)
[2019-12-17 06:36] LABS: Basophils % 0.3 % (0.0-0.8); Eosinophils # 0.1 10*3/uL (0.0-0.87); Eosinophils % 0.9 % (0.00-10.9); Hematocrit 26.5 VOL% (42.0-52.0); Hemoglobin 7.9 GM/DL (14.0-18.0); Immature Granulocytes % 0.5 %; Immature Granulocytes Absolute 0.06 #; Lymphocytes % 8.6 % (21.2-54.2); Mean Corpuscular HGB Conc 29.8 GM/DL (32-36); Mean Corpuscular Volume 85.2 FL (87-102); Mean Platelet Volume 10.5 FL (9.6-12.0); Monocytes % 6.4 % (1.7-12.7); Neutrophils % 83.3 % (38.7-73.9); Platelet Count 171 T/CUMM (130-400); Red Blood Count 3.11 MC/CUMM (3.8-5.5); Red Cell Distribution Width 18.6 % (9.3-17.3); White Blood Count 11.5 T/CUMM (4-12)
[2019-12-17 06:51] LABS: Albumin 1.8 G/DL (3.4-5.0); Bilirubin,Total 0.9 MG/DL (0.2-1.0); Calcium 8.4 MG/DL (8.5-10.1); Osmolality,Calculated 274.4 MOS/KG (273-304); Total Protein 6.5 G/DL (6.4-8.3)
[2019-12-17] MEDS: POTASSIUM CHLORIDE RIDER 10 MEQ in PREMIX 1 EACH IV PRN ×5 (08:38→14:55)
[2019-12-17] MEDS: FINASTERIDE 5 MG TABLET PO SCH (09:12)
[2019-12-17] MEDS: APIXABAN 5 MG TABLET PO SCH ×2 (09:12→20:30)
[2019-12-17] MEDS: PANTOPRAZOLE 40 MG TABLET PO SCH (09:12)
[2019-12-17] MEDS: DONEPEZIL 5 MG TABLET PO SCH (09:13)
[2019-12-17] MEDS: CEFEPIME 1,000 MG in SODIUM CHLORIDE 0.9% 100 ML IV SCH ×2 (11:54→17:07)
[2019-12-17] MEDS: VANCOMYCIN INJ 1,250 MG in SODIUM CHLORIDE 0.9% 250 ML IV SCH (20:30)
[2019-12-17] MEDS: QUEtiapine 25 MG TABLET PO SCH (20:30)
[2019-12-17] MEDS: SERTRALINE 25 MG TABLET PEG SCH (20:30)
[2019-12-18] MEDS: CEFEPIME 1,000 MG in SODIUM CHLORIDE 0.9% 100 ML IV SCH ×4 (00:38→17:23)
[2019-12-18 06:30] LABS: Ferritin 130.6 ng/ml (26-388)
[2019-12-18] MEDS: INSULIN LISPRO 100 UNIT/ML SUBCUT SCH ×4 (07:51→21:15)
[2019-12-18] MEDS: FINASTERIDE 5 MG TABLET PO SCH (08:52)
[2019-12-18] MEDS: GABAPENTIN 300 MG CAPSULE PO SCH ×3 (08:52→21:14)
[2019-12-18] MEDS: FAMOTIDINE 20 MG TABLET PO SCH ×2 (08:52→21:14)
[2019-12-18] MEDS: APIXABAN 5 MG TABLET PO SCH ×2 (08:52→21:12)
[2019-12-18] MEDS: DONEPEZIL 5 MG TABLET PO SCH (08:53)
[2019-12-18] MEDS: PANTOPRAZOLE 40 MG TABLET PO SCH (08:53)
[2019-12-18] MEDS ORDERED: FUROSEMIDE 40 MG/4 ML VIAL IV ONE (12:30)
[2019-12-18] MEDS: SERTRALINE 25 MG TABLET PEG SCH (21:13)
[2019-12-18] MEDS: QUEtiapine 25 MG TABLET PO SCH (21:15)
[2019-12-18] MEDS: VANCOMYCIN INJ 1,250 MG in SODIUM CHLORIDE 0.9% 250 ML IV SCH (21:15)
[2019-12-19] MEDS: CEFEPIME 1,000 MG in SODIUM CHLORIDE 0.9% 100 ML IV SCH ×4 (00:16→17:55)
[2019-12-19 07:08] LABS: Basophils # 0.1 10*3/uL (0.0-0.2); Basophils % 0.4 % (0.0-0.8); Eosinophils # 0.1 10*3/uL (0.0-0.87); Hematocrit 31.2 VOL% (42.0-52.0); Hemoglobin 9.3 GM/DL (14.0-18.0); Immature Granulocytes % 0.5 %; Immature Granulocytes Absolute 0.06 #; Lymphocytes # 1.3 10*3/uL (1.4-4.0); Lymphocytes % 10.1 % (21.2-54.2); Mean Corpuscular HGB Conc 29.8 GM/DL (32-36); Mean Corpuscular Volume 86.4 FL (87-102); Mean Platelet Volume 11.1 FL (9.6-12.0); Monocytes % 5.7 % (1.7-12.7); Neutrophils % 82.3 % (38.7-73.9); Platelet Count 172 T/CUMM (130-400); Red Blood Count 3.61 MC/CUMM (3.8-5.5); Red Cell Distribution Width 19.2 % (9.3-17.3); White Blood Count 12.9 T/CUMM (4-12)
[2019-12-19 07:36] LABS: Calcium 8.5 MG/DL (8.5-10.1); Osmolality,Calculated 279.2 MOS/KG (273-304)
[2019-12-19 08:16] LABS: Ferritin 167.7 ng/ml (26-388)
[2019-12-19] MEDS: INSULIN LISPRO 100 UNIT/ML SUBCUT SCH ×4 (08:32→21:49)
[2019-12-19] MEDS: FAMOTIDINE 20 MG TABLET PO SCH ×2 (08:33→21:48)
[2019-12-19] MEDS: DONEPEZIL 5 MG TABLET PO SCH (08:33)
[2019-12-19] MEDS: APIXABAN 5 MG TABLET PO SCH ×2 (08:33→21:46)
[2019-12-19] MEDS: PANTOPRAZOLE 40 MG TABLET PO SCH (08:34)
[2019-12-19] MEDS: FINASTERIDE 5 MG TABLET PO SCH (08:34)
[2019-12-19] MEDS: GABAPENTIN 300 MG CAPSULE PO SCH ×3 (08:34→21:48)
[2019-12-19] MEDS: POTASSIUM CHLORIDE RIDER 10 MEQ in PREMIX 1 EACH IV PRN ×5 (09:00→15:15)
[2019-12-19] MEDS: DOXYCYCLINE HYCLATE INJ 100 MG in SODIUM CHLORIDE 0.9% 100 ML IV SCH (12:39)
[2019-12-19] MEDS: SERTRALINE 25 MG TABLET PEG SCH (21:48)
[2019-12-19] MEDS: QUEtiapine 25 MG TABLET PO SCH (21:49)
[2019-12-20] MEDS: CEFEPIME 1,000 MG in SODIUM CHLORIDE 0.9% 100 ML IV SCH ×4 (00:20→18:26)
[2019-12-20] MEDS: DOXYCYCLINE HYCLATE INJ 100 MG in SODIUM CHLORIDE 0.9% 100 ML IV SCH ×2 (00:52→14:19)
[2019-12-20 05:49] LABS: Basophils # 0.1 10*3/uL (0.0-0.2); Basophils % 0.8 % (0.0-0.8); Eosinophils # 0.3 10*3/uL (0.0-0.87); Eosinophils % 4.2 % (0.00-10.9); Hematocrit 29.3 VOL% (42.0-52.0); Hemoglobin 8.6 GM/DL (14.0-18.0); Immature Granulocytes % 0.6 %; Immature Granulocytes Absolute 0.05 #; Lymphocytes # 0.7 10*3/uL (1.4-4.0); Mean Corpuscular HGB Conc 29.4 GM/DL (32-36); Mean Corpuscular Volume 85.4 FL (87-102); Mean Platelet Volume 11.1 FL (9.6-12.0); Monocytes % 7.5 % (1.7-12.7); Neutrophils % 77.9 % (38.7-73.9); Platelet Count 153 T/CUMM (130-400); Red Blood Count 3.43 MC/CUMM (3.8-5.5); Red Cell Distribution Width 19.1 % (9.3-17.3); White Blood Count 7.9 T/CUMM (4-12)
[2019-12-20 06:22] LABS: Calcium 8.6 MG/DL (8.5-10.1); Osmolality,Calculated 282.8 MOS/KG (273-304)
[2019-12-20 06:55] LABS: Ferritin 115.4 ng/ml (26-388)
[2019-12-20] MEDS: APIXABAN 5 MG TABLET PO SCH ×2 (09:09→20:23)
[2019-12-20] MEDS: FAMOTIDINE 20 MG TABLET PO SCH ×2 (09:09→20:23)
[2019-12-20] MEDS: POTASSIUM CHLORIDE 20 MEQ TABLET PO PRN (09:09)
[2019-12-20] MEDS: FINASTERIDE 5 MG TABLET PO SCH (09:09)
[2019-12-20] MEDS: GABAPENTIN 300 MG CAPSULE PO SCH ×3 (09:09→20:23)
[2019-12-20] MEDS: PANTOPRAZOLE 40 MG TABLET PO SCH (09:09)
[2019-12-20] MEDS: DONEPEZIL 5 MG TABLET PO SCH (09:09)
[2019-12-20] MEDS: INSULIN LISPRO 100 UNIT/ML SUBCUT SCH ×4 (09:10→20:52)
[2019-12-20] MEDS: QUEtiapine 25 MG TABLET PO SCH (20:23)
[2019-12-20] MEDS: SERTRALINE 25 MG TABLET PEG SCH (20:24)
[2019-12-20] MEDS: SODIUM CHLORIDE 0.9% 1,000 ML IV SCH (22:25)
[2019-12-21] MEDS: CEFEPIME 1,000 MG in SODIUM CHLORIDE 0.9% 100 ML IV SCH ×4 (00:27→17:41)
[2019-12-21] MEDS: DOXYCYCLINE HYCLATE INJ 100 MG in SODIUM CHLORIDE 0.9% 100 ML IV SCH ×2 (01:00→12:18)
[2019-12-21 04:35] LABS: Ferritin 114.3 ng/ml (26-388)
[2019-12-21] MEDS: INSULIN LISPRO 100 UNIT/ML SUBCUT SCH ×4 (07:31→20:41)
[2019-12-21] MEDS: GABAPENTIN 300 MG CAPSULE PO SCH ×3 (08:18→20:37)
[2019-12-21] MEDS: FAMOTIDINE 20 MG TABLET PO SCH ×2 (08:18→20:37)
[2019-12-21] MEDS: FINASTERIDE 5 MG TABLET PO SCH (08:18)
[2019-12-21] MEDS: APIXABAN 5 MG TABLET PO SCH ×2 (08:18→20:37)
[2019-12-21] MEDS: PANTOPRAZOLE 40 MG TABLET PO SCH (08:19)
[2019-12-21] MEDS: POTASSIUM CHLORIDE 20 MEQ TABLET PO PRN (08:19)
[2019-12-21] MEDS: DONEPEZIL 5 MG TABLET PO SCH (08:19)
[2019-12-21] MEDS ORDERED: FUROSEMIDE 40 MG/4 ML VIAL IV ONE (11:00)
[2019-12-21] MEDS: POTASSIUM CHLORIDE 20 MEQ/15 ML UDCUP PER TUBE PRN ×2 (11:50→14:47)
[2019-12-21] MEDS: SERTRALINE 25 MG TABLET PEG SCH (20:38)
[2019-12-21] MEDS: QUEtiapine 25 MG TABLET PO SCH (20:38)
[2019-12-22] MEDS: CEFEPIME 1,000 MG in SODIUM CHLORIDE 0.9% 100 ML IV SCH ×4 (00:05→20:59)
[2019-12-22] MEDS: DOXYCYCLINE HYCLATE INJ 100 MG in SODIUM CHLORIDE 0.9% 100 ML IV SCH (00:35)
[2019-12-22 07:05] LABS: Basophils # 0.1 10*3/uL (0.0-0.2); Basophils % 0.8 % (0.0-0.8); Eosinophils # 0.1 10*3/uL (0.0-0.87); Eosinophils % 1.8 % (0.00-10.9); Hematocrit 30.6 VOL% (42.0-52.0); Hemoglobin 8.9 GM/DL (14.0-18.0); Immature Granulocytes % 0.4 %; Immature Granulocytes Absolute 0.03 #; Lymphocytes # 0.8 10*3/uL (1.4-4.0); Lymphocytes % 10.1 % (21.2-54.2); Mean Corpuscular HGB Conc 29.1 GM/DL (32-36); Mean Corpuscular Volume 88.2 FL (87-102); Monocytes % 10.8 % (1.7-12.7); Neutrophils % 76.1 % (38.7-73.9); Platelet Count 144 T/CUMM (130-400); Red Blood Count 3.47 MC/CUMM (3.8-5.5); Red Cell Distribution Width 18.9 % (9.3-17.3)
[2019-12-22 07:10] LABS: Calcium 8.1 MG/DL (8.5-10.1); Osmolality,Calculated 285.8 MOS/KG (273-304)
[2019-12-22 07:24] LABS: Ferritin 124.4 ng/ml (26-388)
[2019-12-22] MEDS: INSULIN LISPRO 100 UNIT/ML SUBCUT SCH ×4 (08:30→20:59)
[2019-12-22] MEDS: FAMOTIDINE 20 MG TABLET PO SCH ×2 (08:31→20:58)
[2019-12-22] MEDS: FINASTERIDE 5 MG TABLET PO SCH (08:31)
[2019-12-22] MEDS: PANTOPRAZOLE 40 MG TABLET PO SCH (08:31)
[2019-12-22] MEDS: GABAPENTIN 300 MG CAPSULE PO SCH ×3 (08:31→20:58)
[2019-12-22] MEDS: DONEPEZIL 5 MG TABLET PO SCH (08:31)
[2019-12-22] MEDS: APIXABAN 5 MG TABLET PO SCH ×2 (08:32→20:58)
[2019-12-22] MEDS: DOXYCYCLINE HYCLATE 100 MG CAPSULE PO SCH ×2 (10:07→20:58)
[2019-12-22] MEDS: QUEtiapine 25 MG TABLET PO SCH (20:58)
[2019-12-22] MEDS: SERTRALINE 25 MG TABLET PEG SCH (20:58)
[2019-12-22] MEDS ORDERED: METOPROLOL TARTRATE 5 MG/5 ML VIAL IV ONE (23:55)
[2019-12-23] MEDS: CEFEPIME 1,000 MG in SODIUM CHLORIDE 0.9% 100 ML IV SCH ×4 (03:45→20:48)
[2019-12-23 04:43] LABS: Basophils # 0.1 10*3/uL (0.0-0.2); Basophils % 0.6 % (0.0-0.8); Eosinophils # 0.3 10*3/uL (0.0-0.87); Eosinophils % 3.9 % (0.00-10.9); Hematocrit 31.2 VOL% (42.0-52.0); Hemoglobin 9.1 GM/DL (14.0-18.0); Immature Granulocytes % 0.4 %; Immature Granulocytes Absolute 0.03 #; Lymphocytes % 13.1 % (21.2-54.2); Mean Corpuscular HGB Conc 29.2 GM/DL (32-36); Mean Corpuscular Volume 85.5 FL (87-102); Mean Platelet Volume 10.6 FL (9.6-12.0); Monocytes % 11.1 % (1.7-12.7); Neutrophils % 70.9 % (38.7-73.9); Platelet Count 130 T/CUMM (130-400); Red Blood Count 3.65 MC/CUMM (3.8-5.5); Red Cell Distribution Width 18.8 % (9.3-17.3); White Blood Count 7.8 T/CUMM (4-12)
[2019-12-23 05:12] LABS: Calcium 8.6 MG/DL (8.5-10.1); Osmolality,Calculated 283.7 MOS/KG (273-304)
[2019-12-23] MEDS: DONEPEZIL 5 MG TABLET PO SCH (08:48)
[2019-12-23] MEDS: FAMOTIDINE 20 MG TABLET PO SCH ×2 (08:48→20:47)
[2019-12-23] MEDS: APIXABAN 5 MG TABLET PO SCH ×2 (08:48→20:48)
[2019-12-23] MEDS: DOXYCYCLINE HYCLATE 100 MG CAPSULE PO SCH ×2 (08:48→20:46)
[2019-12-23] MEDS: INSULIN LISPRO 100 UNIT/ML SUBCUT SCH ×4 (08:48→21:08)
[2019-12-23] MEDS: POTASSIUM CHLORIDE 20 MEQ/15 ML UDCUP PER TUBE PRN ×3 (08:48→15:45)
[2019-12-23] MEDS: FINASTERIDE 5 MG TABLET PO SCH (08:48)
[2019-12-23] MEDS: PANTOPRAZOLE 40 MG TABLET PO SCH (08:49)
[2019-12-23] MEDS: GABAPENTIN 300 MG CAPSULE PO SCH ×3 (08:49→20:47)
[2019-12-23] MEDS ORDERED: carvediloL 3.125 MG TABLET PO SCH (09:08)
[2019-12-23] MEDS ORDERED: METOPROLOL SUCCINATE XL 50 MG TABLET PO SCH ×2 (12:30→21:00)
[2019-12-23] MEDS ORDERED: SPIRONOLACTONE 50 MG TABLET PO SCH ×2 (12:30→21:00)
[2019-12-23] MEDS: SERTRALINE 25 MG TABLET PEG SCH (20:46)
[2019-12-23] MEDS: QUEtiapine 25 MG TABLET PO SCH (20:47)
[2019-12-24] MEDS: CEFEPIME 1,000 MG in SODIUM CHLORIDE 0.9% 100 ML IV SCH ×2 (04:05→09:46)
[2019-12-24 06:07] LABS: Calcium 8.5 MG/DL (8.5-10.1); Osmolality,Calculated 292.5 MOS/KG (273-304); Prealbumin 6.3 MG/DL (20-40)
[2019-12-24] MEDS: PANTOPRAZOLE 40 MG TABLET PO SCH (09:46)
[2019-12-24] MEDS: APIXABAN 5 MG TABLET PO SCH (09:46)
[2019-12-24] MEDS: DONEPEZIL 5 MG TABLET PO SCH (09:46)
[2019-12-24] MEDS: FAMOTIDINE 20 MG TABLET PO SCH (09:46)
[2019-12-24] MEDS: GABAPENTIN 300 MG CAPSULE PO SCH (09:46)
[2019-12-24] MEDS: FINASTERIDE 5 MG TABLET PO SCH (09:46)
[2019-12-24] MEDS: INSULIN LISPRO 100 UNIT/ML SUBCUT SCH ×2 (09:46→12:07)
[2019-12-24] MEDS: DOXYCYCLINE HYCLATE 100 MG CAPSULE PO SCH (09:47)
[2019-12-24 12:07] VITALS: BP 95/66
[2019-12-24] MEDS ORDERED: METOPROLOL SUCCINATE XL 100 MG TABLET PO SCH (12:09)
== END 2019-12-24 15:35 | disposition hospice, home (50) | DRG 193 ==
LOC: EDUNIT# → EDBD → N.ED 18:00 → N.EDINP 19:29 → SUATTDRO 19:29 → N.2E 12-17 01:04 → N.4E 12-22 10:55
PROVIDERS: ADMIT Family Medicine; ATTEND Family Medicine